=== PATIENT | male | born 1965 | race Caucasian/White ===

== ENCOUNTER 2018-02-08 14:49 | Emergency (ER) | payer OTHER ==
[~2018-02-08] VITALS: Ht 185.4 cm; Wt 112.5 kg
[2018-02-08 15:41] LABS: BASOPHILS % (AUTO) 0 % (0-10); EOSINOPHILS # (AUTO) 0.3 10^3/uL (0.0-0.3); EOSINOPHILS % (AUTO) 2 % (0-10); HEMATOCRIT 47 % (40-54); HEMOGLOBIN 16.1 G/DL (13.3-17.7); LYMPHOCYTES # (AUTO) 2.3 X 10^3 (1.0-4.0); LYMPHOCYTES % (AUTO) 18 % (12-44); MEAN CORPUSCULAR HEMOGLOBIN 31 PG (25-34); MEAN CORPUSCULAR HGB CONC 35 G/DL (32-36); MEAN CORPUSCULAR VOLUME 89 FL (80-99); MEAN PLATELET VOLUME 10.9 FL (7.4-10.4); MONOCYTES % (AUTO) 8 % (0-12); NEUTROPHILS # (AUTO) 8.8 X 10^3 (1.8-7.8); NEUTROPHILS % (AUTO) 71 % (42-75); PLATELET COUNT 251 10^3/uL (130-400); RED BLOOD COUNT 5.25 10^6/uL (4.35-5.85); RED CELL DISTRIBUTION WIDTH 12.8 % (10.0-14.5); WHITE BLOOD COUNT 12.4 10^3/uL (4.3-11.0)
--- NOTE | 2018-02-08 15:46 | ED Chest Pain ---
General Chief Complaint: Back Problems Stated Complaint: RIB PAIN,BACK PAIN, Nursing Triage Note: Patient presents to ED with complaints of upper and middle left sided back pain that began 3 days ago. Patient also complains of left rib pain. Pain increases with palpation, taking a deep breath and movement. Patient has had difficulty walking due to the pain. He descibes the pain as sharp and intermittent. Nursing Sepsis Screen: No Definite Risk Source: patient Exam Limitations: no limitations History of Present Illness Date Seen by Provider: Feb 08, 2018 Time Seen by Provider: 15:11 Initial Comments This 52-year-old gentleman presents to the emergency room with complaints of pain in his left mid and upper back radiating through to the chest. It is particularly painful to cough and take deep breaths. He has had this pain for about a week. He has been to the [facility] clinic twice for this pain. He has been given Toradol and steroid injections without significant relief. He last took ibuprofen early this morning. He denies any significant relief with any medications. He has had some cough and some sweats but no fever. He has history of coronary artery disease as well. He reports a prior IN with unusual atypical presentation. Allergies and Home Medications Allergies Coded Allergies: aspartame (Verified Allergy, Unknown, 02/08/18) Home Medications Cyclobenzaprine HCl 10 Mg Tablet, 10 MG PO TID PRN for SPASMS Prescribed by: TRAE MAJANO on 02/08/181821 Hydrocodone/Acetaminophen 1 Each Tablet, 1 EACH PO Q6H PRN for PAIN-MODERATE TO SEVERE Prescribed by: TRAE MAJANO on 02/08/181821 Prednisone 20 Mg Tab, 20 MG PO UD Take 2 tablets daily for 3 days then one tablet daily for 3 days Prescribed by: TRAE MAJANO on 02/08/181821 Patient Home Medication List Home Medication List Reviewed: Yes Review of Systems Review of Systems Constitutional: no symptoms reported EENTM: No Symptoms Reported Respiratory: See HPI Cardiovascular: See HPI Gastrointestinal: No Symptoms Reported Genitourinary: No Symptoms Reported Musculoskeletal: see HPI Skin: no symptoms reported Psychiatric/Neurological: No Symptoms Reported Endocrine: No Symptoms Reported Hematologic/Lymphatic: No Symptoms Reported Past Eqhpbbd-Ybyagf-Nemmat Hx Past Med/Social Hx: Reviewed and Corrections made Patient Social History Alcohol Use: Rarely Uses Recreational Drug Use: No Smoking Status: Never a Smoker 2nd Hand Smoke Exposure: No Recent Foreign Travel: No Contact w/Someone Who Travel: No Recent Infectious Disease Expo: No Recent Hopitalizations: No Physical Abuse: No Sexual Abuse: No Seasonal Allergies Seasonal Allergies: No Past Medical History Surgeries: Yes (surgical procedure to decrease acid reflux, hiatal hernia) Bowel Surgery, Coronary Stent, Orthopedic Respiratory: No Cardiac: Yes (coronary stents x 3) Coronary Artery Disease, Heart Attack Neurological: Yes TIA Genitourinary: No Gastrointestinal: Yes (colon resection due to diverticulitis) Gastroesophageal Reflux, Diverticulosis, Hiatal Hernia Musculoskeletal: Yes (left shoulder and elbow surgery, bilateral carpal tunnel surgery, right elb) Endocrine: Yes Diabetes, Non-Insulin dep HEENT: No Cancer: No Psychosocial: No Nursing Suicide Risk Score: 0 Integumentary: No Blood Disorders: No Physical Exam Vital Signs Vital Signs - First Documented 02/08/18 02/08/18 14:51 16:54 Temp 98.1 Pulse 96 Resp 18 B/P (MAP) 127/91 (103) Pulse Ox 94 O2 Delivery Room Air Capillary Refill : Less Than 3 Seconds Height, Weight, BMI Height: 6'1.00" Weight: 248lbs. oz. 112.402481wj; BMI Method:Stated General Appearance: WD/WN, Moderate Distress HEENT: PERRL/EOMI, Normal ENT Inspection Neck: Normal Inspection Respiratory: Lungs Clear, Normal Breath Sounds, No Accessory Muscle Use, No Respiratory Distress, Other (mild tenderness to palpation of the anterior and posterior chest wall on the left) Cardiovascular: Regular Rate, Rhythm, No Murmur, Normal Peripheral Pulses Gastrointestinal: Normal Bowel Sounds, Non Tender, Soft Extremity: Normal Inspection, Non Tender, No Calf Tenderness, No Pedal Edema, Other (negative Shira) Neurologic/Psychiatric: Alert, Oriented x3, No Motor/Sensory Deficits, Normal 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, 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 as Tested Skin: Normal Color, Warm/Dry; No Rash Progress/Results/Core Measures Results/Orders Lab Results Laboratory Tests Test 02/08/18 15:31 Range/Units White Blood Count 12.4 H 4.3-11.0 10^3/uL Red Blood Count 5.25 4.35-5.85 10^6/uL Hemoglobin 16.1 13.3-17.7 G/DL Hematocrit 47 40-54 % Mean Corpuscular Volume 89 80-99 FL Mean Corpuscular Hemoglobin 31 25-34 PG Mean Corpuscular Hemoglobin Concent 35 32-36 G/DL Red Cell Distribution Width 12.8 10.0-14.5 % Platelet Count 251 130-400 10^3/uL Mean Platelet Volume 10.9 H 7.4-10.4 FL Neutrophils (%) (Auto) 71 42-75 % Lymphocytes (%) (Auto) 18 12-44 % Monocytes (%) (Auto) 8 0-12 % Eosinophils (%) (Auto) 2 0-10 % Basophils (%) (Auto) 0 0-10 % Neutrophils # (Auto) 8.8 H 1.8-7.8 X 10^3 Lymphocytes # (Auto) 2.3 1.0-4.0 X 10^3 Monocytes # (Auto) 1.0 0.0-1.0 X 10^3 Eosinophils # (Auto) 0.3 0.0-0.3 10^3/uL Basophils # (Auto) 0.0 0.0-0.1 10^3/uL Prothrombin Time 13.5 12.2-14.7 SEC INR Comment 1.0 0.8-1.4 Activated Partial Thromboplast Time 32 24-35 SEC D-Dimer 0.39 0.00-0.49 UG/ML Sodium Level 139 135-145 MMOL/L Potassium Level 4.1 3.6-5.0 MMOL/L Chloride Level 105 98-107 MMOL/L Carbon Dioxide Level 23 21-32 MMOL/L Anion Gap 11 5-14 MMOL/L Blood Urea Nitrogen 19 H 7-18 MG/DL Creatinine 0.94 0.60-1.30 MG/DL Estimat Glomerular Filtration Rate > 60 BUN/Creatinine Ratio 20 Glucose Level 232 H 70-105 MG/DL Calcium Level 9.9 8.5-10.1 MG/DL Corrected Calcium 9.7 8.5-10.1 MG/DL Magnesium Level 2.0 1.8-2.4 MG/DL Total Bilirubin 0.4 0.1-1.0 MG/DL Aspartate Amino Transf (AST/SGOT) 17 5-34 U/L Alanine Aminotransferase (ALT/SGPT) 17 0-55 U/L Alkaline Phosphatase 80 40-136 U/L Myoglobin 42.2 10.0-92.0 NG/ML Troponin I < 0.30 <0.30 NG/ML C-Reactive Protein High Sensitivity 1.57 H 0.00-0.50 MG/DL Total Protein 7.5 6.4-8.2 GM/DL Albumin 4.2 3.2-4.5 GM/DL Lipase 24 8-78 U/L My Orders Orders - TRAE MONREAL MD Cbc With Automated Diff (02/08/18 15:22) Magnesium (02/08/18 15:22) Ekg Tracing (02/08/18 15:22) Cardiac Profile 1 (02/08/18 15:22) Comprehensive Metabolic Panel (02/08/18:) Myoglobin Serum (02/08/18:22) Protime With Inr (02/08/18:) Partial Thromboplastin Time (02/08/18:22) O2 (02/08/18 15:22) Monitor-Rhythm Ecg Trace Only (02/08/18 15:22) Saline Lock/Iv-Start (02/08/18 15:22) Lipase (02/08/18 15:22) Fibrin Degradation Products (02/08/18 15:22) Chest Pa/Lat (2 View) (02/08/18 15:34) Hs C Reactive Protein (02/08/18 15:47) Fentanyl Injection (Sublimaze Injection (02/08/18 16:30) Let Solution (Let Solution) (02/08/18 17:00) Lidocaine 1% Inj 20 Ml (Xylocaine 1% Inj (02/08/18 17:00) Ct Angio Chest W (02/08/18 17:07) Iohexol Injection (Omnipaque 350 Mg/Ml 1 (02/08/18 17:15) Sodium Chloride Flush (Catheter Flush Sy (02/08/18 17:15) Ns (Ivpb) (Sodium Chloride 0.9%) (02/08/18 17:15) Pharmacy Communication (Pharmacy Communi (02/08/18 17:11) Ketorolac Injection (Toradol Injection) (02/08/18 18:15) Hydrocodone/Apap 5/325 Tablet (Lortab 5 (02/08/18 18:15) Orphenadrine Injection (Norflex Injectio (02/08/18 18:30) Medications Given in ED Vital Signs/I&O 02/08/18 02/08/18 02/08/18 14:51 16:54 18:38 Temp 98.1 97.1 Pulse 96 88 78 Resp 18 16 16 B/P (MAP) 127/91 (103) 130/96 (107) 138/96 Pulse Ox 94 95 O2 Delivery Room Air Room Air Blood Pressure Mean: 103 Progress Progress Note : Progress Note Chest pain workup was pursued. EKG, troponin, and chest x-ray revealed no obvious etiology for the pain. Further workup was pursued with CT angiogram of the chest after discussion of risks and benefits with the patient. Because of the unusual nature of the pain radiating from the chest through to the back, there was concern for possible aortic dissection. CT also revealed no obvious etiology for the patient's pain. Patient was treated with fentanyl, Toradol, Norflex, and hydrocodone for his pain. Leukocytosis is likely due to recent steroid use. CRP was not significantly elevated. Initial ECG Impression Date: Feb 08, 2018 Initial ECG Impression Time: 15:53 Initial ECG Rate: 93 Initial ECG Rhythm: Normal Sinus Comment Sinus rhythm with no ST elevation or depression. No abnormal intervals or axis deviation. Diagnostic Imaging Diagonstic Imaging: Xray Plain Films/CT/US/NM/MRI: chest Comments Chest x-ray viewed by me and report reviewed. See report below: NAME: AUGUSTINE MONTERROSO [facility] REC#: [id number] PT STATUS: DEP ER : 1965 PHYSICIAN: TRAE MONREAL MD ADMIT DATE: 02/08/18/ER Signed Date of Exam: 02/08/18 CHEST PA/LAT (2 VIEW) EXAMINATION: PA and Lateral chest at 04:56 p.m. INDICATION: Chest pain. There are no prior studies available for comparison. FINDINGS: The heart size is within normal limits. There are crowded bronchovascular markings in the left infrahilar region; however, there is no evidence for failure or pneumonia and there is no pleural effusion identified. The mediastinum is not widened. The osseous structures are intact. IMPRESSION: There is no evidence for an acute cardiopulmonary abnormality. Dictated by: Dictated on workstation # [id number] Dict: 02/08/18 1645 Trans: 02/08/182030 Interpreted by: GERBER KIRAN MD Electronically signed by: GERBER KIRAN MD 02/08/182030 Diagonstic Imaging: CT Plain Films/CT/US/NM/MRI: chest Comments CT angiogram chest viewed by me and report reviewed. See report below: NAME: AUGUSTINE MONTERROSO [facility] REC#: [id number] PT STATUS: DEP ER : 1965 PHYSICIAN: TRAE MONREAL MD ADMIT DATE: 02/08/18/ER Signed Date of Exam: 02/08/18 CT ANGIO CHEST W PROCEDURE: CT angiography of the chest with contrast. TECHNIQUE: Multiple contiguous axial images were obtained through the chest after uneventful bolus administration of intravenous contrast. Reconstructed CTA MIP acquisitions were also performed. INDICATION: Left chest and back pain. FINDINGS: The aorta appears normal. There are no pulmonary emboli. There is some patchy atelectasis at both lung bases. There are no effusions or pneumothoraces. There is no hilar or mediastinal lymphadenopathy. IMPRESSION: Patchy atelectasis at both lung bases. No acute abnormality is seen in the chest. Dictated by: Dictated on workstation # [id number] Dict: 02/08/18 174 Trans: 02/08/181850 Interpreted by: USHA GARY MD Electronically signed by: USHA GARY MD 02/08/181850 Departure Impression Primary Impression: Atypical chest pain Additional Impression: Upper back pain Disposition: 01 HOME, SELF-CARE Condition: Improved Departure-Patient Inst. Decision time for Depature: 18:15 Referrals: NO,LOCAL PHYSICIAN (PCP/Family) Primary Care Physician Patient Instructions: Upper Back Pain (DC) Add. Discharge Instructions: You may continue taking ibuprofen for primary pain management up to 600 mg every 6 hours as needed. Take hydrocodone as prescribed for pain not controlled by ibuprofen. Follow-up with your primary care provider as soon as possible. You may take cyclobenzaprine as prescribed for muscle spasms. Complete the steroid taper as prescribed. Return to emergency room if symptoms are worsening despite treatment. All discharge instructions reviewed with patient and/or family. Voiced understanding. Scripts Hydrocodone/Acetaminophen (Hydrocodone-Acetamin 5-325 mg) 1 Each Tablet 1 EACH PO Q6H PRN for PAIN-MODERATE TO SEVERE, #10 TAB Prov: TRAE MONREAL MD 02/08/18 Prednisone (Prednisone) 20 Mg Tab 20 MG PO UD, #9 TAB Take 2 tablets daily for 3 days then one tablet daily for 3 days Prov: TRAE MONREAL MD 02/08/18 Cyclobenzaprine HCl (Cyclobenzaprine HCl) 10 Mg Tablet 10 MG PO TID PRN for SPASMS, #10 TAB Prov: TRAE MONREAL MD 02/08/18 TRAE MONREAL MD Feb 08, 2018 15:46
[2018-02-08 15:51] LABS: PROTHROMBIN TIME PATIENT 13.5 SEC (12.2-14.7)
[2018-02-08 15:59] LABS: BUN/CREATININE RATIO 20; CARBON DIOXIDE 23 MMOL/L (21-32); CHLORIDE 105 MMOL/L (98-107); CREATININE SERUM 0.94 MG/DL (0.60-1.30); POTASSIUM 4.1 MMOL/L (3.6-5.0); SODIUM 139 MMOL/L (135-145)
[2018-02-08 16:00] LABS: ALANINE AMINOTRANSFERASE 17 U/L (0-55); ALBUMIN 4.2 GM/DL (3.2-4.5); ALKALINE PHOSPHATASE 80 U/L (40-136); BILIRUBIN,TOTAL 0.4 MG/DL (0.1-1.0); CALCIUM 9.9 MG/DL (8.5-10.1); GFR ESTIMATED > 60; GLUCOSE 232 MG/DL (70-105); LIPASE 24 U/L (8-78); TOTAL PROTEIN 7.5 GM/DL (6.4-8.2)
[2018-02-08 16:05] LABS: MYOGLOBIN SERUM 42.2 NG/ML (10.0-92.0)
[2018-02-08] MEDS: fentaNYL INJECTION 100 MCG/2 ML AMP IVP ONE (16:27)
--- NOTE | 2018-02-08 16:52 | Diagnostic Imaging Report ---
EXAMINATION: PA and Lateral chest at 04:56 p.m. INDICATION: Chest pain. There are no prior studies available for comparison. FINDINGS: The heart size is within normal limits. There are crowded bronchovascular markings in the left infrahilar region; however, there is no evidence for failure or pneumonia and there is no pleural effusion identified. The mediastinum is not widened. The osseous structures are intact. IMPRESSION: There is no evidence for an acute cardiopulmonary abnormality. Dictated by: Dictated on workstation # [id number]
[2018-02-08 16:54] VITALS: BP 130/96
[2018-02-08] MEDS ORDERED: LIDOCAINE 1% INJ 20 ML 20 ML VIAL INJ ONE (17:00)
[2018-02-08] MEDS ORDERED: L.E.T. SYRINGE 5 ML TOP ONE (17:00)
[2018-02-08] MEDS: CATHETER FLUSH 10 ML SYR IV PRN (17:36)
[2018-02-08] MEDS: NS 250 ML (IVPB) BAG IV ONE (17:36)
[2018-02-08] MEDS: IOHEXOL 350 MG/ML 150 ML (OMNIPAQUE 350) VIAL IV ONE (17:36)
--- NOTE | 2018-02-08 17:46 | Diagnostic Imaging Report ---
PROCEDURE: CT angiography of the chest with contrast. TECHNIQUE: Multiple contiguous axial images were obtained through the chest after uneventful bolus administration of intravenous contrast. Reconstructed CTA MIP acquisitions were also performed. INDICATION: Left chest and back pain. FINDINGS: The aorta appears normal. There are no pulmonary emboli. There is some patchy atelectasis at both lung bases. There are no effusions or pneumothoraces. There is no hilar or mediastinal lymphadenopathy. IMPRESSION: Patchy atelectasis at both lung bases. No acute abnormality is seen in the chest. Dictated by: Dictated on workstation # [id number]
--- OUTSIDE RECORDS SUMMARY | 2018-02-08 17:52 | XMS REPORT ---
Author Author Dayne Senior Organization [facility] Address [address] [place], [place] [id number] Care Team Providers Care Bench Lay Out Technician Name Role Phone Dayne Senior PCP Allergies and Adverse Reactions Name Reaction Notes NutraSweet migraines Latex skin irritation Plan of Treatment Not available. Medications Active Name Start Date Estimated Completion Date SIG Comments Plavix 75 mg oral tablet take 1 tablet (75 mg) by oral route once daily aspirin 325 mg oral tablet take 1 tablet (325 mg) by oral route once daily Problem List Not available. Vital Signs Date Time BP-Sys(mm[Hg] BP-Kellen(mm[Hg]) HR(bpm) RR(rpm) Temp WT HT HC BMI BSA BMI Percentile O2 Sat(%) 07/10/2017 8:57:00 AM 140 mmHg 90 mmHg 87 bpm 96.6 F 245 lbs 98 % 05/29/2017 3:34:00 PM 150 mmHg 90 mmHg 85 bpm 97.3 F 246 lbs 73 in 32.46 kg/m2 2.40 m2 98 % Social History Name Description Comments Alcohol Use - Rare Tobacco Never smoker History of Procedures Date Ordered Description Order Status 05/29/2017 12:00 AM NRV CNDJ TEST 9-10 STUDIES Reviewed 05/29/2017 12:00 AM MUSC TEST DONE W/N TEST COMP Reviewed 07/10/2017 12:00 AM NRV CNDJ TEST 9-10 STUDIES Reviewed 07/10/2017 12:00 AM MUSC TEST DONE W/N TEST COMP Reviewed Results Summary Not available. History Of Immunizations Not available. History of Past Illness Name Date of Onset Comments Sciatic nerve lesion, left May 29 2017 3:40PM Sciatic nerve lesion, right May 29 2017 3:40PM Peripheral neuropathy Jul 10 2017 9:00AM Disorder of peripheral nervous system Jul 10 2017 9:00AM Payers Insurance Name Company Name Plan Name Plan Number Policy Number Policy Group Number Start Date [facility] [id number] N/A History of Encounters Visit Date Visit Type Provider 07/10/2017 Procedures Dayne Senior DO 05/29/2017 Procedures Dayne Senior DO
--- OUTSIDE RECORDS SUMMARY | 2018-02-08 17:52 | XMS REPORT | Continuity of Care Document ---
Author Author [facility] Organization [facility] Address [facility] [address] [place] [address] Phone Unavailable Support Name Relationship Address Phone KELIN COSTELLO LEO Caregiver [address] [place] [address] VIKRAM PENDLETON MD Caregiver [address] [place] [address] Unavailable KULDEEP SHAFER MD Caregiver [address] [place] [address] 09[address] Unavailable TRAE BALDERAS MD Caregiver [address] [place] [address] RANJEET MÁRQUEZ Next Of Kin [address] [place], [place] [address] Insurance Providers Guarantor YulisaAugustine W Address [address] [place] [address] Email [email or web address] Policy Number [id number] Subscriber's Name Augustine Márquez Relationship 18 Self / Same As Patient Advance Directives Directive Response Recorded Date/Time Do you have an Advanced Directive? No 02/13/00 4:52am Advance Directives No 09/02/17 3:42pm Living Will No 09/02/17 3:42pm Health Care Proxy No 09/02/17 3:42pm Power of Security Guard Dispatcher for Health Care No 09/02/17 3:42pm Organ, Tissue, or Eye Donor Yes 09/02/17 3:42pm Do you have a signed organ donor card? Yes 08/15/16 10:04am Problems Medical Problem Onset Date Status Acute postoperative pain of left foot Unknown Acute Cervical radiculopathy Unknown Acute Chest pain Unknown Acute Coronary artery disease Unknown Acute Hyperglycemia Unknown Acute Lumbosacral strain Unknown Acute Right lumbar pain Unknown Acute Right shoulder injury Unknown Acute Unspecified abdominal pain Unknown Acute Past Problems Medical Problem Onset Date Status Bronchitis Unknown Acute Medications Current Home Medications Medication Dose Units Route Directions Days Qty Instructions Start Date Aspirin (Aspirin 325 Mg Enteric Coated*) 325 Mg Tablet. 325 Mg ORAL Daily for Heart Health 30 Tablet Clopidogrel Bisulfate (Plavix 75 Mg*) 75 Mg Tablet 75 Mg ORAL Daily 30 Tablet Nitroglycerin (Nitrostat*) 0.4 Mg Tab.subl 0.4 Mg SUBLINGUAL As Needed For Chest Pain Pravastatin Sodium (Pravachol 20 Mg Tab*) 20 Mg Tablet 20 Mg ORAL Daily 30 Tablet 09/03/17 Past Home Medications Medication Directions Ordered Status Acetaminophen/Hydrocodone Bitart ([place] 5-325 Tab*) 1 Tab Tablet, 1 Each Oral Every 4-6 Hrs As Needed Pain 09/08/15 Discontinued Allopurinol (Allopurinol 300 Mg Tab*) 300 Mg Tablet, 300 Mg Oral Daily As Needed as needed for Gout Pain Discontinued Azithromycin (Z-Lev*) 250 Mg Tablet, 250 Mg Oral Daily 03/19/17 Discontinued Benzonatate (Tessalon Perles*) 100 Mg Cap, 100 Mg Oral Three Times Daily As Needed as needed for Cough 03/19/17 Discontinued Chlorzoxazone (Parafon Forte Dsc) 500 Mg Tablet, 500 Mg Oral Three Times A Day as needed for Pain 09/08/15 Discontinued Ciprofloxacin Hcl (Cipro 500 Mg Tab*) 500 Mg Tablet, 500 Mg Oral Twice A Day 10/09/16 Discontinued Clindamycin Hcl (Cleocin Hcl) 300 Mg Capsule, 300 Mg Oral Four Times Daily Discontinued Cyclobenzaprine Hcl (Cyclobenzaprine Hcl*) 10 Mg Tablet, 10 Mg Oral Twice A Day 12/28/16 Discontinued Docusate Sodium (Colace 100 Mg Cap*) 100 Mg Capsule, 100 Mg Oral Daily As Needed Discontinued Fenofibrate , 135 Mg Oral Daily Discontinued Fenofibrate 150 Mg Capsule, 150 Mg Oral Daily Discontinued Ferrous Gluconate (Iron) 256 Mg Tablet, 256 Mg Oral Daily As Needed for Supplement Discontinued Gabapentin (Neurontin 300 Mg Cap*) 300 Mg Capsule, 300 Mg Oral Bedtime Discontinued Lactobacillus Acidophilus (Probiotic) 1 Each Capsule, 1 Each Oral Daily as needed for Colon Health Discontinued Lisinopril (Prinivil 10 Mg Tab*) 10 Mg Tablet, 10 Mg Oral Daily for Hypertension Discontinued Magnesium Oxide (Magnesium*) 400 Mg Capsule, 400 Mg Oral As Needed for Supplement Discontinued Meloxicam (Mobic 7.6 Mg Tab*) 7.5 Mg Tablet, 7.5 Mg Oral Daily 11/27/16 Discontinued Meloxicam (Mobic 7.6 Mg Tab*) 7.5 Mg Tablet, 7.5 Mg Oral Daily 12/28/16 Discontinued Methocarbamol (Robaxin-750*) 750 Mg Tablet, 750 Mg Oral Every 6 Hours as needed for Muscle Spasms 11/27/16 Discontinued Methylprednisolone (Medrol Dose Pack 4 Mg*) 4 Mg Dspk, 4 Mg Oral As Directed 09/08/15 Discontinued Nitroglycerin (Nitrostat*) 0.4 Mg Tab.subl, 0.4 Mg Sublingual Every 5 Minutes X 3 as needed for Chest Pain Discontinued Nitroglycerin (Nitro Patch .2mg/Hr*) 1 Patch Patch, 1 Patch Transdermal Daily Discontinued [place]-3/Dha/Epa/Fish Oil (Fish Oil 1,000 Mg Softgel) 1 Each Capsule, 1 Each Oral Daily for Supplement Discontinued Oxycodone Hcl/Acetaminophen (Percocet 5-325 Mg Tablet) 1 Each Tablet, 5-325 Mg Oral Every 4-6 Hours As Needed Discontinued Oxycodone Hcl/Acetaminophen* (Percocet 5-325 Mg Tablet*) 1 Tab Tablet, 1-2 Ea Oral Every 4-6 Hrs As Needed Pain Discontinued Potassium Chloride (K-Dur 20 Meq*) 20 Meq Tab.prt.sr, 20 Meq Oral Daily As Needed Discontinued Potassium Chloride (Potassium Chloride*) 40 Meq/15 Ml Liquid, 20 Meq Oral As Needed Discontinued Sertraline Hcl (Zoloft 50 Mg Tab*) 50 Mg Tablet, 50 Mg Oral Daily Discontinued Tramadol Hcl (Ultram 50 Mg Tab*) 50 Mg Tablet, 50 Mg Oral As Needed Discontinued Tramadol Hcl (Ultram 50 Mg Tab*) 50 Mg Tablet, 50 Mg Oral Every 4-6 Hours Discontinued Tramadol Hcl 50 Mg Tablet , Discontinued Social History Social History Problem Response Recorded Date/Time Onset Date Status Smoking Status Never smoker 09/02/2017 3:42pm Not Applicable Not Applicable Tobacco Use Denies Use 12/27/2016 10:57pm Not Applicable Not Applicable Smoking Status Start Date Stop Date Never smoker Hospital Discharge Instructions No hospital discharge instruction information available. Plan of Care Discharge Date 09/03/17 12:36pm Disposition 01 HOME, INTERMEDIATE,ASSISTED LIVING Instructions/Education Provided Transient Ischemic Attack (DC) Prescriptions See Medication Section Functional Status Query Response Date Recorded Braydon Coma Scale Total 15 September 02, 2017 7:34pm Patient Behavior Appropriate September 02, 2017 7:34pm Allergies, Adverse Reactions, Alerts Allergen Type Severity Reaction Status Last Updated Aspartame Allergy Severe HEADAHCE NAUSEA Active 11/27/16 Immunizations Query Response on File Recorded Date/Time Hx Diphtheria, Pertussis, Tetanus Vaccination Up To Date 09/02/17 12:24pm Hx Influenza Vaccination No 09/02/17 3:42pm Hx Pneumococcal Vaccination No 09/02/17 3:42pm Hx Tetanus, Diphtheria Vaccination Y - <5 YEARS 09/02/17 12:24pm Vital Signs Acute Vital Signs Vital Response Date/Time Temperature (Fahrenheit) 97.2 degrees F (97.6 - 99.5) 09/03/2017 11:07am Temperature Source Temporal Artery 09/03/2017 11:07am Pulse Rate (adult) 73 bpm (60 - 90) 09/03/2017 11:07am Respiratory Rate 16 bpm (12 - 24) 09/03/2017 11:07am Blood Pressure 121/81 mm Hg 09/03/2017 11:07am O2 Sat by Pulse Oximetry 96 % (90 - 100) 09/03/2017 11:07am Oxygen Delivery Method Room Air 09/02/2017 2:54pm Height 6 ft 1 in 09/02/2017 3:32pm Weight 244.27 lb 09/02/2017 3:32pm Body Mass Index 32.0 kg/m^2 09/02/2017 3:32pm Results Laboratory Results Test Name Result Units Flags Reference Collection Date/Time Result Date/ Time Comments White Blood Count 8.9 K/uL 4.8-10.8 09/02/2017 1:12pm 09/02/2017 1: 38pm Red Blood Count 5.25 M/uL 4.70-6.10 09/02/2017 1:12pm 09/02/2017 1: 38pm Hemoglobin 16.3 gm/dL 14.0-18.0 09/02/2017 1:12pm 09/02/2017 1:38pm Hematocrit 49.9 % 42.0-52.0 09/02/2017 1:12pm 09/02/2017 1:38pm Mean Corpuscular Volume 95.0 fL 80.0-96.1 09/02/2017 1:09/02/2017 1:38pm Mean Corpuscular Hemoglobin 31.0 pg 27.0-31.0 09/02/2017 1:2017 1:38pm Mean Corpuscular Hemoglobin Concent 32.6 g/dL 30.0-37.0 09/02/2017 1: 09/02/2017 1:38pm Red Cell Distribution Width 13.6 % 11.5-14.5 09/02/2017 1:2017 1:38pm Platelet Count 219 K/uL 130-400 09/02/2017 1:09/02/2017 1:38pm Mean Platelet Volume 8.8 fL 7.4-10.4 09/02/2017 1:09/02/2017 1: 38pm Neutrophils (%) (Auto) 56.9 % 42.2-75.2 09/02/2017 1:09/02/2017 1: 38pm Lymphocytes (%) (Auto) 30.8 % 20.5-51.1 09/02/2017 1:09/02/2017 1: 38pm Monocytes (%) (Auto) 5.6 % 0-10 09/02/2017 1:09/02/2017 1:38pm Eosinophils (%) (Auto) 4.7 % H 0-3 09/02/2017 1:09/02/2017 1:38pm Basophils (%) (Auto) 2.0 % H 0.0-1.0 09/02/2017 1:09/02/2017 1: 38pm Neutrophils # (Auto) 5.1 K/uL 2.0-6.9 09/02/2017 1:09/02/2017 1: 38pm Lymphocytes # (Auto) 2.7 K/uL 1.2-3.4 09/02/2017 1:09/02/2017 1: 38pm Monocytes # (Auto) 0.5 K/uL 0.1-0.6 09/02/2017 1:09/02/2017 1: 38pm Eosinophils # (Auto) 0.4 K/uL 0.0-0.7 09/02/2017 1:09/02/2017 1: 38pm Basophils # (Auto) 0.2 K/uL 0.0-0.2 09/02/2017 1:09/02/2017 1: 38pm Prothrombin Time 10.6 SECONDS 9.10-11.20 09/02/2017 1:09/02/2017 1 :58pm Prothromb Time International Ratio 1.03 0.9-1.1 09/02/2017 1: 1:58pm PLEASE NOTE REFERENCE RANGE Random Glucose 134 mg/dL H 70-110 09/02/2017 1:09/02/2017 1:58pm Blood Urea Nitrogen 15 mg/dL 7-18 09/02/2017 1:09/02/2017 1:58pm Creatinine 1.1 mg/dL 0.70-1.30 09/02/2017 1:09/02/2017 1:58pm Glomerular Filtration Rate Calc 70.0 mL/min 09/02/2017 1:2017 1:58pm Sodium Level 142 mEq/L 136-145 09/02/2017 1:09/02/2017 1:58pm Potassium Level 4.1 mEq/L 3.5-5.0 09/02/2017 1:09/02/2017 1:58pm Chloride Level 106 mEq/L 98-107 09/02/2017 1:09/02/2017 1:58pm Carbon Dioxide Level 26.7 mEq/L 21-32 09/02/2017 1:09/02/2017 1: 58pm Calcium Level 8.8 mg/dL 8.8-10.5 09/02/2017 1:09/02/2017 1:58pm Cholesterol Level 190 mg/dL 120-200 09/02/2017 1:09/02/2017 5: 41pm Triglycerides Level 238 mg/dL H 30-200 09/02/2017 1:09/02/2017 5: 41pm HDL Cholesterol 29 mg/dL L 35-60 09/02/2017 1:09/02/2017 5:41pm LDL Cholesterol 113 mg/dL 0-130 09/02/2017 1:09/02/2017 5:41pm Hemoglobin A1c 6.2 % H 4.8-6.0 09/02/2017 5:12pm 09/02/2017 5:41pm Procedures Procedure Status Date Provider(s) Computed tomography of head without contrast Completed 09/02/17 VIKRAM PENDLETON MD Portable x-ray of chest Completed 09/02/17 VIKRAM PENDLETON MD Encounters Encounter Location Arrival/Admit Date Discharge/Depart Date Attending Provider Discharged Inpatient [place] 09/02/17 2:23pm 09/03/17 12:36pm KULDEEP SHAFER MD
--- OUTSIDE RECORDS SUMMARY | 2018-02-08 17:52 | XMS REPORT | Continuity of Care Document ---
Author Author [facility] Organization [facility] Address [facility] [address] [place] [address] Phone Unavailable Support Name Relationship Address Phone PRAVINKELIN PERES LEO Caregiver [address] [place] [address] [phone] VIKRAM CISNEROS MD Caregiver [address] [place] [address] Unavailable YULISA RANJEET Next Of Kin [address] [place] [address] Insurance Providers Guarantor YulisaAnnalisaAugustine W Address [address] [place] [address] Email [email or web address] Payer [facility] Policy Number [id number] Subscriber's Name Augustine Márquez Relationship 18 Self / Same As Patient Advance Directives Directive Response Recorded Date/Time Do you have an Advanced Directive? No 02/13/00 4:52am Advance Directives No 09/29/16 10:16am Living Will No 09/29/16 10:16am Health Care Proxy No 03/19/17 1:41pm Power of Edger Operator for Health Care No 09/29/16 10:16am Organ, Tissue, or Eye Donor Yes 09/29/16 10:16am Do you have a signed organ donor card? Yes 08/15/16 10:04am Chief Complaint and Reason for Visit Chief Complaint CHEST PAIN Reason for Visit Bronchitis Problems Medical Problem Onset Date Status Acute [...] ORAL Daily for Heart Health 30 Tablet Azithromycin (Z-Lev*) 250 Mg Tablet 250 Mg ORAL Daily 6 Tablet Take two tablets by mouth the first day and one tablet each day for the second through fifth day. 03/19/17 Benzonatate (Tessalon Perles*) 100 Mg Cap 100 Mg ORAL Three Times Daily As Needed as needed for Cough 30 Cap as needed for cough. 03/19/17 Clopidogrel Bisulfate (Plavix 75 Mg*) 75 Mg Tablet 75 Mg ORAL Daily 30 Tablet Cyclobenzaprine Hcl (Cyclobenzaprine Hcl*) 10 Mg Tablet 10 Mg ORAL Twice A Day 15 Tablet 12/28/16 Fenofibrate 135 Mg ORAL Daily Lactobacillus Acidophilus (Probiotic) 1 Each Capsule 1 Each ORAL Daily as needed for Colon Health Meloxicam (Mobic 7.6 Mg Tab*) 7.5 Mg Tablet 7.5 Mg ORAL Daily 10 Tablet 11/27/16 Meloxicam (Mobic 7.6 Mg Tab*) 7.5 Mg Tablet 7.5 Mg ORAL Daily 5 Tablet 12/28/16 Methocarbamol (Robaxin-750*) 750 Mg Tablet 750 Mg ORAL Every 6 Hours as needed for Muscle Spasms 20 Tablet 11/27/16 Nitroglycerin (Nitrostat*) 0.4 Mg Tab.subl 0.4 Mg SUBLINGUAL As Needed For Chest Pain Oxycodone Hcl/Acetaminophen* (Percocet 5-325 Mg Tablet*) 1 Tab Tablet 1-2 Ea ORAL Every 4-6 Hrs As Needed Pain 15 Tablet Potassium Chloride (K-Dur 20 Meq*) 20 Meq Tab.prt.sr 20 Meq ORAL Daily As Needed Tramadol Hcl (Ultram 50 Mg Tab*) 50 Mg Tablet 50 Mg ORAL As Needed TOTAL 4TAB DAILY Tramadol Hcl (Ultram 50 Mg Tab*) 50 Mg Tablet 50 Mg ORAL Every 4-6 Hours 20 Tablet 11/27/16 Tramadol Hcl 50 Mg Tablet Past Home Medications Medication Directions Ordered Status Acetaminophen/Hydrocodone Bitart ([place] 5-325 Tab*) 1 Tab Tablet, 1 Each Oral Every 4-6 Hrs As Needed Pain 09/08/15 Discontinued Allopurinol (Allopurinol 300 Mg Tab*) 300 Mg Tablet, 300 Mg Oral Daily As Needed as needed for Gout Pain Discontinued Chlorzoxazone (Parafon Forte Dsc) 500 Mg Tablet, 500 Mg Oral Three Times A Day as needed for Pain 09/08/15 Discontinued Ciprofloxacin Hcl (Cipro 500 Mg Tab*) 500 Mg Tablet, 500 Mg Oral Twice A Day 10/09/16 Discontinued Clindamycin Hcl (Cleocin Hcl) 300 Mg Capsule, 300 Mg Oral Four Times Daily Discontinued Docusate Sodium (Colace 100 Mg Cap*) 100 Mg Capsule, 100 Mg Oral Daily As Needed Discontinued Fenofibrate 150 Mg Capsule, 150 Mg Oral Daily Discontinued Ferrous Gluconate (Iron) 256 Mg Tablet, 256 Mg Oral Daily As Needed for Supplement Discontinued Gabapentin (Neurontin 300 Mg Cap*) 300 Mg Capsule, 300 Mg Oral Bedtime Discontinued Lisinopril (Prinivil 10 Mg Tab*) 10 Mg Tablet, 10 Mg Oral Daily for Hypertension Discontinued Magnesium Oxide (Magnesium*) 400 Mg Capsule, 400 Mg Oral As Needed for Supplement Discontinued Methylprednisolone (Medrol Dose Pack 4 Mg*) 4 Mg Dspk, 4 Mg Oral As Directed 09/08/15 Discontinued Nitroglycerin (Nitrostat*) 0.4 Mg Tab.subl, 0.4 Mg Sublingual Every 5 Minutes X 3 as needed for Chest Pain Discontinued Nitroglycerin (Nitro Patch .2mg/Hr*) 1 Patch Patch, 1 Patch Transdermal Daily Discontinued [place]-3/Dha/Epa/Fish Oil (Fish Oil 1,000 Mg Softgel) 1 Each Capsule, 1 Each Oral Daily for Supplement Discontinued Oxycodone Hcl/Acetaminophen (Percocet 5-325 Mg Tablet) 1 Each Tablet, 5-325 Mg Oral Every 4-6 Hours As Needed Discontinued Potassium Chloride (Potassium Chloride*) 40 Meq/15 Ml Liquid, 20 Meq Oral As Needed Discontinued Sertraline Hcl (Zoloft 50 Mg Tab*) 50 Mg Tablet, 50 Mg Oral Daily Discontinued Social History Social History Problem Response Recorded Date/Time Onset Date Status Smoking Status Never smoker 10/07/2016 11:01am Not Applicable Not Applicable Tobacco Use Denies Use 12/27/2016 10:57pm Not Applicable Not Applicable Smoking Status Start Date Stop Date Never smoker Hospital Discharge Instructions No hospital discharge instruction information available. Plan of Care Discharge Date 03/19/17 4:05pm Disposition 01 HOME, CUSTODIAL,ASSISTED LIVING Condition at Discharge Stable Instructions/Education Provided Acute Bronchitis (ED) Prescriptions See Medication Section Referrals KELIN COSTELLO APRN Address: [address] [place] [address] [id number] Functional Status Query Response Date Recorded Patient Behavior Cooperative Appropriate March 19, 2017 1:39pm Allergies, Adverse Reactions, Alerts Allergen Type Severity Reaction Status Last Updated Aspartame Allergy Severe HEADAHCE NAUSEA Active 11/27/16 Immunizations Query Response on File Recorded Date/Time Hx Diphtheria, Pertussis, Tetanus Vaccination Up To Date 11/27/16 2:52pm Hx Influenza Vaccination No 03/19/17 1:39pm Hx Pneumococcal Vaccination No 03/19/17 1:39pm Hx Tetanus, Diphtheria Vaccination Y - <5 YEARS 05/14/14 8:27am Vital Signs Acute Vital Signs Vital Response Date/Time Temperature (Fahrenheit) 97.6 degrees F (97.6 - 99.5) 03/19/2017 3:37pm Temperature Source Temporal Artery 03/19/2017 3:37pm Pulse Rate (adult) 77 bpm (60 - 90) 03/19/2017 3:37pm Respiratory Rate 16 bpm (12 - 24) 03/19/2017 3:37pm Blood Pressure 123/88 mm Hg 03/19/2017 3:37pm O2 Sat by Pulse Oximetry 94 % (90 - 100) 03/19/2017 3:37pm Oxygen Delivery Method Room Air 03/19/2017 3:37pm Pain Intensity 2 01/13/2017 9:40am Pain Location Body Site Modifier Lower 03/01/2017 1:03pm Height 6 ft 1 in 03/19/2017 1:39pm Weight 235.50 lb 03/19/2017 1:39pm Body Mass Index 31.0 kg/m^2 03/19/2017 1:39pm Results Laboratory Results Test Name Result Units Flags Reference Collection Date/Time Result Date/ Time Comments Prothrombin Time 9.9 SECONDS 9.10-11.20 12/27/2016 11:04pm 12/27/2016 11:41pm Prothromb Time International Ratio 0.99 0.9-1.1 12/27/2016 11:04pm 11:41pm PLEASE NOTE REFERENCE RANGE Total Creatine Kinase 82 U/L 39-308 12/27/2016 11:04pm 12/27/2016 11: 33pm Urine Color YELLOW YELLOW 12/27/2016 11:00pm 12/27/2016 11:21pm Urine Appearance CLEAR CLEAR 12/27/2016 11:00pm 12/27/2016 11:21pm Urine Glucose (UA) NEGATIVE mg/dL NEGATIVE 12/27/2016 11:00pm 2016 11:21pm Urine Bilirubin NEGATIVE NEGATIVE 12/27/2016 11:00pm 12/27/2016 11: 21pm Urine Ketones NEGATIVE mg/dL NEGATIVE 12/27/2016 11:00pm 12/27/2016 11: 21pm Urine Specific [place] 1.020 1.010-1.025 12/27/2016 11:00pm 2016 11:21pm Urine Occult Blood NEGATIVE NEGATIVE 12/27/2016 11:00pm 12/27/2016 11 :21pm Urine pH 6.5 5.0-8.0 12/27/2016 11:00pm 12/27/2016 11:21pm Urine Protein NEGATIVE mg/dL NEGATIVE 12/27/2016 11:00pm 12/27/2016 11: 21pm Urine Urobilinogen 0.2 mg/dL E.U./dL 0.2-1.0 12/27/2016 11:00pm 2016 11:21pm Urine Nitrate NEGATIVE NEGATIVE 12/27/2016 11:00pm 12/27/2016 11: 21pm Urine Leukocyte Esterase NEGATIVE NEGATIVE 12/27/2016 11:00pm 2016 11:21pm Urine RBC NEGATIVE /hpf 0 12/27/2016 11:00pm 12/27/2016 11:28pm Urine WBC NEGATIVE /hpf 0-4 12/27/2016 11:00pm 12/27/2016 11:28pm Urine Squamous Epithelial Cells 0-1 /hpf H 0-1 12/27/2016 11:00pm 2016 11:28pm Urine Bacteria NEGATIVE NEGATIVE 12/27/2016 11:00pm 12/27/2016 11: 28pm White Blood Count 9.5 K/uL 4.8-10.8 03/19/2017 2:17pm 03/19/2017 2: 38pm Red Blood Count 5.43 M/uL 4.70-6.10 03/19/2017 2:17pm 03/19/2017 2: 38pm Hemoglobin 16.9 gm/dL 14.0-18.0 03/19/2017 2:17pm 03/19/2017 2:38pm Hematocrit 50.4 % 42.0-52.0 03/19/2017 2:17pm 03/19/2017 2:38pm Mean Corpuscular Volume 92.7 fL 80.0-96.1 03/19/2017 2:1703/19/2017 2:38pm Mean Corpuscular Hemoglobin 31.1 pg H 27.0-31.0 03/19/2017 2:2016 2:38pm Mean Corpuscular Hemoglobin Concent 33.5 g/dL 30.0-37.0 03/19/2017 2: 03/19/2017 2:38pm Red Cell Distribution Width 13.3 % 11.5-14.5 03/19/2017 2:172016 2:38pm Platelet Count 228 K/uL 130-400 03/19/2017 2:03/19/2017 2:38pm Mean Platelet Volume 9.9 fL 7.4-10.4 03/19/2017 2:1703/19/2017 2: 38pm Neutrophils (%) (Auto) 52.9 % 42.2-75.2 03/19/2017 2:03/19/2017 2: 38pm Lymphocytes (%) (Auto) 36.5 % 20.5-51.1 03/19/2017 2:03/19/2017 2: 38pm Monocytes (%) (Auto) 5.3 % 1.7-9.3 03/19/2017 2:03/19/2017 2:38pm Eosinophils (%) (Auto) 4.5 % H 0-3 03/19/2017 2:03/19/2017 2:38pm Basophils (%) (Auto) 0.8 % 0.0-1.0 03/19/2017 2:03/19/2017 2:38pm Neutrophils # (Auto) 5.1 K/uL 2.0-6.9 03/19/2017 2:03/19/2017 2: 38pm Lymphocytes # (Auto) 3.5 K/uL H 1.2-3.4 03/19/2017 2:03/19/2017 2: 38pm Monocytes # (Auto) 0.5 K/uL 0.1-0.6 03/19/2017 2:03/19/2017 2: 38pm Eosinophils # (Auto) 0.4 K/uL 0.0-0.7 03/19/2017 2:17pm 03/19/2017 2: 38pm Basophils # (Auto) 0.1 K/uL 0.0-0.2 03/19/2017 2:17pm 03/19/2017 2: 38pm Random Glucose 151 mg/dL H 70-110 03/19/2017 2:17pm 03/19/2017 3:06pm Blood Urea Nitrogen 13 mg/dL 7-18 03/19/2017 2:17pm 03/19/2017 3:06pm Creatinine 0.9 mg/dL 0.70-1.30 03/19/2017 2:17pm 03/19/2017 3:06pm Sodium Level 142 mEq/L 136-145 03/19/2017 2:03/19/2017 3:06pm Potassium Level 4.0 mEq/L 3.5-5.0 03/19/2017 2:pm 03/19/2017 3:06pm Chloride Level 107 mEq/L 98-107 03/19/2017 2:03/19/2017 3:06pm Carbon Dioxide Level 24.2 mEq/L 21-32 03/19/2017 2:03/19/2017 3: 06pm Calcium Level 9.3 mg/dL 8.8-10.5 03/19/2017 2:pm 03/19/2017 3:06pm Total Protein 7.1 gm/dL 6.4-8.2 03/19/2017 2:03/19/2017 3:06pm Albumin 3.5 gm/dL 3.4-5.0 03/19/2017 2:03/19/2017 3:06pm Total Bilirubin 0.19 mg/dL 0.00-1.00 03/19/2017 2:03/19/2017 3: 06pm Aspartate Amino Transf (AST/SGOT) 12 U/L L 15-37 03/19/2017 2:03/19 3:06pm Alanine Aminotransferase (ALT/SGPT) 18 U/L 12-78 03/19/2017 2:pm 01/2017 3:06pm Total Alkaline Phosphatase 63 U/L 46-116 03/19/2017 2:pm 03/19/2017 3 :06pm Lipase 168 U/L 65-230 03/19/2017 2:17pm 03/19/2017 3:06pm Troponin I < 0.02 ng/mL 0.0-0.2 03/19/2017 2:17pm 03/19/2017 3:06pm Glomerular Filtration Rate Calc 88.3 mL/min 03/19/2017 2:17pm 2016 3:06pm Procedures Procedure Status Date Provider(s) Computed tomography of abdomen and pelvis with contrast Completed 12/27/16 MOUNIKA HEADLEY DO MRI lumbar spine w/o contrast Completed 03/03/17 KELIN COSTELLO APRN X-ray of chest, PA and lateral views Completed 03/19/17 VIKRAM CISNEROS MD Encounters Encounter Location Arrival/Admit Date Discharge/Depart Date Attending Provider Departed Emergency Room [place] 03/19/17 1:40pm 03/19/17 4:05pm VIKRAM CISNEROS MD Registered Clinic [place] 03/03/17 1:01pm KELIN COSTELLO APRN Discharged [facility] 01/13/17 9:28am 03/01/17 3:18pm KELIN COSTELLO APRN Departed Emergency Room [place] 12/27/16 10:25pm 12/28/16 12:37am MOUNIKA HEADLEY DO Recent Diagnosis
--- OUTSIDE RECORDS SUMMARY | 2018-02-08 17:52 | XMS REPORT | Continuity of Care Document ---
Author Author [facility] Organization [facility] Address [facility] [address] [place] [address] Phone Unavailable Support Name Relationship Address Phone KELIN COSTELLO APRN Caregiver [address] [place] [address] CURT BRICENO Caregiver [id number] [place] [address] RANJEET MÁRQUEZ Next Of Kin [address] [place], [place] [id number] Insurance Providers Guarantor Augustine Márquez Address [address] [place] [address] Email [email or web address] Payer Self Pay Subscriber's Name Augustine Márquez Relationship 18 Self / Same As Patient Advance Directives Directive Response Recorded Date/Time Do you have an Advanced Directive? No 02/13/00 4:52am Advance Directives No 09/02/17 3:42pm Living Will No 09/02/17 3:42pm Health Care Proxy No 10/18/17 12:48pm Power of Display Department Manager for Health Care No 09/02/17 3:42pm Organ, [...] Medications Medication Directions Ordered Status Acetaminophen/Hydrocodone Bitart ([place] 5-325 Tab*) 1 Tab Tablet, 1 Each [...] Patch Patch, 1 Patch Transdermal Daily Discontinued [place]-3/Dha/Epa/Fish Oil (Fish Oil 1,000 Mg Softgel) 1 [...] discharge instruction information available. Plan of Care Prescriptions See Medication Section Functional Status No functional status information available. Allergies, Adverse Reactions, Alerts Allergen Type Severity [...] Signs Acute Vital Signs Vital Response Date/Time Pain Location Body Site Modifier Left Right 10/26/2017 9:40am Results No relevant diagnostic test, laboratory data and/or discharge summary information available. Procedures No procedure information available. Encounters Encounter Location Arrival/Admit Date Discharge/Depart Date Attending Provider Discharged [facility] [place] 10/18/17 7:00am 11/01/17 1:33pm CURT BRICENO
--- OUTSIDE RECORDS SUMMARY | 2018-02-08 17:52 | XMS REPORT ---
Author Author Dayne Senior Organization [facility] Address [address] [facility] [address] [place], [place] [id number] Care Team Providers Care Optical Model Maker And Tester Name Role Phone Dayne Senior PCP Allergies and Adverse Reactions Name Reaction Notes NutraSweet migraines Latex skin irritation Plan of Treatment Planned Activity Comments Planned Date Planned Time Plan/Goal Nerve conduction studies; 9-10 studies 07/10/2017 12:00 AM Needle Electromyography, each extremity, complete 07/10/2017 12:00 AM Medications Active Name Start Date Estimated Completion [...] bpm 97.3 F 246 lbs 73 in 32.4555 kg/m 2.3973 m 98 % Social History Name Description Comments [...] 3:40PM Peripheral neuropathy Jul 10 2017 9:00AM Payers Insurance Name Company Name Plan Name Plan Number Policy Number Policy Group Number Start Date The Sean Román Sean [id number] N/A History of Encounters Visit Date Visit Type Provider 07/10/2017 Procedures Dayne Senior DO 05/29/2017 Procedures Dayne Senior DO
--- OUTSIDE RECORDS SUMMARY | 2018-02-08 17:52 | XMS REPORT ---
Author Author Dayne Senior Organization [facility] Address [address] [place], [place] [address] Care Team Providers Care Nursing Unit Coordinator Name Role Phone Dayne Senior PCP Allergies [...] HC BMI BSA BMI Percentile O2 Sat(%) 05/29/2017 3:34:00 PM 150 mmHg 90 mmHg [...] nerve lesion, right May 29 2017 3:40PM Payers Insurance Name Company Name Plan Name Plan Number Policy Number Policy Group Number Start Date The Dyan [id number] N/A History of Encounters Visit Date Visit Type Provider 05/29/2017 Procedures Dayne Senior DO
--- OUTSIDE RECORDS SUMMARY | 2018-02-08 17:52 | XMS REPORT ---
Author Author Dayne Senior Organization [facility] Address [address] [facility] [address] [place], [place] [id number] Care Team Providers Care Surveillance Monitor Name Role Phone Dayne Senior PCP Allergies and Adverse Reactions Name Reaction Notes NutraSweet migraines Latex skin irritation Plan of Treatment Planned Activity Comments Planned Date Planned Time Plan/Goal Nerve conduction studies; 9-10 studies 05/29/2017 12:00 AM Needle Electromyography, each extremity, complete 05/29/2017 12:00 AM Medications Active Name Start Date [...] Rare Tobacco Never smoker History of Procedures Not available. Results Summary Not available. History Of Immunizations Not available. History of Past Illness Name Date of Onset Comments Sciatic nerve lesion, left May 29 2017 3:40PM Sciatic nerve lesion, right May 29 2017 3:40PM Payers Insurance Name Company Name Plan Name Plan Number Policy Number Policy Group Number Start Date The Dyan [id number] N/A History of Encounters Visit Date Visit Type Provider 05/29/2017 Procedures Dayne Senior DO
--- OUTSIDE RECORDS SUMMARY | 2018-02-08 17:53 | XMS REPORT | Continuity of Care Document ---
Author Author [facility] Organization [facility] Address [facility] [address] [place] [address] Phone Unavailable Support Name Relationship Address Phone KELIN COSTELLO APRN Caregiver [address] [place] [address] VIKRAM CISNEROS MD Caregiver [address] [place] [address] Unavailable JUDY MÁRQUEZ Next Of Kin [address] [place] [address] Insurance Providers Payer Name Policy Number Subscriber Name Relationship [employer] [facility] [id number] Augustine Márquez 18 Self / Same As Patient Advance Directives Directive Response Recorded Date/Time Do you have an Advanced Directive? No 02/13/00 4:52am Advance Directives No 09/29/16 10:16am Living Will No 09/29/16 10:16am Health Care Proxy No 11/27/16 1:42pm Power of Director Of Online Education for Health Care No 09/29/16 10:16am Organ, Tissue, or Eye Donor Yes 09/29/16 10:16am Do you have a signed organ donor card? Yes 08/15/16 10:04am Chief Complaint and Reason for Visit Chief Complaint LOW BACK PAIN/INJURY Reason for Visit Lumbosacral strain Problems Active Problems Medical Problem Onset Date Status Acute postoperative pain of left foot Unknown Acute Cervical radiculopathy Unknown Acute Chest pain Unknown Acute Coronary artery disease Unknown Acute Hyperglycemia Unknown Acute Lumbosacral strain Unknown Acute Right shoulder injury Unknown Acute Medications Current Home Medications Medication Dose Units Route Directions Days/Qty Instructions Start Date Clopidogrel Bisulfate 75 Mg 75 Mg Oral Daily 30 05/14/14 Lactobacillus Acidophilus 1 Each 1 Each Oral Daily as needed for Colon Health 05/14/14 Aspirin 325 Mg 325 Mg Oral Daily for Heart Health 30 05/14/14 Tramadol Hcl 50 Mg 50 Mg Oral As Needed TOTAL 4TAB DAILY 12/03/15 [Fenofibrate] 135 Mg Oral Daily 06/17/16 Potassium Chloride 20 Meq 20 Meq Oral Daily As Needed 06/17/16 Nitroglycerin 0.4 Mg 0.4 Mg Sublingual As Needed For Chest Pain 11/26 Oxycodone Hcl/Acetaminophen* 1 Tab 1-2 Ea Oral Every 4-6 Hrs As Needed Pain 15 10/07/16 [Tramadol Hcl 50 Mg Tablet] 11/27/16 Tramadol Hcl 50 Mg 50 Mg Oral Every 4-6 Hours 20 11/27/16 Methocarbamol 750 Mg 750 Mg Oral Every 6 Hours as needed for Muscle Spasms 20 11/27/16 Meloxicam 7.5 Mg 7.5 Mg Oral Daily 11/27/16 Past Home Medications Medication Directions Ordered Status Potassium Chloride 40 Meq/15 Ml Liquid, 20 Meq Oral As Needed 05/14/14 Discontinued Fenofibrate 150 Mg Capsule, 150 Mg Oral Daily 05/14/14 Discontinued Sertraline Hcl 50 Mg Tablet, 50 Mg Oral Daily 05/14/14 Discontinued [place]-3/Dha/Epa/Fish Oil 1 Each Capsule, 1 Each Oral Daily for Supplement 08/23 Discontinued Gabapentin 300 Mg Capsule, 300 Mg Oral Bedtime 05/14/14 Discontinued Lisinopril (Zestril 10 Mg Tab*) 10 Mg Tablet, 10 Mg Oral Daily for Hypertension 05/14/14 Discontinued Allopurinol 300 Mg Tablet, 300 Mg Oral Daily As Needed as needed for Gout Pain 05/14/14 Discontinued Docusate Sodium 100 Mg Capsule, 100 Mg Oral Daily As Needed 05/14/14 Discontinued Magnesium Oxide 400 Mg Capsule, 400 Mg Oral As Needed for Supplement Discontinued Ferrous Gluconate 256 Mg Tablet, 256 Mg Oral Daily As Needed for Supplement 05/14/14 Discontinued Nitroglycerin 0.4 Mg Tab.subl, 0.4 Mg Sublingual Every 5 Minutes X 3 as needed for Chest Pain 05/15/14 Discontinued Nitroglycerin 1 Patch Patch, 1 Patch Transderm Daily 05/15/14 Discontinued Methylprednisolone 4 Mg Dspk, 4 Mg Oral As Directed 09/08/15 Discontinued Acetaminophen/Hydrocodone Bitart (Lortab 5-325*) 1 Tab Tablet, 1 Each Oral Every 4-6 Hrs As Needed Pain 09/08/15 Discontinued Chlorzoxazone 500 Mg Tablet, 500 Mg Oral Three Times A Day as needed for Pain 09/08/15 Discontinued Oxycodone Hcl/Acetaminophen 1 Each Tablet, 5-325 Mg Oral Every 4-6 Hours As Needed 06/24/16 Discontinued Clindamycin Hcl 300 Mg Capsule, 300 Mg Oral Four Times Daily 10/09/16 Discontinued Ciprofloxacin Hcl 500 Mg Tablet, 500 Mg Oral Twice A Day 10/09/16 Discontinued Social History Social History Problem Response Recorded Date/Time Smoking Status Never smoker 10/07/2016 11:01am Query Response Start Date Stop Date Smoking Status Never smoker Hospital Discharge Instructions No hospital discharge instructions. Plan of Care Discharge Date 11/27/16 4:10pm Disposition 01 HOME, [facility],ASSISTED LIVING Condition at Discharge Stable Instructions/Education Provided Acute Low Back Pain (ED) Prescriptions See Medication Section Referrals KELIN COSTELLO APRN - 1 Week Functional Status Query Response Date Recorded [place] Coma Scale Total 15 November 27, 2016 1:43pm Patient Behavior Cooperative November 27, 2016 2:52pm Allergies, Adverse Reactions, Alerts Allergen Type Severity Reaction Status Last Updated Aspartame Allergy Severe HEADAHCE NAUSEA Active 11/27/16 Immunizations Name Given Type Hx Diphtheria, Pertussis, Tetanus Vaccination Up To Date Historical Hx Influenza Vaccination No Historical Hx Pneumococcal Vaccination No Historical Hx Tetanus, Diphtheria Vaccination Y <5 YEARS Historical Vital Signs Acute Vital Signs Vital Response Date/Time Temperature (Fahrenheit) 97.0 degrees F (97.6 - 99.5) 11/27/2016 1:42pm Temperature Source Temporal Artery 11/27/2016 1:42pm Pulse Rate (adult) 77 bpm (60 - 90) 11/27/2016 4:00pm Respiratory Rate 14 bpm (12 - 24) 11/27/2016 4:00pm Blood Pressure 123/81 mm Hg 11/27/2016 4:00pm O2 Sat by Pulse Oximetry 96 % (90 - 100) 11/27/2016 4:00pm Oxygen Delivery Method 11/27/2016 4:00pm Pain Intensity 4 09/29/2016 10:16am Pain Location Body Site Modifier 11/27/2016 2:20pm Pain Description 10/09/2016 4:28pm Height 6 ft 1 in Weight 237 lb Body Mass Index 31.0 kg/m^2 Results Pending Laboratory Results Test Name Collection Date/Time Procedures Procedure Status Date Provider(s) REVISION OF TOE Completed 10/07/16 JULIO JEFFERSON M.D. Foot Lt.4 Views(3OR More) Active 09/27/16 JULIO JEFFERSON M.D. X-ray of chest, PA and lateral views Active 09/27/16 JULIO JEFFERSON M.D. Flu-W/Wo Pin.(In Surg) Active 10/07/16 JULIO JEFFERSON M.D. X-ray of toe of left foot Active 10/07/16 JULIO JEFFERSON M.D. X-ray of toe of left foot Completed 10/09/16 ALEX PITT MD X-ray of toe of left foot Completed 10/27/16 NIKKI MA APRN Foot Lt.4 Views(3OR More) Completed 11/16/16 NIKKI MA APRN X-ray of cervical spine, two or three views Completed 11/27/16 VIKRAM CISNEROS MD Encounters Encounter Location Arrival/Admit Date Discharge/Depart Date Attending Provider Departed Emergency Room [place] 11/27/16 1:37pm 11/27/16 4:10pm VIKRAM CISNEROS MD Registered Clinic [place] 11/16/16 2:28pm NIKKI MA APRN Registered Clinic [place] 10/27/16 11:08am NIKKI MA APRN Departed Emergency Room [place] 10/09/16 3:53pm 10/09/16 5:12pm ALEX PITT MD [facility]istered [facility] [place] 10/07/16 5:32am JULIO JEFFERSON M.D. Registered Clinic [place] 09/27/16 10:54am JULIO JEFFERSON M.D. Discharged Recurring [place] 08/08/16 5:45am 10/10/16 11:20am JULIO JEFFERSON M.D. Recent Diagnosis
--- OUTSIDE RECORDS SUMMARY | 2018-02-08 17:53 | XMS REPORT | Continuity of Care Document ---
Author Author [facility] Organization [facility] Address [facility] [address] [place] [address] Phone Unavailable Support Name Relationship Address Phone KELIN COSTELLO APRN Caregiver [address] [place] [address] VIKRAM CISNEROS MD Caregiver [address] [place] [address] Unavailable JUDY MÁRQUEZ Next Of Kin [address] [place], [place] [address] Insurance Providers Payer Name Policy Number Subscriber Name Relationship [employer] [facility] [id number] Augustine Márquez 18 Self / Same As Patient Advance Directives Directive Response Recorded Date/Time Do you have an Advanced Directive? No 02/13/00 4:52am Advance Directives No 09/29/16 10:16am Living Will No 09/29/16 10:16am Health Care Proxy No 11/27/16 1:42pm Power of Battery Charger Conveyor Line for Health Care No 09/29/16 10:16am Organ, [...] Tablet, 50 Mg Oral Daily 05/14/14 Discontinued Pierce-3/Dha/Epa/Fish Oil 1 Each Capsule, 1 Each Oral [...] Discharge Date 11/27/16 4:10pm Disposition 01 HOME, [facility],ASSISTED LIVING Condition at Discharge Stable Instructions/Education Provided Acute Low Back Pain (ED) Prescriptions See Medication Section Referrals KELIN COSTELLO APRN - 1 Week Functional Status Query Response Date Recorded [place] Coma Scale Total 15 November 27, 2016 [...] lb Body Mass Index 31.0 kg/m^2 Results Laboratory Results Test Name Result Units Flags Reference Collection Date/Time Result Date/ Time Comments White Blood Count 7.2 K/uL 4.8-10.8 09/27/2016 12:23pm 09/27/2016 12: 32pm Red Blood Count 5.09 M/uL 4.70-6.10 09/27/2016 12:09/27/2016 12: 32pm Hemoglobin 16.7 gm/dL 14.0-18.0 09/27/2016 12:09/27/2016 12:32pm Hematocrit 47.2 % 42.0-52.0 09/27/2016 12:09/27/2016 12:32pm Mean Corpuscular Volume 92.8 fL 80.0-96.1 09/27/2016 12:2016 12:32pm Mean Corpuscular Hemoglobin 32.8 pg H 27.0-31.0 09/27/2016 12:09/27 12:32pm Mean Corpuscular Hemoglobin Concent 35.3 g/dL 30.0-37.0 09/27/2016 12: 09/27/2016 12:32pm Red Cell Distribution Width 13.2 % 11.5-14.5 09/27/2016 12:2016 12:32pm Platelet Count 229 K/uL 130-400 09/27/2016 12:09/27/2016 12:32pm Mean Platelet Volume 9.4 fL 7.4-10.4 09/27/2016 12:09/27/2016 12: 32pm Neutrophils (%) (Auto) 56.9 % 42.2-75.2 09/27/2016 12:09/27/2016 12:32pm Lymphocytes (%) (Auto) 31.2 % 20.5-51.1 09/27/2016 12:09/27/2016 12:32pm Monocytes (%) (Auto) 5.5 % 1.7-9.3 09/27/2016 12:09/27/2016 12: 32pm Eosinophils (%) (Auto) 5.5 % H 0-3 09/27/2016 12:09/27/2016 12: 32pm Basophils (%) (Auto) 0.9 % 0.0-1.0 09/27/2016 12:09/27/2016 12: 32pm Neutrophils # (Auto) 4.1 K/uL 2.0-6.9 09/27/2016 12:09/27/2016 12: 32pm Lymphocytes # (Auto) 2.2 K/uL 1.2-3.4 09/27/2016 12:09/27/2016 12: 32pm Monocytes # (Auto) 0.4 K/uL 0.1-0.6 09/27/2016 12:09/27/2016 12: 32pm Eosinophils # (Auto) 0.4 K/uL 0.0-0.7 09/27/2016 12:09/27/2016 12: 32pm Basophils # (Auto) 0.1 K/uL 0.0-0.2 09/27/2016 12:09/27/2016 12: 32pm Prothrombin Time 11.2 SECONDS 9.10-11.20 09/27/2016 12:09/27/2016 1:20pm Prothromb Time International Ratio 1.12 H 0.9-1.1 09/27/2016 12:09/27/2016 1:20pm PLEASE NOTE REFERENCE RANGE Random Glucose 165 mg/dL H 70-110 09/27/2016 12:09/27/2016 2:10pm Blood Urea Nitrogen 16 mg/dL 12-2709/27/2016 12:09/27/2016 2:10pm Creatinine 1.1 mg/dL 0.70-1.30 09/27/2016 12:09/27/2016 2:10pm Sodium Level 141 mEq/L 136-145 09/27/2016 12:09/27/2016 2:10pm Potassium Level 4.6 mEq/L 3.5-5.0 09/27/2016 12:09/27/2016 2:10pm Chloride Level 107 mEq/L 98-107 09/27/2016 12:09/27/2016 2:10pm Carbon Dioxide Level 30.6 mEq/L 21-32 09/27/2016 12:09/27/2016 2: 10pm Calcium Level 9.0 mg/dL 8.8-10.5 09/27/2016 12:09/27/2016 2:10pm Total Protein 7.6 gm/dL 6.4-8.2 09/27/2016 12:09/27/2016 2:10pm Albumin 3.7 gm/dL 3.4-5.0 09/27/2016 12:23pm 09/27/2016 2:10pm Total Bilirubin 0.30 mg/dL 0.00-1.00 09/27/2016 12:23pm 09/27/2016 2: 10pm Aspartate Amino Transf (AST/SGOT) 20 U/L 15-37 09/27/2016 12:23pm 09/27 2:10pm Alanine Aminotransferase (ALT/SGPT) 23 U/L 12-78 09/27/2016 12:23pm 2:10pm Hemoglobin A1c 6.2 % H 4.8-6.0 09/27/2016 12:23pm 09/29/2016 2:40pm Total Alkaline Phosphatase 71 U/L 46-116 09/27/2016 12:23pm 09/27/2016 2:10pm Glomerular Filtration Rate Calc 74.7 mL/min 09/27/2016 12:23pm 2016 2:10pm Pending Laboratory Results Test Name Collection Date/Time [...] Discharge/Depart Date Attending Provider Departed Emergency Room [place] 11/27/16 1:37pm 11/27/16 4:10pm VIKRAM CISNEROS MD Registered Clinic [place] 11/16/16 2:28pm NIKKI MA APRN Registered Clinic [place] 10/27/16 11:08am NIKKI MA APRN Departed Emergency Room [place] 10/09/16 3:53pm 10/09/16 5:12pm ALEX PITT MD [facility]istered [facility] [place] 10/07/16 5:32am JULIO JEFFERSON M.D. Registered Clinic [place] 09/27/16 10:54am JULIO JEFFERSON M.D. Recent Diagnosis
--- OUTSIDE RECORDS SUMMARY | 2018-02-08 17:53 | XMS REPORT | Continuity of Care Document ---
Author Author [facility] Organization [facility] Address [facility] [address] [place] [address] Phone Unavailable Support Name Relationship Address Phone KELIN COSTELLO APRN Caregiver [address] [place] [address] ALEX PITT MD Caregiver [address] [place] [address] Unavailable JUDY MÁRQUEZ Next Of Kin [address] [place], [place] [address] Insurance Providers Payer Name Policy Number Subscriber Name Relationship [employer] [facility] [id number] Augustine Márquez 18 Self / Same As Patient Advance Directives Directive Response Recorded Date/Time Do you have an Advanced Directive? No 02/13/00 4:52am Advance Directives No 09/29/16 10:16am Living Will No 09/29/16 10:16am Health Care Proxy No 10/09/16 3:55pm Power of Licensed Psychologist Manager for Health Care No 09/29/16 10:16am Organ, Tissue, or Eye Donor Yes 09/29/16 10:16am Do you have a signed organ donor card? Yes 08/15/16 10:04am Chief Complaint and Reason for Visit Chief Complaint FOOT PROBLEM Reason for Visit [id number] possible infection left 4th toe Problems Active Problems Medical Problem Onset Date Status Acute postoperative pain of left foot Unknown Acute Cervical radiculopathy Unknown Acute Chest pain Unknown Acute Coronary artery disease Unknown Acute Hyperglycemia Unknown Acute Right shoulder injury Unknown Acute [...] 4-6 Hrs As Needed Pain 15 10/07/16 Clindamycin Hcl 300 Mg 300 Mg Oral Four Times Daily 10/09/16 Ciprofloxacin Hcl 500 Mg 500 Mg Oral Twice A Day 10/09/16 Past Home Medications Medication Directions Ordered Status Potassium Chloride 40 Meq/15 Ml Liquid, 20 Meq Oral As Needed 05/14/14 Discontinued Fenofibrate 150 Mg Capsule, 150 Mg Oral Daily 05/14/14 Discontinued Sertraline Hcl 50 Mg Tablet, 50 Mg Oral Daily 05/14/14 Discontinued [place]-3/Dha/Epa/Fish Oil 1 Each Capsule, 1 Each Oral [...] Every 4-6 Hours As Needed 06/24/16 Discontinued Social History Social History Problem Response Recorded Date/Time Smoking Status Never smoker 10/07/2016 11:01am Query Response Start Date Stop Date Smoking Status Never smoker Hospital Discharge Instructions No hospital discharge instructions. Plan of Care Discharge Date 10/09/16 5:12pm Disposition 01 HOME, SNF,ASSISTED LIVING Condition at Discharge Stable Instructions/Education Provided Postop pain (ED) Prescriptions See Medication Section Additional Instructions/Education There is a possible infection in that toe. I'm treating you aggressively until Dr. Rodriguez has a chance to see it. Please contact him MAREK for a recheck. Functional Status Query Response Date Recorded [place] Coma Scale Total 15 October 09, 2016 3:55pm Patient Behavior Appropriate October 09, 2016 3:55pm Allergies, Adverse Reactions, Alerts Allergen Type Severity Reaction Status Last Updated Aspartame Allergy Severe HEADAHCE NAUSEA Active 10/09/16 Immunizations Name Given Type Hx Diphtheria, Pertussis, Tetanus Vaccination Up To Date Historical Hx Influenza Vaccination Y 2016 Historical Hx Pneumococcal Vaccination N DOES NOT WANT Historical Hx Tetanus, Diphtheria Vaccination Y <5 YEARS Historical Vital Signs Acute Vital Signs Vital Response Date/Time Temperature (Fahrenheit) 98.9 degrees F (97.6 - 99.5) 10/09/2016 4:57pm Temperature Source Temporal Artery 10/09/2016 4:57pm Pulse Rate (adult) 73 bpm (60 - 90) 10/09/2016 4:57pm Respiratory Rate 20 bpm (12 - 24) 10/09/2016 4:57pm Blood Pressure 147/108 mm Hg 10/09/2016 4:57pm O2 Sat by Pulse Oximetry 98 % (90 - 100) 10/09/2016 4:57pm Oxygen Delivery Method 10/09/2016 4:57pm Pain Intensity 4 09/29/2016 10:16am Pain Location Body Site Modifier 10/09/2016 4:28pm Pain Description 10/09/2016 4:28pm Height 5 ft 10 in Weight 286 lb Body Mass Index 41.0 kg/m^2 Results Pending Laboratory Results Test Name Collection Date/Time Procedures Procedure Status Date Provider(s) Hammer toe repair Completed 10/07/[address] chest w contrast Active 08/15/16 KELIN COSTELLO APRN Foot Lt.4 Views(3OR More) Active 09/27/16 RONNY,KALAPURAKKAL GIGI M.D. X-ray of chest, PA and lateral views Active 09/27/16 JULIO RODRIGUEZ M.D. Flu-W/Wo Pin.(In Surg) Completed 10/07/16 JULIO RODRIGUEZ M.D. X-ray of toe of left foot Completed 10/07/16 JULIO RODRIGUEZ M.D. X-ray of toe of left foot Completed 10/09/16 ALEX PITT MD Encounters Encounter Location Arrival/Admit Date Discharge/Depart Date Attending Provider Departed Emergency Room [place] 10/09/16 3:53pm 10/09/16 5:12pm ALEX PITT MD [facility]istered [facility] [place] 10/07/16 5:32am JULIO RODRIGUEZ M.D. Registered Clinic [place] 09/27/16 10:54am JULIO RODRIGUEZ M.D. Registered [facility] 08/15/16 10:06am KELIN COSTELLO APRN Registered [facility] 08/08/16 5:45am JULIO RODRIGUEZ M.D. Recent Diagnosis
--- OUTSIDE RECORDS SUMMARY | 2018-02-08 17:53 | XMS REPORT | Continuity of Care Document ---
Author Author [facility] Organization [facility] Address [facility] [address] [place] [address] Phone Unavailable Support Name Relationship Address Phone KELIN COSTELLO APRN Caregiver [address] [place] [address] LOCJUDY Next Of Kin [address] [place], [place] [address] Insurance Providers Payer Name Policy Number Subscriber Name Relationship [employer] [facility] [id number] Augustine Márquez 18 Self / Same As Patient Advance Directives Directive Response Recorded Date/Time Do you have an Advanced Directive? No 02/13/00 4:52am Advance Directives No 12/03/15 10:47am Living Will No 12/03/15 10:47am Health Care Proxy No 01/21/16 11:02am Power of Launch Engineer for Health Care No 12/03/15 10:47am Organ, Tissue, or Eye Donor No 12/03/15 10:47am Do you have a signed organ donor card? No 02/13/00 4:52am Problems Active Problems Medical Problem Onset Date Status Cervical radiculopathy Unknown Acute Chest pain Unknown Acute Coronary artery disease Unknown Acute Hyperglycemia Unknown Acute Right shoulder injury Unknown Acute Medications Current Home Medications Medication Dose Units Route Directions Days/Qty Instructions Start Date Potassium Chloride 40 Meq/15 Ml 20 Meq Oral As Needed PRN MUSCLE CRAMPS 05/14/14 Clopidogrel Bisulfate 75 Mg 75 Mg Oral Daily 30 05/14/14 Fenofibrate 150 Mg 150 Mg Oral Daily 05/14/14 [place]-3/Dha/Epa/Fish Oil 1 Each 1 Each Oral Daily for Supplement 08/23 Lactobacillus Acidophilus 1 Each 1 Each Oral Daily as needed for Colon Health 05/14/14 Aspirin 325 Mg 325 Mg Oral Daily for Heart Health 30 05/14/14 Docusate Sodium 100 Mg 100 Mg Oral Daily As Needed 30 05/14/14 Magnesium Oxide 400 Mg 400 Mg Oral As Needed for Supplement 05/14/14 Tramadol Hcl 50 Mg 100 Mg Oral As Needed TOTAL 4TAB DAILY 12/03/15 Past Home Medications Medication Directions Ordered Status Sertraline Hcl 50 Mg Tablet, 50 Mg Oral Daily 05/14/14 Discontinued Gabapentin 300 Mg Capsule, 300 Mg Oral Bedtime 05/14/14 Discontinued Lisinopril (Zestril 10 Mg Tab*) 10 Mg Tablet, 10 Mg Oral Daily for Hypertension 05/14/14 Discontinued Allopurinol 300 Mg Tablet, 300 Mg Oral Daily As Needed as needed for Gout Pain 05/14/14 Discontinued Ferrous Gluconate 256 Mg Tablet, 256 [...] Day as needed for Pain 09/08/15 Discontinued Social History Social History Problem Response Recorded Date/Time Smoking Status Never smoker 12/03/2015 10:47am Query Response Start Date Stop Date Smoking Status Never smoker Hospital Discharge Instructions No hospital discharge instructions. Plan of Care Prescriptions See Medication Section Functional Status No functional status results. Allergies, Adverse Reactions, Alerts Allergen Type Severity Reaction Status Last Updated Aspartame Allergy Severe HEADAHCE NAUSEA Active 05/14/14 Immunizations Name Given Type Hx Diphtheria, Pertussis, Tetanus Vaccination Up To Date Historical Hx Influenza Vaccination N REFUSE TO TAKE Historical Hx Pneumococcal Vaccination Y 10 YRS AGO? Historical Hx Tetanus, Diphtheria Vaccination Y <5 YEARS Historical Vital Signs Acute Vital Signs Vital Response Date/Time Temperature (Fahrenheit) 96.7 degrees F (97.6 - 99.5) 12/07/2015 1:51pm Temperature Source Temporal Artery 12/07/2015 1:51pm Pulse Rate (adult) 82 bpm (60 - 90) 12/07/2015 1:51pm Respiratory Rate 16 bpm (12 - 24) 12/07/2015 1:51pm Blood Pressure 117/68 mm Hg 12/07/2015 1:51pm Blood Pressure 107/68 mm Hg 12/07/2015 1:51pm O2 Sat by Pulse Oximetry 96 % (90 - 100) 12/07/2015 1:51pm Pain Intensity 6 01/21/2016 11:25am Pain Location Body Site Modifier 02/08/2016 11:10am Results No known relevant diagnostic tests, laboratory data and/or discharge summary. Procedures Procedure Status Date Provider(s) DIAGNOSTIC COLONOSCOPY Completed 12/07/15 Abdirashid Hernandez M.D. X-ray of left elbow, three or more views Active 01/19/16 JULIO JEFFERSON M.D. Encounters Encounter Location Arrival/Admit Date Discharge/Depart Date Attending Provider Discharged Recurring [place] 01/21/16 11:04am 02/08/16 2:20pm KELIN COSTELLO APRN Registered Clinic [place] 01/19/16 9:54am JULIO JEFFERSON M.D. Registered [facility] [place] 12/07/15 5:50am Abdirashid Hernandez M.D.
--- OUTSIDE RECORDS SUMMARY | 2018-02-08 17:53 | XMS REPORT | Continuity of Care Document ---
Author Author [facility] Organization [facility] Address [facility] [address] [place] [address] Phone Unavailable Support Name Relationship Address Phone KELIN COSTELLO APRN Caregiver [address] [place] [phone] MOUNIKA HEADLEY DO Caregiver [address] [place] [address] JUDY MÁRQUEZ Next Of Kin [address] [place], [place] [address] Insurance Providers Payer Name Policy Number Subscriber Name Relationship [employer] [facility] [id number] Augustine Márquez 18 Self / Same As Patient Advance Directives Directive Response Recorded Date/Time Do you have an Advanced Directive? No 02/13/00 4:52am Advance Directives No 09/29/16 10:16am Living Will No 09/29/16 10:16am Health Care Proxy No 12/27/16 10:34pm Power of Consumer Science Teacher for Health Care No 09/29/16 10:16am Organ, Tissue, or Eye Donor Yes 09/29/16 10:16am Do you have a signed organ donor card? Yes 08/15/16 10:04am Chief Complaint and Reason for Visit Chief Complaint BACK PAIN OR INJURY Reason for Visit [id number] Problems Active Problems Medical Problem Onset Date Status Acute postoperative pain of left foot Unknown Acute Cervical radiculopathy Unknown Acute Chest pain Unknown Acute Coronary artery disease Unknown Acute Hyperglycemia Unknown Acute Lumbosacral strain Unknown Acute Right lumbar pain Unknown Acute Right shoulder injury Unknown Acute Unspecified abdominal pain Unknown Acute Medications Current Home Medications Medication [...] Meloxicam 7.5 Mg 7.5 Mg Oral Daily 10 11/27/16 Meloxicam 7.5 Mg 7.5 Mg Oral Daily 5 12/28/16 Cyclobenzaprine Hcl (Flexeril*) 10 Mg 10 Mg Oral Twice A Day 15 Past Home Medications Medication Directions Ordered Status Potassium Chloride 40 Meq/15 Ml Liquid, 20 Meq Oral As Needed 05/14/14 Discontinued Fenofibrate 150 Mg Capsule, 150 Mg Oral Daily 05/14/14 Discontinued Sertraline Hcl 50 Mg Tablet, 50 Mg Oral Daily 05/14/14 Discontinued [place]-3/Dha/Epa/Fish Oil 1 Each Capsule, 1 Each Oral [...] Date/Time Smoking Status Never smoker 10/07/2016 11:01am Tobacco Use Denies Use 12/27/2016 10:57pm Alcohol Use rarely 12/27/2016 10:57pm Drug Use none 12/27/2016 10:57pm Query Response Start Date Stop Date Smoking Status Never smoker Hospital Discharge Instructions No hospital discharge instructions. Plan of Care Discharge Date 12/28/16 12:37am Condition at Discharge Improved Instructions/Education Provided Back Pain (ED) Prescriptions See Medication Section Referrals KELIN COSTELLO STRAIGHT CUTTER - 2-3 Days Functional Status Query Response Date Recorded Braydon Coma Scale Total 15 December 27, 2016 10:30pm Patient Behavior Appropriate Dependent December 27, 2016 10:30pm Allergies, Adverse Reactions, Alerts Allergen Type Severity Reaction Status Last Updated Aspartame Allergy Severe HEADAHCE NAUSEA Active 11/27/16 Immunizations Name Given Type Hx Diphtheria, Pertussis, Tetanus Vaccination Up To Date Historical Hx Influenza Vaccination N DOES NOT TAKE Historical Hx Pneumococcal Vaccination No Historical Hx Tetanus, Diphtheria Vaccination Y <5 YEARS Historical Vital Signs Acute Vital Signs Vital Response Date/Time Temperature (Fahrenheit) 97.1 degrees F (97.6 - 99.5) 12/27/2016 10:30pm Temperature Source Temporal Artery 12/27/2016 10:30pm Pulse Rate (adult) 87 bpm (60 - 90) 12/27/2016 10:30pm Respiratory Rate 18 bpm (12 - 24) 12/27/2016 10:30pm Blood Pressure 172/94 mm Hg 12/27/2016 10:30pm O2 Sat by Pulse Oximetry 98 % (90 - 100) 12/27/2016 10:30pm Oxygen Delivery Method 12/27/2016 10:30pm Pain Intensity 4 09/29/2016 10:16am Pain Location Body Site Modifier 12/28/2016 12:30am Pain Description 10/09/2016 4:28pm Height 6 ft 1 in Weight 264 lb Body Mass Index 34.0 kg/m^2 Results Pending Laboratory Results Test Name Collection Date/Time Procedures Procedure Status Date Provider(s) REVISION OF TOE Completed 10/07/16 JULIO JEFFERSON M.D. Flu-W/Wo Pin.(In Surg) Active [...] three views Completed 11/27/16 VIKRAM CISNEROS MD Computed tomography of abdomen and pelvis with contrast Completed 12/27/16 MOUNIKA HEADLEY DO Encounters Encounter Location Arrival/Admit Date Discharge/Depart Date Attending Provider Departed Emergency Room [place] 12/27/16 10:25pm 12/28/16 12:37am MOUNIKA HEADLEY DO Departed Emergency Room [place] 11/27/16 1:37pm 11/27/16 4:10pm VIKRAM CISNEROS MD Registered Clinic [place] 11/16/16 2:28pm NIKKI MA APRN Registered Clinic [place] 10/27/16 11:08am NIKKI MA APRN Departed Emergency Room [place] 10/09/16 3:53pm 10/09/16 5:12pm ALEX PITT MD Registered [facility] [place] 10/07/16 5:32am JULIO JEFFERSON M.D. Discharged Recurring [place] 08/08/16 5:45am 10/10/16 11:20am JULIO JEFFERSON M.D. Recent Diagnosis
--- OUTSIDE RECORDS SUMMARY | 2018-02-08 17:54 | XMS REPORT | Continuity of Care Document ---
Author Author [facility] Organization [facility] Address [facility] [address] [place] [address] Phone Unavailable Support Name Relationship Address Phone KATHARINE HEREDIA DO Caregiver [address] [place] [address] VIKRAM CISNEROS MD Caregiver [address] [address] Unavailable JUDY MÁRQUEZ Next Of Kin [address] [place] [address] Insurance Providers Payer Name Policy Number Subscriber Name Relationship [employer] [facility] [id number] Augutsine Márquez 18 Self / Same As Patient Advance Directives Directive Response Recorded Date/Time Do you have an Advanced Directive? No 02/13/00 4:52am Advance Directives No 05/14/14 12:21pm Living Will No 05/14/14 12:21pm Health Care Proxy No 09/08/15 6:03pm Power of Probate Judge for Health Care No 05/14/14 12:21pm Organ, Tissue, or Eye Donor No 05/14/14 12:21pm Do you have a signed organ donor card? No 02/13/00 4:52am Chief Complaint and Reason for Visit Chief Complaint SHOULDER INJURY Reason for Visit [id number] Cervical radiculopathy Problems Active Problems Medical Problem Onset Date Status Cervical radiculopathy Unknown Acute Chest pain Unknown Acute Coronary artery disease Unknown Acute Hyperglycemia Unknown Acute Right shoulder injury Unknown Acute Medications Current Home Medications Medication Dose Units Route Directions Days/Qty Instructions Start Date Potassium Chloride 40 Meq/15 Ml 20 Meq Oral Daily 05/14/14 Clopidogrel Bisulfate 75 Mg 75 Mg Oral Daily 30 05/14/14 Fenofibrate 150 Mg 150 Mg Oral Daily 05/14/14 [place]-3/Dha/Epa/Fish Oil 1 Each 1 Each Oral Daily for Supplement 08/23 Lactobacillus Acidophilus 1 Each 1 Each Oral Daily as needed for Colon Health 05/14/14 Aspirin 325 Mg 325 Mg Oral Daily for Heart Health 30 05/14/14 Docusate Sodium 100 Mg 100 Mg Oral Daily As Needed 30 05/14/14 Magnesium Oxide 400 Mg 400 Mg Oral Daily for Supplement 05/14/14 Ferrous Gluconate 256 Mg 256 Mg Oral Daily As Needed for Supplement 05/14/14 Methylprednisolone 4 Mg 4 Mg Oral As Directed 21 09/08/15 Acetaminophen/Hydrocodone Bitart (Lortab 5-325*) 1 Tab 1 Each Oral Every 4- 6 Hrs As Needed Pain 15 09/08/15 Chlorzoxazone 500 Mg 500 Mg Oral Three Times A Day as needed for Pain 30 09/08/15 Past Home Medications Medication Directions Ordered Status Sertraline Hcl 50 Mg Tablet, 50 Mg Oral Daily 05/14/14 Discontinued Gabapentin 300 Mg Capsule, 300 Mg Oral Bedtime 05/14/14 Discontinued Lisinopril (Zestril 10 Mg Tab*) 10 Mg Tablet, 10 Mg Oral Daily for Hypertension 05/14/14 Discontinued Allopurinol 300 Mg Tablet, 300 Mg Oral Daily As Needed as needed for Gout Pain 05/14/14 Discontinued Nitroglycerin 0.4 Mg Tab.subl, 0.4 Mg Sublingual Every 5 Minutes X 3 as needed for Chest Pain 05/15/14 Discontinued Nitroglycerin 1 Patch Patch, 1 Patch Transderm Daily 05/15/14 Discontinued Social History Social History Problem Response Recorded Date/Time Smoking Status Never smoker 05/14/2014 12:21pm Query Response Start Date Stop Date Smoking Status Never smoker Hospital Discharge Instructions No hospital discharge instructions. Plan of Care Discharge Date 09/08/15 8:50pm Condition at Discharge Stable Instructions/Education Provided Shoulder Sprain (ED) Cervical Radiculopathy (ED) Prescriptions See Medication Section Referrals Renzo Agustin MD - 1 Week JULIO JEFFERSON M.D. - 1 Week Functional Status Query Response Date Recorded Braydon Coma Scale Total 15 September 08, 2015 6:15pm Patient Behavior Appropriate September 08, 2015 6:15pm Allergies, Adverse Reactions, Alerts Allergen Type Severity Reaction Status Last Updated Aspartame Allergy Severe HEADAHCE NAUSEA Active 05/14/14 Immunizations Name Given Type Hx Diphtheria, Pertussis, Tetanus Vaccination Up To Date Historical Hx Influenza Vaccination No Historical Hx Pneumococcal Vaccination Yes Historical Hx Tetanus, Diphtheria Vaccination Y <5 YEARS Historical Vital Signs Acute Vital Signs Vital Response Date/Time Temperature (Fahrenheit) 98.4 degrees F (97.6 - 99.5) 09/08/2015 8:40pm Temperature Source Temporal Artery 09/08/2015 8:40pm Pulse Rate (adult) 91 bpm (60 - 90) 09/08/2015 8:40pm Respiratory Rate 16 bpm (12 - 24) 09/08/2015 8:40pm Blood Pressure 113/79 mm Hg 09/08/2015 8:40pm O2 Sat by Pulse Oximetry 96 % (90 - 100) 09/08/2015 8:40pm Oxygen Delivery Method 09/08/2015 8:40pm Pain Location Body Site Modifier 09/08/2015 8:48pm Pain Description 09/08/2015 8:48pm Height 6 ft 0 in Weight 240 lb Body Mass Index 32.0 kg/m^2 Results No known relevant diagnostic tests, laboratory data and/or discharge summary. Procedures Procedure Status Date Provider(s) X-ray of cervical spine, four or five views Completed 09/08/15 VIKRAM CISNEROS MD X-ray of right shoulder, two or more views Completed 09/08/15 VIKRAM CISNEROS MD Encounters Encounter Location Arrival/Admit Date Discharge/Depart Date Attending Provider Departed Emergency Room [place] 09/08/15 6:07pm 09/08/15 8:50pm VIKRAM CISNEROS MD Recent Diagnosis
--- OUTSIDE RECORDS SUMMARY | 2018-02-08 17:54 | XMS REPORT | Continuity of Care Document ---
Author Author [facility] Address Unknown Phone Unavailable Allergies Active Description Code Type Severity Reaction Onset Reported/Identified Relationship to Patient Clinical Status Yes ASPARTAME [id number] Drug Allergy N/A N/A Medications Medication Packaging Start Date Stop Date Route Dosage Sig TRAMADOL HCL ORAL 10/13/2015 11/14/2015 ORAL 4040 4 times a day NITROSTAT Sublingual 10/13/2015 09/08/2017 Sublingual 469821 TRAMADOL HCL ORAL 11/04/2015 02/10/2016 ORAL 063572 4 times a day TRAMADOL HCL ORAL 01/11/2016 04/20/2016 ORAL 956085 4 times a day CLOPIDOGREL BISULFATE ORAL 201504/26/2016 ORAL 3030 daily TRAMADOL HCL ORAL 03/21/2016 04/20/2016 ORAL 760988 4 times a day CLOPIDOGREL BISULFATE ORAL 201509/04/2017 ORAL 9090 daily TRAMADOL HCL ORAL 06/02/2016 02/09/2017 ORAL 6060 twice daily LOFIBRA ORAL 06/02/2016 09/08/2017 ORAL 3030 daily KLOR-CON 10 ORAL 06/02/2016 ORAL 3030 daily ASPIRIN ORAL 06/02/2016 ORAL 3030 daily PERCOCET ORAL 10/11/2016 09/08/2017 ORAL 3030 q4-6h TRAMADOL HCL ORAL 01/10/2017 02/09/2017 ORAL 6060 twice daily MELOXICAM ORAL 01/10/2017 ORAL 3030 daily CYCLOBENZAPRINE HCL ORAL 201602/09/2017 ORAL 9090 3 times a day CORTISPORIN OTIC 04/26/2017 05/06/2017 OTIC 1010 4 times a day AUGMENTIN ORAL 04/26/2017 05/03/2017 ORAL 1414 twice daily CLOPIDOGREL BISULFATE ORAL 201709/08/2017 ORAL 9090 daily PRAVASTATIN SODIUM ORAL 09/08/2017 09/12/2017 ORAL 9090 daily NITROSTAT Sublingual 09/08/2017 Sublingual 201778 CLOPIDOGREL BISULFATE ORAL 2017 ORAL 9090 daily ZETIA ORAL 09/12/2017 ORAL 3030 daily METFORMIN HCL ORAL 10/18/2017 ORAL 6060 twice daily Problems There is no data. Procedures There is no data. Results There is no data. Encounters ACCT No. Visit Date/Time Discharge Status Pt. Type Provider Facility Loc./Unit Complaint [id number] 07/10/2017 09:37:21 07/10/2017 23:59:59 CLS Outpatient Dayne Senior [id number] 05/29/2017 16:29:56 05/29/2017 23:59:59 CLS Outpatient Dayne Senior [id number] 06/02/2014 15:02:10 06/02/2014 15:02:11 DIS Outpatient [id number] 03/03/2015 14:03:35 03/03/2015 14:03:35 DIS Outpatient [id number] 10/18/2017 11:47:09 10/18/2017 11:47:09 DIS Outpatient [facility]
--- OUTSIDE RECORDS SUMMARY | 2018-02-08 17:54 | XMS REPORT | Continuity of Care Document ---
Author Author [facility] Organization [facility] Address [facility] [address] [place] [address] Phone Unavailable Support Name Relationship Address Phone PRAVINKELIN PERES LEO Caregiver [address] [place] [phone] VIKRAM CISNEROS MD Caregiver [address] [place] [address] Unavailable YULISA RANJEET Next Of Kin [address] [place] [address] Insurance Providers Guarantor YulisaAnnalisaAugustine W Address [address] [place] [address] Email [email or web address] Payer [facility] Policy Number [id number] Subscriber's Name Augustine Márquez Relationship 18 Self / Same As Patient Advance Directives Directive Response Recorded Date/Time Do you have an Advanced Directive? No 02/13/00 4:52am Advance Directives No 09/29/16 10:16am Living Will No 09/29/16 10:16am Health Care Proxy No 03/19/17 1:41pm Power of Venetian Blind Washer for Health Care No 09/29/16 10:16am Organ, [...] Medications Medication Directions Ordered Status Acetaminophen/Hydrocodone Bitart ([place] 5-325 Tab*) 1 Tab Tablet, 1 Each [...] Patch Patch, 1 Patch Transdermal Daily Discontinued [place]-3/Dha/Epa/Fish Oil (Fish Oil 1,000 Mg Softgel) 1 [...] Plan of Care Discharge Date 03/19/17 4:05pm Condition at Discharge Stable Instructions/Education Provided Acute Bronchitis (ED) Prescriptions See Medication Section Referrals KELIN COSTELLO APRN Address: [address] [address] Functional Status Query Response Date Recorded Patient [...] 12/27/2016 11:00pm 12/27/2016 11: 21pm Urine Specific [place] 1.020 1.010-1.025 12/27/2016 11:00pm 2016 11:21pm Urine [...] Mean Corpuscular Volume 92.7 fL 80.0-96.1 03/19/2017 2:17pm 03/19/2017 2:38pm Mean Corpuscular Hemoglobin 31.1 pg H 27.0-31.0 03/19/2017 2:17pm 2016 2:38pm Mean Corpuscular Hemoglobin Concent 33.5 g/dL 30.0-37.0 03/19/2017 2: 03/19/2017 2:38pm Red Cell Distribution Width 13.3 % 11.5-14.5 03/19/2017 2:172016 2:38pm Platelet Count 228 K/uL 130-400 03/19/2017 2:17pm 03/19/2017 2:38pm Mean Platelet Volume 9.9 fL 7.4-10.4 03/19/2017 2:17pm 03/19/2017 2: 38pm Neutrophils (%) (Auto) 52.9 % [...] Monocytes # (Auto) 0.5 K/uL 0.1-0.6 03/19/2017 2:1703/19/2017 2: 38pm Eosinophils # (Auto) 0.4 K/uL [...] 3:06pm Potassium Level 4.0 mEq/L 3.5-5.0 03/19/2017 2:17pm 03/19/2017 3:06pm Chloride Level 107 mEq/L 98-107 03/19/2017 2:03/19/2017 3:06pm Carbon Dioxide Level 24.2 mEq/L 21-32 03/19/2017 2:17pm 03/19/2017 3: 06pm Calcium Level 9.3 mg/dL 8.8-10.5 03/19/2017 2:17pm 03/19/2017 3:06pm Total Protein 7.1 gm/dL 6.4-8.2 03/19/2017 2:17pm 03/19/2017 3:06pm Albumin 3.5 gm/dL 3.4-5.0 03/19/2017 2:1703/19/2017 3:06pm Total Bilirubin 0.19 mg/dL 0.00-1.00 03/19/2017 2:03/19/2017 3: 06pm Aspartate Amino Transf (AST/SGOT) 12 U/L L 15-37 03/19/2017 2:pm 03/19 3:06pm Alanine Aminotransferase (ALT/SGPT) 18 U/L 12-78 03/19/2017 2:17pm 01/2017 3:06pm Total Alkaline Phosphatase 63 U/L 46-116 03/19/2017 2:17pm 03/19/2017 3 :06pm Lipase 168 U/L 65-230 03/19/2017 2:17pm 03/19/2017 3:06pm Troponin I < 0.02 ng/mL 0.0-0.2 03/19/2017 2:17pm 03/19/2017 3:06pm Glomerular Filtration Rate Calc 88.3 mL/min 03/19/2017 2:17pm 2016 3:06pm Procedures Procedure Status Date Provider(s) Computed tomography of abdomen and pelvis with contrast Completed 12/27/16 MOUNIKA HEDALEY DO MRI lumbar spine w/o contrast Completed 03/03/17 KELIN COSTELLO APRN X-ray of chest, PA and lateral views Completed 03/19/17 VIKRAM CISNEROS MD Encounters Encounter Location Arrival/Admit Date Discharge/Depart Date Attending Provider Departed Emergency Room [place] 03/19/17 1:40pm 03/19/17 4:05pm VIKRAM CISNEROS MD Registered [facility] 03/03/17 1:01pm KELIN COSTELLO APRN Registered [facility] 01/13/17 9:28am KELIN COSTELLO APRN Departed Emergency Room [place] 12/27/16 10:25pm 12/28/16 12:37am MOUNIKA HEADLEY DO Recent Diagnosis
--- OUTSIDE RECORDS SUMMARY | 2018-02-08 17:54 | XMS REPORT | Continuity of Care Document ---
Author Author [facility] Organization [facility] Address [facility] [address] [place] [address] Phone Unavailable Support Name Relationship Address Phone Aurora Ramon M.D. Caregiver [address] [place] [address] VIKRAM PENDLETON MD Caregiver [address] [place] [address] JUDY MÁRQUEZ Next Of Kin [address] [place] [address] Insurance Providers Payer Name Policy Number Subscriber Name Relationship [employer] Other [id number] Merissa Márquez 01 Advance Directives Directive Response Recorded Date/Time Do you have an Advanced Directive? No 02/13/00 4:52am Advance Directives No 05/14/14 12:21pm Living Will No 05/14/14 12:21pm Health Care Proxy No 05/14/14 12:21pm Power of In Store Banker for Health Care No 05/14/14 12:21pm Organ, Tissue, or Eye Donor No 05/14/14 12:21pm Do you have a signed organ donor card? No 02/13/00 4:52am Chief Complaint and Reason for Visit Chief Complaint CHEST PAIN Reason for Visit Coronary artery disease Hyperglycemia Chest pain Problems Medical Problems Problem Onset Date Status Coronary artery disease Unknown Active Hyperglycemia Unknown Active Chest pain Unknown Active Medications Medication Dose Route Sig Days/Qty Instructions Order Date Discontinued Date Status Potassium Chloride 20 Meq PO DAILY 05/14/14 Active Clopidogrel Bisulfate 75 Mg PO DAILY 30 Qty 05/14/14 Active Fenofibrate 150 Mg PO DAILY 05/14/14 Active Sertraline HCl 50 Mg PO DAILY 30 Qty 05/14/14 Active Newcomb-3/Dha/Epa/Fish Oil 1 Each PO DAILY For SUPPLEMENT 05/14/14 Active Lactobacillus Acidophilus 1 Each PO DAILY PRN COLON HEALTH 05/14/14 Active Gabapentin 300 Mg PO BEDTIME 30 Qty 05/14/14 Active Lisinopril (Zestril 10 Mg Tab*) 10 Mg PO DAILY For HYPERTENSION 30 Qty 05/14/14 Active Allopurinol 300 Mg PO DAILY NEEDED PRN GOUT PAIN 15 Qty 05/14/14 Active Aspirin 325 Mg PO DAILY For HEART HEALTH 30 Qty 05/14/14 Active Docusate Sodium 100 Mg PO DAILY NEEDED 30 Qty 05/14/14 Active Magnesium Oxide 400 Mg PO DAILY For SUPPLEMENT 05/14/14 Active Ferrous Gluconate 256 Mg PO DAILY NEEDED For SUPPLEMENT 05/14/14 Active Nitroglycerin 0.4 Mg SL EVERY 5 MINUTES X 3 PRN CHEST PAIN 05/15/14 Active Nitroglycerin [address] on at 8am, take off at 8pm Active Social History Social History Problem Response Recorded Date/Time Smoking Status Never smoker 05/14/2014 12:21pm Query Response Start Date Stop Date Smoking Status Never smoker Hospital Discharge Instructions Discharge Instructions Nursing Instructions Flu Vaccine Received this Visit: No Pneumonia Vaccine Received this Visit: No VTE Education: Educational session w pt [place] Education Materials Provided: Yes Stroke Education Provided: Signs & Symptoms, When to seek ER treatment, Risk Factors Education #1 Topic: Myoview stress test Methods: Discussion Response: Verbalize understanding Recipient: Patient Patient specific education materials provided?: No Patient Request Electronic Discharge Instructions: No Patient Received Electronic Discharge Instructions: No Patient Health Summary printed/downloaded for the patient?: Yes Valuables Returned: Yes Medications Returned: No Comment: no medications brought in Provider Discharge Instruction Make Appointment with:: Dr. Ramon [phone] Follow Up In: 1 Week Other: Call office for appointment next week Make Additional Appt. with:: Dr. Ramya Park [phone] Other: Call office for appointment as soon as possible Other Diet: Low cholesterol 1800 ADA diet. Activity Restrictions: As Tolerated Notify Physician If You Experience Any: Weight Gain More Than 5lb, Shortness of Breath, Chest Pain Additional Instructions: A script has been called in for you of nitro patch and nitro sublingual tablets to [facility]. Central scheduling will be calling you to schedule a stress myoview. Please do not have any caffiene 24 hours prior to the test and nothing to eat or drink after midnight the day of the test. Plan of Care Discharge Date 05/15/14 8:35pm Disposition 01 HOME, LONGTERM,ASSISTED LIVING Instructions/Education Provided Chest Pain (DC) Heart Healthy Diet (DC) Gastroenteritis (DC) Prescriptions See Medications Section Functional Status Query Response Date Recorded Braydon Coma Scale Total 15 May 15, 2014 8:38am Patient Behavior Appropriate May 15, 2014 8:38am Allergies, Adverse Reactions, Alerts Allergen Type Severity Reaction Status Last Updated Aspartame Allergy Severe HEADAHCE NAUSEA Active 05/14/14 Immunizations Name Given Type Hx Influenza Vaccination N REFUSES Historical Hx Pneumococcal Vaccination Yes Historical Hx Tetanus, Diphtheria Vaccination Y <5 YEARS Historical Vital Signs Acute Vital Signs Vital Response Date/Time Temperature (Fahrenheit) 98.9 degrees F (97.6 - 99.5) Temperature Source Temporal Artery Pulse Rate (adult) 62 bpm (60 - 90) Respiratory Rate 24 bpm (12 - 24) Blood Pressure 129/66 mm Hg O2 Sat by Pulse Oximetry 95 % (95 - 100) Oxygen Delivery Method Oxygen Flow Rate 2.0 L/min Pain Intensity 2 Pain Location Body Site Modifier Pain Description Aching Pain Duration 1-3 Hours Height 6 ft 0 in Weight 249 lb Body Mass Index 33.0 kg/m^2 Results Test Source Date Result Interp. Ref. Range Comments Hemoglobin A1c May 14, 2014 8:55am 6.5 % H 4.8-6.0 Specimen Comments: C ENZYMES Q6HRS X 24HRS Alanine Aminotransferase (ALT/SGPT) 2000 5:05am 3 U/L L 30 -65 Albumin 2000 5:05am 3.5 gm/dL N 3.4-5.0 Aspartate Amino Transf (AST/SGOT) 2000 5:05am 30 U/L N 15- 37 Band Neutrophils 2000 5:05am 1.0 % N 0-5 Basophils # (Auto) May 15, 2014 3:30am 0.1 K/uL N 0.0-0.2 Specimen Comments: CBC, CHEM7 IN AM Basophils (%) (Auto) May 15, 2014 3:30am 1.2 % H 0.0-1.0 Specimen Comments: CBC, CHEM7 IN AM Blood Urea Nitrogen May 15, 2014 3:30am 14 mg/dL N 7-18 Specimen Comments: C ENZYMES Q6HRS X 24HRS Calcium Level May 15, 2014 3:30am 8.2 mg/dL L 8.8-10.5 Specimen Comments: C ENZYMES Q6HRS X 24HRS Carbon Dioxide Level May 15, 2014 3:30am 26.8 mEq/L N 21-32 Specimen Comments: C ENZYMES Q6HRS X 24HRS Chloride Level May 15, 2014 3:30am 104 mEq/L N 98-107 Specimen Comments: C ENZYMES Q6HRS X 24HRS Cholesterol Level May 15, 2014 3:30am 194 mg/dL N 120-200 Specimen Comments: C ENZYMES Q6HRS X 24HRS Creatine Kinase MB May 15, 2014 8:24am 0.8 NG/ML N 0-3.6 Specimen Comments: C ENZYMES Q6HRS X 24HRS Creatinine May 15, 2014 3:30am 1.1 mg/dL N 0.8-1.3 Specimen Comments: C ENZYMES Q6HRS X 24HRS Eosinophils # (Auto) May 15, 2014 3:30am 0.3 K/uL N 0.0-0.7 Specimen Comments: CBC, CHEM7 IN AM Eosinophils (%) (Auto) May 15, 2014 3:30am 3.9 % H 0.0-2.0 Specimen Comments: CBC, CHEM7 IN AM Eosinophils (Manual) 2000 5:05am 4.0 % H 0-3 Glomerular Filtration Rate Calc May 15, 2014 3:30am 75.3 mL/min N 60.0-128.0 Specimen Comments: C ENZYMES Q6HRS X 24HRS HDL Cholesterol May 15, 2014 3:30am 23 mg/dL L 35-60 Specimen Comments: C ENZYMES Q6HRS X 24HRS Hematocrit May 15, 2014 3:30am 42.5 % N 42.0-52.0 Specimen Comments: CBC, CHEM7 IN AM Hemoglobin May 15, 2014 3:30am 14.3 gm/dL N 14.0-18.0 Specimen Comments: CBC, CHEM7 IN AM LDL Cholesterol May 15, 2014 3:30am 64 mg/dL N 0-130 Specimen Comments: C ENZYMES Q6HRS X 24HRS Lymphocytes # (Auto) May 15, 2014 3:30am 3.2 K/uL N 1.2-3.4 Specimen Comments: CBC, CHEM7 IN AM Lymphocytes (%) (Auto) May 15, 2014 3:30am 40.4 % N 20.5-51.1 Specimen Comments: CBC, CHEM7 IN AM Lymphocytes (Manual) 2000 5:05am 44.0 % H 25-40 Mean Corpuscular Hemoglobin May 15, 2014 3:30am 31.0 pg N 27.0- 31.0 Specimen Comments: CBC, CHEM7 IN AM Mean Corpuscular Hemoglobin Concent May 15, 2014 3:30am 33.7 g/dL N 30.0-37.0 Specimen Comments: CBC, CHEM7 IN AM Mean Corpuscular Volume May 15, 2014 3:30am 92.5 fL N 80.0-96.1 Specimen Comments: CBC, CHEM7 IN AM Mean Platelet Volume May 15, 2014 3:30am 10.1 fL N 7.4-10.4 Specimen Comments: CBC, CHEM7 IN AM Monocytes # (Auto) May 15, 2014 3:30am 0.5 K/uL N 0.1-0.6 Specimen Comments: CBC, CHEM7 IN AM Monocytes (%) (Auto) May 15, 2014 3:30am 6.9 % N 1.7-9.3 Specimen Comments: CBC, CHEM7 IN AM Monocytes (Manual) 2000 5:05am 5.0 % N 4-10 Myoglobin May 15, 2014 8:24am 63.0 NG/ML N 10.5-92.5 Specimen Comments: C ENZYMES Q6HRS X 24HRS Neutrophils 2000 5:05am 46.0 % L 50-65 Neutrophils # (Auto) May 15, 2014 3:30am 3.8 K/uL N 2.0-6.9 Specimen Comments: CBC, CHEM7 IN AM Neutrophils (%) (Auto) May 15, 2014 3:30am 47.5 % N 42.2-75.2 Specimen Comments: CBC, CHEM7 IN AM Platelet Count May 15, 2014 3:30am 217 K/uL N 130-400 Specimen Comments: CBC, CHEM7 IN AM Platelet Estimate 2000 5:05am Normal - Potassium Level May 15, 2014 3:30am 4.1 mEq/L N 3.5-5.0 Specimen Comments: C ENZYMES Q6HRS X 24HRS Prothromb Time International Ratio 2000 5:05am 1.00 N 1.0- 3.0 Prothrombin Time 2000 5:05am 12.6 SECONDS N 10.5-14.0 Random Glucose May 15, 2014 3:30am 131 mg/dL H 70-110 Specimen Comments: C ENZYMES Q6HRS X 24HRS Red Blood Count May 15, 2014 3:30am 4.60 M/uL L 4.70-6.10 Specimen Comments: CBC, CHEM7 IN AM Red Cell Distribution Width May 15, 2014 3:30am 10.6 % L 11.5-14.5 Specimen Comments: CBC, CHEM7 IN AM Sodium Level May 15, 2014 3:30am 139 mEq/L N 136-145 Specimen Comments: C ENZYMES Q6HRS X 24HRS Total Alkaline Phosphatase 2000 5:05am 104 U/L N 50-136 Total Bilirubin 2000 5:05am 0.24 mg/dL N 0.00-1.00 Total Creatine Kinase May 15, 2014 8:24am 69 U/L N 39-308 Specimen Comments: C ENZYMES Q6HRS X 24HRS Total Protein 2000 5:05am 7.3 gm/dL N 6.4-8.2 Triglycerides Level May 15, 2014 3:30am 533 mg/dL H 30-200 Specimen Comments: C ENZYMES Q6HRS X 24HRS Troponin I May 15, 2014 8:24am 0.0 NG/ML N 0.0-0.2 Specimen Comments: C ENZYMES Q6HRS X 24HRS White Blood Count May 15, 2014 3:30am 7.9 K/uL N 4.8-10.8 Specimen Comments: CBC, CHEM7 IN AM Procedures Procedure Status Date Provider(s) EGD (esophagogastroduodenoscopy) completed 05/15/14 Abdirashid Hernandez M.D. Portable x-ray of chest completed 05/14/14 VIKRAM PENDLETON MD Two dimensional echocardiography with M-mode and color flow imaging completed 05/14/14 Aurora Ramon M.D. Computed tomography of abdomen and pelvis with contrast completed 05/15/14 Aurora Ramon M.D. Encounters Encounter Location Date/Time Discharged Inpatient [facility] 05/14/14 11:10am Recent Diagnosis Coronary artery disease Hyperglycemia Chest pain
[2018-02-08] MEDS: HYDROcodone/APAP 5 MG/325 MG (LORTAB) TAB PO ONE (18:21)
[2018-02-08] MEDS: KETOROLAC 30 MG/ML VIAL IVP ONE (18:22)
[2018-02-08] MEDS ORDERED: CYCL10TA9 PO (18:22)
[2018-02-08] MEDS ORDERED: HYDR-3812 PO (18:22)
[2018-02-08] MEDS ORDERED: PRD20T PO (18:22)
[2018-02-08] MEDS: ORPHENADRINE 60 MG/2 ML (NORFLEX) AMP IV ONE (18:24)
[2018-02-08 18:38] VITALS: BP 138/96
== END 2018-02-08 18:38 | disposition home or self-care (01) ==
LOC: EDUNIT# 14:49 → ER 14:51
DX: M54.6 Pain in thoracic spine (principal); R07.1 Chest pain on breathing; I25.2 Old myocardial infarction; I25.10 Atherosclerotic heart disease of native coronary artery without angina pectoris; K21.9 Gastro-esophageal reflux disease without esophagitis; E11.9 Type 2 diabetes mellitus without complications; Z86.73 Personal history of transient ischemic attack (TIA), and cerebral infarction without residual deficits; Z88.8 Allergy status to other drugs, medicaments and biological substances; Z95.5 Presence of coronary angioplasty implant and graft; Z87.19 Personal history of other diseases of the digestive system
CPT/HCPCS: 36415; 71046; 71275; 80053; 83690; 83735; 83874; 84484; 85025; 85379; 85610; 85730; 86141; 93005; 93041; 96374; 96375

== ENCOUNTER 2018-04-21 15:47 | Emergency (ER) | payer SELFPAY ==
[~2018-04-21] VITALS: Ht 185.4 cm; Wt 108.9 kg
[~2018-04-21 15:47] MED LIST: CYCL10TA9 PO; HYDR-3812 PO; PRD20T PO
--- OUTSIDE RECORDS SUMMARY | 2018-04-21 15:51 | XMS REPORT ---
Author Author JACKSON CAMARA Organization [facility] Address [address] [place] [address] Care Team Providers Care Care Connector Name Role Phone JACKSON CAMARA Unavailable PROBLEMS Unknown Problems ALLERGIES Substance Reaction Event Type Date Status aspertine headache Non Drug Allergy Jan, Active ENCOUNTERS Encounter Location Date Diagnosis [facility] [address] [facility] [id number] [address] Jan, Muscle spasm of back M62.830 and Acute left-sided thoracic back pain M54.6 [facility] [address] [facility] [id number] [address] Jan, Strain of muscle and tendon of back wall of thorax, initial encounter S29.012A and Acute left-sided thoracic back pain M54.6 IMMUNIZATIONS Vaccine Route Administration Date Status DEPO MEDROL 80 MG/ML IM Intramuscular Feb 07, 2018 Administered SOCIAL HISTORY Never Assessed REASON FOR VISIT Establish Care, PT reports he was seen in walk in on 02/02/18 and was given a shot for the inflamation. PT notes the pain subsided some but came back with more pain that moved up into his shoulder/neck. PT does note he is in the process of moving. -Jason REEVES PLAN OF CARE Activity Details Follow Up prn Reason: VITAL SIGNS Height 73 in 2018-02-07 Weight 248.8 lbs 2018-02-07 Temperature 98.3 degrees Fahrenheit 2018-02-07 Heart Rate 79 bpm 2018-02-07 Respiratory Rate 20 2018-02-07 Oximetry 96 % 2018-02-07 BMI 32.82 kg/m2 2018-02-07 Blood pressure systolic 140 mmHg 2018-02-07 Blood pressure diastolic 88 mmHg 2018-02-07 MEDICATIONS Medication Instructions Dosage Frequency Start Date End Date Duration Status Clopidogrel Bisulfate 75 MG Orally Once a day 1 tablet 24h Active Pravastatin Sodium 20 MG Orally Once a day 1 tablet 24h Active Aspirin 325 MG Active Nitroglycerin 0.4 MG Active Baclofen 10 mg Orally Three times a day prn muscle spasm 1 tablet with food or milk Jan, Feb, 07 days Active Metformin HCl 500 MG Orally Once a day 1 tablet with a meal 24h Active Probiotic Active RESULTS No Results PROCEDURES Procedure Date Ordered Result Body Site DEPO MEDROL 80 MG/ML Feb 07, 2018 THER/PROPH/DIAG INJ, SC/IM Feb 07, 2018 INSTRUCTIONS MEDICATIONS ADMINISTERED No Known Medications MEDICAL (GENERAL) HISTORY Type Description Date Medical History CA-2011 Medical History Diverticulitis Medical History History of MRSA Medical History TIA Surgical History colon resection 2011 Surgical History Cardiac stents X 3 2011 Surgical History Left shoulder-separation 1992 Surgical History Left shoulder-rotator cuff 2013 Surgical History Lap Cesia 2013 Surgical History Carpal Tunnel Left 2017 Surgical History Hammer toe surgery 4th toe on left 2017 Surgical History Right Elbow - tennis elbow 1999 Hospitalization History post op
--- OUTSIDE RECORDS SUMMARY | 2018-04-21 15:52 | XMS REPORT ---
Author Author DAVIAN MCDOWELL Organization [facility] Address [address] [place] [address] Phone Unavailable Care Team Providers Care Adobe Flex Developer Name Role Phone DAVIAN MCDOWELL Unavailable Unavailable PROBLEMS Unknown Problems ALLERGIES Substance Reaction Event Type Date Status aspertine headache Non Drug Allergy Jan, Active ENCOUNTERS Encounter Location Date Diagnosis [facility] [address] [facility] [id number], [place] [address] Jan, Muscle spasm of back M62.830 and Acute left-sided thoracic back pain M54.6 [facility] [address] [id number], [place] [address] Jan, Strain of muscle and tendon of back wall of thorax, initial encounter S29.012A and Acute left-sided thoracic back pain M54.6 IMMUNIZATIONS Vaccine Route Administration Date Status TORADOL (IM) 60 MG/2ML (UP TO 15 MG) IM Intramuscular Feb 02, 2018 Administered SOCIAL HISTORY Never Assessed REASON FOR VISIT middle back pain for 2-3 days. has been moving et thinks that is how he hurt it. spouse reports he has a workmans comp case already in the progress for foot injury. tracey, called [facility] to verify medication list et spoke with diamond. PLAN OF CARE Activity Details Follow Up prn Reason: VITAL SIGNS Height 73 in 2018-02-02 Weight 252.6 lbs 2018-02-02 Temperature 98.3 degrees Fahrenheit 2018-02-02 Heart Rate 80 bpm 2018-02-02 Respiratory Rate 20 2018-02-02 BMI 33.32 kg/m2 2018-02-02 Blood pressure systolic 128 mmHg 2018-02-02 Blood pressure diastolic 82 mmHg 2018-02-02 MEDICATIONS Medication Instructions Dosage Frequency Start Date End Date Duration Status Clopidogrel Bisulfate 75 MG Orally Once a day 1 tablet 24h Active Nitroglycerin 0.4 MG Active Metformin HCl 500 MG Orally Once a day 1 tablet with a meal 24h Active Pravastatin Sodium 20 MG Orally Once a day 1 tablet 24h Active RESULTS Name Result Date Reference Range Xray : Spine, Thoracic 2 views (IN HOUSE) 2018-02-02 PROCEDURES Procedure Date Ordered Result Body Site TORADOL (IM) 60 MG/2ML (UP TO 15 MG) Feb 02, 2018 THER/PROPH/DIAG INJ, SC/IM Feb 02, 2018 INSTRUCTIONS MEDICATIONS ADMINISTERED No Known Medications MEDICAL (GENERAL) HISTORY Type Description Date Medical History [place]-2012 Medical History Diverticulitis Medical History History of MRSA Medical History TIA Surgical History colon resection 2011 Surgical History Cardiac stents X 3 2012 Surgical History Left shoulder-separation 1992 Surgical History Left shoulder-rotator cuff 2013 Surgical History Lap Cesia 2014 Surgical History Carpal Tunnel Left 2017 Surgical History Hammer toe surgery 4th toe on left 2017 Surgical History Right Elbow - tennis elbow 1999 Hospitalization History post op
--- OUTSIDE RECORDS SUMMARY | 2018-04-21 15:56 | XMS REPORT | Continuity of Care Document ---
Author Author [facility] Address Unknown Phone Unavailable Allergies Active Description Code Type Severity Reaction Onset Reported/Identified Relationship to Patient Clinical Status Yes ASPARTAME [id number] Drug Allergy N/A N/A Yes aspartame [id number] Drug Allergy Unknown N/A 02/08/2018 Yes No Known Drug Allergies [id number] Drug Allergy Unknown N/A 02/08/2018 Medications Medication Packaging Start Date Stop Date Route Dosage Sig TRAMADOL HCL ORAL 10/13/2015 11/14/2015 ORAL 4040 4 times a day NITROSTAT Sublingual 10/13/2015 09/08/2017 Sublingual 716234 TRAMADOL HCL ORAL 11/04/2015 02/10/2016 ORAL 288139 4 times a day TRAMADOL HCL ORAL 01/11/2016 04/20/2016 ORAL 389627 4 times a day CLOPIDOGREL BISULFATE ORAL 201504/26/2016 ORAL 3030 daily TRAMADOL HCL ORAL 03/21/2016 04/20/2016 ORAL 519042 4 times a day CLOPIDOGREL BISULFATE ORAL [...] ORAL 9090 daily NITROSTAT Sublingual 09/08/2017 Sublingual 693168 CLOPIDOGREL BISULFATE ORAL 2017 ORAL 9090 daily ZETIA ORAL 09/12/2017 ORAL 3030 daily METFORMIN HCL ORAL 10/18/2017 ORAL 6060 twice daily Problems Date Dx Coded Attending Type Code Diagnosis Diagnosed By 02/08/2018 TRAE MONREAL MD, Ot E11.9 TYPE 2 DIABETES MELLITUS WITHOUT COMPLIC 02/08/2018 TRAE MONREAL MD, Ot I25.10 ATHSCL HEART DISEASE OF [place] CORONARY 02/08/2018 TRAE MONREAL MD, Ot I25.2 OLD MYOCARDIAL INFARCTION 02/08/2018 TRAE MONREAL MD, Ot K21.9 GASTRO-ESOPHAGEAL REFLUX DISEASE WITHOUT 02/08/2018 TRAE MONREAL MD, Ot M54.6 PAIN IN THORACIC SPINE 02/08/2018 TRAE MONREAL MD, Ot R07.1 CHEST PAIN ON BREATHING 02/08/2018 TRAE MONREAL MD, Ot Z86.73 PRSNL HX OF TIA (TIA), AND CEREB INFRC W 02/08/2018 TRAE MONREAL MD, Ot Z87.19 PERSONAL HISTORY OF OTHER DISEASES OF TH 02/08/2018 TRAE MONREAL MD, Ot Z88.8 ALLERGY STATUS TO OT DRUG/MEDS/BIOL SUB 02/08/2018 TRAE MONREAL MD, Ot Z95.5 PRESENCE OF CORONARY ANGIOPLASTY IMPLANT 04/18/2018 TRAE MONREAL MD, Ot E11.9 TYPE 2 DIABETES MELLITUS WITHOUT COMPLIC 04/18/2018 TRAE MONREAL MD, Ot I25.10 ATHSCL HEART DISEASE OF [place] CORONARY 04/18/2018 TRAE MONREAL MD, Ot I25.2 OLD MYOCARDIAL INFARCTION 04/18/2018 TRAE MONREAL MD, Ot K21.9 GASTRO-ESOPHAGEAL REFLUX DISEASE WITHOUT 04/18/2018 TRAE MONREAL MD, Ot M54.6 PAIN IN THORACIC SPINE 04/18/2018 TRAE MONREAL MD, Ot R07.1 CHEST PAIN ON BREATHING 04/18/2018 JOCELIN LOZANO, TRAE Mercado Ot Z86.73 PRSNL HX OF TIA (TIA), AND CEREB INFRC W 04/18/2018 TRAE MONREAL MD, Ot Z87.19 PERSONAL HISTORY OF OTHER DISEASES OF TH 04/18/2018 TRAE MONREAL MD, Ot Z88.8 ALLERGY STATUS TO OT DRUG/MEDS/BIOL SUB 04/18/2018 TRAE MONREAL MD, Ot Z95.5 PRESENCE OF CORONARY ANGIOPLASTY IMPLANT Procedures There is no data. Results Test Result Range Complete blood count (CBC) with automated white blood cell (WBC) differential - 02/08/18 15:31 Blood leukocytes automated count (number/volume) 12.4 10*3/uL 4.3-11.0 Blood erythrocytes automated count (number/volume) 5.25 10*6/uL 4.35-5.85 Venous blood hemoglobin measurement (mass/volume) 16.1 g/dL 13.3-17.7 Blood hematocrit (volume fraction) 47 % 40-54 Automated erythrocyte mean corpuscular volume 89 [foz_us] 80-99 Automated erythrocyte mean corpuscular hemoglobin (mass per erythrocyte) 31 pg 25-34 Automated erythrocyte mean corpuscular hemoglobin concentration measurement ( mass/volume) 35 g/dL 32-36 Automated erythrocyte distribution width ratio 12.8 % 10.0-14.5 Automated blood platelet count (count/volume) 251 10*3/uL 130-400 Automated blood platelet mean volume measurement 10.9 [foz_us] 7.4-10.4 Automated blood neutrophils/100 leukocytes 71 % 42-75 Automated blood lymphocytes/100 leukocytes 18 % 12-44 Blood monocytes/100 leukocytes 8 % 0-12 Automated blood eosinophils/100 leukocytes 2 % 0-10 Automated blood basophils/100 leukocytes 0 % 0-10 Blood neutrophils automated count (number/volume) 8.8 10*3 1.8-7.8 Blood lymphocytes automated count (number/volume) 2.3 10*3 1.0-4.0 Blood monocytes automated count (number/volume) 1.0 10*3 0.0-1.0 Automated eosinophil count 0.3 10*3/uL 0.0-0.3 Automated blood basophil count (count/volume) 0.0 10*3/uL 0.0-0.1 PT panel in platelet poor plasma by coagulation assay - 02/08/18 15:31 Prothrombin time (PT) in platelet poor plasma by coagulation assay 13.5 s 12.2-14.7 INR in platelet poor plasma or blood by coagulation assay 1.0 0.8-1.4 Activated partial thromboplastin time (aPTT) in platelet poor plasma bycoagulation assay - 02/08/18 15:31 Activated partial thromboplastin time (aPTT) in platelet poor plasma bycoagulation assay 32 s 24-35 Fibrin D-dimer FEU measurement in platelet poor plasma (mass/volume) - 15:31 Fibrin D-dimer FEU measurement in platelet poor plasma (mass/volume) 0.39 ug/mL 0.00-0.49 Comprehensive metabolic panel - 02/08/18 15:31 Serum or plasma sodium measurement (moles/volume) 139 mmol/L 135-145 Serum or plasma potassium measurement (moles/volume) 4.1 mmol/L 3.6-5.0 Serum or plasma chloride measurement (moles/volume) 105 mmol/L 98-107 Carbon dioxide 23 mmol/L 21-32 Serum or plasma anion gap determination (moles/volume) 11 mmol/L 5-14 Serum or plasma urea nitrogen measurement (mass/volume) 19 mg/dL 7-18 Serum or plasma creatinine measurement (mass/volume) 0.94 mg/dL 0.60-1.30 Serum or plasma urea nitrogen/creatinine mass ratio 20 NRG Serum or plasma creatinine measurement with calculation of estimated glomerular filtration rate > NRG Serum or plasma glucose measurement (mass/volume) 232 mg/dL 70-105 Serum or plasma calcium measurement (mass/volume) 9.9 mg/dL 8.5-10.1 Serum or plasma total bilirubin measurement (mass/volume) 0.4 mg/dL 0.1-1.0 Serum or plasma alkaline phosphatase measurement (enzymatic activity/volume) 80 U/L 40-136 Serum or plasma aspartate aminotransferase measurement (enzymatic activity/ volume) 17 U/L 5-34 Serum or plasma alanine aminotransferase measurement (enzymatic activity/volume ) 17 U/L 0-55 Serum or plasma protein measurement (mass/volume) 7.5 g/dL 6.4-8.2 Serum or plasma albumin measurement (mass/volume) 4.2 g/dL 3.2-4.5 CALCIUM CORRECTED 9.7 mg/dL 8.5-10.1 Magnesium - 02/08/18 15:31 Magnesium 2.0 mg/dL 1.8-2.4 Myoglobin, serum - 02/08/18 15:31 Myoglobin, serum 42.2 ng/mL 10.0-92.0 Serum or plasma troponin i.cardiac measurement (mass/volume) - 02/08/18 15:31 Serum or plasma troponin i.cardiac measurement (mass/volume) < ng/ mL <0.30 Serum or plasma C reactive protein measurement (mass/volume) - 02/08/18 15:31 Serum or plasma C reactive protein measurement (mass/volume) 1.57 mg /dL 0.00-0.50 Lipase - 02/08/18 15:31 Lipase 24 U/L 8-78 Myoglobin, serum - 02/08/18 15:31 Myoglobin, serum 42.2 ng/mL 10.0-92.0 Lipase - 02/08/18 15:31 Lipase 24 U/L 8-78 Encounters ACCT No. Visit Date/Time Discharge Status Pt. Type Provider Facility Loc./Unit Complaint [id number] 07/10/2017 09:37:21 07/10/2017 23:59:59 CLS Outpatient Dayne Senior [id number] 05/29/2017 16:29:56 05/29/2017 23:59:59 CLS Outpatient Dayne Senior [id number] 06/02/2014 15:02:10 06/02/2014 15:02:11 DIS Outpatient [id number] 03/03/2015 14:03:35 03/03/2015 14:03:35 DIS Outpatient [id number] 10/18/2017 11:47:09 10/18/2017 11:47:09 DIS Outpatient [facility] [id number] 02/08/2018 14:51:00 02/08/2018 18:38:00 DIS Outpatient JOCELIN LOZANO, TRAE Mercedes [facility] ER RIB PAIN,BACK PAIN,
[2018-04-21] MEDS ORDERED: ASPIRIN 81 MG CHEW (CHILDREN'S ASA) PO ONE (16:00)
--- NOTE | 2018-04-21 16:04 | ED Chest Pain ---
General Stated Complaint: CP Source: patient Exam Limitations: no limitations History of Present Illness Date Seen by Provider: Apr 21, 2018 Time Seen by Provider: 16:01 Initial Comments To ER with left sternal border sharp chest pain worse with movement and palpation constant for the past 2-4 days. He did have some associated shortness of breath with exertion earlier today while hanging a TV. He states that he became diaphoretic and didn't feel as though he was exerting enough effort to be sweating is much as he was. He does have a history of prior myocardial infarction and 3 stents. He follows with scooping machine tender Dr. Caldwell at [facility] in [place]. He was seen at [facility] today and referred to the emergency room for further evaluation. He is a nonsmoker. Timing/Duration: 3-4 days Severity/Quality: sharp Location: central Radiation: no radiation Activities at Onset: activity Prior CP/Workup: cardiac cath, heart attack ASA po HIDE TANNER: No NTG SL HIDE TANNER: No Associated Symptoms: shortness of breath Allergies and Home Medications Allergies Coded Allergies: aspartame (Verified Allergy, Unknown, 02/08/18) Home Medications Cyclobenzaprine HCl 10 Mg Tablet, 10 MG PO TID PRN for SPASMS Prescribed by: TRAE MAJANO on 02/08/181821 Hydrocodone/Acetaminophen 1 Each Tablet, 1 EACH PO Q6H PRN for PAIN-MODERATE TO SEVERE Prescribed by: TRAE MAJANO on 02/08/181821 Prednisone 20 Mg Tab, 20 MG PO UD Take 2 tablets daily for 3 days then one tablet daily for 3 days Prescribed by: TRAE MAJANO on 02/08/181821 Patient Home Medication List Home Medication List Reviewed: Yes Review of Systems Review of Systems Constitutional: see HPI, diaphoresis EENTM: No Symptoms Reported Respiratory: No Symptoms Reported, See HPI Cardiovascular: See HPI, Chest Pain Gastrointestinal: See HPI Genitourinary: No Symptoms Reported Musculoskeletal: no symptoms reported Skin: no symptoms reported Psychiatric/Neurological: No Symptoms Reported Endocrine: No Symptoms Reported Hematologic/Lymphatic: No Symptoms Reported Past Kyqjqoe-Nlhlyj-Sjnqmo Hx Patient Social History 2nd Hand Smoke Exposure: No Recent Foreign Travel: No Contact w/Someone Who Travel: No Recent Hopitalizations: No Seasonal Allergies Seasonal Allergies: No Past Medical History Surgeries: Yes (surgical procedure to decrease acid reflux, hiatal hernia) Bowel Surgery, Coronary Stent, Orthopedic Respiratory: No Cardiac: Yes (coronary stents x 3) Coronary Artery Disease, Heart Attack Neurological: Yes TIA Genitourinary: No Gastrointestinal: Yes (colon resection due to diverticulitis) Gastroesophageal Reflux, Diverticulosis, Hiatal Hernia Musculoskeletal: Yes (left shoulder and elbow surgery, bilateral carpal tunnel surgery, right elb) Endocrine: Yes Diabetes, Non-Insulin dep HEENT: No Cancer: No Psychosocial: No Integumentary: No Blood Disorders: No Physical Exam Vital Signs Vital Signs - First Documented 04/21/18 15:50 Temp 98.0 Pulse 74 Resp 18 B/P (MAP) 147/104 (118) Pulse Ox 97 O2 Delivery Room Air Capillary Refill : Height, Weight, BMI Height: 6'1.00" Weight: 248lbs. oz. 112.842706us; BMI Method:Stated General Appearance: No Apparent Distress, WD/WN HEENT: PERRL/EOMI, TMs Normal Respiratory: No Accessory Muscle Use, No Respiratory Distress Cardiovascular: Regular Rate, Rhythm, Normal Peripheral Pulses, Other (EKG shows sinus rhythm at a rate of 78 without ectopy and no ST segment changes. He is very tender to palpation at the left sternal border fourth fifth and sixth costochondral junctions) Gastrointestinal: Normal Bowel Sounds, Non Tender, Soft Extremity: Normal Capillary Refill, Normal Inspection Neurologic/Psychiatric: Alert, Oriented x3 Skin: Normal Color, Warm/Dry Progress/Results/Core Measures Results/Orders Lab Results Laboratory Tests Test 04/21/18 16:00 Range/Units Prothrombin Time 12.9 12.2-14.7 SEC INR Comment 1.0 0.8-1.4 Activated Partial Thromboplast Time 31 24-35 SEC D-Dimer 0.50 H 0.00-0.49 UG/ML Sodium Level 140 135-145 MMOL/L Potassium Level 4.1 3.6-5.0 MMOL/L Chloride Level 108 H 98-107 MMOL/L Carbon Dioxide Level 21 21-32 MMOL/L Anion Gap 11 5-14 MMOL/L Blood Urea Nitrogen 13 7-18 MG/DL Creatinine 0.86 0.60-1.30 MG/DL Estimat Glomerular Filtration Rate > 60 BUN/Creatinine Ratio 15 Glucose Level 101 70-105 MG/DL Calcium Level 9.5 8.5-10.1 MG/DL Corrected Calcium 9.3 8.5-10.1 MG/DL Magnesium Level 1.7 L 1.8-2.4 MG/DL Total Bilirubin 0.3 0.1-1.0 MG/DL Aspartate Amino Transf (AST/SGOT) 14 5-34 U/L Alanine Aminotransferase (ALT/SGPT) 18 0-55 U/L Alkaline Phosphatase 71 40-136 U/L Myoglobin 29.5 10.0-92.0 NG/ML Troponin I < 0.30 <0.30 NG/ML Total Protein 7.2 6.4-8.2 GM/DL Albumin 4.2 3.2-4.5 GM/DL My Orders Orders - EDOUARD PEREZ APRN Cbc With Automated Diff (04/21/18 15:51) Magnesium (04/21/18 15:51) Chest 1 View, Ap/Pa Only (04/21/18 15:51) Ekg Tracing (04/21/18 15:51) Cardiac Profile 1 (04/21/18 15:51) Comprehensive Metabolic Panel (04/21/18 15:51) Myoglobin Serum (04/21/18 15:51) Protime With Inr (04/21/18 15:51) Partial Thromboplastin Time (04/21/18 15:51) O2 (04/21/18 15:51) Monitor-Rhythm Ecg Trace Only (04/21/18 15:51) Lipid Panel (04/22/18 06:00) Aspirin Chewable Tablet (Baby Aspirin Ch (04/21/18 16:00) Saline Lock/Iv-Start (04/21/18 15:51) Fibrin Degradation Products (04/21/18 16:00) Medications Given in ED Current Medications Medications Dose Ordered Sig/Lyndsay Route Start Time Stop Time Status Last Admin Dose Admin Aspirin 324 mg ONCE ONCE PO 04/21/18 16:00 04/21/18 16:01 DC 04/21/18 16:10 324 MG Vital Signs/I&O 04/21/18 15:50 Temp 98.0 Pulse 74 Resp 18 B/P (MAP) 147/104 (118) Pulse Ox 97 O2 Delivery Room Air Departure Communication (Admissions) His age adjusted d-dimer is negative Impression Primary Impression: Costochondritis Disposition: 01 HOME, SELF-CARE Condition: Stable Departure-Patient Inst. Decision time for Depature: 17:00 Referrals: KELIN COSTELLO APRN (PCP/Family) Primary Care Physician Patient Instructions: Costochondritis (DC) Add. Discharge Instructions: 1. Return to ER for any concerns 2. Call Dr. Caldwell tomorrow to make an appointment to be seen for follow-up. Return to ER for any worsening. EDOUARD PEREZ APRN Apr 21, 2018 16:04
[2018-04-21 16:13] LABS: BASOPHILS # (AUTO) 0.1 10^3/uL (0.0-0.1); BASOPHILS % (AUTO) 1 % (0-10); EOSINOPHILS # (AUTO) 0.3 10^3/uL (0.0-0.3); EOSINOPHILS % (AUTO) 3 % (0-10); HEMATOCRIT 47 % (40-54); HEMOGLOBIN 16.3 G/DL (13.3-17.7); LYMPHOCYTES # (AUTO) 3.1 X 10^3 (1.0-4.0); LYMPHOCYTES % (AUTO) 31 % (12-44); MEAN CORPUSCULAR HEMOGLOBIN 31 PG (25-34); MEAN CORPUSCULAR HGB CONC 35 G/DL (32-36); MEAN CORPUSCULAR VOLUME 89 FL (80-99); MEAN PLATELET VOLUME 11.4 FL (7.4-10.4); MONOCYTES # (AUTO) 1.1 X 10^3 (0.0-1.0); MONOCYTES % (AUTO) 11 % (0-12); NEUTROPHILS # (AUTO) 5.5 X 10^3 (1.8-7.8); NEUTROPHILS % (AUTO) 54 % (42-75); PLATELET COUNT 226 10^3/uL (130-400); RED BLOOD COUNT 5.25 10^6/uL (4.35-5.85); RED CELL DISTRIBUTION WIDTH 13.1 % (10.0-14.5); WHITE BLOOD COUNT 10.1 10^3/uL (4.3-11.0)
[2018-04-21 16:21] LABS: PROTHROMBIN TIME PATIENT 12.9 SEC (12.2-14.7)
[2018-04-21 16:30] LABS: ALANINE AMINOTRANSFERASE 18 U/L (0-55); ALBUMIN 4.2 GM/DL (3.2-4.5); ALKALINE PHOSPHATASE 71 U/L (40-136); BILIRUBIN,TOTAL 0.3 MG/DL (0.1-1.0); BUN/CREATININE RATIO 15; CALCIUM 9.5 MG/DL (8.5-10.1); CARBON DIOXIDE 21 MMOL/L (21-32); CHLORIDE 108 MMOL/L (98-107); CREATININE SERUM 0.86 MG/DL (0.60-1.30); GFR ESTIMATED > 60; GLUCOSE 101 MG/DL (70-105); MAGNESIUM 1.7 MG/DL (1.8-2.4); POTASSIUM 4.1 MMOL/L (3.6-5.0); SODIUM 140 MMOL/L (135-145); TOTAL PROTEIN 7.2 GM/DL (6.4-8.2)
--- NOTE | 2018-04-21 16:32 | Diagnostic Imaging Report ---
INDICATION: Chest pain. EXAMINATION: Portable erect AP chest at 4:05 p.m. FINDINGS: The heart size is within normal limits and stable when compared to 02/08/2018. The lungs are clear. There is no evidence for failure, pneumonia or for a pleural effusion. The mediastinum is not widened. The osseous structures are intact. IMPRESSION: There is no evidence for active disease. When compared to the prior study, there has been no adverse change. Dictated by: Dictated on workstation # [id number]
[2018-04-21 16:36] LABS: MYOGLOBIN SERUM 29.5 NG/ML (10.0-92.0)
[2018-04-21 17:52] VITALS: BP 146/100
== END 2018-04-21 17:52 | disposition home or self-care (01) ==
LOC: EDUNIT# 15:47 → ER 15:48
DX: M94.0 Chondrocostal junction syndrome [Tietze] (principal); I25.2 Old myocardial infarction; I25.10 Atherosclerotic heart disease of native coronary artery without angina pectoris; E11.9 Type 2 diabetes mellitus without complications; Z87.19 Personal history of other diseases of the digestive system; Z86.73 Personal history of transient ischemic attack (TIA), and cerebral infarction without residual deficits; Z88.8 Allergy status to other drugs, medicaments and biological substances; Z95.5 Presence of coronary angioplasty implant and graft; Z79.52 Long term (current) use of systemic steroids; Z98.890 Other specified postprocedural states
CPT/HCPCS: 36415; 71045; 80053; 83735; 83874; 84484; 85025; 85379; 85610; 85730; 93005; 93041

== ENCOUNTER → 2019-02-04 | Outpatient (CLI) | payer OTHER ==
[~2019-02-04] VITALS: Ht 188 cm; Wt 108.9 kg
[~2019-02-04] MED LIST changes: +CATHETER FLUSH 10 ML SYR IV PRN; +REGADENOSON 0.4 MG/5 ML SYR (LEXISCAN) IV ONE
[2019-02-04 09:17] VITALS: BP 100/57
[2019-02-04 09:36] VITALS: BP 124/96
--- NOTE | 2019-02-04 13:42 | STRESS TEST ---
DATE OF SERVICE: 02/04/2019 LEXISCAN MYOVIEW STRESS TEST REPORT REFERRING PHYSICIAN: DELTA Ochoa. Baseline heart rate is 80, baseline blood pressure 100/57. Baseline EKG is sinus rhythm with no ischemic changes. In summary, the patient was injected with 10.24 mCi of technetium-99 Myoview and the resting images were obtained. Then, the patient received 0.4 mg of Lexiscan followed by 31.6 mCi of technetium-99 Myoview. Throughout the test, there were no EKG changes. The patient tolerated the test with, the resting and stress images were reviewed and compared in the short axis, horizontal long axis, and vertical long axis views. Review of the images showed mild decreased uptake at the mid to apical anterior wall and anterolateral wall with mild reversibility. SSS is 4, SDS is 4, TID value 1.04. On the gated images, the left ventricle appeared to be in normal size with normal contractility. Calculated ejection fraction is 55%. CONCLUSION: 1. The patient tolerated Lexiscan well. 2. Mild decreased, mild reversible ischemia involving the mid to apical anterior wall and anterolateral wall. 3. Normal left ventricular size with normal contractility. Calculated ejection fraction is 55%. Job ID: [id number] DocumentID: [id number] Dictated Date: 02/04/2019 11:24:17 Freelance Graphic Designer Date: 02/04/2019 13:42:07 Dictated By: ONELIA VEGA MD
== END ==
LOC: CARD 08:03
PROVIDERS: ATTEND Internal Medicine Cardiovascular Disease
DX: I25.118 Atherosclerotic heart disease of native coronary artery with other forms of angina pectoris (principal); E78.5 Hyperlipidemia, unspecified; R00.2 Palpitations
CPT/HCPCS: 78452; 93017

== ENCOUNTER 2019-02-13 07:05 | Day surgery (SDC) | payer OTHER ==
[2019-02-13] VITALS (17 sets, daily range): BP systolic 101–141; BP diastolic 70–108
[~2019-02-13] VITALS: Ht 188 cm; Wt 108.9 kg
[~2019-02-13 07:05] MED LIST changes: -CATHETER FLUSH 10 ML SYR IV PRN; +HEParin (CATH LAB) 2,000 ML IV ONE; +LIDOCAINE 1% INJ 20 ML 20 ML VIAL ONE; +NS IV 1000 ML 1,000 ML ONE; -REGADENOSON 0.4 MG/5 ML SYR (LEXISCAN) IV ONE
[2019-02-13] MEDS ORDERED: NS IV 1000 ML 1,000 ML IV SCH (07:15)
[2019-02-13 07:48] LABS: HEMOGLOBIN 16.3 G/DL (13.3-17.7); MEAN PLATELET VOLUME 11.3 FL (7.4-10.4); RED CELL DISTRIBUTION WIDTH 12.4 % (10.0-14.5); WHITE BLOOD COUNT 10.1 10^3/uL (4.3-11.0)
[2019-02-13] MEDS ORDERED: NITR0.4T39 SL (07:49)
[2019-02-13] MEDS ORDERED: CLOP75TA69 PO (07:49)
[2019-02-13] MEDS ORDERED: ASPI-983 PO (07:49)
[2019-02-13] MEDS ORDERED: METO50TA15 PO (07:49)
[2019-02-13] MEDS ORDERED: ROSU5TAB PO (07:49)
[2019-02-13] MEDS ORDERED: ASPI325T32 PO (07:51)
[2019-02-13] MEDS ORDERED: IBUP-2055 PO (07:51)
[2019-02-13] MEDS ORDERED: fentaNYL INJECTION 100 MCG/2 ML AMP ONE (07:53)
[2019-02-13] MEDS ORDERED: MIDAZOLAM 5 MG/5 ML (VERSED) VIAL ONE (07:53)
[2019-02-13 07:54] LABS: BILIRUBIN,URINE NEGATIVE (NEGATIVE); CLARITY,URINE CLEAR; COLOR,URINE YELLOW; GLUCOSE, URINE (UA) NEGATIVE (NEGATIVE); KETONES,URINE NEGATIVE (NEGATIVE); LEUKOCYTE ESTERASE ,URINE 2+ (NEGATIVE); NITRITE,URINE NEGATIVE (NEGATIVE); PH,URINE 5 (5-9); PROTEIN,URINE NEGATIVE (NEGATIVE); UROBILINOGEN,URINE NORMAL (NORMAL)
[2019-02-13 07:54] LABS: PROTHROMBIN TIME PATIENT 13.4 SEC (12.2-14.7)
[2019-02-13 08:02] LABS: ALANINE AMINOTRANSFERASE 22 U/L (0-55); ALBUMIN 4.1 GM/DL (3.2-4.5); ALKALINE PHOSPHATASE 71 U/L (40-136); BILIRUBIN,TOTAL 0.5 MG/DL (0.1-1.0); BUN/CREATININE RATIO 18; CARBON DIOXIDE 24 MMOL/L (21-32); CHLORIDE 108 MMOL/L (98-107); CHOLESTEROL 165 MG/DL (< 200); CREATININE SERUM 0.91 MG/DL (0.60-1.30); GFR ESTIMATED > 60; GLUCOSE 153 MG/DL (70-105); HDL CHOLESTEROL 28 MG/DL (40-60); POTASSIUM 4.1 MMOL/L (3.6-5.0); SODIUM 140 MMOL/L (135-145); TOTAL PROTEIN 7.3 GM/DL (6.4-8.2); TRIGLYCERIDES 280 MG/DL (<150); VLDL CHOLESTEROL 56 MG/DL (5-40)
--- NOTE | 2019-02-13 08:06 | Diagnostic Imaging Report ---
INDICATION: Coronary artery disease and peripheral vascular disease Frontal chest obtained at 737 hours am and compared to 04/21/18. Heart and mediastinal silhouette are normal in appearance. The lungs are clear. There is no pneumothorax or pleural fluid. IMPRESSION: No acute process in the chest. Dictated by: Dictated on workstation # [id number]
--- NOTE | 2019-02-13 08:08 | Cardiac Procedure Note-CS/ASA ---
Pre-Procedure Note Pre-Op Procedure Note H&P Reviewed The H&P was reviewed, patient examined and no changes noted. Date H&P Reviewed: Feb 13, 2019 Time H&P Reviewed: 08:08 Conscious Sedation Pre-Proced Time 08:08 ASA Score 3 For ASA 3 and 4: Consider anesthesia and medical clearance. Also, for patients with a history of failed moderate sedation consider anesthesia. Airway Lungs Heart ASA score ASA 1: a normal healthy patient ASA 2: a patient with a mild systemic disease (mid diabetes, controlled hypertension, obesity x ASA 3: a patient with a severe systemic disease that limits activity (angina, COPD, prior Myocardial infarction) ASA 4: a patient with an incapacitating disease that is a constant threat to life (CHF, renal failure) ASA 5: a moribund patient not expected to survive 24 hrs. (ruptured aneurysm) ASA 6: a declared brain- patient whose organs are being harvested. For emergent operations, add the letter E after the classification Mallampati Classification Grade 3 Sedation Plan Analgesia, Amnesia, Plan communicated to team members, Discussed options with patient/fam, Discussed risks with patient/fam The patient is an appropriate candidate to undergo the planned procedure, sedation, and anesthesia. The patient immediately re-assessed prior to indication. ONELIA VEGA MD Feb 13, 2019 08:08
[2019-02-13 08:14] LABS: BACTERIA,URINE TRACE /HPF; SQUAMOUS EPITHELIAL CELL,UR RARE /HPF
--- NOTE | 2019-02-13 08:18 | NUR ---
SPOKE WITH PT (HE HAD HIS BOTTLES WITH HIM) TO COMPLETE THE MED REC. PT WAS ABLE TO VERIFY ALL HIS MEDICATIONS AND TO TELL HE HOW HE TAKES THEM. METOPROLOL TART 50MG: THE BOTTLE READS "TAKE 1 TAB BID", WHEN I VERIFIED THIS WITH THE PT HE SAID HE ONLY TAKES IT ONCE DAILY AND HE DIDNT REALIZE THE DIRECTIONS WERE BID DOSING. GABAPENTIN AND LYRICA WERE LISTED ON THE MED LIST IN THE PT'S FILE- HOWEVER HE SAYS HE DOES NOT TAKES THOSE ANYMORE DUE TO THE FATIGUE HE FELT. OTC MEDS: ASPIRIN 81M DAILY ASPIRIN 325M -2 TABS Q 6 H PRN IBUPROFEN 200M TABS Q 8 H PRN
[2019-02-13] MEDS ORDERED: HEParin 1000 UNIT/ML (10ML VIAL) FOR BOLUS ONE (08:23)
[2019-02-13] MEDS ORDERED: NITRO DRIP 25000 MCG/D5W 250 ML IV ONE (08:24)
[2019-02-13] MEDS ORDERED: EPTIFIBATIDE BOLUS 20 ML IV ONE (08:26)
[2019-02-13] MEDS ORDERED: ASPIRIN 325 MG (5 GR) TABLET ONE (08:45)
[2019-02-13] MEDS ORDERED: CLOPIDOGREL 300 MG (PLAVIX) TABLET PO ONE (08:45)
--- NOTE | 2019-02-13 08:57 | Cardiac Cath Report ---
Cardiac Cath Report Physician (s)/Mold Release Worker (s) Physician ONELIA VEGA MD Pre-Procedure Diagnosis Pre-Procedure Diagnosis: coronary artery disease Post-Procedure Note Procedure Start Date: Feb 13, 2019 Name of Procedure: Left heart catheterization stent to the LAD Bilateral lower extremity runoff First order Findings/Procedure Note PROCEDURE NOTE: 54 years old gentleman with history of coronary artery disease, multiple stents of the right coronary artery, has been having lower extremities pain, had an abnormal stress test with anterior wall ischemia, scheduled for cardiac catheterization and bilateral angiogram to the lower extremities. After explaining the procedure to the patient, all pros and cons were explained, all questions were answered. The patient signed the consent and then he was placed on the cardiac catheterization laboratory. Groin was prepped SL fashion local anesthesia was used. Sheath placed in the right femoral artery. Mar ri ght and left catheter were used to access the coronary system. Mar right catheter was advanced to the left ventricular cavity, pressure was measured, no left ventriculogram was done, pullback LV to aorta was then. Patient was noted to have severe mid LAD stenosis, given 6000 units of heparin, single bolus of Integrilin, FL guide was advanced to the left coronary system, BMW wire was advanced through the LAD then primary stenting using Dori 2.512 mm stent deployed under 14 redd to the mid LAD with excellent results and no residual stenosis. I used a rim catheter to cross over to the left placed at the origin of the left iliac artery and runoff to the left leg was done with 8 mL of contrast then pulled the catheter out and didn't runoff to the right leg through the sheath. At the end of the procedure the sheath was removed. Closure device was used FINDINGS: Hemodynamics LV 124/17, end-diastolic pressure of 17 Aorta 126/77 mean of 67 ANATOMY: Left Main is free of obstructive disease Left Anterior Descending is moderate in size with severe mid LAD stenosis successful primary stenting using Dori 2.512 mm expanded to 2.7 mm with excellent results with no residual stenosis Left Circumflex is moderate in size with no obstructive disease Right Coronory Artery has multiple stented the proximal and midportion, there is a stepdown beyond stent with no significant obstructive disease mild to moderate disease at most LV Gram was not done, pressure was measured Left lower extremity runoff done with Rim catheter, there is mild disease down to the trifurcation below the trifurcation there was slow flow but no significant obstructive disease was visualized. Did not advance due to the fact that it is probably small vessel disease Right lower extremity runoff done through that sheath showing mild disease down to the trifurcation, slow flow below the trifurcation CONCLUSION: 1. Severe mid LAD stenosis successful primary stenting using Dori 2.5 x 12 mm drug-eluting stent expanded to 2.7 mm with excellent results 2. Patent stent in the proximal and midright coronary artery with a step down beyond the stent, mild to moderate disease nonobstructive disease 3. Normal left ventricular end-diastolic pressure 4. Normal bilateral lower extremities runoff down to the trifurcation, the vessels below the trifurcation were not well visualized, overall no obvious obstructive disease DISCUSSION AND RECOMMENDATION: I will continue maximizing medical therapy, continue on Crestor, educated on compliance with medication and diet and smoking cessation Anesthesia Type: Conscious Sedation Estimated blood loss (mL): 25 ml Contrast Amount: 90 ml Total Radiation Dose: 992 mGy Post-Procedure Diagnosis Post-operative diagnosis: Coronary artery disease Claudication Peripheral arterial disease Hypertension Hyperlipidemia ONELIA VEGA MD Feb 13, 2019 08:57
[2019-02-13] MEDS ORDERED: IBUPROFEN TABLET 200 MG TAB PO PRN (09:00)
[2019-02-13] MEDS ORDERED: NITROGLYCERIN 0.4 MG SL TABS BTL 25'S SL PRN (09:00)
[2019-02-13] MEDS ORDERED: CLOPIDOGREL 75 MG (PLAVIX) TABLET PO SCH (09:00)
[2019-02-13] MEDS ORDERED: PATIENT MAY USE OWN MEDS, ALL PO SCH (09:00)
[2019-02-13] MEDS ORDERED: PANTOPRAZOLE 40 MG (PROTONIX) VIAL ONE (09:27)
[2019-02-13] MEDS ORDERED: ANTACID SUSP 30 ML UDC (MYLANTA) ONE (09:31)
[2019-02-13] MEDS ORDERED: PANTOPRAZOLE 40 MG (PROTONIX) VIAL IV ONE (09:45)
[2019-02-13] MEDS: NS IV 1000 ML 1,000 ML IV SCH ×2 (09:52→15:18)
[2019-02-13] MEDS ORDERED: ANTACID SUSP 30 ML UDC (MYLANTA) PO ONE (10:00)
[2019-02-13] MEDS: meTOprolol TARTRATE 50 MG (LOPRESSOR) TAB PO SCH (12:16)
[2019-02-13] MEDS: ASPIRIN E.C. 81 MG (ECOTRIN) TAB PO SCH (12:17)
--- NOTE | 2019-02-13 13:52 | NUR ---
Pt bedrest completed. Pt assisted to side of bed without difficulties. Pt ambulated to toilet and voided. Pt then ambulated to chair to sit up. Pt tolerated well. Right groin site benign without complications. Pt educated to call if pain, bleeding, or concern at groin site. Voiced understanding. Many family members at bedside.
--- NOTE | 2019-02-13 18:34 | NUR ---
Pt c/o sharp chest pain 5/10. Middle of chest with no radiation. States it started after he ate. EKG performed and Nitro give with resolution of chest pain. Vitals stable. Rt groin site benign. Will monitor closely.
--- NOTE | 2019-02-13 18:35 | NUR ---
Dr. Huddleston notified of chest pain and EKG sent. No new orders at this time.
[2019-02-13] MEDS ORDERED: ROSUVASTATIN 5 MG (CRESTOR) TABLET PO SCH (21:00)
[2019-02-14] VITALS: BP 131/82
[2019-02-14 01:00] VITALS: BP 93/64
[2019-02-14 02:00] VITALS: BP 122/87
[2019-02-14 03:00] VITALS: BP 97/79
[2019-02-14 03:37] LABS: HEMOGLOBIN 14.6 G/DL (13.3-17.7); MEAN PLATELET VOLUME 11.4 FL (7.4-10.4); RED CELL DISTRIBUTION WIDTH 12.3 % (10.0-14.5); WHITE BLOOD COUNT 8.9 10^3/uL (4.3-11.0)
[2019-02-14 04:03] LABS: BUN/CREATININE RATIO 16; CALCIUM 8.6 MG/DL (8.5-10.1); CARBON DIOXIDE 22 MMOL/L (21-32); CHLORIDE 109 MMOL/L (98-107); CREATININE SERUM 0.85 MG/DL (0.60-1.30); GFR ESTIMATED > 60; GLUCOSE 168 MG/DL (70-105); POTASSIUM 4.1 MMOL/L (3.6-5.0); SODIUM 141 MMOL/L (135-145)
[2019-02-14] MEDS: NS IV 1000 ML 1,000 ML IV SCH (05:09)
[2019-02-14] MEDS: meTOprolol TARTRATE 50 MG (LOPRESSOR) TAB PO SCH (07:39)
[2019-02-14] MEDS: ASPIRIN E.C. 81 MG (ECOTRIN) TAB PO SCH (07:40)
[2019-02-14] MEDS ORDERED: PANT40TA3 PO (07:53)
--- NOTE | 2019-02-14 07:54 | Discharge Inst-Post CATH ---
Discharge Inst-CATH/EP Problems Reviewed?: Yes Post Cardiac Cath/EP D/C Inst Follow Up/Plan Appointment with Dr. VEGA's office in 2-4 weeks <b>CARDIAC CATH/EP PROCEDURE DISCHARGE INSTRUCTIONS</b> ACTIVITY * Go Home directly and rest. * Limit activity of the leg (or wrist if it was used) for 7 days including aerobics, swimming, jogging, bicycling, etc. * Restrict stair-climbing for 7 days if possible, if not, climb up with your non-cath leg, then bring together on the same step. * Avoid lifting, pushing, pulling or excessive movement of the affected extremity for 7 days. * Customary sexual activity may be resumed after 2 days-use caution not to use a position that strains or causes pain to the affected extremity. * No driving for 24 hours. * NO SMOKING. * Avoid straining for bowel movements for 7 days. * Gentle walking on level ground is allowed. * Returning to work will depend on the type of procedure and the results. Your doctor will discuss this with you. CALL YOUR DOCTOR FOR ANY OF THE FOLLOWING: *If bleeding from the puncture site occurs- Apply gentle pressure to site with clean cloth and call your doctor or EMS. * If a knot or lump forms under the skin, increases in size, or causes pain. * If bruising appears to be worsening or moving further down your leg instead of disappearing. * Temperature above 101 F. CARE OF YOUR GROIN INCISION; * Bruising or purple discoloration of the skin near the puncture site is common. * You may shower only, no bathtub bathing for 5 days. Be careful to avoid slipping as your leg may feel stiff. * If a closure device was used on your femoral artery, please see the attached guide regarding care of the device and your leg. * Leave dressing on FOR 24 hours. CARE OF YOUR WRIST INCISION; * Bruising or purple discoloration of the skin near the puncture site is common. * You may shower. * DO NOT submerge wrist. * Leave dressing on FOR 24 hours. ONELIA VEGA MD Feb 14, 2019 07:54
--- NOTE | 2019-02-14 07:56 | Cardiology Progress Note ---
Subjective Date Seen by Provider: Feb 14, 2019 Time Seen by Provider: 07:54 Subjective/Events-last exam Patient is laying down in bed, feeling well. Groin is healing well. No chest pain Review of Systems General: No Chills, No Night Sweats, No Fatigue, No Malaise, No Appetite, No Other HEENT: No Head Aches, No Visual Changes, No Eye Pain, No Ear Pain, No Dysphasia, No Sinus Congestion, No Post Nasal Drip, No Sore Throat, No Other Pulmonary: No Dyspnea, No Cough, No Pleuritic Chest Pain, No Other Cardiovascular: No: Chest Pain, Palpitations, Orthopnea, Paroxysmal Noc. Dyspnea, Edema, Lt Headedness, Other Objective-Cardiology Exam Last Set of Vital Signs Vital Signs 02/14/19 02/14/19 02/14/19 02/14/19 00:00 03:00 07:42 07:52 Temp 97.6 Pulse 55 Resp 10 B/P (MAP) 97/79 (85) Pulse Ox 98 O2 Delivery Room Air Capillary Refill : Less Than 3 Seconds I&O Intake and Output 02/14/19 00:00 Intake Total 1000 ml Balance 1000 ml Intake IV Total 1000 ml General: Alert, Oriented X3, Cooperative HEENT: Atraumatic, PERRLA Neck: Supple, No JVD, No Thyromegaly Lungs: Clear to Auscultation, Normal Air Movement Heart: Regular Rate, Normal S1, Normal S2, No Murmurs Abdomen: Normal Bowel Sounds, Soft, No Tenderness, No Hepatosplenomegaly, No Masses Extremities: No Clubbing, No Cyanosis, No Edema, Normal Pulses, No Tenderness/Swelling Skin: No Rashes, No Breakdown, No Significant Lesion Neuro: Normal Gait, Normal Speech, Strength at 5/5 X4 Ext, Normal Tone, Sensation Intact Psych/Mental Status: Mental Status NL, Mood NL Results Lab Laboratory Tests 02/14/19 03:01 A/P-Cardiology Admission Diagnosis Coronary artery disease Chest pain Hypertension Hyperlipidemia Assessment/Plan Coronary artery disease status post stenting to the LAD as described below 1. Severe mid LAD stenosis successful primary stenting using Dori 2.5 x 12 mm drug-eluting stent expanded to 2.7 mm with excellent results 2. Patent stent in the proximal and midright coronary artery with a step down beyond the stent, mild to moderate disease nonobstructive disease 3. Normal left ventricular end-diastolic pressure 4. Normal bilateral lower extremities runoff down to the trifurcation, the vessels below the trifurcation were not well visualized, overall no obvious obstructive disease Chest pain, reporting improvement no further episodes were reported Hypertension, continue current medication monitor Hyperlipidemia, continue current medication monitor ONELIA VEGA MD Feb 14, 2019 07:56
[2019-02-14] MEDS ORDERED: CLOPIDOGREL 75 MG (PLAVIX) TABLET PO SCH (09:00)
[2019-02-14] MEDS ORDERED: PANTOPRAZOLE 40 MG (PROTONIX) TAB PO SCH (09:00)
== END 2019-02-14 09:06 | disposition home or self-care (01) ==
LOC: CATH 07:05 → ICU 09:12 → CATH 02-14 09:06
PROVIDERS: ATTEND Internal Medicine Cardiovascular Disease
DX: I25.10 Atherosclerotic heart disease of native coronary artery without angina pectoris (principal); I73.9 Peripheral vascular disease, unspecified; I10 Essential (primary) hypertension; K21.9 Gastro-esophageal reflux disease without esophagitis; R94.39 Abnormal result of other cardiovascular function study; E78.2 Mixed hyperlipidemia; Z88.8 Allergy status to other drugs, medicaments and biological substances; Z79.82 Long term (current) use of aspirin; Z79.890 Hormone replacement therapy; Z79.899 Other long term (current) drug therapy; Z86.73 Personal history of transient ischemic attack (TIA), and cerebral infarction without residual deficits; Z83.3 Family history of diabetes mellitus; Z82.49 Family history of ischemic heart disease and other diseases of the circulatory system; Z82.3 Family history of stroke; Z80.9 Family history of malignant neoplasm, unspecified; Z87.19 Personal history of other diseases of the digestive system
CPT/HCPCS: 36415; 71045; 75716; 80048; 80053; 80061; 81000; 85027; 85347; 85610; 85730; 87081; 93005; 93458

== ENCOUNTER 2019-05-03 15:29 | Outpatient (RCR) | payer OTHER ==
[~2019-05-03 15:29] MED LIST changes: +ASPI-983 PO; +ASPI325T32 PO; +CLOP75TA69 PO; -HEParin (CATH LAB) 2,000 ML IV ONE; +IBUP-2055 PO; -LIDOCAINE 1% INJ 20 ML 20 ML VIAL ONE; +METO50TA15 PO; +NITR0.4T39 SL; -NS IV 1000 ML 1,000 ML ONE; +PANT40TA3 PO; +ROSU5TAB PO
== END 2019-05-10 | disposition home or self-care (01) ==
LOC: CR3 15:29
PROVIDERS: ATTEND Internal Medicine Cardiovascular Disease
DX: Z29.8 Encounter for other specified prophylactic measures (principal)

== ENCOUNTER 2019-06-07 17:53 | Outpatient (RCR) | payer OTHER | END 2019-06-12 | disposition home or self-care (01) | LOC: CR3 17:53 | PROVIDERS: ATTEND Internal Medicine Cardiovascular Disease | DX: Z29.8 Encounter for other specified prophylactic measures (principal) ==

== ENCOUNTER 2019-06-14 16:18 | Outpatient (RCR) | payer OTHER | END 2019-06-17 08:00 | disposition home or self-care (01) | LOC: CR 16:18 | PROVIDERS: ATTEND Internal Medicine Cardiovascular Disease | DX: Z48.812 Encounter for surgical aftercare following surgery on the circulatory system (principal); Z95.5 Presence of coronary angioplasty implant and graft | CPT/HCPCS: 93798 ==

== ENCOUNTER 2019-07-10 15:50 | Outpatient (RCR) | payer OTHER ==
[~2019-07-10 15:50] MED LIST changes: -IBUP-2055 PO; +IBUP-2473 PO
== END 2019-07-14 | disposition home or self-care (01) ==
LOC: CR3 15:50
PROVIDERS: ATTEND Internal Medicine Cardiovascular Disease
DX: Z29.8 Encounter for other specified prophylactic measures (principal)

== ENCOUNTER 2019-07-19 17:14 | Outpatient (RCR) | payer OTHER ==
[~2019-07-19 17:14] MED LIST changes: +ACHD5005 PO; -HYDR-3812 PO
== END 2019-09-12 | disposition home or self-care (01) ==
LOC: CARD 17:14
PROVIDERS: ATTEND Internal Medicine Cardiovascular Disease
DX: I25.10 Atherosclerotic heart disease of native coronary artery without angina pectoris (principal); E78.2 Mixed hyperlipidemia; I10 Essential (primary) hypertension; E66.9 Obesity, unspecified
CPT/HCPCS: 93270

== ENCOUNTER 2019-08-02 17:58 | Outpatient (RCR) | payer OTHER | END 2019-08-18 | disposition home or self-care (01) | LOC: CR3 17:58 | PROVIDERS: ATTEND Internal Medicine Cardiovascular Disease | DX: Z29.8 Encounter for other specified prophylactic measures (principal) ==

== ENCOUNTER 2020-01-02 18:57 | Observation (INO) | payer SELFPAY ==
[~2020-01-02] VITALS: Ht 188 cm; Wt 113.8 kg
--- NOTE | 2020-01-02 19:10 | NUR ---
C/O MID CHEST PAIN RADIATING TO BACK X30MIN AFTER DOING YARD WORK. REPORTS 2 81MG ASA TODAY. DENIES KNOWN EXPOSURE TO COVID.
[2020-01-02] MEDS ORDERED: ASPIRIN 81 MG CHEW (CHILDREN'S ASA) ONE (19:20)
[2020-01-02] MEDS ORDERED: NITROGLYCERIN 0.4 MG SL TABS BTL 25'S SL ONE (19:20)
[2020-01-02] MEDS: NITROGLYCERIN 0.4 MG SL TABS BTL 25'S SL PRN ×3 (19:30→19:45)
[2020-01-02] MEDS ORDERED: ASPIRIN 81 MG CHEW (CHILDREN'S ASA) PO ONE (19:30)
[2020-01-02 19:31] LABS: BASOPHILS # (AUTO) 0.1 10^3/uL (0.0-0.1); BASOPHILS % (AUTO) 1 % (0-10); EOSINOPHILS # (AUTO) 0.4 10^3/uL (0.0-0.3); EOSINOPHILS % (AUTO) 4 % (0-10); HEMATOCRIT 46 % (40-54); HEMOGLOBIN 16.4 G/DL (13.3-17.7); LYMPHOCYTES # (AUTO) 4.6 X 10^3 (1.0-4.0); LYMPHOCYTES % (AUTO) 44 % (12-44); MEAN CORPUSCULAR HEMOGLOBIN 32 PG (25-34); MEAN CORPUSCULAR HGB CONC 36 G/DL (32-36); MEAN CORPUSCULAR VOLUME 91 FL (80-99); MEAN PLATELET VOLUME 11.7 FL (7.4-10.4); MONOCYTES # (AUTO) 0.8 X 10^3 (0.0-1.0); MONOCYTES % (AUTO) 8 % (0-12); NEUTROPHILS # (AUTO) 4.6 X 10^3 (1.8-7.8); NEUTROPHILS % (AUTO) 44 % (42-75); PLATELET COUNT 179 10^3/uL (130-400); RED CELL DISTRIBUTION WIDTH 12.4 % (10.0-14.5); WHITE BLOOD COUNT 10.4 10^3/uL (4.3-11.0)
[2020-01-02 19:43] LABS: ALBUMIN 3.9 GM/DL (3.2-4.5)
[2020-01-02] MEDS ORDERED: ISOS10TA8 PO (19:43)
[2020-01-02 19:44] LABS: CHLORIDE 103 MMOL/L (98-107); POTASSIUM 4.3 MMOL/L (3.6-5.0); SODIUM 135 MMOL/L (135-145)
[2020-01-02 19:45] LABS: CALCIUM 9.3 MG/DL (8.5-10.1); INR 0.9 (0.8-1.4); PROTHROMBIN TIME PATIENT 12.9 SEC (12.2-14.7)
[2020-01-02] MEDS ORDERED: ANTACID SUSP 30 ML UDC (MYLANTA) PO ONE (19:45)
[2020-01-02] MEDS ORDERED: LIDOCAINE 2% VISCOUS 15 ML UDC PO ONE (19:45)
[2020-01-02 19:46] LABS: TOTAL PROTEIN 7.5 GM/DL (6.4-8.2)
[2020-01-02 19:47] LABS: CARBON DIOXIDE 21 MMOL/L (21-32)
[2020-01-02 19:48] LABS: BILIRUBIN,TOTAL 0.2 MG/DL (0.1-1.0)
[2020-01-02 19:49] LABS: ALKALINE PHOSPHATASE 71 U/L (40-136)
[2020-01-02] MEDS ORDERED: morphine INJ 10 MG/ML 1ML (SYR OR VIAL) IVP STA (19:49)
[2020-01-02] MEDS ORDERED: morphine INJ 10 MG/ML 1ML (SYR OR VIAL) ONE (19:49)
--- NOTE | 2020-01-02 19:49 | ED Chest Pain ---
General Chief Complaint: Chest Pain Stated Complaint: CHEST PAIN Nursing Triage Note: C/O SUBSTERNAL CHEST PAIN RADIATING TO BACK X30 MIN AFTER WORKING IN YARD. Nursing Sepsis Screen: No Definite Risk Source: patient Exam Limitations: no limitations History of Present Illness Date Seen by Provider: Jan 02, 2020 Time Seen by Provider: 19:15 Initial Comments This 54-year-old gentleman presents to the emergency room with central stabbing chest pain that started about one hour prior to arrival. She did not take any nitroglycerin at home because he is out of the nitroglycerin. He does have a history of coronary artery disease and was last stented in February. He repor ts a total of 4 stents. Pain is reminiscent of prior angina or [place]. He has some slight shortness of breath that started concurrently with the chest pain. He otherwise denies any associated symptoms such as cough, fever, vomiting, dizziness, etc. He has history of hiatal hernia with surgical therapy. He reports no longer taking Protonix. Patient reports he was tossing small limbs on a brush pile when he became unusually sweaty. Diaphoresis was followed by the chest pain. Amos Mart at [facility] is his primary care provider. Patient reports he was recently taken off of Plavix by Dr. Huddleston and is on aspirin alone. He denies any cough, shortness of breath prior to the pain, exposures to ill persons or persons with COVID, or recent travel. Allergies and Home Medications Allergies Coded Allergies: aspartame (Verified Allergy, Unknown, 02/08/18) Home Medications Aspirin 81 Mg Tablet.dr, 81 MG PO DAILY, (Reported) Ibuprofen 200 Mg Tablet, 400 MG PO Q8H PRN for PAIN-MILD, (Reported) Metoprolol Tartrate 50 Mg Tablet, 50 MG PO DAILY, (Reported) Nitroglycerin 0.4 Mg Tab.subl, 0.4 MG SL UD PRN for CHEST PAIN, (Reported) Patient Home Medication List Home Medication List Reviewed: Yes Review of Systems Review of Systems Constitutional: no symptoms reported EENTM: No Symptoms Reported Respiratory: See HPI Cardiovascular: See HPI Gastrointestinal: No Symptoms Reported Genitourinary: No Symptoms Reported Musculoskeletal: no symptoms reported Skin: no symptoms reported Psychiatric/Neurological: No Symptoms Reported Endocrine: No Symptoms Reported Hematologic/Lymphatic: No Symptoms Reported Past Rvlwwkp-Hbtxtl-Qmyrpe Hx Past Med/Social Hx: Reviewed Nursing Past Med/Soc Hx Patient Social History Alcohol Use: Rarely Uses Number of Drinks Today: AA Alcohol Beverage of Choice: Beer Recreational Drug Use: No Smoking Status: Never a Smoker 2nd Hand Smoke Exposure: No Recent Foreign Travel: No Contact w/Someone Who Travel: No Recent Infectious Disease Expo: No Recent Hopitalizations: No Physical Abuse: No Sexual Abuse: No Mistreated: No Fear: No Immunizations Up To Date Tetanus Booster (TDap): Unknown PED Vaccines UTD: Yes Date of Pneumonia Vaccine: Feb 20, 2008 Seasonal Allergies Seasonal Allergies: No Past Medical History Surgeries: Yes (surgical procedure to decrease acid reflux, hiatal hernia, CARDIAC STENTS) Coronary Stent, Orthopedic Respiratory: Yes Sleep Apnea Currently Using CPAP: Yes Cardiac: Yes (coronary stents x 4) Coronary Artery Disease, Heart Attack, High Cholesterol Neurological: Yes TIA Genitourinary: No Gastrointestinal: Yes (colon resection due to diverticulitis) Gastroesophageal Reflux, Diverticulosis, Hiatal Hernia Musculoskeletal: Yes (left shoulder and elbow surgery, bilateral carpal tunnel surgery, right elb) Endocrine: Yes Diabetes, Non-Insulin dep HEENT: No Cancer: No Psychosocial: No Integumentary: No Blood Disorders: No Physical Exam Vital Signs Vital Signs - First Documented Capillary Refill : Less Than 3 Seconds Height, Weight, BMI Height: 6'2.00" Weight: 240lbs. 0.0oz. [id number]; 31.00 BMI Method:Stated General Appearance: WD/WN, Moderate Distress HEENT: PERRL/EOMI, Normal ENT Inspection Neck: Normal Inspection; No JVD Respiratory: Chest Non Tender, Lungs Clear, Normal Breath Sounds, No Accessory Muscle Use, No Respiratory Distress Cardiovascular: Regular Rate, Rhythm, No Edema, No Murmur, Normal Peripheral P ulses Gastrointestinal: Normal Bowel Sounds, Non Tender, Soft; No Distended Extremity: Normal Inspection, Non Tender, No Calf Tenderness, No Pedal Edema Neurologic/Psychiatric: Alert, Oriented x3, No Motor/Sensory Deficits, Normal Mood/Affect, dispensing optician II-XII Norm as Tested Skin: Normal Color, Warm/Dry Progress/Results/Core Measures Results/Orders Lab Results Laboratory Tests Test 01/02/20 19:20 01/02/20 21:22 Range/Units White Blood Count 10.4 4.3-11.0 10^3/uL Red Blood Count 5.08 4.35-5.85 10^6/uL Hemoglobin 16.4 13.3-17.7 G/DL Hematocrit 46 40-54 % Mean Corpuscular Volume 91 80-99 FL Mean Corpuscular Hemoglobin 32 25-34 PG Mean Corpuscular Hemoglobin Concent 36 32-36 G/DL Red Cell Distribution Width 12.4 10.0-14.5 % Platelet Count 179 130-400 10^3/uL Mean Platelet Volume 11.7 H 7.4-10.4 FL Neutrophils (%) (Auto) 44 42-75 % Lymphocytes (%) (Auto) 44 12-44 % Monocytes (%) (Auto) 8 0-12 % Eosinophils (%) (Auto) 4 0-10 % Basophils (%) (Auto) 1 0-10 % Neutrophils # (Auto) 4.6 1.8-7.8 X 10^3 Lymphocytes # (Auto) 4.6 H 1.0-4.0 X 10^3 Monocytes # (Auto) 0.8 0.0-1.0 X 10^3 Eosinophils # (Auto) 0.4 H 0.0-0.3 10^3/uL Basophils # (Auto) 0.1 0.0-0.1 10^3/uL Prothrombin Time 12.9 12.2-14.7 SEC INR Comment 0.9 0.8-1.4 Activated Partial Thromboplast Time 29 24-35 SEC D-Dimer 0.52 H 0.00-0.49 UG/ML Sodium Level 135 135-145 MMOL/L Potassium Level 4.3 3.6-5.0 MMOL/L Chloride Level 103 98-107 MMOL/L Carbon Dioxide Level 21 21-32 MMOL/L Anion Gap 11 5-14 MMOL/L Blood Urea Nitrogen 16 7-18 MG/DL Creatinine 1.22 0.60-1.30 MG/DL Estimat Glomerular Filtration Rate > 60 BUN/Creatinine Ratio 13 Glucose Level 424 *H 70-105 MG/DL Calcium Level 9.3 8.5-10.1 MG/DL Corrected Calcium 9.4 8.5-10.1 MG/DL Magnesium Level 2.0 1.6-2.4 MG/DL Total Bilirubin 0.2 0.1-1.0 MG/DL Aspartate Amino Transf (AST/SGOT) 35 H 5-34 U/L Alanine Aminotransferase (ALT/SGPT) 56 H 0-55 U/L Alkaline Phosphatase 71 40-136 U/L Myoglobin 40.1 10.0-92.0 NG/ML Troponin I < 0.028 <0.028 NG/ML Total Protein 7.5 6.4-8.2 GM/DL Albumin 3.9 3.2-4.5 GM/DL Glucometer 370 H 70-110 MG/DL My Orders Orders - TRAE MONREAL MD Cbc With Automated Diff (01/02/20:) Magnesium (01/02/20:) Chest 1 View, Ap/Pa Only (01/02/20:) Ekg Tracing (01/02/20:) Comprehensive Metabolic Panel (01/02/20) Myoglobin Serum (01/02/20:) Protime With Inr (01/02/20:) Partial Thromboplastin Time (01/02/20:) O2 (01/02/20:) Monitor-Rhythm Ecg Trace Only (01/02/20:) Lipid Panel (01/03/20 06:00) Ed Iv/Invasive Line Start (01/02/20:) Troponin I (01/02/20:23) Nitroglycerin 0.4 Mg Btl 25's (Nitrostat (01/02/20 19:30) Aspirin Chewable Tablet (Baby Aspirin Ch (01/02/20 19:30) Nitroglycerin 0.4 Mg Btl 25's (Nitrostat (01/02/20 19:20) Aspirin Chewable Tablet (Baby Aspirin Ch (01/02/20 19:20) Lidocaine 2% Viscous 15 Ml (Xylocaine Vi (01/02/20 19:45) Antacid Suspension (Mylanta Suspension (01/02/20 19:45) Morphine Injection (Morphine Injection (01/02/20 19:49) Morphine Injection (Morphine Injection (01/02/20 19:49) Fibrin Degradation Products (01/02/20 19:53) Ns Iv 1000 Ml (Sodium Chloride 0.9%) (01/02/20 19:54) Ct Angio Chest W (01/02/20 20:38) Accucheck Stat ONCE (01/02/20 20:38) Ekg Tracing (01/02/20 20:38) Iohexol Injection (Omnipaque 350 Mg/Ml 1 (01/02/20 21:00) Received Contrast (Hold Metformin- Contr (01/02/20 21:00) Ns (Ivpb) (Sodium Chloride 0.9% Ivpb Bag (01/02/20 21:00) Enoxaparin Injection (Lovenox Injection) (01/02/20 21:45) Clopidogrel Tablet (Plavix Tablet) (01/02/20 21:45) Metoprolol Succinate (Xl) Tab (Toprol Xl (01/02/20 21:45) Medications Given in ED Current Medications Medications Dose Ordered Sig/Lyndsay Route Start Time Stop Time Status Last Admin Dose Admin Al Hydrox/Mg Hydrox/Simethicone 30 ml ONCE ONCE PO 01/02/20 19:45 01/02/20 19:46 DC 01/02/20 19:44 30 ML Aspirin 81 mg STK-MED ONCE .ROUTE 01/02/20 19:20 01/02/20 19:23 DC 01/02/20 19:24 162 MG Iohexol 84 ml ONCE ONCE IV 01/02/20 21:00 01/02/20 21:29 DC 01/02/20 21:09 84 ML Lidocaine HCl 15 ml ONCE ONCE PO 01/02/20 19:45 01/02/20 19:46 DC 01/02/20 19:44 15 ML Nitroglycerin 0.4 mg STK-MED ONCE SL 01/02/20 19:20 01/02/20 19:23 DC 01/02/20 19:25 0.4 MG Nitroglycerin 0.4 mg UD PRN SL 01/02/20 19:30 01/02/20 19:35 0.4 MG Sodium Chloride 100 ml ONCE ONCE IV 01/02/20 21:00 01/02/20 21:29 DC 01/02/20 21:10 100 ML Vital Signs/I&O 01/02/20 01/02/20 19:10 19:10 Temp 36.1 Pulse 77 Resp 16 B/P (MAP) 153/104 (120) Pulse Ox 98 O2 Delivery Room Air Room Air Blood Pressure Mean: 120 Progress Progress Note : Time: 21:58 Progress Note Patient had taken 162 mg of aspirin at home. He was given an additional 162 mg as well as 3 doses of nitroglycerin. Pain did not improve. GI cocktail was also administered and did not improve his pain. Morphine 4 mg IV was then administered. Pain improved significantly. Initial cardiopulmonary workup was negative except for slightly elevated d-dimer. CT angiogram was obtained and showed no acute pathology. Pain did when told to a minimum and he was feeling much better. Case was discussed with Dr. Sanchez multiple times. He recommended giving Plavix 300 mg, Lovenox therapeutic dose, and Toprol-XL 50 mg. Repeat troponin will be obtained 6 hours after the initial. A repeat EKG performed in the ER was unremarkable. EKGs were reviewed with Dr. Sanders. Patient had notable hyperglycemia which she believes is from drinking a Gatorade when he was sweating profusely. This is trending down nicely after 1 L of IV fluids. Sliding scale insulin has been ordered for the floor. He is being admitted to the cardiac step down unit. Initial ECG Impression Date: Jan 02, 2020 Initial ECG Impression Time: 19:15 Initial ECG Rate: 81 Initial ECG Rhythm: Normal Sinus Initial ECG Intervals: Normal Comment Sinus rhythm with no STEMI. There is minimal ST elevation in lead III that is nondiagnostic. No abnormal intervals or axis deviation. EKG : EKG Time: 21:26 Rate: 67 Rhythm: Normal Sinus Intervals: Normal ECG Impression: Normal Comment Normal sinus rhythm with no ST elevation or depression. No abnormal intervals or axis deviation. Diagnostic Imaging Diagonstic Imaging: Xray Plain Films/CT/US/NM/MRI: chest Comments Chest x-ray viewed by me and report reviewed. See report below: NAME: AUGUSTINE MONTERROSO [facility] REC#: [id number] PT STATUS: REG ER : 1965 PHYSICIAN: TRAE MONREAL MD ADMIT DATE: 01/02/20/ER Signed Date of Exam:01/02/20 CHEST 1 VIEW, AP/PA ONLY EXAM: Portable erect AP chest at 7:57 PM INDICATION: Chest pain FINDINGS: There is shallow inspiration when compared to the prior exam of 02/13/2019. Allowing for this technical factor, the heart size is stable and within normal limits. The lungs are generally clear. There is no sign of failure, pneumonia or of pleural effusion. The mediastinum is not widened. The osseous structures are intact. IMPRESSION: Allowing for the shallow degree of inspiration, there has been no significant change since the prior exam. There is no acute abnormality noted. Dictated by: Dictated on workstation # [id number] Dict: 01/02/202003 Trans: 01/02/202045 [facility] [id number] Interpreted by: GERBER KIRAN MD Electronically signed by: GERBER KIRAN MD 01/02/202045 Departure Communication (Admissions) Time/Spoke to Admitting Phy: 21:55 Dr. Beebe Time/Spoke to Consulting Phy: 21:05 Dr. Sanchez Impression Primary Impression: Chest pain Qualified Codes: R07.9 - Chest pain, unspecified Additional Impressions: Hyperglycemia CAD (coronary artery disease) Qualified Codes: I25.10 - Atherosclerotic heart disease of [place] coronary artery without angina pectoris Disposition: ADMITTED INPATIENT Condition: Improved Admissions Decision to Admit Reason: Admit from ER (General) Decision to Admit/Date: Jan 02, 2020 Time/Decision to Admit Time: 19:30 Departure-Patient Inst. Referrals: [facility] (PCP) Primary Care Physician KIKE MART (Family) Primary Care Physician TRAE MONREAL MD Jan 02, 2020 19:49
[2020-01-02 19:50] LABS: CREATININE SERUM 1.22 MG/DL (0.60-1.30); GFR ESTIMATED > 60
[2020-01-02 19:51] LABS: BUN/CREATININE RATIO 13; GLUCOSE 424 MG/DL (70-105)
[2020-01-02 19:53] LABS: ALANINE AMINOTRANSFERASE 56 U/L (0-55)
[2020-01-02] MEDS ORDERED: NS IV 1000 ML 1,000 ML IV SCH (19:54)
--- NOTE | 2020-01-02 20:19 | Diagnostic Imaging Report ---
EXAM: Portable erect AP chest at 7:57 PM INDICATION: Chest pain FINDINGS: There is shallow inspiration when compared to the prior exam of 02/13/2019. Allowing for this technical factor, the heart size is stable and within normal limits. The lungs are generally clear. There is no sign of failure, pneumonia or of pleural effusion. The mediastinum is not widened. The osseous structures are intact. IMPRESSION: Allowing for the shallow degree of inspiration, there has been no significant change since the prior exam. There is no acute abnormality noted. Dictated by: Dictated on workstation # [id number]
--- OUTSIDE RECORDS SUMMARY | 2020-01-02 20:37 | XMS REPORT | Continuity of Care Document ---
Author Organization Unknown Address Unknown Phone Unavailable Allergies Active Description Code Type Severity Reaction Onset Reported/Identified Relationship to Patient Clinical Status Yes ASPARTAME [id number] Drug Allerg y N/A N/A Yes aspartame [id number] Drug Allergy Unknown N/A 02/08/2018 Yes No Known Drug Allergies [id number] Drug Allergy Unknown N/A 02/08/2018 Medications Medication Packaging Start Date St op Date Route Dosage Sig TRAMADOL HCL ORAL 10/13/2015 11/14/2015 ORAL 4040 4 times a day NITROSTAT Sublingual 10/13/2015 09/08/2017 Sublingual 199599 TRAMADOL HCL ORAL 11/04/2015 02/10/2016 ORAL 903458 4 times a day TRAMADOL HCL ORAL 01/11/2016 04/20/2016 ORAL 002801 4 times a day CLOPIDOGREL BISULFATE ORAL 01/20/2016 04/26/2016 ORAL 3030 daily TRAMADOL HCL ORAL 03/21/2016 04/20/2016 ORAL 690657 4 times a day CLOPIDOGREL BISULFATE ORAL 04/26/2016 09/04/2017 ORAL 9090 daily TRAMADOL HCL ORAL 06/02/2016 02/09/2017 ORAL 6060 twice daily LOFIBRA ORAL 06/02/20 16 09/08/2017 ORAL 3030 daily KLOR-CON 10 ORAL 05/13 ORAL 3030 daily ASPIRIN ORAL 06/02/20 16 ORAL 3030 daily PERCOCET ORAL 017 09/08/2017 ORAL 3030 q4-6h TRAMADOL HCL ORAL 01/10/2017 02/09/2017 ORAL 6060 twice daily MELOXICAM ORAL 2016 ORAL 3030 daily CYCLOBENZAPRINE HCL ORAL 01/10/2017 02/09/2017 ORAL 9090 3 times a day CORTISPORIN OTIC 04/1205/06/2017 OTIC 1010 4 times a day AUGMENTIN ORAL 201605/03/2017 ORAL 1414 twice d aily CLOPIDOGREL BISULFATE ORAL 09/04/2017 09/08/2017 ORAL 9090 daily PRAVASTATIN SODIUM ORAL 09/08/2017 09/12/2017 ORAL 9090 daily NITROSTAT Sublingual 09/08/2017 Sublingual 618653 CLOPIDOGREL BISULFATE ORAL 09/08/2017 ORAL 9090 ankur y ZETIA ORAL 09/12/2017 ORAL 3030 daily METFORMIN HCL ORAL 10/18/2017 ORAL 6060 twic e daily Problems Date Dx Coded Attending Type Code Diagnosis Diagnosed By 02/08/2018 TRAE MONREAL MD Ot E11.9 TYPE 2 DIABETES MELLITUS WITHOUT COMPLIC 02/08/2018 TRAE MONREAL MD, Ot I25.10 ATHSCL HEART DISEASE OF [place] CORONARY 02/08/2018 TRAE MONREAL MD, Ot I25.2 [...] TO OT DRUG/MEDS/BIOL SUB 02/08/2018 TRAE MONREAL MD Ot Z95.5 PRESENCE OF CORONARY ANGIOPLASTY IMPLANT 04/18/2018 TRAE MONREAL MD, Ot E11.9 TYPE 2 DIABETES MELLITUS WITHOUT COMPLIC 04/18/2018 TRAE MONREAL MD, Ot I25.10 ATHSCL HEART DISEASE OF [place] CORONARY 04/18/2018 TRAE MONREAL MD, Ot I25.2 OLD MYOCARDIAL INFARCTION 04/18/2018 TRAE MONREAL MD, Ot K21.9 GASTRO-ESOPHAGEAL REFLUX DISEASE WITHOUT 04/18/2018 TRAE MONREAL MD Ot M54.6 PAIN IN THORACIC SPINE 04/18/2018 TRAE MONREAL MD, Ot R07.1 CHEST PAIN ON BREATHING 04/18/2018 JOCELIN LOZANO, TRAE Mercado Ot Z86.73 PRSNL HX OF TIA (TIA), AND CEREB INFRC W 04/18/2018 TRAE MONREAL MD Ot Z87.19 PERSONAL HISTORY OF OTHER DISEASES OF TH 04/18/2018 TRAE MONREAL MD Ot Z88.8 ALLERGY STATUS TO OTH DRUG/MEDS/BIOL SUB 04/18/2018 TRAE MONREAL MD Ot Z95.5 PRESENCE OF CORONARY ANGIOPLASTY IMPLANT 04/21/2018 EDOUARD PEREZ APRN Ot E11 .9 TYPE 2 DIABETES MELLITUS WITHOUT COMPLIC 04/21/2018 EDOUARD PEREZ APRN Ot I25.10 ATHSCL HEART DISEASE OF [place] CORONARY 04/21/2018 EDOUARD PEREZ APRN Ot I25 .2 OLD MYOCARDIAL INFARCTION 04/21/2018 EDOUARD PEREZ APRN Ot M94 .0 CHONDROCOSTAL JUNCTION SYNDROME [TIETZE] 04/21/2018 EDOUARD PEREZ APRN Ot R07.81 PLEURODYNIA 04/21/2018 EDOUARD PEREZ APRN Ot Z79.52 PROJECT BUILDER (CURRENT) USE OF SYSTEMIC STER 04/21/2018 EDOUARD PEREZ APRN Ot Z86.73 PRSNL HX OF TIA (TIA), AND CEREB INFRC W 04/21/2018 EDOUARD PEREZ APRN Ot Z87.19 PERSONAL HISTORY OF OTHER DISEASES OF TH 04/21/2018 EDOUARD PEREZ APRN Ot Z88 .8 ALLERGY STATUS TO OTH DRUG/MEDS/BIOL SUB 04/21/2018 EDOUARD PEREZ APRN Ot Z95 .5 PRESENCE OF CORONARY ANGIOPLASTY IMPLANT 04/21/2018 EDOUARD PEREZ APRN Ot Z98.890 OTHER SPECIFIED POSTPROCEDURAL STATES 04/23/2018 EDOUARD PEREZ APRN Ot E11 .9 TYPE 2 DIABETES MELLITUS WITHOUT COMPLIC 04/23/2018 DEOUARD PEREZ APRN Ot I25.10 ATHSCL HEART DISEASE OF [place] CORONARY 04/23/2018 EDOUARD PEREZ APRN Ot I25 .2 OLD MYOCARDIAL INFARCTION 04/23/2018 EDOUARD PEREZ APRN Ot M94 .0 CHONDROCOSTAL JUNCTION SYNDROME [TIETZE] 04/23/2018 EDOUARD PEREZ APRN Ot R07.81 PLEURODYNIA 04/23/2018 EDOUARD PEREZ APRN Ot Z79.52 INTERMEDIATE (CURRENT) USE OF SYSTEMIC STER 04/23/2018 EDOUARD PEREZ APRN Ot Z86.73 PRSNL HX OF TIA (TIA), AND CEREB INFRC W 04/23/2018 EDOUARD PEREZ APRN Ot Z87.19 PERSONAL HISTORY OF OTHER DISEASES OF TH 04/23/2018 EDOUARD PEREZ APRN Ot Z88 .8 ALLERGY STATUS TO [facility] DRUG/MEDS/BIOL SUB 04/23/2018 EDOUARD PEREZ APRN Ot Z95 .5 PRESENCE OF CORONARY ANGIOPLASTY IMPLANT 04/23/2018 EDOUARD PEREZ APRN Ot Z98.890 OTHER SPECIFIED POSTPROCEDURAL STATES 02/07/2019 ONELIA VEGA MD, Ot E78. 5 HYPERLIPIDEMIA, UNSPECIFIED 02/07/2019 ONELIA VEGA MD Ot I25.118 ATHSCL HEART DISEASE OF [place] COR ART W 02/07/2019 ONELIA VEGA MD Ot R00. 2 PALPITATIONS 02/07/2019 ONELIA VEGA MD, Ot E78. 5 HYPERLIPIDEMIA, UNSPECIFIED 02/07/2019 ONELIA VEGA MD Ot I25.118 ATHSCL HEART DISEASE OF [place] COR ART W 02/07/2019 ONELIA VEGA MD Ot R00. 2 PALPITATIONS 02/14/2019 ONELIA VEGA MD Ot E78. 2 MIXED HYPERLIPIDEMIA 02/14/2019 ONELIA VEGA MD Ot I10 ESSENTIAL (PRIMARY) HYPERTENSION 02/14/2019 ONELIA VEGA MD Ot I25. 10 ATHSCL HEART DISEASE OF [place] CORONARY 02/14/2019 ONELIA VEGA MD Ot I73. 9 PERIPHERAL VASCULAR DISEASE, UNSPECIFIED 02/14/2019 ONELIA VEGA MD Ot K21. 9 GASTRO-ESOPHAGEAL REFLUX DISEASE WITHOUT 02/14/2019 ONELIA VEGA MD Ot R94. 39 ABNORMAL RESULT OF OTHER CARDIOVASCULAR 02/14/2019 ONELIA VEGA MD Ot Z79. 82 PROJECT BUILDER (CURRENT) USE OF ASPIRIN 02/14/2019 ONELIA VEGA MD Ot Z79.890 HORMONE REPLACEMENT THERAPY 02/14/2019 ONELIA VEGA MD, Ot Z79.899 OTHER INTERMEDIATE (CURRENT) DRUG THERAPY 02/14/2019 ONELIA VEGA MD, Ot Z80. 9 FAMILY HISTORY OF MALIGNANT NEOPLASM, UN 02/14/2019 ONELIA VEGA MD, Ot Z82. 3 FAMILY HISTORY OF STROKE 02/14/2019 ONELIA VEGA MD, Ot Z82. 49 FAMILY HX OF ISCHEM HEART DIS AND OTH DI 02/14/2019 ONELIA VEGA MD, Ot Z83. 3 FAMILY HISTORY OF DIABETES MELLITUS 02/14/2019 ONELIA VEGA MD Ot Z86. 73 PRSNL HX OF TIA (TIA), AND CEREB INFRC W 02/14/2019 ONELIA VEGA MD, Ot Z87. 19 PERSONAL HISTORY OF OTHER DISEASES OF TH 02/14/2019 ONELIA VEGA MD, Ot Z88. 8 ALLERGY STATUS TO [facility] DRUG/MEDS/BIOL SUB 02/15/2019 ONELIA VEGA MD Ot E78. 5 HYPERLIPIDEMIA, UNSPECIFIED 02/15/2019 ONELIA VEGA MD Ot I25.118 ATHSCL HEART DISEASE OF [place] COR ART W 02/15/2019 ONELIA VEGA MD Ot R00. 2 PALPITATIONS 02/15/2019 ONELIA VEGA MD Ot E78. 5 HYPERLIPIDEMIA, UNSPECIFIED 02/15/2019 ONELIA VEGA MD Ot I25.118 ATHSCL HEART DISEASE OF [place] COR ART W 02/15/2019 ONELIA VEGA MD Ot R00. 2 PALPITATIONS 02/18/2019 ONELIA VEGA MD Ot E78. 2 MIXED HYPERLIPIDEMIA 02/18/2019 ONELIA VEGA MD Ot I10 ESSENTIAL (PRIMARY) HYPERTENSION 02/18/2019 ONELIA VEGA MD Ot I25. 10 ATHSCL HEART DISEASE OF [place] CORONARY 02/18/2019 ONELIA VEGA MD Ot I73. 9 PERIPHERAL VASCULAR DISEASE, UNSPECIFIED 02/18/2019 ONELIA VEGA MD Ot K21. 9 GASTRO-ESOPHAGEAL REFLUX DISEASE WITHOUT 02/18/2019 ONELIA VEGA MD Ot R94. 39 ABNORMAL RESULT OF OTHER CARDIOVASCULAR 02/18/2019 ONELIA VEGA MD Ot Z79. 82 PROJECT BUILDER (CURRENT) USE OF ASPIRIN 02/18/2019 ONELIA VEGA MD, Ot Z79.890 HORMONE REPLACEMENT THERAPY 02/18/2019 ONELIA VEGA MD, Ot Z79.899 OTHER INTERMEDIATE (CURRENT) DRUG THERAPY 02/18/2019 ONELIA VEGA MD, Ot Z80. 9 FAMILY HISTORY OF MALIGNANT NEOPLASM, UN 02/18/2019 ONELIA VEGA MD Ot Z82. 3 FAMILY HISTORY OF STROKE 02/18/2019 ONELIA VEGA MD Ot Z82. 49 FAMILY HX OF ISCHEM HEART DIS AND OTH DI 02/18/2019 ONELIA VEGA MD, Ot Z83. 3 FAMILY HISTORY OF DIABETES MELLITUS 02/18/2019 ONELIA VEGA MD, Ot Z86. 73 PRSNL HX OF TIA (TIA), AND CEREB INFRC W 02/18/2019 ONELIA VEGA MD, Ot Z87. 19 PERSONAL HISTORY OF OTHER DISEASES OF TH 02/18/2019 ONELIA VEGA MD, Ot Z88. 8 ALLERGY STATUS TO [facility] DRUG/MEDS/BIOL SUB 02/18/2019 ONELIA VEGA MD Ot E78. 2 MIXED HYPERLIPIDEMIA 02/18/2019 ONELIA VEGA MD Ot I10 ESSENTIAL (PRIMARY) HYPERTENSION 02/18/2019 ONELIA VEGA MD, Ot I25. 10 ATHSCL HEART DISEASE OF [place] CORONARY 02/18/2019 ONELIA VEGA MD Ot I73. 9 PERIPHERAL VASCULAR DISEASE, UNSPECIFIED 02/18/2019 ONELIA VEGA MD, Ot K21. 9 GASTRO-ESOPHAGEAL REFLUX DISEASE WITHOUT 02/18/2019 ONELIA VEGA MD Ot R94. 39 ABNORMAL RESULT OF OTHER CARDIOVASCULAR 02/18/2019 ONELIA VEGA MD Ot Z79. 82 INTERMEDIATE (CURRENT) USE OF ASPIRIN 02/18/2019 ONELIA VEGA MD, Ot Z79.890 HORMONE REPLACEMENT THERAPY 02/18/2019 ONELIA VEGA MD, Ot Z79.899 OTHER PROJECT BUILDER (CURRENT) DRUG THERAPY 02/18/2019 ONELIA VEGA MD, Ot Z80. 9 FAMILY HISTORY OF MALIGNANT NEOPLASM, UN 02/18/2019 ONELIA VEGA MD, Ot Z82. 3 FAMILY HISTORY OF STROKE 02/18/2019 ONELIA VEGA MD, Ot Z82. 49 FAMILY HX OF ISCHEM HEART DIS AND OTH DI 02/18/2019 GARY MD, BASHAR J Ot Z83. 3 FAMILY HISTORY OF DIABETES MELLITUS 02/18/2019 ONELIA VEGA MD Ot Z86. 73 PRSNL HX OF TIA (TIA), AND CEREB INFRC W 02/18/2019 ONELIA VEGA MD Ot Z87. 19 PERSONAL HISTORY OF OTHER DISEASES OF TH 02/18/2019 ONELIA VEGA MD Ot Z88. 8 ALLERGY STATUS TO OTH DRUG/MEDS/BIOL SUB 02/21/2019 ONELIA VEGA MD Ot E78. 5 HYPERLIPIDEMIA, UNSPECIFIED 02/21/2019 ONELIA VEGA MD Ot I25.118 ATHSCL HEART DISEASE OF [place] COR ART W 02/21/2019 ONELIA VEGA MD Ot R00. 2 PALPITATIONS 03/27/2019 ONELIA VEGA MD Ot E78. 5 HYPERLIPIDEMIA, UNSPECIFIED 03/27/2019 ONELIA VEGA MD Ot I25.118 ATHSCL HEART DISEASE OF [place] COR ART W 03/27/2019 ONELIA VEGA MD Ot R00. 2 PALPITATIONS 05/10/2019 ONELIA VEGA MD Ot Z29. 8 ENCOUNTER FOR OTHER SPECIFIED PROPHYLACT 05/13/2019 ONELIA VEGA MD Ot Z29. 8 ENCOUNTER FOR OTHER SPECIFIED PROPHYLACT 06/12/2019 ONELIA VEGA MD Ot Z29. 8 ENCOUNTER FOR OTHER SPECIFIED PROPHYLACT 06/13/2019 ONELIA VEGA MD Ot Z29. 8 ENCOUNTER FOR OTHER SPECIFIED PROPHYLACT 06/17/2019 ONELIA VEGA MD Ot Z48.812 ENCNTR FOR SURGICAL AFTCR FOLLOWING SURG 06/17/2019 ONELIA VEGA MD Ot Z95. 5 PRESENCE OF CORONARY ANGIOPLASTY IMPLANT 07/12/2019 ONELIA VEGA MD Ot E66. 9 OBESITY, UNSPECIFIED 07/12/2019 ONELIA VEGA MD Ot E78. 2 MIXED HYPERLIPIDEMIA 07/12/2019 ONELIA VEGA MD Ot I10 ESSENTIAL (PRIMARY) HYPERTENSION 07/12/2019 ONELIA VEGA MD Ot I25. 10 ATHSCL HEART DISEASE OF [place] CORONARY 07/14/2019 ONELIA VEGA MD Ot Z29. 8 ENCOUNTER FOR OTHER SPECIFIED PROPHYLACT 07/15/2019 ONELIA VEGA MD Ot Z29. 8 ENCOUNTER FOR OTHER SPECIFIED PROPHYLACT 07/19/2019 ONELIA VEGA MD Ot E78. 5 HYPERLIPIDEMIA, UNSPECIFIED 07/19/2019 ONELIA VEGA MD Ot I25.118 ATHSCL HEART DISEASE OF [place] COR ART W 07/19/2019 ONELIA VEGA MD Ot R00. 2 PALPITATIONS 07/19/2019 ONELIA VEGA MD Ot E66. 9 OBESITY, UNSPECIFIED 07/19/2019 ONELIA VEGA MD Ot E78. 2 MIXED HYPERLIPIDEMIA 07/19/2019 ONELIA VEGA MD Ot I10 ESSENTIAL (PRIMARY) HYPERTENSION 07/19/2019 ONELIA VEGA MD Ot I25. 10 ATHSCL HEART DISEASE OF [place] CORONARY 07/19/2019 ONELIA VEGA MD Ot Z29. 8 ENCOUNTER FOR OTHER SPECIFIED PROPHYLACT 07/25/2019 ONELIA VEGA MD Ot E66. 9 OBESITY, UNSPECIFIED 07/25/2019 ONELIA VEGA MD Ot E78. 2 MIXED HYPERLIPIDEMIA 07/25/2019 ONELIA VEGA MD Ot I10 ESSENTIAL (PRIMARY) HYPERTENSION 07/25/2019 ONELIA VEGA MD Ot I25. 10 ATHSCL HEART DISEASE OF [place] CORONARY 08/16/2019 ONELIA VEGA MD Ot Z29. 8 ENCOUNTER FOR OTHER SPECIFIED PROPHYLACT 08/18/2019 ONELIA VEGA MD Ot Z29. 8 ENCOUNTER FOR OTHER SPECIFIED PROPHYLACT 09/12/2019 ONELIA VEGA MD Ot E66. 9 OBESITY, UNSPECIFIED 09/12/2019 ONELIA VEGA MD Ot E78. 2 MIXED HYPERLIPIDEMIA 09/12/2019 ONELIA VEGA MD Ot I10 ESSENTIAL (PRIMARY) HYPERTENSION 09/12/2019 ONELIA VEGA MD Ot I25. 10 ATHSCL HEART DISEASE OF [place] CORONARY 09/14/2019 ONELIA VEGA MD Ot E66. 9 OBESITY, UNSPECIFIED 09/14/2019 ONELIA VEGA MD Ot E78. 2 MIXED HYPERLIPIDEMIA 09/14/2019 ONELIA VEGA MD Ot I10 ESSENTIAL (PRIMARY) HYPERTENSION 09/14/2019 ONELIA VEGA MD Ot I25. 10 ATHSCL HEART DISEASE OF [place] CORONARY 09/14/2019 ONELIA VEGA MD Ot E66. 9 OBESITY, UNSPECIFIED 09/14/2019 ONELIA VEGA MD, Ot E78. 2 MIXED HYPERLIPIDEMIA 09/14/2019 ONELIA VEGA MD, Ot I10 ESSENTIAL (PRIMARY) HYPERTENSION 09/14/2019 ONELIA VEGA MD, Ot I25. 10 ATHSCL HEART DISEASE OF [place] CORONARY Procedures There is no data. Results Test Result Range Complete blood count (CBC) with automate d white blood cell (WBC) differential - 02/08/18 15:31 Blood leukocytes automated count (number/volume) 12.4 10*3/uL 4.3-11.0 Blood erythrocytes automated count (number/volume) 5.25 10*6/uL 4.35-5.85 Venous blood hemoglobin measurement (mass/volume) 16.1 g/dL 13.3-17.7 Blood hematocrit (volume fraction) 47 % 40-54 Automated erythrocyte mean corpuscular volume 89 [ foz_us] 80-99 Automated erythrocyte mean corpuscular h emoglobin (mass per erythrocyte) 31 pg 25-34 Automated erythrocyte mean corpuscular h emoglobin concentration measurement (mass/volume) 35 g/dL 32-36 Automated erythrocyte distribution width ratio 12. 8 % 10.0- 14.5 Automated blood platelet count (count/volume) 251 10*3/uL [...] 10*3 1.0-4.0 Blood monocytes automated count (number/volume) 1. 0 10*3 0.0-1.0 Automated eosinophil count 0.3 10*3/uL 0 .0-0.3 Automated blood basophil count (count/volume) 0.0 10*3/uL 0.0-0.1 PT panel in platelet poor plasma by coag ulation assay - 02/08/18 15:31 Prothrombin time (PT) in platelet poor plasma by coagu lation assay 13.5 s 12.2-14.7 INR in platelet poor plasma or blood by coagulation as say 1.0 0.8-1.4 Activated partial thromboplastin time (a PTT) in platelet poor plasma bycoagulation assay - 02/08/18 15:31 Activated partial thromboplastin time (a PTT) in platelet poor plasma bycoagulation assay 32 s 24-35 Fibrin D-dimer FEU measurement in platel et poor plasma (mass/volume) - 02/08/18 15:31 Fibrin D-dimer FEU measurement in platelet [...] 5-14 Serum or plasma urea nitrogen measurement (mass/volume ) 19 mg/dL 7-18 Serum or plasma creatinine measurement (mass/volume) 0.94 mg/dL 0.60-1.30 Serum or plasma urea nitrogen/creatinine mass ratio 20 NRG Serum or plasma creatinine measurement w ith calculation of estimated glomerular filtration rate > NRG Serum or plasma glucose measurement (mass/volume) 232 mg/dL 70-105 Serum or plasma calcium measurement (mass/volume) 9.9 mg/dL 8.5-10.1 Serum or plasma total bilirubin measurement (mass/volu me) 0.4 mg/dL 0.1-1.0 Serum or plasma alkaline phosphatase cassandra surement (enzymatic activity/volume) 80 U/L 40-136 Serum or plasma aspartate aminotransfera se measurement (enzymatic activity/volume) 17 U/L 5-34 Serum or plasma alanine aminotransferase measurement (enzymatic activity/volume) 17 U/L 0-55 Serum or plasma protein measurement (mass/volume) 7.5 g/dL 6.4-8.2 Serum or plasma albumin measurement (mass/volume) 4.2 g/dL 3.2-4.5 CALCIUM CORRECTED 9.7 mg/dL 8.5-10.1 Magnesium - 02/08/18 15:31 Magnesium 2.0 mg/dL 1.8-2.4 Myoglobin, serum - 02/08/18 15:31 Myoglobin, serum 42.2 ng/mL 10.0-92.0 Serum or plasma troponin i.cardiac measu rement (mass/volume) - 02/08/18 15:31 Serum or plasma troponin i.cardiac measurement (mass/v olume) < ng/mL <0.30 Serum or plasma C reactive protein measu rement (mass/volume) - 02/08/18 15:31 Serum or plasma C reactive protein measurement (mass/v olume) 1.57 mg/dL 0.00-0.50 Lipase - 02/08/18 15:31 Lipase 24 U/L 8-78 Myoglobin, serum - 02/08/18 15:31 Myoglobin, serum 42.2 ng/mL 10.0-92.0 Lipase - 02/08/18 15:31 Lipase 24 U/L 8-78 PT panel in platelet poor plasma by coag ulation assay - 04/21/18 16:00 Prothrombin time (PT) in platelet poor plasma by coagu lation assay 12.9 s 12.2-14.7 INR in platelet poor plasma or blood by coagulation as say 1.0 0.8-1.4 Activated partial thromboplastin time (a PTT) in platelet poor plasma bycoagulation assay - 04/21/18 16:00 Activated partial thromboplastin time (a PTT) in platelet poor plasma bycoagulation assay 31 s 24-35 Fibrin D-dimer FEU measurement in platel et poor plasma (mass/volume) - 04/21/18 16:00 Fibrin D-dimer FEU measurement in platelet poor plasma (mass/volume) 0.50 ug/mL 0.00-0.49 Comprehensive metabolic panel - 04/21/18 16:00 Serum or plasma sodium measurement (moles/volume) 140 mmol/L 135-145 Serum or plasma potassium measurement (moles/volume) 4.1 mmol/L 3.6-5.0 Serum or plasma chloride measurement (moles/volume) 108 mmol/L 98-107 Carbon dioxide 21 mmol/L 21-32 Serum or plasma anion gap determination (moles/volume) 11 mmol/L 5-14 Serum or plasma urea nitrogen measurement (mass/volume ) 13 mg/dL 7-18 Serum or plasma creatinine measurement (mass/volume) 0.86 mg/dL 0.60-1.30 Serum or plasma urea nitrogen/creatinine mass ratio 15 NRG Serum or plasma creatinine measurement w ith calculation of estimated glomerular filtration rate > NRG Serum or plasma glucose measurement (mass/volume) 101 mg/dL 70-105 Serum or plasma calcium measurement (mass/volume) 9.5 mg/dL 8.5-10.1 Serum or plasma total bilirubin measurement (mass/volu me) 0.3 mg/dL 0.1-1.0 Serum or plasma alkaline phosphatase cassandra surement (enzymatic activity/volume) 71 U/L 40-136 Serum or plasma aspartate aminotransfera se measurement (enzymatic activity/volume) 14 U/L 5-34 Serum or plasma alanine aminotransferase measurement (enzymatic activity/volume) 18 U/L 0-55 Serum or plasma protein measurement (mass/volume) 7.2 g/dL 6.4-8.2 Serum or plasma albumin measurement (mass/volume) 4.2 g/dL 3.2-4.5 CALCIUM CORRECTED 9.3 mg/dL 8.5-10.1 Magnesium - 04/21/18 16:00 Magnesium 1.7 mg/dL 1.8-2.4 Serum or plasma troponin i.cardiac measu rement (mass/volume) - 04/21/18 16:00 Serum or plasma troponin i.cardiac measurement (mass/v olume) < ng/mL <0.30 Myoglobin, serum - 04/21/18 16:00 Myoglobin, serum 29.5 ng/mL 10.0-92.0 Complete blood count (CBC) with automate d white blood cell (WBC) differential - 04/21/18 16:00 Blood leukocytes automated count (number/volume) 10.1 10*3/uL 4.3-11.0 Blood erythrocytes automated count (number/volume) 5.25 10*6/uL 4.35-5.85 Venous blood hemoglobin measurement (mass/volume) 16.3 g/dL 13.3-17.7 Blood hematocrit (volume fraction) 47 % 40-54 Automated erythrocyte mean corpuscular volume 89 [ foz_us] 80-99 Automated erythrocyte mean corpuscular h emoglobin (mass per erythrocyte) 31 pg 25-34 Automated erythrocyte mean corpuscular h emoglobin concentration measurement (mass/volume) 35 g/dL 32-36 Automated erythrocyte distribution width ratio 13. 1 % 10.0- 14.5 Automated blood platelet count (count/volume) 226 10*3/uL 130-400 Automated blood platelet mean volume measurement 11.4 [foz_us] 7.4-10.4 Automated blood neutrophils/100 leukocytes 54 % 42-75 Automated blood lymphocytes/100 leukocytes 31 % 12-44 Blood monocytes/100 leukocytes 11 % 0-12 Automated blood eosinophils/100 leukocytes 3 % 0-10 Automated blood basophils/100 leukocytes 1 % 0-10 Blood neutrophils automated count (number/volume) 5.5 10*3 1.8-7.8 Blood lymphocytes automated count (number/volume) 3.1 10*3 1.0-4.0 Blood monocytes automated count (number/volume) 1. 1 10*3 0.0-1.0 Automated eosinophil count 0.3 10*3/uL 0 .0-0.3 Automated blood basophil count (count/volume) 0.1 10*3/uL 0.0-0.1 A1C - 10/26/18 10:14 HEMOGLOBIN A1c 6.4 % of total Hgb <5.7 Complete urinalysis with reflex to cultu re - 02/13/19 07:20 Urine color determination YELLOW NRG Urine clarity determination CLEAR NR G Urine pH measurement by test strip 5 5-9 Specific gravity of urine by test strip 1.020 1.016-1.022 Urine protein assay by test strip, semi-quantitative NEGATIVE NEGATIVE Urine glucose detection by automated test strip NE GATIVE NEGATIVE Erythrocytes detection in urine sediment by light micr oscopy NEGATIVE NEGATIVE Urine ketones detection by automated test strip NE GATIVE NEGATIVE Urine nitrite detection by test strip NEGATIVE NEGATIVE Urine total bilirubin detection by test strip NEGA TIVE NEGATIVE Urine urobilinogen measurement by automated test strip (mass/volume) NORMAL NORMAL Urine leukocyte esterase detection by dipstick 2+ NEGATIVE Automated urine sediment erythrocyte cou nt by microscopy (number/high power field) NONE NRG Automated urine sediment leukocyte count by microscopy (number/high power field) [HPF] NRG Bacteria detection in urine sediment by light microsco py TRACE NRG Squamous epithelial cells detection in u rine sediment by light microscopy RARE NRG Crystals detection in urine sediment by light microsco py NONE NRG Casts detection in urine sediment by light microscopy NONE NRG Mucus detection in urine sediment by light microscopy SMALL NRG Complete urinalysis with reflex to culture NO NRG Automated blood complete blood count (he mogram) panel - 02/13/19 07:32 Blood leukocytes automated count (number/volume) 10.1 10*3/uL 4.3-11.0 Blood erythrocytes automated count (number/volume) 5.27 10*6/uL 4.35-5.85 Venous blood hemoglobin measurement (mass/volume) 16.3 g/dL 13.3-17.7 Blood hematocrit (volume fraction) 48 % 40-54 Automated erythrocyte mean corpuscular volume 91 [ foz_us] 80-99 Automated erythrocyte mean corpuscular h emoglobin (mass per erythrocyte) 31 pg 25-34 Automated erythrocyte mean corpuscular h emoglobin concentration measurement (mass/volume) 34 g/dL 32-36 Automated erythrocyte distribution width ratio 12. 4 % 10.0- 14.5 Automated blood platelet count (count/volume) 215 10*3/uL 130-400 Automated blood platelet mean volume measurement 11.3 [foz_us] 7.4-10.4 PT panel in platelet poor plasma by coag ulation assay - 02/13/19 07:32 Prothrombin time (PT) in platelet poor plasma by coagu lation assay 13.4 s 12.2-14.7 INR in platelet poor plasma or blood by coagulation as say 1.0 0.8-1.4 Activated partial thromboplastin time (a PTT) in platelet poor plasma bycoagulation assay - 02/13/19 07:32 Activated partial thromboplastin time (a PTT) in platelet poor plasma bycoagulation assay 33 s 24-35 Comprehensive metabolic panel - 02/13/19 07:32 Serum or plasma sodium measurement (moles/volume) 140 mmol/L 135-145 Serum or plasma potassium measurement (moles/volume) 4.1 mmol/L 3.6-5.0 Serum or plasma chloride measurement (moles/volume) 108 mmol/L 98-107 Carbon dioxide 24 mmol/L 21-32 Serum or plasma anion gap determination (moles/volume) 8 mmol/L 5-14 Serum or plasma urea nitrogen measurement (mass/volume ) 16 mg/dL 7-18 Serum or plasma creatinine measurement (mass/volume) 0.91 mg/dL 0.60-1.30 Serum or plasma urea nitrogen/creatinine mass ratio 18 NRG Serum or plasma creatinine measurement w ith calculation of estimated glomerular filtration rate > NRG Serum or plasma glucose measurement (mass/volume) 153 mg/dL 70-105 Serum or plasma calcium measurement (mass/volume) 9.0 mg/dL 8.5-10.1 Serum or plasma total bilirubin measurement (mass/volu me) 0.5 mg/dL 0.1-1.0 Serum or plasma alkaline phosphatase cassandra surement (enzymatic activity/volume) 71 U/L 40-136 Serum or plasma aspartate aminotransfera se measurement (enzymatic activity/volume) 16 U/L 5-34 Serum or plasma alanine aminotransferase measurement (enzymatic activity/volume) 22 U/L 0-55 Serum or plasma protein measurement (mass/volume) 7.3 g/dL 6.4-8.2 Serum or plasma albumin measurement (mass/volume) 4.1 g/dL 3.2-4.5 CALCIUM CORRECTED 8.9 mg/dL 8.5-10.1 Lipid 1996 panel - 02/13/19 07:32 Serum or plasma triglyceride measurement (mass/volume) 280 mg/dL <150 Serum or plasma cholesterol measurement (mass/volume) 165 mg/dL < 200 Serum or plasma cholesterol in HDL measurement (mass/v olume) 28 mg/dL 40-60 Cholesterol in LDL [mass/volume] in serum or plasma by direct assay 91 mg/dL 1-129 Serum or plasma cholesterol in VLDL measurement (mass/ volume) 56 mg/dL 5-40 Methicillin resistant Staphylococcus aur eus (MRSA) screening culture - 02/13/19 07:32 Methicillin resistant Staphylococcus aureus (MRSA) scr eening culture NEG NRG Automated blood complete blood count (he mogram) panel - 02/14/19 03:01 Blood leukocytes automated count (number/volume) 8.9 10*3/uL 4.3-11.0 Blood erythrocytes automated count (number/volume) 4.57 10*6/uL 4.35-5.85 Venous blood hemoglobin measurement (mass/volume) 14.6 g/dL 13.3-17.7 Blood hematocrit (volume fraction) 42 % 40-54 Automated erythrocyte mean corpuscular volume 92 [ foz_us] 80-99 Automated erythrocyte mean corpuscular h emoglobin (mass per erythrocyte) 32 pg 25-34 Automated erythrocyte mean corpuscular h emoglobin concentration measurement (mass/volume) 35 g/dL 32-36 Automated erythrocyte distribution width ratio 12. 3 % 10.0- 14.5 Automated blood platelet count (count/volume) 178 10*3/uL 130-400 Automated blood platelet mean volume measurement 11.4 [foz_us] 7.4-10.4 Whole blood basic metabolic panel - 10/28 03:01 Serum or plasma sodium measurement (moles/volume) 141 mmol/L 135-145 Serum or plasma potassium measurement (moles/volume) 4.1 mmol/L 3.6-5.0 Serum or plasma chloride measurement (moles/volume) 109 mmol/L 98-107 Carbon dioxide 22 mmol/L 21-32 Serum or plasma anion gap determination (moles/volume) 10 mmol/L 5-14 Serum or plasma urea nitrogen measurement (mass/volume ) 14 mg/dL 7-18 Serum or plasma creatinine measurement (mass/volume) 0.85 mg/dL 0.60-1.30 Serum or plasma urea nitrogen/creatinine mass ratio 16 NRG Serum or plasma creatinine measurement w ith calculation of estimated glomerular filtration rate > NRG Serum or plasma glucose measurement (mass/volume) 168 mg/dL 70-105 Serum or plasma calcium measurement (mass/volume) 8.6 mg/dL 8.5-10.1 LIVER PANEL (LFT) - 06/03/19 12:33 PROTEIN, TOTAL 6.8 g/dL 6.1-8.1 ALBUMIN 4.2 g/dL 3.6-5.1 GLOBULIN 2.6 g/dL (calc) 1.9-3.7 ALBUMIN/GLOBULIN RATIO 1.6 (calc) 1.0-2. 5 BILIRUBIN, TOTAL 0.3 mg/dL 0.2-1.2 ALKALINE PHOSPHATASE 50 U/L 40-115 AST 16 U/L 10-35 ALT 20 U/L 9-46 BILIRUBIN, DIRECT 0.1 mg/dL < OR = 0.2 BILIRUBIN, INDIRECT 0.2 mg/dL (calc) 0.2 -1.2 Encounters ACCT No. Visit Date/Time Discharge Status Pt. Type Provider Facility Loc./Unit Complaint [id number] 09/30/2019 08:00:00 09/30/2019 23:59: 59 CLS Outpatient KIKE VILLAVICENCIO APRN [facility] [id number] 06/03/2019 12:40:00 Document Registration [id number] 10/26/2018 10:00:00 Document Registration [id number] 03/03/2015 14:03:35 03/03/2015 14:0 3:35 DIS Outpatient [id number] 06/02/2014 15:02:10 06/02/2014 15:0 2:11 DIS Outpatient [id number] 10/18/2017 11:47:09 10/18/2017 11:4 7:09 DIS Out[facility] [id number] 07/19/2019 17:14:00 00:01:00 DIS Outpatient ONELIA VEGA MD Via [facility] CARD HTN,CAD,OBESITY,MIXED HYPERLIPIDEMIA [id number] 08/02/2019 17:58:00 00:01:00 DIS Outpatient ONELIA VEGA MD Via [facility] WELLNESS [id number] 07/10/2019 15:50:00 020 00:01:00 DIS Outpatient ONELIA VEGA MD Via [facility] CR3 WELLNESS [id number] 06/14/2019 16:18:00 020 08:00:00 DIS Outpatient ONELIA VEGA MD Via [facility] CR STENT 02/13/19 [id number] 06/07/2019 17:53:00 020 00:01:00 DIS Outpatient ONELIA VEGA MD Via [facility] CR3 WELLNESS [id number] 05/03/2019 15:29:00 00:01:00 DIS Outpatient ONELIA VEGA MD Via [facility] CR3 WELLNESS [id number] 2019 07:05:00 09:06:00 DIS Outpatient ONELIA VEGA MD Via [facility] CATH ABN STRESS TEST [id number] 02/04/2019 08:03:00 23:59:59 CLS Outpatient ONELIA VEGA MD Via [facility] CARD HEART PALPITATIONS,CHES T PAIN [id number] 01/21/2019 13:13:00 019 23:59:59 CLS Preadmit ONELIA VEGA MD Via [facility] CARD CHEST PAIN,HEART PALPIT ATIONS [id number] 04/21/2018 15:48:00 018 17:52:00 DIS Emergency EDOUARD PEREZ APRN Via [facility] ER CP [id number] 02/08/2018 14:51:00 18:38:00 DIS Emergency JOCELIN LOZANO, TRAE Mercado Via [facility] ER RIB PAIN,BACK P AIN, [id number] 07/10/2017 09:37:21 07/10/2017 23:59: 59 CLS Outpatient Dayne Senior [id number] 05/29/2017 16:29:56 05/29/2017 23:59: 59 CLS Outpatient Dayne Senior
[2020-01-02] MEDS ORDERED: IOHEXOL 350 MG/ML 100 ML (OMNIPAQUE 350) VIAL IV ONE (21:00)
[2020-01-02] MEDS ORDERED: HOLD METFORMIN - RECEIVED CONTRAST 20 ML VIAL IV SCH (21:00)
[2020-01-02] MEDS ORDERED: NS 100 ML (IVPB) BAG IV ONE (21:00)
--- NOTE | 2020-01-02 21:41 | Diagnostic Imaging Report ---
PROCEDURE: CT angiography of the chest with contrast. TECHNIQUE: Multiple contiguous axial images were obtained through the chest after uneventful bolus administration of intravenous contrast. 3D reconstructed CTA MIP acquisitions were also performed. Auto Exposure Controls were utilized during the CT exam to meet ALARA standards for radiation dose reduction. INDICATION: Chest pain The previous CTA chest exam of 02/08/2018 noted patchy atelectasis in both lung bases but failed to show any sign of a pulmonary embolus or of a dissection. The plain film examination of the chest performed prior to this study was unremarkable for an acute abnormality. On this exam, there is no defect within the pulmonary arteries to indicate a pulmonary embolus. The aorta is not well opacified and consequently difficult to evaluate. The aorta is not aneurysmally dilated and there is no obvious dissection evident. The heart is mildly enlarged and there are coronary artery calcifications evident. The lungs are generally clear and well aerated. There is no sign of failure, pneumonia or of pleural effusion. There is no mediastinal or hilar adenopathy. The thyroid gland was partially obscured by streak artifact.. The images through the upper abdomen again show that the liver is of lower density than usually seen. This does suggest fatty metamorphosis. There is no acute abnormality of the upper abdomen. The bone windows show no evidence for a fracture or for a destructive lesion. IMPRESSION: 1. There is no evidence for an acute cardiopulmonary abnormality. In particular, there is no sign of a pulmonary embolus. 2. The aorta was not well opacified and difficult to assess. There is no evidence for an aneurysm or obvious dissection. 3. The heart is mildly enlarged and there are coronary calcifications evident. 4. The appearance of the liver does suggest fatty metamorphosis. Dictated by: Dictated on workstation # [id number]
[2020-01-02] MEDS ORDERED: ENOXAPARIN 100 MG/1 ML (LOVENOX) SYR SC ONE (21:45)
[2020-01-02] MEDS ORDERED: CLOPIDOGREL 300 MG (PLAVIX) TABLET PO ONE (21:45)
[2020-01-02] MEDS ORDERED: meTOproloL SUCCINATE 50 MG (TOPROL XL) TAB PO SCH (21:45)
--- OUTSIDE RECORDS SUMMARY | 2020-01-02 22:08 | XMS REPORT | Continuity of Care Document ---
Author Organization Unknown Address Unknown Phone Unavailable Allergies Active Description Code Type Severity Reaction Onset Reported/Identified Relationship to Patient Clinical Status Yes ASPARTAME [id number] Drug Allerg y N/A N/A Yes aspartame [id number] Drug Allergy Unknown N/A 02/08/2018 Yes No Known Drug Allergies [id number] Drug Allergy Unknown N/A 02/08/2018 Medications Medication Packaging Start Date St op Date Route Dosage Sig TRAMADOL HCL ORAL 10/13/2015 11/14/2015 ORAL 4040 4 times a day NITROSTAT Sublingual 10/13/2015 09/08/2017 Sublingual [id number] TRAMADOL HCL ORAL 11/04/2015 02/10/2016 ORAL 916877 4 times a day TRAMADOL HCL ORAL 01/11/2016 04/20/2016 ORAL 463156 4 times a day CLOPIDOGREL BISULFATE ORAL 01/20/2016 04/26/2016 ORAL 3030 daily TRAMADOL HCL ORAL 03/21/2016 04/20/2016 ORAL 009685 4 times a day CLOPIDOGREL BISULFATE ORAL [...] ORAL 9090 daily NITROSTAT Sublingual 09/08/2017 Sublingual [id number] CLOPIDOGREL BISULFATE ORAL 09/08/2017 ORAL 9090 ankur y ZETIA ORAL 09/12/2017 ORAL 3030 daily METFORMIN HCL ORAL 10/18/2017 ORAL 6060 twic e daily Problems Date Dx Coded Attending Type Code Diagnosis Diagnosed By 02/08/2018 TRAE MONREAL MD Ot E11.9 TYPE 2 DIABETES MELLITUS WITHOUT COMPLIC 02/08/2018 TRAE MONREAL MD, Ot I25.10 ATHSCL HEART DISEASE OF [place] CORONARY 02/08/2018 TRAE MONREAL MD, Ot I25.2 [...] MD, Ot I25.10 ATHSCL HEART DISEASE OF [place] CORONARY 04/18/2018 TRAE MONREAL MD, Ot I25.2 [...] APRN Ot I25.10 ATHSCL HEART DISEASE OF [place] CORONARY 04/21/2018 EDOUARD PEREZ APRN Ot I25 .2 OLD MYOCARDIAL INFARCTION 04/21/2018 EDOUARD PEREZ APRN Ot M94 .0 CHONDROCOSTAL JUNCTION SYNDROME [TIETZE] 04/21/2018 EDOUARD PEREZ APRN Ot R07.81 PLEURODYNIA 04/21/2018 EDOUARD PEREZ APRN Ot Z79.52 GRAIN MIXER (CURRENT) USE OF SYSTEMIC STER 04/21/2018 EDOUARD [...] TYPE 2 DIABETES MELLITUS WITHOUT COMPLIC 04/23/2018 EDOUARD PEREZ APRN Ot I25.10 ATHSCL HEART DISEASE OF [place] CORONARY 04/23/2018 EDOUARD PEREZ APRN Ot I25 .2 OLD MYOCARDIAL INFARCTION 04/23/2018 EDOUARD PEREZ APRN Ot M94 .0 CHONDROCOSTAL JUNCTION SYNDROME [TIETZE] 04/23/2018 EDOUARD PEREZ APRN Ot R07.81 PLEURODYNIA 04/23/2018 EDOUARD PEREZ APRN Ot Z79.52 LONGTERM (CURRENT) USE OF SYSTEMIC STER 04/23/2018 EDOUARD PEREZ APRN Ot Z86.73 PRSNL HX OF TIA (TIA), AND CEREB INFRC W 04/23/2018 EDOUARD PEREZ APRN Ot Z87.19 PERSONAL HISTORY OF OTHER DISEASES OF TH 04/23/2018 EDOUARD PEREZ APRN Ot Z88 .8 ALLERGY STATUS TO [facility] DRUG/MEDS/BIOL SUB 04/23/2018 EDOUARD PEREZ APRN Ot Z95 .5 PRESENCE OF CORONARY ANGIOPLASTY IMPLANT 04/23/2018 EDOUARD PEREZ APRN Ot Z98.890 OTHER SPECIFIED POSTPROCEDURAL STATES 02/07/2019 ONELIA VEGA MD, Ot E78. 5 HYPERLIPIDEMIA, UNSPECIFIED 02/07/2019 ONELIA VEGA MD Ot I25.118 ATHSCL HEART DISEASE OF [place] COR ART W 02/07/2019 ONELIA VEGA MD Ot R00. 2 PALPITATIONS 02/07/2019 ONELIA VEGA MD, Ot E78. 5 HYPERLIPIDEMIA, UNSPECIFIED 02/07/2019 ONELIA VEGA MD Ot I25.118 ATHSCL HEART DISEASE OF [place] COR ART W 02/07/2019 ONELIA VEGA MD Ot R00. 2 PALPITATIONS 02/14/2019 ONELIA VEGA MD Ot E78. 2 MIXED HYPERLIPIDEMIA 02/14/2019 ONELIA VEGA MD Ot I10 ESSENTIAL (PRIMARY) HYPERTENSION 02/14/2019 ONELIA VEGA MD Ot I25. 10 ATHSCL HEART DISEASE OF [place] CORONARY 02/14/2019 ONELIA VEGA MD Ot I73. 9 PERIPHERAL VASCULAR DISEASE, UNSPECIFIED 02/14/2019 ONELIA VEGA MD Ot K21. 9 GASTRO-ESOPHAGEAL REFLUX DISEASE WITHOUT 02/14/2019 ONELIA VEGA MD Ot R94. 39 ABNORMAL RESULT OF OTHER CARDIOVASCULAR 02/14/2019 ONELIA VEGA MD Ot Z79. 82 GRAIN MIXER (CURRENT) USE OF ASPIRIN 02/14/2019 ONELIA VEGA MD Ot Z79.890 HORMONE REPLACEMENT THERAPY 02/14/2019 ONELIA VEGA MD, Ot Z79.899 OTHER LONGTERM (CURRENT) DRUG THERAPY 02/14/2019 ONELIA VEGA MD, [...] MD, Ot Z88. 8 ALLERGY STATUS TO [facility] DRUG/MEDS/BIOL SUB 02/15/2019 ONELIA VEGA MD Ot E78. 5 HYPERLIPIDEMIA, UNSPECIFIED 02/15/2019 ONELIA VEGA MD Ot I25.118 ATHSCL HEART DISEASE OF [place] COR ART W 02/15/2019 ONELIA VEGA MD Ot R00. 2 PALPITATIONS 02/15/2019 ONELIA VEGA MD Ot E78. 5 HYPERLIPIDEMIA, UNSPECIFIED 02/15/2019 ONELIA VEGA MD Ot I25.118 ATHSCL HEART DISEASE OF [place] COR ART W 02/15/2019 ONELIA VEGA MD Ot R00. 2 PALPITATIONS 02/18/2019 ONELIA VEGA MD Ot E78. 2 MIXED HYPERLIPIDEMIA 02/18/2019 ONELIA VEGA MD Ot I10 ESSENTIAL (PRIMARY) HYPERTENSION 02/18/2019 ONELIA VEGA MD Ot I25. 10 ATHSCL HEART DISEASE OF [place] CORONARY 02/18/2019 ONELIA VEGA MD Ot I73. 9 PERIPHERAL VASCULAR DISEASE, UNSPECIFIED 02/18/2019 ONELIA VEGA MD Ot K21. 9 GASTRO-ESOPHAGEAL REFLUX DISEASE WITHOUT 02/18/2019 ONELIA VEGA MD Ot R94. 39 ABNORMAL RESULT OF OTHER CARDIOVASCULAR 02/18/2019 ONELIA VEGA MD Ot Z79. 82 GRAIN MIXER (CURRENT) USE OF ASPIRIN 02/18/2019 ONELIA VEGA MD, Ot Z79.890 HORMONE REPLACEMENT THERAPY 02/18/2019 ONELIA VEGA MD, Ot Z79.899 OTHER LONGTERM (CURRENT) DRUG THERAPY 02/18/2019 ONELIA VEGA MD, [...] MD, Ot Z88. 8 ALLERGY STATUS TO [facility] DRUG/MEDS/BIOL SUB 02/18/2019 ONELIA VEGA MD Ot E78. 2 MIXED HYPERLIPIDEMIA 02/18/2019 ONELIA VEGA MD Ot I10 ESSENTIAL (PRIMARY) HYPERTENSION 02/18/2019 ONELIA VEGA MD, Ot I25. 10 ATHSCL HEART DISEASE OF [place] CORONARY 02/18/2019 ONELIA VEGA MD Ot I73. 9 PERIPHERAL VASCULAR DISEASE, UNSPECIFIED 02/18/2019 ONELIA VEGA MD, Ot K21. 9 GASTRO-ESOPHAGEAL REFLUX DISEASE WITHOUT 02/18/2019 ONELIA VEGA MD Ot R94. 39 ABNORMAL RESULT OF OTHER CARDIOVASCULAR 02/18/2019 ONELIA VEGA MD Ot Z79. 82 LONGTERM (CURRENT) USE OF ASPIRIN 02/18/2019 ONELIA VEGA MD, Ot Z79.890 HORMONE REPLACEMENT THERAPY 02/18/2019 ONELIA VEGA MD, Ot Z79.899 OTHER GRAIN MIXER (CURRENT) DRUG THERAPY 02/18/2019 ONELIA VEGA MD, [...] MD Ot I25.118 ATHSCL HEART DISEASE OF [place] COR ART W 02/21/2019 ONELIA VEGA MD Ot R00. 2 PALPITATIONS 03/27/2019 ONELIA VEGA MD Ot E78. 5 HYPERLIPIDEMIA, UNSPECIFIED 03/27/2019 ONELIA VEGA MD Ot I25.118 ATHSCL HEART DISEASE OF [place] COR ART W 03/27/2019 ONELIA VEGA MD [...] Ot I25. 10 ATHSCL HEART DISEASE OF [place] CORONARY 07/14/2019 ONELIA VEGA MD Ot Z29. 8 ENCOUNTER FOR OTHER SPECIFIED PROPHYLACT 07/15/2019 ONELIA VEGA MD Ot Z29. 8 ENCOUNTER FOR OTHER SPECIFIED PROPHYLACT 07/19/2019 ONELIA VEGA MD Ot E78. 5 HYPERLIPIDEMIA, UNSPECIFIED 07/19/2019 ONELIA VEGA MD Ot I25.118 ATHSCL HEART DISEASE OF [place] COR ART W 07/19/2019 ONELIA VEGA MD Ot R00. 2 PALPITATIONS 07/19/2019 ONELIA VEGA MD Ot E66. 9 OBESITY, UNSPECIFIED 07/19/2019 ONELIA VEGA MD Ot E78. 2 MIXED HYPERLIPIDEMIA 07/19/2019 ONELIA VEGA MD Ot I10 ESSENTIAL (PRIMARY) HYPERTENSION 07/19/2019 ONELIA VEGA MD Ot I25. 10 ATHSCL HEART DISEASE OF [place] CORONARY 07/19/2019 ONELIA VEGA MD Ot Z29. 8 ENCOUNTER FOR OTHER SPECIFIED PROPHYLACT 07/25/2019 ONELIA VEGA MD Ot E66. 9 OBESITY, UNSPECIFIED 07/25/2019 ONELIA VEGA MD Ot E78. 2 MIXED HYPERLIPIDEMIA 07/25/2019 ONELIA VEGA MD Ot I10 ESSENTIAL (PRIMARY) HYPERTENSION 07/25/2019 ONELIA VEGA MD Ot I25. 10 ATHSCL HEART DISEASE OF [place] CORONARY 08/16/2019 ONELIA VEGA MD Ot Z29. 8 ENCOUNTER FOR OTHER SPECIFIED PROPHYLACT 08/18/2019 ONELIA VEGA MD Ot Z29. 8 ENCOUNTER FOR OTHER SPECIFIED PROPHYLACT 09/12/2019 ONELIA VEGA MD Ot E66. 9 OBESITY, UNSPECIFIED 09/12/2019 ONELIA VEGA MD Ot E78. 2 MIXED HYPERLIPIDEMIA 09/12/2019 ONELIA VEGA MD Ot I10 ESSENTIAL (PRIMARY) HYPERTENSION 09/12/2019 ONELIA VEGA MD Ot I25. 10 ATHSCL HEART DISEASE OF [place] CORONARY 09/14/2019 ONELIA VEGA MD Ot E66. 9 OBESITY, UNSPECIFIED 09/14/2019 ONELIA VEGA MD Ot E78. 2 MIXED HYPERLIPIDEMIA 09/14/2019 ONELIA VEGA MD Ot I10 ESSENTIAL (PRIMARY) HYPERTENSION 09/14/2019 ONELIA VEGA MD Ot I25. 10 ATHSCL HEART DISEASE OF [place] CORONARY 09/14/2019 ONELIA VEGA MD Ot E66. 9 OBESITY, UNSPECIFIED 09/14/2019 ONELIA VEGA MD, Ot E78. 2 MIXED HYPERLIPIDEMIA 09/14/2019 ONELIA VEGA MD, Ot I10 ESSENTIAL (PRIMARY) HYPERTENSION 09/14/2019 ONELIA VEGA MD, Ot I25. 10 ATHSCL HEART DISEASE OF [place] CORONARY Procedures There is no data. Results [...] Status Pt. Type Provider Facility Loc./Unit Complaint [id number] 09/30/2019 08:00:00 09/30/2019 23:59: 59 CLS Outpatient KIKE VILLAVICENCIO APRN [facility] [id number] 06/03/2019 12:40:00 Document Registration [id number] 10/26/2018 10:00:00 Document Registration [id number] 03/03/2015 14:03:35 03/03/2015 14:0 3:35 DIS Outpatient [id number] 06/02/2014 15:02:10 06/02/2014 15:0 2:11 DIS Outpatient [id number] 10/18/2017 11:47:09 10/18/2017 11:4 7:09 DIS Outpatient [facility] [id number] 07/19/2019 17:14:00 00:01:00 DIS Outpatient ONEILA VEGA MD Via [facility] CARD HTN,CAD,OBESITY,MIXED HYPERLIPIDEMIA [id number] 08/02/2019 17:58:00 00:01:00 DIS Outpatient ONELIA VEGA MD Via [facility] WELLNESS [id number] 07/10/2019 15:50:00 020 00:01:00 DIS Outpatient ONELIA VEGA MD Via [facility] CR3 WELLNESS [id number] 06/14/2019 16:18:00 020 08:00:00 DIS Outpatient ONELIA VEGA MD Via [facility] CR STENT 02/13/19 [id number] 06/07/2019 17:53:00 020 00:01:00 DIS Outpatient ONELIA VEGA MD [facility] CR3 WELLNESS [id number] 05/03/2019 15:29:00 00:01:00 DIS Outpatient ONELIA VEGA MD Via [facility] CR3 WELLNESS [id number] 2019 07:05:00 09:06:00 DIS Outpatient ONELIA VEGA MD Via [facility] CATH ABN STRESS TEST [id number] 02/04/2019 08:03:00 23:59:59 CLS Outpatient ONELIA VEGA MD Via [facility] CARD HEART PALPITATIONS,CHES T PAIN [id number] 01/21/2019 13:13:00 019 23:59:59 CLS Preadmit ONELIA VEGA MD Via [facility] CARD CHEST PAIN,HEART PALPIT ATIONS [id number] 04/21/2018 15:48:00 018 17:52:00 DIS Emergency EDOUARD PEREZ APRN [facility] ER CP [id number] 02/08/2018 14:51:00 18:38:00 DIS Emergency JOCELIN LOZANO, TRAE Mercado Via [facility] ER RIB PAIN,BACK P AIN, [id number] 07/10/2017 09:37:21 07/10/2017 23:59: 59 CLS Outpatient Dayne Senior [id number] 05/29/2017 16:29:56 05/29/2017 23:59: 59 CLS Outpatient Dayne Senior
[2020-01-02 22:30] VITALS: BP 130/88
[2020-01-02] MEDS: morphine INJ 4 MG/ML 1 ML (VIAL/SYRINGE) IV PRN (22:38)
[2020-01-02 22:45] VITALS: BP 115/86
[2020-01-02] MEDS ORDERED: ONDANSETRON 4 MG/2 ML (SDV) Z0FRAN IV PRN (22:45)
[2020-01-02] MEDS ORDERED: NITROGLYCERIN 0.4 MG SL TABS BTL 25'S SL PRN (22:45)
[2020-01-02 22:53] VITALS: BP 134/89
[2020-01-02 23:00] VITALS: BP 116/95
[2020-01-02 23:15] VITALS: BP 102/72
[2020-01-02 23:45] VITALS: BP 89/58
[2020-01-03] VITALS (21 sets, daily range): BP systolic 105–148; BP diastolic 65–102
[2020-01-03 01:39] LABS: BASOPHILS # (AUTO) 0.1 10^3/uL (0.0-0.1); BASOPHILS % (AUTO) 1 % (0-10); EOSINOPHILS # (AUTO) 0.3 10^3/uL (0.0-0.3); EOSINOPHILS % (AUTO) 3 % (0-10); HEMATOCRIT 42 % (40-54); LYMPHOCYTES # (AUTO) 3.4 X 10^3 (1.0-4.0); LYMPHOCYTES % (AUTO) 38 % (12-44); MEAN CORPUSCULAR HEMOGLOBIN 32 PG (25-34); MEAN CORPUSCULAR HGB CONC 35 G/DL (32-36); MEAN CORPUSCULAR VOLUME 91 FL (80-99); MEAN PLATELET VOLUME 11.8 FL (7.4-10.4); MONOCYTES # (AUTO) 0.8 X 10^3 (0.0-1.0); MONOCYTES % (AUTO) 8 % (0-12); NEUTROPHILS # (AUTO) 4.6 X 10^3 (1.8-7.8); NEUTROPHILS % (AUTO) 51 % (42-75); PLATELET COUNT 154 10^3/uL (130-400); RED CELL DISTRIBUTION WIDTH 12.3 % (10.0-14.5)
[2020-01-03 01:46] LABS: CHLORIDE 104 MMOL/L (98-107); POTASSIUM 4.5 MMOL/L (3.6-5.0); SODIUM 136 MMOL/L (135-145)
[2020-01-03 01:47] LABS: CALCIUM 8.6 MG/DL (8.5-10.1)
[2020-01-03 01:48] LABS: GLUCOSE 346 MG/DL (70-105)
[2020-01-03 01:49] LABS: CARBON DIOXIDE 24 MMOL/L (21-32)
[2020-01-03 01:51] LABS: CREATININE SERUM 1.08 MG/DL (0.60-1.30); GFR ESTIMATED > 60
[2020-01-03 01:52] LABS: BUN/CREATININE RATIO 13
[2020-01-03 01:54] LABS: HDL CHOLESTEROL 27 MG/DL (40-60)
[2020-01-03 02:09] LABS: TRIGLYCERIDES 697 MG/DL (<150)
[2020-01-03] MEDS: morphine INJ 4 MG/ML 1 ML (VIAL/SYRINGE) IV PRN ×2 (03:35→07:32)
[2020-01-03] MEDS: inSUlin ASPART (NovoLOG) 1 UNIT/0.01 ML (CHARGE PER UNIT) SC SCH ×4 (07:25→20:22)
[2020-01-03] MEDS ORDERED: NS IV 1000 ML 1,000 ML ONE (07:39)
[2020-01-03] MEDS ORDERED: HEParin (CATH LAB) 2,000 ML IV ONE (07:39)
[2020-01-03] MEDS ORDERED: LIDOCAINE 1% INJ 20 ML 20 ML VIAL ONE (07:39)
[2020-01-03] MEDS ORDERED: MIDAZOLAM 5 MG/5 ML (VERSED) VIAL ONE (07:41)
[2020-01-03] MEDS ORDERED: fentaNYL INJECTION 100 MCG/2 ML AMP ONE ×2 (07:42→13:10)
[2020-01-03] MEDS ORDERED: HEParin 1000 UNIT/ML (10ML VIAL) FOR BOLUS ONE (07:42)
--- NOTE | 2020-01-03 07:56 | Consultation-Cardiology ---
HPI-Cardiology Cardiology Consultation: Date of Consultation 01/03/20 Date of Admission 01-02-2020 Attending Physician Sherly Beebe MD Admitting Physician [facility] Consulting Physician Luigi Sanchez MD [id number] Hx Patient Social History Alcohol Use: Rarely Uses Recreational Drug Use: No Smoking Status: Never a Smoker 2nd Hand Smoke Exposure: No Recent Foreign Travel: No Recent Infectious Disease Expo: No Hospitalization with Isolation: Denies Immunizations Up To Date Tetanus Booster (TDap): Unknown Date of Pneumonia Vaccine: Feb 20, 2008 Past Medical History PMH As described under Assessment. Allergies and Home Medications Allergies Coded Allergies: aspartame (Verified Allergy, Unknown, 02/08/18) Stttnmp-Mct-Vju Reductase Inhibitor (Verified Adverse Reaction, Unknown, 01/02/20) Unspecified adverse reaction Home Medications Aspirin 81 Mg Tablet.dr, 81 MG PO DAILY, (Reported) Ibuprofen 200 Mg Tablet, 400 MG PO Q8H PRN for PAIN-MILD, (Reported) Metoprolol Tartrate 50 Mg Tablet, 50 MG PO DAILY, (Reported) Nitroglycerin 0.4 Mg Tab.subl, 0.4 MG SL UD PRN for CHEST PAIN, (Reported) Physical Exam-Cardiology Physical Exam Vital Signs/I&O 01/02/20 01/02/20 01/02/20 01/02/20 22:14 22:25 22:30 22:45 Temp 36.4 36.3 Pulse 70 71 75 72 Resp 16 22 9 B/P (MAP) 112/73 130/88 (102) 115/86 (96) Pulse Ox 95 96 96 O2 Delivery Room Air Nasal Cannula Nasal Cannula O2 Flow Rate 2.00 2.00 01/02/20 01/02/20 01/02/20 01/02/20 22:48 22:53 23:00 23:15 Temp 36.3 Pulse 69 84 81 Resp 13 23 B/P (MAP) 134/89 116/95 (102) 102/72 (82) Pulse Ox 98 97 96 96 O2 Delivery Nasal Cannula Nasal Cannula Nasal Cannula Nasal Cannula O2 Flow Rate 2.00 2.00 2.00 2.00 01/02/20 01/02/20 01/03/20 01/03/20 23:27 23:45 00:00 00:15 Pulse 77 76 Resp 19 13 B/P (MAP) 89/58 (68) 111/83 (92) Pulse Ox 95 96 98 94 O2 Delivery Nasal Cannula Nasal Cannula Nasal Cannula Nasal Cannula O2 Flow Rate 2.00 2.00 2.00 2.00 01/03/20 01/03/20 01/03/20 01/03/20 01:00 04:00 04:00 07:37 Temp 36.3 Pulse 70 68 Resp 13 B/P (MAP) 106/67 (80) Pulse Ox 98 97 O2 Delivery Nasal Cannula Nasal Cannula O2 Flow Rate 2.00 2.00 01/03/20 00:00 Intake Total 1000 ml Balance 1000 ml Capillary Refill : Less Than 3 Seconds Data Review Labs Laboratory Tests 01/02/20 19:20: White Blood Count 10.4, Red Blood Count 5.08, Hemoglobin 16.4, Hematocrit 46, Mean Corpuscular Volume 91, Mean Corpuscular Hemoglobin 32, Mean Corpuscular Hemoglobin Concent 36, Red Cell Distribution Width 12.4, Platelet Count 179, Mean Platelet Volume 11.7H, Neutrophils (%) (Auto) 44, Lymphocytes (%) (Auto) 44, Monocytes (%) (Auto) 8, Eosinophils (%) (Auto) 4, Basophils (%) (Auto) 1, Neutrophils # (Auto) 4.6, Lymphocytes # (Auto) 4.6H, Monocytes # (Auto) 0.8, Eosinophils # (Auto) 0.4H, Basophils # (Auto) 0.1, Prothrombin Time 12.9, INR Comment 0.9, Activated Partial Thromboplast Time 29, D-Dimer 0.52H, Sodium Level 135, Potassium Level 4.3, Chloride Level 103, Carbon Dioxide Level 21, Anion Gap 11, Blood Urea Nitrogen 16, Creatinine 1.22, Estimat Glomerular Filtration Rate > 60, BUN/Creatinine Ratio 13, Glucose Level 424*H, Calcium Level 9.3, Corrected Calcium 9.4, Magnesium Level 2.0, Total Bilirubin 0.2, Aspartate Amino Transf (AST/SGOT) 35H, Alanine Aminotransferase (ALT/SGPT) 56H, Alkaline Phosphatase 71, Myoglobin 40.1, Troponin I < 0.028, Total Protein 7.5, Albumin 3.9 01/02/20 21:22: Glucometer 370H 01/03/20 01:29: White Blood Count 9.0, Red Blood Count 4.65, Hemoglobin 15.0, Hematocrit 42, Mean Corpuscular Volume 91, Mean Corpuscular Hemoglobin 32, Mean Corpuscular Hemoglobin Concent 35, Red Cell Distribution Width 12.3, Platelet Count 154, Mean Platelet Volume 11.8H, Neutrophils (%) (Auto) 51, Lymphocytes (%) (Auto) 38, Monocytes (%) (Auto) 8, Eosinophils (%) (Auto) 3, Basophils (%) (Auto) 1, Neutrophils # (Auto) 4.6, Lymphocytes # (Auto) 3.4, Monocytes # (Auto) 0.8, Eosinophils # (Auto) 0.3, Basophils # (Auto) 0.1, Sodium Level 136, Potassium Level 4.5, Chloride Level 104, Carbon Dioxide Level 24, Anion Gap 8, Blood Urea Nitrogen 14, Creatinine 1.08, Estimat Glomerular Filtration Rate > 60, BUN/Creatinine Ratio 13, Glucose Level 346H, Calcium Level 8.6, Troponin I 1.288*H, Triglycerides Level 697H, Cholesterol Level , LDL Cholesterol Direct , VLDL Cholesterol , HDL Cholesterol 27L Laboratory Tests 01/02/20 19:20 01/03/20 01:29 Radiology NAME: AUGUSTINE MONTERROSO [facility] REC#: [id number] PT STATUS: ADM N[place] : 1965 PHYSICIAN: TRAE MONREAL MD ADMIT DATE: 01/02/20/ICU Signed Date of Exam:01/02/20 CT ANGIO CHEST W PROCEDURE: CT angiography of the chest with contrast. TECHNIQUE: Multiple contiguous axial images were obtained through the chest after uneventful bolus administration of intravenous contrast. 3D reconstructed CTA MIP acquisitions were also performed. Auto Exposure Controls were utilized during the CT exam to meet ALARA standards for radiation dose reduction. INDICATION: Chest pain The previous CTA chest exam of 02/08/2018 noted patchy atelectasis in both lung bases but failed to show any sign of a pulmonary embolus or of a dissection. The plain film examination of the chest performed prior to this study was unremarkable for an acute abnormality. On this exam, there is no defect within the pulmonary arteries to indicate a pulmonary embolus. The aorta is not well opacified and consequently difficult to evaluate. The aorta is not aneurysmally dilated and there is no obvious dissection evident. The heart is mildly enlarged and there are coronary artery calcifications evident. The lungs are generally clear and well aerated. There is no sign of failure, pneumonia or of pleural effusion. There is no mediastinal or hilar adenopathy. The thyroid gland was partially obscured by streak artifact.. The images through the upper abdomen again show that the liver is of lower density than usually seen. This does suggest fatty metamorphosis. There is no acute abnormality of the upper abdomen. The bone windows show no evidence for a fracture or for a destructive lesion. IMPRESSION: 1. There is no evidence for an acute cardiopulmonary abnormality. In particular, there is no sign of a pulmonary embolus. 2. The aorta was not well opacified and difficult to assess. There is no evidence for an aneurysm or obvious dissection. 3. The heart is mildly enlarged and there are coronary calcifications evident. 4. The appearance of the liver does suggest fatty metamorphosis. Dictated by: Dictated on workstation # [id number] Dict: 01/02/202121 Trans: 01/02/202251 [facility] [id number] Interpreted by: GERBER KIRAN MD Electronically signed by: GERBER KIRAN MD 01/02/202 A/P-Cardiology Assessment/Admission Diagnosis NSTEMI Coronary artery disease history of myocardial infarction in 2010, had 3 stents placed in the right coronary artery using Promus element 3.512 mm followed by 3.028 followed by 2.512 mm in the right coronary artery, had another 2 cardiac catheterization reported that the stent was open. Last cardiac catheterization was done on February 13, [address] Huddleston: showing severe mid LAD stenosis with successful primary stenting using Dori 2.512 mm expanded to 2.7 mm with excellent results, patent stent in the proximal and mid-right coronary artery with a step down beyond the stent, mild to moderate disease nonobstructive disease, normal left ventricular size and function. Mild peripheral arterial disease, angiogram done in February 2019 showing normal bilateral lower extremity runoff down to the trifurcation, the vessels below the trifurcation were not well visualized Abnormal arterial duplex October 2018 revealing normal right leg arterial Doppler. Left leg segment of occlusion proximally of the anterior tibial artery with minimal retrograde flow in the dorsalis pedis and anterior tibial artery from collateral flow. Normal left posterior tibial artery. Antegrade peroneal artery flow. Angiogram done on February 13, 2019 showing good flow down to the trifurcation, the vessels below the trifurcation were not well visualized Hypertension Hyperlipidemia - Repatha Holter monitor done in June 2019 showing sinus rhythm, transient second- degree AV block, Mobitz 1, multiple short runs of paroxysmal atrial tachycardia and occasional atrial premature contractions Recurrent TIA, multiple TIA, full recovery Mild bilateral carotid stenosis, last ultrasound was done in January 2019 Family history of atherosclerosis History of diverticulitis with colon resection History of gastroesophageal reflux disease, had Cesia fundoplication in the past Clinical Quality Measures AMI/AHF: ASA po Prior to arrival: Yes (162) DVT/VTE Risk/Contraindication: Risk Factor Score Per Nursin RFS Level Per Nursing on Admit: 1=Low/No VTE PPX CHENG THORNE Jan 03, 2020 07:56
--- NOTE | 2020-01-03 08:19 | Consultation-Cardiology ---
HPI-Cardiology Cardiology Consultation: Date of Consultation 01/03/20 Time Seen by a Provider: 07:15 Date of Admission Attending Physician Sherly Beebe MD Admitting Physician [place] Consulting Physician SRINIVAS CREWS MD, MA, FACP, FACC, FSCAI, CCDS HPI: Chief Complaint: CC: Chest pain HPI 54 yo man admitted on the night of 01/02/20 with mid and lower sternal chest pain of relatively sudden onset, mod to severe, gradually subsiding in ER but still with mild pressure, with some radiation to shoulders, w/o aggravating or relieving factors, not associated with other symptoms, feeling of pressure. Denies shortness of breath or palp or syncope or leg swelling or fever or chills or cough. Review of Systems-Cardiology Review of Systems Constitutional: No malaise, No weight loss, No weight gain Eyes: No vision change Ears/Nose/Throat: No recent hearing loss, No ulcerations Respiratory: As described under HPI Cardiovascular: As described under HPI Gastrointestinal: No constipation, No diarrhea, No nausea, No vomiting Genitourinary: No dysuria, No hematuria, No urine frequency changes Musculoskeletal: No back pain, No joint pain Skin: No rash, No ulcerations Psychiatric/Neurological: No seizure, No focal weakness, No syncope CFA-Qukpmw-[place] Hx Patient Social History Alcohol Use: Rarely Uses Recreational Drug Use: No Smoking Status: Never a Smoker 2nd Hand Smoke Exposure: No Recent Foreign Travel: No Recent Infectious Disease Expo: No Hospitalization with Isolation: Denies Immunizations Up To Date Tetanus Booster (TDap): Unknown Date of Pneumonia Vaccine: Feb 20, 2008 Past Medical History PMH As described under Assessment. Family Medical History Family Medical History: Does not report fam h/o early CAD Allergies and Home Medications Allergies Coded Allergies: aspartame (Verified Allergy, Unknown, 02/08/18) Utrcpyf-Kwq-Byt Reductase Inhibitor (Verified Adverse Reaction, Unknown, 01/02/20) Unspecified adverse reaction Home Medications Aspirin 81 Mg Tablet.dr, 81 MG PO DAILY, (Reported) Ibuprofen 200 Mg Tablet, 400 MG PO Q8H PRN for PAIN-MILD, (Reported) Metoprolol Tartrate 50 Mg Tablet, 50 MG PO DAILY, (Reported) Nitroglycerin 0.4 Mg Tab.subl, 0.4 MG SL UD PRN for CHEST PAIN, (Reported) Patient Home Medication List Home Medication List Reviewed: Yes Physical Exam-Cardiology Physical Exam Vital Signs/I&O 01/02/20 01/02/20 01/02/20 01/02/20 22:14 22:25 22:30 22:45 Temp 36.4 36.3 Pulse 70 71 75 72 Resp 16 22 9 B/P (MAP) 112/73 130/88 (102) 115/86 (96) Pulse Ox 95 96 96 O2 Delivery Room Air Nasal Cannula Nasal Cannula O2 Flow Rate 2.00 2.00 01/02/20 01/02/20 01/02/20 01/02/20 22:48 22:53 23:00 23:15 Temp 36.3 Pulse 69 84 81 Resp 13 23 B/P (MAP) 134/89 116/95 (102) 102/72 (82) Pulse Ox 98 97 96 96 O2 Delivery Nasal Cannula Nasal Cannula Nasal Cannula Nasal Cannula O2 Flow Rate 2.00 2.00 2.00 2.00 01/02/20 01/02/20 01/03/20 01/03/20 23:27 23:45 00:00 00:15 Pulse 77 76 Resp 19 13 B/P (MAP) 89/58 (68) 111/83 (92) Pulse Ox 95 96 98 94 O2 Delivery Nasal Cannula Nasal Cannula Nasal Cannula Nasal Cannula O2 Flow Rate 2.00 2.00 2.00 2.00 01/03/20 01/03/20 01/03/20 01/03/20 01:00 04:00 04:00 07:37 Temp 36.3 Pulse 70 68 Resp 13 B/P (MAP) 106/67 (80) Pulse Ox 98 97 O2 Delivery Nasal Cannula Nasal Cannula O2 Flow Rate 2.00 2.00 01/03/20 00:00 Intake Total 1000 ml Balance 1000 ml Capillary Refill : Less Than 3 Seconds Constitutional: AAO x 3, well-developed, well-nourished HEENT: EOMI, hearing is well preserved; No xanthelasmas are seen Neck: carotid pulses are 2 + bilaterally, with good upstrokes Respiratory: No accessory muscle use; other (good bilat air entry) Cardiovascular: regular rate-rhythm, S1 and S2, systolic murmur (soft CE at card base) Gastrointestinal: No tender; soft; No guarding, No rebound; audible bowel sounds Extremities: No clubbing, No cyanosis, No significant edema Neurologic/Psychiatric: alert, normal mood/affect, oriented x 3, other (moves all limbs equally) Skin: No rash on exposed areas, No ulcerations on exposed areas Data Review Labs Laboratory Tests 01/02/20 19:20: White Blood Count 10.4, Red Blood Count 5.08, Hemoglobin 16.4, Hematocrit 46, Mean Corpuscular Volume 91, Mean Corpuscular Hemoglobin 32, Mean Corpuscular Hemoglobin Concent 36, Red Cell Distribution Width 12.4, Platelet Count 179, Mean Platelet Volume 11.7H, Neutrophils (%) (Auto) 44, Lymphocytes (%) (Auto) 44, Monocytes (%) (Auto) 8, Eosinophils (%) (Auto) 4, Basophils (%) (Auto) 1, Neutrophils # (Auto) 4.6, Lymphocytes # (Auto) 4.6H, Monocytes # (Auto) 0.8, Eosinophils # (Auto) 0.4H, Basophils # (Auto) 0.1, Prothrombin Time 12.9, INR Comment 0.9, Activated Partial Thromboplast Time 29, D-Dimer 0.52H, Sodium Level 135, Potassium Level 4.3, Chloride Level 103, Carbon Dioxide Level 21, Anion Gap 11, Blood Urea Nitrogen 16, Creatinine 1.22, Estimat Glomerular Filtration Rate > 60, BUN/Creatinine Ratio 13, Glucose Level 424*H, Calcium Level 9.3, Corrected Calcium 9.4, Magnesium Level 2.0, Total Bilirubin 0.2, Aspartate Amino Transf (AST/SGOT) 35H, Alanine Aminotransferase (ALT/SGPT) 56H, Alkaline Phosphatase 71, Myoglobin 40.1, Troponin I < 0.028, Total Protein 7.5, Albumin 3.9 01/02/20 21:22: Glucometer 370H 01/03/20 01:29: White Blood Count 9.0, Red Blood Count 4.65, Hemoglobin 15.0, Hematocrit 42, Mean Corpuscular Volume 91, Mean Corpuscular Hemoglobin 32, Mean Corpuscular Hemoglobin Concent 35, Red Cell Distribution Width 12.3, Platelet Count 154, Mean Platelet Volume 11.8H, Neutrophils (%) (Auto) 51, Lymphocytes (%) (Auto) 38, Monocytes (%) (Auto) 8, Eosinophils (%) (Auto) 3, Basophils (%) (Auto) 1, Neutrophils # (Auto) 4.6, Lymphocytes # (Auto) 3.4, Monocytes # (Auto) 0.8, Eosinophils # (Auto) 0.3, Basophils # (Auto) 0.1, Sodium Level 136, Potassium Level 4.5, Chloride Level 104, Carbon Dioxide Level 24, Anion Gap 8, Blood Urea Nitrogen 14, Creatinine 1.08, Estimat Glomerular Filtration Rate > 60, BUN/Creatinine Ratio 13, Glucose Level 346H, Calcium Level 8.6, Troponin I 1.288*H, Triglycerides Level 697H, Cholesterol Level , LDL Cholesterol Direct , VLDL Cholesterol , HDL Cholesterol 27L Laboratory Tests 01/02/20 19:20 01/03/20 01:29 A/P-Cardiology Assessment/Admission Diagnosis Ac NSTEMI CAD. H/o IN in 2010 that led to cath and 3 RCA stents in [place] (Promus element 3.512 mm followed by 3.028 followed by 2.512 mm). Last cath on February 13, [address] Huddleston: showing severe mid LAD stenosis with successful primary stenting using Dori 2.512 mm expanded to 2.7 mm, RCA stents were patent PAD. Abnormal arterial duplex October 2018 revealing normal right leg arterial Doppler. Left leg segment of occlusion proximally of the anterior tibial artery with minimal retrograde flow in the dorsalis pedis and anterior tibial artery from collateral flow. Normal left posterior tibial artery. Antegrade peroneal artery flow. Angiogram done on February 13, 2019 showing good flow down to the trifurcation, the vessels below the trifurcation were not well visualized Hypertension Hyperlipidemia - treated with Repatha Holter monitor done in June 2019 showing sinus rhythm, transient second- degree AV block, Mobitz 1, multiple short runs of paroxysmal atrial tachycardia and occasional atrial premature contractions H/o multiple TIA, full recovery Mild bilateral carotid stenosis, last ultrasound was done in January 2019 Family history of atherosclerosis History of diverticulitis with colon resection History of gastroesophageal reflux disease, had Cesia fundoplication in the past Discussion and Recomendations * I had a detailed discussion with him. Cath recommended. Rationale, procedure, risks, benefits, potential complications and alternatives reviewed. Questions answered. He provides consent. Will proceed * Has been on treatment with DAPT, enoxaparin, and BB since admission. Continue * Further recs based on card cath Clinical Quality Measures AMI/AHF: ASA po Prior to arrival: Yes (162) DVT/VTE Risk/Contraindication: Risk Factor Score Per Nursin RFS Level Per Nursing on Admit: 1=Low/No VTE PPX SRINIVAS CREWS MD FACP FAC CCDS Jan 03, 2020 08:19
--- NOTE | 2020-01-03 08:21 | Cardiac Procedure Note-CS/ASA ---
Pre-Procedure Note Pre-Op Procedure Note H&P Reviewed The H&P was reviewed, patient examined and no changes noted. Date H&P Reviewed: Jan 03, 2020 Time H&P Reviewed: 07:20 Conscious Sedation Pre-Proced Time 07:20 ASA Score 3 For ASA 3 and 4: Consider anesthesia and medical clearance. Also, for patients with a history of failed moderate sedation consider anesthesia. Airway Lungs Heart ASA score ASA 1: a normal healthy patient ASA 2: a patient with a mild systemic disease (mid diabetes, controlled hypertension, obesity ASA 3: a patient with a severe systemic disease that limits activity (angina, COPD, prior Myocardial infarction) ASA 4: a patient with an incapacitating disease that is a constant threat to life (CHF, renal failure) ASA 5: a moribund patient not expected to survive 24 hrs. (ruptured aneurysm) ASA 6: a declared brain- patient whose organs are being harvested. For emergent operations, add the letter E after the classification Mallampati Classification Grade 2 Sedation Plan Analgesia, Amnesia, Plan communicated to team members, Discussed options with patient/fam, Discussed risks with patient/fam The patient is an appropriate candidate to undergo the planned procedure, sedation, and anesthesia. The patient immediately re-assessed prior to indication. SRINIVAS CREWS MD FACP FAC CCDS Jan 03, 2020 08:21
[2020-01-03] MEDS ORDERED: NITRO DRIP 25000 MCG/D5W 0 ML IV ONE (08:31)
[2020-01-03] MEDS ORDERED: EPTIFIBATIDE BOLUS 20 ML IV ONE (08:32)
--- NOTE | 2020-01-03 08:46 | NUR ---
0745 PT TO HEART CATH VIA BED ACCOMPANIED BY HEART CENTER STAFF.
[2020-01-03] MEDS ORDERED: ASPIRIN 81 MG CHEW (CHILDREN'S ASA) ONE (08:50)
[2020-01-03] MEDS ORDERED: CLOPIDOGREL 300 MG (PLAVIX) TABLET PO ONE (08:50)
[2020-01-03] MEDS ORDERED: ASPIRIN E.C. 81 MG (ECOTRIN) TAB PO SCH (09:00)
[2020-01-03] MEDS ORDERED: ENOXAPARIN 100 MG/1 ML (LOVENOX) SYR SC SCH (09:00)
[2020-01-03] MEDS ORDERED: CLOPIDOGREL 75 MG (PLAVIX) TABLET PO SCH (09:00)
[2020-01-03] MEDS ORDERED: PATIENT MAY USE OWN MEDS, ALL PO SCH (09:15)
--- NOTE | 2020-01-03 09:35 | CARDIAC CATHETERIZATION ---
DATE OF SERVICE: 01/03/2020 CARDIAC CATHETERIZATION AND CORONARY INTERVENTION REPORT The patient is a 54-year-old man with a history of coronary artery disease, who presents with non-ST elevation myocardial infarction. Cardiac catheterization was carried out after having obtained an informed consent for cardiac catheterization and possible ad hoc coronary intervention. DESCRIPTION OF PROCEDURE: He was brought to the cardiac catheterization laboratory. Right groin was prepared and draped in the usual sterile fashion. Lidocaine 1% was used for local anesthesia. Modified Seldinger technique used to advance a 5-Emirati sheath in the right femoral artery, 5-Emirati JL4.5 catheter was used for left coronary angiography, 5-Emirati JR4 catheter was used for left coronary angiography, 5-Emirati pigtail catheter was used for left heart catheterization and left ventricular angiography. Subsequently, percutaneous intervention was carried out in the right coronary artery that is described below. PERCUTANEOUS INTERVENTION TO THE RIGHT CORONARY ARTERY: The right coronary artery was exhibiting 80% to 90% stenosis within the proximal portion of the stented segment of the proximal and mid right coronary. The stents are stated to be Promus element 3.5 x 12 followed by 3.0 x 28 followed by 2.5 x 12 that were placed in 2010 in [place], [place]. We used a 6-Emirati JR4 guide catheter to engage the right coronary artery and advanced a BMW wire across the lesion and carried out balloon angioplasty first with Emerge 3.0 x 20 mm balloon and then with NC Quantum 3.5 x 15 mm balloon. This reduced the stenosis from 80% to 90% to no significant residual. Flow throughout the vessel was normal. He tolerated the procedure well. He received 6000 units of intravenous heparin and double bolus Integrilin during the procedure. Angioplasty equipment was removed. The sheath was sutured in place and the patient was transferred to the floor for manual sheath removal. HEMODYNAMICS: Left ventricular end-diastolic pressure following coronary angiography was 18 mmHg. There was no significant pressure gradient on pullback across the aortic valve. Ascending aortic pressure was 113/80 with a mean of 86 mmHg. CORONARY ANGIOGRAPHY: Mild coronary calcification is present. Left main coronary artery does not exhibit any significant disease. Left anterior descending artery is patent stent in its mid portion that is known to be Dori 2.5 x 12 mm that was placed in 02/[address] Huddleston. The stent is patent. The rest of the left coronary system has diffuse mild to moderate disease including stenosis up to approximately 50% at several spots. The right coronary artery is dominant. It has a stent in its proximal and mid portions and the stents are stated to be Promus element 3.5 x 12 followed by 3.0 x 28 followed by 2.5 x 12. The proximal portion of the standard segment was exhibiting 80% stenosis to which successful balloon angioplasty was carried out, which reduced the stenosis to no significant residual. LEFT VENTRICULAR ANGIOGRAPHY: Left ventricular angiography was carried out in the right anterior oblique projection. There is a small localized area of akinesis of the diaphragmatic wall of the left ventricle. The rest of the hernández move normally and the ejection fraction is estimated to be 55%. CONCLUSIONS: 1. Coronary artery disease, diffuse mild to moderate and with 80% focal stenosis within the stented segment of the right coronary artery to which successful balloon angioplasty was carried out with NC Quantum 3.5 x 15 mm balloon that reduced the stenosis to no significant residual. 2. Well preserved global left ventricular systolic function with a localized segment of the diaphragmatic akinesis and with an ejection fraction approximately 55%. 3. Left ventricular end-diastolic pressure is 18 mmHg. DISCUSSION AND RECOMMENDATIONS: Dual antiplatelet therapy is being continued. Beta kostas therapy is being continued. He is on a Repatha for hyperlipidemia, because he is not able to tolerate statins. There is a significant hypertriglyceridemia at this presentation. We will initiate therapy with fenofibrate, if tolerated. Risk factor modification has been discussed. He remains hospitalized at this time. Job ID: [id number] DocumentID: [id number] Dictated Date: 01/03/2020 09:17:20 Web Content Editor Date: 01/03/2020 09:35:05 Dictated By: SRINIVAS CREWS MD, MA, FACP, FACC,
[2020-01-03] MEDS: NS IV 1000 ML 1,000 ML IV SCH ×2 (09:40→12:31)
[2020-01-03] MEDS: FAMOTIDINE 20 MG (PEPCID) TABLET PO SCH ×2 (09:56→20:22)
[2020-01-03] MEDS: meTOproloL SUCCINATE 50 MG (TOPROL XL) TAB PO SCH (09:57)
[2020-01-03] MEDS ORDERED: ATROPINE INJECTION 1 MG/10 ML SYR (ABBOTT) ONE (13:11)
--- NOTE | 2020-01-03 13:47 | History & Physical ---
HPI History of Present Illness: 54 yo male with history of CAD and stenting, came to ER due to excruciating chest pain. States he has had pain on and off since his initial stenting years ago, but it was very bad yesterday around 5 pm. He has had fatigue the last month or so and falling asleep too easily, but wakes up a lot at night. He does have CPAP for apnea, and uses it some, but not all the time. He denies shortness of breath or cough. He does admit nasal congestion this morning. Source: patient Date seen by provider: Jan 03, 2020 Time Seen by Provider: 10:05 Attending Physician Rebel Hall MD [facility] [place] Consult Date of Admission Jan 02, 2020 at 21:55 Home Medications Home Medications Reviewed patient Home Medication Reconciliation performed by pharmacy medication reconciliations data communications technician and/or nursing. Patients Allergies have been reviewed. Allergies Coded Allergies: aspartame (Verified Allergy, Unknown, 02/08/18) Mxuirjn-Qov-Ahj Reductase Inhibitor (Verified Adverse Reaction, Unknown, 01/02/20) Unspecified adverse reaction RXM-Gwxwbm-Npmuuk Hx Patient Social History Alcohol Use: Rarely Uses Recreational Drug Use: No Smoking Status: Never a Smoker 2nd Hand Smoke Exposure: No Recent Foreign Travel: No Contact w/other who traveled: No Recent Hopitalizations: No Recent Infectious Disease Expo: No Immunizations Up To Date Tetanus Booster (TDap): Unknown Date of Pneumonia Vaccine: Feb 20, 2008 Past Medical History PMHx CAD HTN SurgHx: Cardiac stenting Colon resection for diverticulitis Review of Systems ([facility]) Constitutional: No fever, No weight gain, No weight loss EENTM: nose congestion, other (dry throat last week or so) Respiratory: No cough, No short of breath Cardiovascular: see HPI Gastrointestinal: No abdominal pain, No constipation, No diarrhea, No nausea, No vomiting Genitourinary: No dysuria Skin: No rash Reviewed Test Results Reviewed Test Results Lab Laboratory Tests Test 01/02/20 19:20 01/02/20 21:22 01/03/20 01:29 01/03/20 10:43 Range/Units White Blood Count 10.4 9.0 4.3-11.0 10^3/uL Red Blood Count 5.08 4.65 4.35-5.85 10^6/uL Hemoglobin 16.4 15.0 13.3-17.7 G/DL Hematocrit 46 42 40-54 % Mean Corpuscular Volume 91 91 80-99 FL Mean Corpuscular Hemoglobin 32 32 25-34 PG Mean Corpuscular Hemoglobin Concent 36 35 32-36 G/DL Red Cell Distribution Width 12.4 12.3 10.0-14.5 % Platelet Count 179 154 130-400 10^3/uL Mean Platelet Volume 11.7 H 11.8 H 7.4-10.4 FL Neutrophils (%) (Auto) 44 51 42-75 % Lymphocytes (%) (Auto) 44 38 12-44 % Monocytes (%) (Auto) 8 8 0-12 % Eosinophils (%) (Auto) 4 3 0-10 % Basophils (%) (Auto) 1 1 0-10 % Neutrophils # (Auto) 4.6 4.6 1.8-7.8 X 10^3 Lymphocytes # (Auto) 4.6 H 3.4 1.0-4.0 X 10^3 Monocytes # (Auto) 0.8 0.8 0.0-1.0 X 10^3 Eosinophils # (Auto) 0.4 H 0.3 0.0-0.3 10^3/uL Basophils # (Auto) 0.1 0.1 0.0-0.1 10^3/uL Prothrombin Time 12.9 12.2-14.7 SEC INR Comment 0.9 0.8-1.4 Activated Partial Thromboplast Time 29 37 H 24-35 SEC D-Dimer 0.52 H 0.00-0.49 UG/ML Sodium Level 135 136 135-145 MMOL/L Potassium Level 4.3 4.5 3.6-5.0 MMOL/L Chloride Level 103 104 98-107 MMOL/L Carbon Dioxide Level 21 24 21-32 MMOL/L Anion Gap 11 8 5-14 MMOL/L Blood Urea Nitrogen 16 14 7-18 MG/DL Creatinine 1.22 1.08 0.60-1.30 MG/DL Estimat Glomerular Filtration Rate > 60 > 60 BUN/Creatinine Ratio 13 13 Glucose Level 424 *H 346 H 70-105 MG/DL Calcium Level 9.3 8.6 8.5-10.1 MG/DL Corrected Calcium 9.4 8.5-10.1 MG/DL Magnesium Level 2.0 1.6-2.4 MG/DL Total Bilirubin 0.2 0.1-1.0 MG/DL Aspartate Amino Transf (AST/SGOT) 35 H 5-34 U/L Alanine Aminotransferase (ALT/SGPT) 56 H 0-55 U/L Alkaline Phosphatase 71 40-136 U/L Myoglobin 40.1 10.0-92.0 NG/ML Troponin I < 0.028 1.288 *H <0.028 NG/ML Total Protein 7.5 6.4-8.2 GM/DL Albumin 3.9 3.2-4.5 GM/DL Glucometer 370 H 216 H 70-110 MG/DL Triglycerides Level 697 H <150 MG/DL Cholesterol Level < 200 MG/DL LDL Cholesterol Direct 1-129 MG/DL VLDL Cholesterol 5-40 MG/DL HDL Cholesterol 27 L 40-60 MG/DL Test 01/03/20 11:00 Range/Units Activated Partial Thromboplast Time 63 H 24-35 SEC Radiology NAME: AUGUSTINE MONTERROSO [facility] REC#: [id number] PT STATUS: ADM Neno : 1965 PHYSICIAN: TRAE MONREAL MD ADMIT DATE: 01/02/20/ICU Signed Date of Exam:01/02/20 CT ANGIO CHEST W PROCEDURE: CT angiography of the chest with contrast. TECHNIQUE: Multiple contiguous axial images were obtained through the chest after uneventful bolus administration of intravenous contrast. 3D reconstructed CTA MIP acquisitions were also performed. Auto Exposure Controls were utilized during the CT exam to meet ALARA standards for radiation dose reduction. INDICATION: Chest pain The previous CTA chest exam of 02/08/2018 noted patchy atelectasis in both lung bases but failed to show any sign of a pulmonary embolus or of a dissection. The plain film examination of the chest performed prior to this study was unremarkable for an acute abnormality. On this exam, there is no defect within the pulmonary arteries to indicate a pulmonary embolus. The aorta is not well opacified and consequently difficult to evaluate. The aorta is not aneurysmally dilated and there is no obvious dissection evident. The heart is mildly enlarged and there are coronary artery calcifications evident. The lungs are generally clear and well aerated. There is no sign of failure, pneumonia or of pleural effusion. There is no mediastinal or hilar adenopathy. The thyroid gland was partially obscured by streak artifact.. The images through the upper abdomen again show that the liver is of lower density than usually seen. This does suggest fatty metamorphosis. There is no acute abnormality of the upper abdomen. The bone windows show no evidence for a fracture or for a destructive lesion. IMPRESSION: 1. There is no evidence for an acute cardiopulmonary abnormality. In particular, there is no sign of a pulmonary embolus. 2. The aorta was not well opacified and difficult to assess. There is no evidence for an aneurysm or obvious dissection. 3. The heart is mildly enlarged and there are coronary calcifications evident. 4. The appearance of the liver does suggest fatty metamorphosis. Dictated by: Dictated on workstation # [id number] Dict: 01/02/202121 Trans: 01/02/202251 [facility] [id number] Interpreted by: GERBER KIRAN MD Electronically signed by: GERBER KIRAN MD 01/02/202251 Physical Exam-([facility]) Physical Exam Vital Signs VS - Last 72 Hours, by Label 01/02/20 01/02/20 01/02/20 01/02/20 19:10 19:10 22:14 22:25 Temp 36.1 36.4 Pulse 77 70 71 Resp 16 16 B/P (MAP) 153/104 (120) 112/73 Pulse Ox 98 95 O2 Delivery Room Air Room Air Room Air 01/02/20 01/02/20 01/02/20 01/02/20 22:30 22:45 22:48 22:53 Temp 36.3 36.3 Pulse 75 72 69 Resp 22 9 B/P (MAP) 130/88 (102) 115/86 (96) 134/89 Pulse Ox 96 96 98 97 O2 Delivery Nasal Cannula Nasal Cannula Nasal Cannula Nasal Cannula O2 Flow Rate 2.00 2.00 2.00 2.00 01/02/20 01/02/20 01/02/20 01/02/20 23:00 23:15 23:27 23:45 Pulse 84 81 77 Resp 13 23 19 B/P (MAP) 116/95 (102) 102/72 (82) 89/58 (68) Pulse Ox 96 96 95 96 O2 Delivery Nasal Cannula Nasal Cannula Nasal Cannula Nasal Cannula O2 Flow Rate 2.00 2.00 2.00 2.00 01/03/20 01/03/20 01/03/20 01/03/20 00:00 00:15 01:00 04:00 Pulse 76 70 Resp 13 B/P (MAP) 111/83 (92) Pulse Ox 98 94 98 O2 Delivery Nasal Cannula Nasal Cannula Nasal Cannula O2 Flow Rate 2.00 2.00 2.00 01/03/20 01/03/20 01/03/20 01/03/20 04:00 06:45 07:30 07:35 Pulse 68 61 Resp 13 B/P (MAP) 106/67 (80) Pulse Ox 97 98 98 O2 Delivery Nasal Cannula Nasal Cannula Nasal Cannula O2 Flow Rate 2.00 2.00 2.00 01/03/20 01/03/20 01/03/20 01/03/20 07:37 09:30 09:30 09:45 Temp 36.3 Pulse 66 63 Resp 12 12 B/P (MAP) 105/65 (78) 118/84 (95) Pulse Ox 97 97 O2 Delivery Room Air Room Air Room Air 01/03/20 01/03/20 01/03/20 01/03/20 10:00 10:06 11:00 12:00 Pulse 60 65 59 Resp 12 10 9 B/P (MAP) 116/85 (95) 122/92 (102) 113/79 (90) Pulse Ox 95 98 97 O2 Delivery Room Air Nasal Cannula Nasal Cannula Nasal Cannula O2 Flow Rate 1.00 1.00 1.00 01/03/20 01/03/20 01/03/20 01/03/20 12:00 12:47 13:00 13:24 Pulse 62 66 Resp 10 B/P (MAP) 113/75 (88) Pulse Ox 98 97 98 O2 Delivery Nasal Cannula Nasal Cannula Nasal Cannula O2 Flow Rate 2.00 1.00 1.00 Capillary Refill : Less Than 3 Seconds General Appearance: WD/WN, no apparent distress, other (lying flat post cath) Respiratory: lungs clear, normal breath sounds Cardiovascular: regular rate, rhythm, no edema, no murmur Gastrointestinal: normal bowel sounds, non tender, soft Extremities: no pedal edema Neurologic/Psychiatric: alert, normal mood/affect Skin: normal color, warm/dry Assessment/Plan Assessment/Plan Admission Status: Observation (1) CAD (coronary artery disease) Status: Acute Assessment & Plan: Cath done this am already per Dr. Lagunas, stents occluded and ballooned, appreciate Cardiology recommendations. Qualifiers: Qualified Codes: I25.10 - Atherosclerotic heart disease of [place] coronary artery without angina pectoris (2) Hyperglycemia Status: Acute Assessment & Plan: No know history of DMII, check A1c. (3) Chest pain Status: Acute Assessment & Plan: See CAD dx. No PE on CTA. Qualifiers: Qualified Codes: R07.9 - Chest pain, unspecified (4) DVT prophylaxis Status: Acute Assessment & Plan: SCDs Clinical Quality Measures AMI/AHF: ASA po Prior to arrival: Yes (162) DVT/VTE Risk/Contraindication: Risk Factor Score Per Nursin RFS Level Per Nursing on Admit: 1=Low/No VTE PPX REBEL HALL MD Jan 03, 2020 13:47
--- NOTE | 2020-01-03 18:07 | NUR ---
1530 DUE TO CHANGES IN STAFFING CARE OF PT BACK TO THIS RN, REPORT GIVEN EARLIER IN DAY TO Yadira OCASIO RN.
[2020-01-03] MEDS ORDERED: FENOFIBRATE 134 MG (LOFIBRA) CAPSULE PO SCH (21:00)
[2020-01-04 03:10] VITALS: BP 119/84
[2020-01-04 03:30] LABS: HEMOGLOBIN 15.3 G/DL (13.3-17.7); MEAN PLATELET VOLUME 11.5 FL (7.4-10.4); RED CELL DISTRIBUTION WIDTH 12.6 % (10.0-14.5); WHITE BLOOD COUNT 7.1 10^3/uL (4.3-11.0)
[2020-01-04 03:51] LABS: CHLORIDE 106 MMOL/L (98-107); POTASSIUM 4.3 MMOL/L (3.6-5.0); SODIUM 137 MMOL/L (135-145)
[2020-01-04 03:53] LABS: CALCIUM 8.1 MG/DL (8.5-10.1); GLUCOSE 192 MG/DL (70-105)
[2020-01-04 03:54] LABS: CARBON DIOXIDE 22 MMOL/L (21-32)
[2020-01-04 03:57] LABS: CREATININE SERUM 0.91 MG/DL (0.60-1.30); GFR ESTIMATED > 60
[2020-01-04 03:58] LABS: BUN/CREATININE RATIO 14
[2020-01-04] MEDS: inSUlin ASPART (NovoLOG) 1 UNIT/0.01 ML (CHARGE PER UNIT) SC SCH (07:18)
[2020-01-04 08:31] VITALS: BP 120/82
[2020-01-04] MEDS: meTOproloL SUCCINATE 50 MG (TOPROL XL) TAB PO SCH (08:33)
[2020-01-04] MEDS: FAMOTIDINE 20 MG (PEPCID) TABLET PO SCH (08:33)
[2020-01-04] MEDS ORDERED: ASPIRIN 81 MG CHEW (CHILDREN'S ASA) PO SCH (09:00)
[2020-01-04] MEDS ORDERED: CLOPIDOGREL 75 MG (PLAVIX) TABLET PO SCH (09:00)
--- NOTE | 2020-01-04 09:45 | Progress Note - Hospitalist ---
Subjective HPI/CC On Admission Date Seen by Provider: Jan 04, 2020 Time Seen by Provider: 08:45 Subjective/Events-last exam Patient feels much better than he did when he came in. Is anxious to go home today. His hemoglobin A1c is 9.8. He has not been treated for diabetes in the past. Objective Exam Vital Signs Vital Signs Date Time Temp Pulse Resp B/P (MAP) Pulse Ox O2 Delivery O2 Flow Rate FiO2 01/04/20 08:41 95 Room Air 01/04/20 08:31 63 18 120/82 (95) 01/04/20 08:00 36.0 01/03/20 19:00 1.00 Capillary Refill : Less Than 3 Seconds General Appearance: No Apparent Distress, WD/WN HEENT: Normal ENT Inspection Neck: Full Range of Motion, Normal Inspection, Non Tender, Supple Respiratory: Lungs Clear, Normal Breath Sounds, No Accessory Muscle Use, No Respiratory Distress Cardiovascular: Regular Rate, Rhythm, No Edema, No Gallop, No JVD, Other (Decreased peripheral pulses) Gastrointestinal: Normal Bowel Sounds, Non Tender, Soft Back: Normal Inspection Extremity: No Pedal Edema Results/Procedures Lab Laboratory Tests 01/04/20 03:05 Patient resulted labs reviewed. Assessment/Plan Assessment and Plan Assess & Plan/Chief Complaint Non-ST segment elevation SD status post successful balloon of stents New diagnosis of diabetes we'll begin nurse education and if discharged discharge with glucometer test strips and starting metformin later in the week because of contrast Coronary artery disease Hypertriglyceridemia- Peripheral vascular disease Clinical Quality Measures AMI/AHF: ASA po Prior to arrival: Yes (162) DVT/VTE Risk/Contraindication: Risk Factor Score Per Nursin RFS Level Per Nursing on Admit: 1=Low/No VTE PPX MAEVE HYLTON MD Jan 04, 2020 09:45
[2020-01-04] MEDS ORDERED: CLOP75TA28 PO (10:00)
[2020-01-04] MEDS ORDERED: FENO134C PO (10:00)
[2020-01-04] MEDS ORDERED: METF-397 PO (10:00)
[2020-01-04 12:00] VITALS: BP 130/93
--- NOTE | 2020-01-04 12:51 | Progress Note - Cardiology ---
Cardiology SOAP Progress Note Subjective: No cp or palp or syncope or shortness of breath No focal weakness No n/v/d No groin or leg discomfort Feels well and wishes to go home Objective: I&O/Vital Signs 01/04/20 01/04/20 01/04/20 01/04/20 01:00 03:10 03:10 07:00 Temp 36.4 Pulse 62 66 69 Resp 15 B/P (MAP) 119/84 (96) Pulse Ox 97 97 O2 Delivery Room Air Room Air 01/04/20 01/04/20 01/04/20 01/04/20 08:00 08:00 08:31 08:41 Temp 36.0 Pulse 63 Resp 18 B/P (MAP) 120/82 (95) Pulse Ox 98 93 95 O2 Delivery Room Air Room Air Room Air 01/04/20 01/04/20 12:00 12:00 Temp 36.8 Pulse 71 Resp 17 B/P (MAP) 130/93 (105) 130/93 (105) O2 Delivery Room Air 01/04/20 00:00 Intake Total 2750 ml Output Total 1850 ml Balance 900 ml Weight (Pounds): 240 Weight (Ounces): 0.0 Weight (Calculated Kilograms): [id number] Condition: DP/PT pulses palpable Bruising: mild bruising Constitutional: AAO x 3, well-developed, well-nourished Respiratory: No accessory muscle use; other (good bilat air entry) Cardiovascular: regular rate-rhythm, S1 and S2, systolic murmur (soft CE at card base) Gastrointestional: No tender; soft; No guarding, No rebound; audible bowel sounds Extremities: No clubbing, No cyanosis, No significant edema Neurologic/Psychiatric: alert, normal mood/affect, oriented x 3, other (moves all limbs equally) Skin: No rash on exposed areas, No ulcerations on exposed areas Results/Procedures: Labs Laboratory Tests 01/03/20 15:43: Glucometer 204H 01/03/20 20:13: Glucometer 275H 01/04/20 03:05: White Blood Count 7.1, Red Blood Count 4.78, Hemoglobin 15.3, Hematocrit 44, Mean Corpuscular Volume 93, Mean Corpuscular Hemoglobin 32, Mean Corpuscular Hemoglobin Concent 35, Red Cell Distribution Width 12.6, Platelet Count 151, Mean Platelet Volume 11.5H, Sodium Level 137, Potassium Level 4.3, Chloride Level 106, Carbon Dioxide Level 22, Anion Gap 9, Blood Urea Nitrogen 13, Creatinine 0.91, Estimat Glomerular Filtration Rate > 60, BUN/Creatinine Ratio 14, Glucose Level 192H, Calcium Level 8.1L 01/04/20 09:57: Glucometer 243H Laboratory Tests 01/02/20 19:20 01/03/20 01:29 01/04/20 03:05 A/P: Assessment: Ac NSTEMI. Card cath on 01/03/20: Coronary artery disease, diffuse mild to moderate except 80% focal stenosis within the stented segment of the right coronary artery to which successful balloon angioplasty was carried out with NC Quantum 3.5 x 15 mm balloon that reduced the stenosis to no significant residual. Well preserved global left ventricular systolic function with a localized segment of the diaphragmatic akinesis and with an ejection fraction approximately 55%. Left ventricular end-diastolic pressure is 18 mmHg. Previous cardiac history. H/o SD in 2010 that led to cath and 3 RCA stents in [place], [place] (Promus element 3.512 mm followed by 3.028 followed by 2.512 mm). Cath on February 13, [address] Huddleston: mid LAD stenosis treated with Dori 2.512 mm expanded to 2.7 mm. PAD. Abnormal arterial duplex October 2018 revealing normal right leg arterial Doppler. Left leg segment of occlusion proximally of the anterior tibial artery with minimal retrograde flow in the dorsalis pedis and anterior tibial artery from collateral flow. Normal left posterior tibial artery. Antegrade peroneal artery flow. Angiogram done on February 13, 2019 showing good flow down to the trifurcation, the vessels below the trifurcation were not well visualized Hypertension Hyperlipidemia - treated with Repatha and fenofibrate and managed by Dr Huddleston Holter monitor done in June 2019 showing sinus rhythm, transient second- degree AV block, Mobitz 1, multiple short runs of paroxysmal atrial tachycardia and occasional atrial premature contractions H/o multiple TIA, full recovery Mild bilateral carotid stenosis, last ultrasound was done in January 2019 Family history of atherosclerosis History of diverticulitis with colon resection History of gastroesophageal reflux disease, had Cesia fundoplication in the past Plan: * I had a detailed discussion with him regarding the findings of card cath and the interventions undertaken * Risk factor mod discussed * Outpt f/u advised with Dr Huddleston * Plavix added to regimen * Questions answered Clinical Quality Measures AMI/AHF: ASA po Prior to arrival: Yes (162) SRINIVAS CREWS MD FACP FACC CCDS Jan 04, 2020 12:51
--- NOTE | 2020-01-04 13:02 | NUR ---
THIS RN CALLED SCRIPT IN FOR METOPROLOL TARTRATE 50MG PO BID TO PT PREFERRED PHARMACY.
== END 2020-01-04 13:00 | disposition home or self-care (01) ==
LOC: EDUNIT# 18:57 → ER 18:58 → ICU 21:55
PROVIDERS: ADMIT Family Medicine; ATTEND Family Medicine
DX: I21.4 Non-ST elevation (NSTEMI) myocardial infarction (principal); I25.10 Atherosclerotic heart disease of native coronary artery without angina pectoris; E78.1 Pure hyperglyceridemia; E11.51 Type 2 diabetes mellitus with diabetic peripheral angiopathy without gangrene; I73.9 Peripheral vascular disease, unspecified; I10 Essential (primary) hypertension; E78.5 Hyperlipidemia, unspecified; I65.23 Occlusion and stenosis of bilateral carotid arteries; G47.30 Sleep apnea, unspecified; E78.00 Pure hypercholesterolemia, unspecified; K21.9 Gastro-esophageal reflux disease without esophagitis; Z87.19 Personal history of other diseases of the digestive system; Z86.73 Personal history of transient ischemic attack (TIA), and cerebral infarction without residual deficits; Z79.899 Other long term (current) drug therapy; Z95.5 Presence of coronary angioplasty implant and graft; Z79.82 Long term (current) use of aspirin; Z88.8 Allergy status to other drugs, medicaments and biological substances
CPT/HCPCS: 71045; 71275; 80048 ×2; 80053; 80061; 82962 ×3; 83036; 83735; 83874; 84443; 84484 ×2; 85025 ×2; 85027; 85379; 85610; 85730 ×2; 92920; 93005; 93041; 93458; 99284; C1725 ×2; C1769; C1887; C1894 ×2; 36415; 96361; 96372; 96374

== ENCOUNTER → 2020-10-27 | Outpatient (CLI) | payer MEDICARE ==
[~2020-10-27] VITALS: Ht 188 cm; Wt 117.7 kg
[~2020-10-27] MED LIST changes: +ASPI-1238 PO; -ASPI-983 PO; +CLOP75TA28 PO; +FENO134C PO; +FISH1CAP15 PO; +ISOS10TA8 PO; +KRIL500C PO; +METF-397 PO; -PANT40TA3 PO; +PANT40TA52 PO
== END | disposition home or self-care (01) ==
LOC: PREOP 05:42
PROVIDERS: ATTEND Surgery
DX: Z01.818 Encounter for other preprocedural examination (principal)

== ENCOUNTER 2020-11-03 11:40 | Day surgery (SDC) | payer MEDICARE, OTHER ==
[~2020-11-03] VITALS: Ht 188 cm; Wt 117.7 kg
[2020-11-03] MEDS ORDERED: LACTATED RINGERS 1,000 ML IV ONE (11:42)
[2020-11-03] MEDS ORDERED: LACTATED RINGERS 1,000 ML IV STA (11:46)
[2020-11-03 12:13] VITALS: BP 141/96
[2020-11-03] MEDS ORDERED: PROPOFOL INJECTION 50 ML IV ONE (12:38)
[2020-11-03] MEDS ORDERED: MIDAZOLAM 2 MG/2 ML (VERSED) VIAL ONE (12:38)
[2020-11-03 12:40] VITALS: BP 109/54
--- NOTE | 2020-11-03 13:08 | Progress Note-Pre Operative ---
Pre-Operative Progress Note H&P Reviewed The H&P was reviewed, patient examined and no changes noted. Date Seen by Provider: November 03, 2020 Time Seen by Provider: 13:08 Date H&P Reviewed: November 03, 2020 Time H&P Reviewed: 13:08 Pre-Operative Diagnosis: history of polyps ROSANNE KUO DO November 03, 2020 13:08
[2020-11-03 13:31] VITALS: BP 133/87
[2020-11-03 13:35] VITALS: BP 124/79
[2020-11-03 13:50] VITALS: BP 124/79
--- NOTE | 2020-11-03 14:01 | Anesthesia-General Post-Op ---
MAC Patient Condition Mental Status/LOC: Same as Preop Cardiovascular: Satisfactory Nausea/Vomiting: Absent Respiratory: Satisfactory Pain: Controlled Complications: Absent Post Op Complications Complications None Follow Up Care/Instructions Patient Instructions None needed. Anesthesiology Discharge Order Discharge Order Patient is doing well, no complaints, stable vital signs, no apparent adverse anesthesia problems. No complications reported per nursing. BRYAN GARCIA CRNA November 03, 2020 14:01
--- NOTE | 2020-11-03 14:01 | Discharge Inst-Simple/Standard ---
Discharge Inst-Standard Patient Instructions/Follow Up Plan of Care/Instructions/FU: 2 weeks Navjot Activity as Tolerated: Yes Discharge Diet: Regular Diet (high fiber) ROSANNE KUO DO November 03, 2020 14:01
--- NOTE | 2020-11-03 14:05 | Progress Note-Post Operative ---
Post-Operative Progess Note Surgeon (s)/Physician Assistant Psychiatry (s) Surgeon ROSANNE KUO DO Physician Assistant Psychiatry: na Pre-Operative Diagnosis history of polyps Post-Operative Diagnosis colon polyp, anal fissure with fistula Procedure & Operative Findings Date of Procedure 11/03/20 Procedure Performed/Findings colonoscopy c hot bx polypectomy Anesthesia Type per pbx inspector Estimated Blood Loss Estimated blood loss (mL): none Specimens/Packing Specimens Removed descending colon polyp ROSANNE KUO DO November 03, 2020 14:05
[2020-11-03 14:20] VITALS: BP 132/77
--- NOTE | 2020-11-03 14:59 | OPERATIVE REPORT ---
DATE OF SERVICE: 11/03/2020 PREOPERATIVE DIAGNOSIS: History of polyps. POSTOPERATIVE DIAGNOSES: Colon polyp, descending colon anal fissure with fistula. PROCEDURES PERFORMED: Colonoscopy with hot biopsy polypectomy. SURGEON: Rosanne Morfin DO. ANESTHESIA: Per CAFETERIA OR LUNCHROOM CHECKER. ESTIMATED BLOOD LOSS: None. COMPLICATIONS: None. INDICATIONS FOR PROCEDURE: The patient is a 55-year-old male with history of polyps. He understands risks and benefits and wishes to proceed. Consent was signed in the chart. DESCRIPTION OF PROCEDURE: The patient was taken to the endoscopy suite and placed in a left lateral recumbent position. Timeout was performed. Digital rectal exam was performed noting a posterior anal fissure, which appears to have a posterior fistula from the fissure. No palpable polyps, masses or ulcerations. Scope was inserted in the rectum, advanced all the way to cecum with minimal difficulty. Prep was adequate. Scope was then slowly retracted back. There were no polyps, masses or ulcerations within the cecum, ascending or transverse colon. In the descending colon, a small polyp was present, which hot biopsy polypectomy was performed. Scope was then continuously retracted back noting very minimal diverticulosis. Once in the rectum, scope was retroflexed noting no other pathology. Scope was returned to its normal position, slowly withdrawn until completely removed. The patient tolerated the procedure well without any complications and taken to the recovery room in stable condition. RECOMMENDATIONS: The patient will follow up in the office in 2 weeks to discuss pathology results. We will also discuss possible exam under anesthesia with fistulectomy and seton placement. The patient will need a repeat colonoscopy in five years. Any issues before that be seen at that time. Job ID: [id number] DocumentID: [id number] Dictated Date: 11/03/2020 14:07:55 Java Lead Developer Date: 11/03/2020 14:58:36 Dictated By: ROSANNE MORFIN DO [facility]
== END 2020-11-03 14:25 | disposition home or self-care (01) ==
LOC: ENDO 11:40
PROVIDERS: ATTEND Surgery
DX: Z12.11 Encounter for screening for malignant neoplasm of colon (principal); K63.5 Polyp of colon; K60.2 Anal fissure, unspecified; K60.3 Anal fistula; I25.10 Atherosclerotic heart disease of native coronary artery without angina pectoris; G47.33 Obstructive sleep apnea (adult) (pediatric); G45.9 Transient cerebral ischemic attack, unspecified; E11.9 Type 2 diabetes mellitus without complications; K21.9 Gastro-esophageal reflux disease without esophagitis; E66.9 Obesity, unspecified; Z68.33 Body mass index [BMI] 33.0-33.9, adult; Z79.82 Long term (current) use of aspirin; Z79.899 Other long term (current) drug therapy; Z79.84 Long term (current) use of oral hypoglycemic drugs; Z95.5 Presence of coronary angioplasty implant and graft; Z91.02 Food additives allergy status; Z79.02 Long term (current) use of antithrombotics/antiplatelets
CPT/HCPCS: 82947; 88305

== ENCOUNTER 2020-12-03 05:39 | Outpatient (CLI) | payer MEDICARE, OTHER ==
[~2020-12-03] VITALS: Ht 188 cm; Wt 119.3 kg
[2020-12-07] MEDS ORDERED: EVOL140P3 SQ (13:06)
[2020-12-10] MEDS ORDERED: ACHD5005 PO (10:48)
[2020-12-10] MEDS ORDERED: DOCU-143 PO (10:48)
== END 2020-12-07 13:11 | disposition home or self-care (01) ==
LOC: PREOP 05:39
PROVIDERS: ATTEND Surgery
DX: Z01.818 Encounter for other preprocedural examination (principal)

== ENCOUNTER 2020-12-10 08:22 | Day surgery (SDC) | payer MEDICARE, OTHER ==
[~2020-12-10] VITALS: Ht 188 cm; Wt 119.3 kg
[2020-12-10] VITALS (10 sets, daily range): BP systolic 111–130; BP diastolic 68–85
[~2020-12-10 08:22] MED LIST changes: +EVOL140P3 SQ
[2020-12-10] MEDS ORDERED: LIDOCAINE/EPI 1%-1:100,000 (XYLOCAINE) 20ML ONE (08:33)
[2020-12-10] MEDS ORDERED: LACTATED RINGERS 1,000 ML IV PRN (09:00)
[2020-12-10] MEDS ORDERED: ceFAZolin 2 GM IV Premixed 50 ML IV ONE (09:00)
--- NOTE | 2020-12-10 09:25 | Progress Note-Pre Operative ---
Pre-Operative Progress Note H&P Reviewed The H&P was reviewed, patient examined and no changes noted. Date Seen by Provider: Dec 10, 2020 Time Seen by Provider: 09:23 Date H&P Reviewed: Dec 10, 2020 Time H&P Reviewed: 09:23 Pre-Operative Diagnosis: anal fistula ROSANNE KUO DO Dec 10, 2020 09:25
[2020-12-10] MEDS ORDERED: fentaNYL INJ 100 MCG/2 ML AMP ONE (09:41)
[2020-12-10] MEDS ORDERED: MIDAZOLAM 2 MG/2 ML (VERSED) VIAL ONE (09:41)
[2020-12-10] MEDS ORDERED: proPOfol 200 MG/20 ML (DIPRIVAN) VIAL IV ONE (09:41)
[2020-12-10] MEDS ORDERED: ONDANSETRON 4 MG/2 ML (SDV) Z0FRAN ONE (09:41)
[2020-12-10] MEDS ORDERED: LIDOCAINE PF 2% 5 ML (XYLOCAINE) VIAL ONE (09:43)
[2020-12-10] MEDS ORDERED: SEVOFLURANE (ULTANE) 15 ML INHAL SOLN ONE (10:45)
[2020-12-10] MEDS ORDERED: KETOROLAC 30 MG/ML VIAL ONE (10:46)
--- NOTE | 2020-12-10 10:47 | Progress Note-Post Operative ---
Post-Operative Progess Note Surgeon (s)/Internal Revenue Service Agent (s) Surgeon ROSANNE KUO DO Internal Revenue Service Agent: na Pre-Operative Diagnosis anal fistula Post-Operative Diagnosis superficial posterior anal fistula, internal hemorrhoids Procedure & Operative Findings Date of Procedure 12/10/20 Procedure Performed/Findings exam under anesthesia, fistulectomy c marsupialization Anesthesia Type general Estimated Blood Loss Estimated blood loss (mL): minimal Specimens/Packing Specimens Removed na ROSANNE KUO DO Dec 10, 2020 10:47
[2020-12-10] MEDS ORDERED: ACHD5005 PO (10:48)
[2020-12-10] MEDS ORDERED: DOCU-143 PO (10:48)
--- NOTE | 2020-12-10 10:53 | Discharge Inst-Simple/Standard ---
Discharge Inst-Standard Discharge Medications New, Converted or Re-Newed RX: Transmitted to Pharmacy Patient Instructions/Follow Up Plan of Care/Instructions/FU: 2 weeks Navjot Sitz bath bid and after bowel movements. Activity as Tolerated: Yes Discharge Diet: Regular Diet Other Inst to Patient Follow up Appt: Make appointment for 2 week. Instructions: No lifting greater than 10 pounds. No strenuous activity. May shower in 24 hours, no tub bath or soaking. Use incentive spirometer at home as directed. No Smoking Skin/Wound Care: You have a packing it will come out with next bowel movement, if not out in 24 hours, remove it. Sitz bath twice a day and after bowel movements. Symptoms to Report: Appetite Changes, Extremity Discoloration, Numbness/Tingling, Swelling Increased, Bleeding Excessive, Eyesight Changes, Pain Increased, Urine Color Change, Constipation(Persistent), Fever over 101 degree F, Pain/Pressure in chest, Urinating Difficulty, Cough Up/Vomit Blood, Heart Beat Irreg/Pounding, Pain/Pressure in jaw, Vaginal Bleeding Increase, Cramps in feet or legs, Lightheadedness, Pain/Pressure in shoulder, Diarrhea(Persistent), Memory Changes Suddenly, Questions/Concerns, Weight gain consecutive days, Dizziness/Fainting, Nausea/Vomiting, Shortness of Breath, Weight gain over 2 pounds If questions or concerns contact your physician Or seek help at emergency department. ROSANNE KUO DO Dec 10, 2020 10:53
--- NOTE | 2020-12-10 10:59 | Anesthesia-General Post-Op ---
General Patient Condition Mental Status/LOC: Same as Preop Cardiovascular: Satisfactory Nausea/Vomiting: Absent Respiratory: Satisfactory Pain: Controlled Complications: Absent Post Op Complications Complications None Follow Up Care/Instructions Patient Instructions None needed. Anesthesia/Patient Condition Patient Condition Patient is doing well, no complaints, stable vital signs, no apparent adverse anesthesia problems. No complications reported per nursing. D/C home per [facility] Criteria: Yes STEPHANIE GAN CRNA Dec 10, 2020 10:59
[2020-12-10] MEDS ORDERED: HYDROmorphone 2 MG/ML VIAL (DILAUDID) IV ONE (11:00)
[2020-12-10] MEDS ORDERED: ONDANSETRON 4 MG/2 ML (SDV) Z0FRAN IVP PRN (11:00)
[2020-12-10] MEDS ORDERED: HYDROcodone/APAP 5 MG/325 MG (LORTAB) TAB PO ONE (12:00)
[2020-12-10] MEDS ORDERED: diphenhydrAMINE 25 MG TAB (BENADRYL) PO ONE (12:15)
[2020-12-10] MEDS ORDERED: diphenhydrAMINE 25 MG TAB (BENADRYL) PO NR (12:15)
--- NOTE | 2020-12-10 17:14 | OPERATIVE REPORT ---
DATE OF SERVICE: 12/10/2020 PREOPERATIVE DIAGNOSIS: Fistula post-anal fistula. POSTOPERATIVE DIAGNOSES: Anal fissure, internal hemorrhoids. PROCEDURE: Exam under anesthesia and fistulectomy with marsupialization. SURGEON: Rosanne Morfin DO ANESTHESIA: General. ESTIMATED BLOOD LOSS: Minimal. COMPLICATIONS: None. INDICATIONS: The patient is a 55-year-old male with likely fistula. He understands risks and benefits of procedure and wished to proceed with procedure. Consent was signed in the chart. DESCRIPTION OF PROCEDURE: The patient was taken to the operating suite, was placed in lithotomy position, prepped and draped in sterile fashion. Timeout was performed. Digital rectal exam was performed noting internal hemorrhoids, posteriorly likely old fissure present. Using the Angiocath needle, peroxide was used to inject through some small pinhole openings in the rectum. A small open tract was apparent. Using the fistula probe, this tract was probed, which was superficial and distal to the internal sphincter. Cautery was used to open the fistula tract. No other tracts were opened at this time. Using 3-0 Vicryl, the fistula tract was marsupialized. No other pathology was noted. Anal plug was then inserted and the area was washed and dried and sterile bandage was applied. The patient tolerated procedure well without any complications, taken to recovery room in stable condition. Job ID: [id number] DocumentID: [id number] Dictated Date: 12/10/2020 13:05:44 Supervisor Backfilling Date: 12/10/2020 17:13:44 Dictated By: ROSANNE MORFIN DO
== END 2020-12-10 13:05 | disposition home or self-care (01) ==
LOC: SDC 08:22
PROVIDERS: ATTEND Surgery
DX: K60.5 Anorectal fistula (principal); K60.2 Anal fissure, unspecified; K63.5 Polyp of colon; K64.8 Other hemorrhoids; I10 Essential (primary) hypertension; K21.9 Gastro-esophageal reflux disease without esophagitis; E11.9 Type 2 diabetes mellitus without complications; Z79.82 Long term (current) use of aspirin; Z79.899 Other long term (current) drug therapy; Z79.02 Long term (current) use of antithrombotics/antiplatelets; Z86.73 Personal history of transient ischemic attack (TIA), and cerebral infarction without residual deficits
CPT/HCPCS: 87081; 94664

== ENCOUNTER 2020-12-31 22:48 | Emergency (ER) | payer MEDICARE, OTHER ==
[~2020-12-31] VITALS: Ht 188 cm; Wt 103.0 kg
[~2020-12-31 22:48] MED LIST changes: +DOCU-143 PO
[2021-01-01 01:40] LABS: BASOPHILS # (AUTO) 0.1 10^3/uL (0.0-0.1); BASOPHILS % (AUTO) 1 % (0-10); EOSINOPHILS # (AUTO) 0.4 10^3/uL (0.0-0.3); EOSINOPHILS % (AUTO) 4 % (0-10); HEMATOCRIT 48 % (40-54); HEMOGLOBIN 16.5 g/dL (13.3-17.7); LYMPHOCYTES # (AUTO) 3.4 10^3/uL (1.0-4.0); LYMPHOCYTES % (AUTO) 35 % (12-44); MEAN CORPUSCULAR HEMOGLOBIN 32 pg (25-34); MEAN CORPUSCULAR HGB CONC 34 g/dL (32-36); MEAN CORPUSCULAR VOLUME 92 fL (80-99); MEAN PLATELET VOLUME 11.4 fL (9.0-12.2); MONOCYTES # (AUTO) 0.8 10^3/uL (0.0-1.0); MONOCYTES % (AUTO) 9 % (0-12); NEUTROPHILS % (AUTO) 52 % (42-75); PLATELET COUNT 196 10^3/uL (130-400); WHITE BLOOD COUNT 9.7 10^3/uL (4.3-11.0)
[2021-01-01 01:46] LABS: POTASSIUM 3.8 MMOL/L (3.6-5.0)
[2021-01-01 01:47] LABS: CALCIUM 9.4 MG/DL (8.5-10.1)
[2021-01-01 01:51] LABS: CREATININE SERUM 0.95 MG/DL (0.60-1.30)
[2021-01-01] MEDS ORDERED: CEPH500T PO (02:23)
--- NOTE | 2021-01-01 02:23 | ED Integumentary General ---
General Chief Complaint: Skin/Wound Problems Stated Complaint: L LEG INFECTION Nursing Triage Note: pt arrival to ER with Vicente almeida reddened with what appears to look like 3-4 bug bites. Pt states that he was seen last monday at [facility] and started on doxycycline with minimal improvement. Pt states that he has told his he was going to be admitted. Pain at a 6/10. Source: patient Exam Limitations: no limitations History of Present Illness Date Seen by Provider: Jan 01, 2021 Time Seen by Provider: 00:55 Initial Comments Patient presents to the ER with complaints of swelling and erythema with associated pain of the left lower leg. He had scrapes on his leg from doing yard work and they appear to be getting infected. He presented to the clinic about a week ago and was prescribed doxycycline. He reports the area on the almeida has improved slightly but now he has swelling, erythema, and pain around the ankle. He is afebrile. Allergies and Home Medications Allergies Coded Allergies: aspartame (Verified Allergy, Unknown, 12/10/20) pioglitazone (Verified Allergy, Unknown, 12/10/20) Lenrbxo-Xou-Iaz Reductase Inhibitor (Verified Adverse Reaction, Unknown, 12/10/20) Unspecified adverse reaction Home Medications Aspirin 81 Mg Tablet.dr, 81 MG PO DAILY, (Reported) Cephalexin 500 Mg Tablet, 500 MG PO QID Prescribed by: TRAE MAJANO on 01/01/21 0223 Clopidogrel Bisulfate 75 Mg Tablet, 75 MG PO DAILY Prescribed by: MAEVE HYLTON on 01/04/20 1000 Docusate Sodium 100 Mg Capsule, 100 MG PO BID Prescribed by: ROSANNE KUO on 12/10/20 1048 Evolocumab 140 Mg/1 Ml Pen.injctr, 140 MG SQ DAILY, (Reported) Fenofibrate,Micronized 134 Mg Capsule, 134 MG PO HS Prescribed by: MAEVE HYLTON on 01/04/20 1000 Fish Oil/Dha/Epa 1 Each Capsule, 1 EACH PO BID, (Reported) Hydrocodone/Acetaminophen 1 Each Tablet, 1 EACH PO Q4H PRN for PAIN-MODERATE (5- 7) Prescribed by: ROSANNE KUO on 12/10/20 1049 Krill Oil 500 Mg Capsule, 500 MG PO DAILY, (Reported) Metoprolol Tartrate 50 Mg Tablet, 50 MG PO DAILY, (Reported) Nitroglycerin 0.4 Mg Tab.subl, 0.4 MG SL UD PRN for CHEST PAIN, (Reported) Patient Home Medication List Home Medication List Reviewed: Yes Review of Systems Review of Systems Constitutional: no symptoms reported EENTM: no symptoms reported Respiratory: no symptoms reported Cardiovascular: no symptoms reported Gastrointestinal: no symptoms reported Genitourinary: no symptoms reported Musculoskeletal: no symptoms reported Skin: see HPI Psychiatric/Neurological: No Symptoms Reported Endocrine: No Symptoms Reported Past Rtidpgh-Aayzgz-Yhnvop Hx Patient Social History Tobacco Use?: No Use of E-Cig and/or Vaping dev: No Substance use?: No Alcohol Use?: No Pt feels they are or have been: No Immunizations Up To Date Tetanus Booster (TDap): Unknown PED Vaccines UTD: Yes Influenza Vaccine Up-to-Date: No; Not Current Second COVID19 Vaccination Norman: 08/26/20 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: [employer] Seasonal Allergies Seasonal Allergies: No Past Medical History Surgeries: Yes (surgical procedure to decrease acid reflux, hiatal hernia, CARDIAC STENTS, ) Coronary Stent, Orthopedic Respiratory: Yes Sleep Apnea Currently Using CPAP: No Currently Using BIPAP: No Cardiac: Yes (coronary stents x 4, TACHYCARIDA) Coronary Artery Disease, Heart Attack, High Cholesterol, Hypertension Neurological: Yes TIA Genitourinary: No Gastrointestinal: Yes (colon resection due to diverticulitis) Gastroesophageal Reflux, Diverticulosis, Hiatal Hernia Musculoskeletal: Yes (left shoulder and elbow surgery, bilateral carpal tunnel surgery, right elb) Arthritis Endocrine: Yes Diabetes, Non-Insulin dep HEENT: No Cancer: No Psychosocial: No Integumentary: No Blood Disorders: No Physical Exam Vital Signs Vital Signs - First Documented 12/31/20 23:20 Temp 35.6 Pulse 89 Resp 20 B/P (MAP) 140/95 (110) Pulse Ox 96 O2 Delivery Room Air Capillary Refill : Less Than 3 Seconds General Appearance: WD/WN, no apparent distress HEENT: normal ENT inspection Cardiovascular: regular rate, rhythm, no edema, no murmur Respiratory: lungs clear, normal breath sounds, no respiratory distress Extremities: other (See below) Neurologic/Psychiatric: groundsman II-XII nml as tested, no motor/sensory deficits, alert, normal mood/affect, oriented x 3 Skin: other (Well-healed abrasions and scrapes on the left anterior lower leg with minor surrounding erythema. The medial ankle has more puffy edema with minor erythema and tenderness. Pedal pulse and capillary refill is intact. No tenderness in the body of the calf muscles.) Progress/Results/Core Measures Results/Orders Lab Results Laboratory Tests Test 01/01/21 01:27 Range/Units White Blood Count 9.7 4.3-11.0 10^3/uL Red Blood Count 5.24 4.30-5.52 10^6/uL Hemoglobin 16.5 13.3-17.7 g/dL Hematocrit 48 40-54 % Mean Corpuscular Volume 92 80-99 fL Mean Corpuscular Hemoglobin 32 25-34 pg Mean Corpuscular Hemoglobin Concent 34 32-36 g/dL Red Cell Distribution Width 12.5 10.0-14.5 % Platelet Count 196 130-400 10^3/uL Mean Platelet Volume 11.4 9.0-12.2 fL Immature Granulocyte % (Auto) 0 % Neutrophils (%) (Auto) 52 42-75 % Lymphocytes (%) (Auto) 35 12-44 % Monocytes (%) (Auto) 9 0-12 % Eosinophils (%) (Auto) 4 0-10 % Basophils (%) (Auto) 1 0-10 % Neutrophils # (Auto) 5.0 1.8-7.8 10^3/uL Lymphocytes # (Auto) 3.4 1.0-4.0 10^3/uL Monocytes # (Auto) 0.8 0.0-1.0 10^3/uL Eosinophils # (Auto) 0.4 H 0.0-0.3 10^3/uL Basophils # (Auto) 0.1 0.0-0.1 10^3/uL Immature Granulocyte # (Auto) 0.0 0.0-0.1 10^3/uL D-Dimer 0.34 0.00-0.49 UG/ML Sodium Level 143 135-145 MMOL/L Potassium Level 3.8 3.6-5.0 MMOL/L Chloride Level 111 H 98-107 MMOL/L Carbon Dioxide Level 20 L 21-32 MMOL/L Anion Gap 12 5-14 MMOL/L Blood Urea Nitrogen 15 7-18 MG/DL Creatinine 0.95 0.60-1.30 MG/DL Estimat Glomerular Filtration Rate 82 BUN/Creatinine Ratio 16 Glucose Level 135 H 70-105 MG/DL Calcium Level 9.4 8.5-10.1 MG/DL C-Reactive Protein High Sensitivity 1.23 H 0.00-0.50 MG/DL My Orders Orders - TRAE MONREAL MD Basic Metabolic Panel (01/01/21 01:02) Cbc With Automated Diff (01/01/21 01:02) Hs C Reactive Protein (01/01/21 01:02) Fibrin Degradation Products (01/01/21 01:02) Ed Iv/Invasive Line Start (01/01/21 01:02) Ceftriaxone (Rocephin) (01/01/21 02:30) Medications Given in ED Current Medications Medications Dose Ordered Sig/Lyndsay Route Start Time Stop Time Status Last Admin Dose Admin Ceftriaxone Sodium 1000 mg/ Sterile Water 10 ml @ 200 mls/hr ONCE ONCE IV 01/01/21 02:30 01/01/21 02:33 DC 01/01/21 02:23 200 MLS/HR Vital Signs/I&O 12/31/20 01/01/21 23:20 02:27 Temp 35.6 Pulse 89 77 Resp 20 20 B/P (MAP) 140/95 (110) 125/85 Pulse Ox 96 95 O2 Delivery Room Air Room Air Blood Pressure Mean: 110 Progress Progress Note : Progress Note Labs and vital signs suggested neither cellulitis nor DVT. However, patient is insistent that he feels the symptoms are getting worse despite use the doxycycline. For this reason Rocephin was ordered and Keflex was added to his outpatient therapy. Departure Impression Primary Impression: Cellulitis of left leg Additional Impression: Lower leg edema Disposition: HOME, SELF-CARE Condition: Stable Departure-Patient Inst. Referrals: [facility] (PCP) Primary Care Physician KIKE VILLAVICENCIO (Family) Primary Care Physician Patient Instructions: Cellulitis (Skin Infection), Adult (DC) Add. Discharge Instructions: Complete doxycycline as prescribed. Add Keflex and complete the entire course as prescribed as well. Elevate your foot above the level of your heart as much as possible to help reduce swelling. Take Tylenol (acetaminophen) for pain. Avoid prolonged periods of time standing or with your feet hanging below your body. Call with questions or concerns. Return to the ER if you have worsening symptoms. All discharge instructions reviewed with patient and/or family. Voiced understanding. Scripts Cephalexin (Cephalexin) 500 Mg Tablet 500 MG PO QID, #28 TAB Prov: TRAE MONREAL MD 01/01/21 Copy Copies To 1: MARSHALL LÓPEZ JOSHUA T MD Jan 01, 2021 02:23
[2021-01-01 02:27] VITALS: BP 125/85
[2021-01-01] MEDS ORDERED: cefTRIAXone 1,000 MG in WATER (STERILE) FOR INJECTION 10 ML IV ONE (02:30)
== END 2021-01-01 02:27 | disposition home or self-care (01) ==
LOC: EDUNIT# 22:48 → ER 22:49
DX: L03.116 Cellulitis of left lower limb (principal); R60.0 Localized edema; I10 Essential (primary) hypertension; I25.2 Old myocardial infarction; E78.00 Pure hypercholesterolemia, unspecified; E11.9 Type 2 diabetes mellitus without complications; Z86.73 Personal history of transient ischemic attack (TIA), and cerebral infarction without residual deficits; Z79.899 Other long term (current) drug therapy; Z79.82 Long term (current) use of aspirin
CPT/HCPCS: 36415; 80048; 85025; 85379; 86141

== ENCOUNTER 2021-07-27 13:37 | Emergency (ER) | payer MEDICARE, OTHER ==
[~2021-07-27] VITALS: Ht 187 cm; Wt 108.0 kg
[~2021-07-27 13:37] MED LIST changes: +CEPH500T PO; +CYCL10TA25 PO; -CYCL10TA9 PO
--- NOTE | 2021-07-27 14:07 | ED Lower Extremity ---
General Chief Complaint: Lower Extremity Stated Complaint: S/P R LEG SX-SWELLING,TURNING RED Nursing Triage Note: PT PRESENTS TO ED VIA POV FROM HOME WITH COMPLAINTS OF R ANKLE SX 4 1/2 WEEKS AGO, NOTICED SWELLING/REDNESS AND CALF PAIN APROX 2 DAYS AGO. Source: patient Exam Limitations: no limitations (VICTORIA MARIEE) History of Present Illness Date Seen by Provider: Jul 27, 2021 Time Seen by Provider: 14:04 Initial Comments Patient is a 56-year-old male who presents ED with right leg pain with swelling redness and bruising. Patient had surgery performed [address] Bui for bone graft due to a previous fracture and ankle pain. Patient reports intermittent swelling, bruising or redness. That appears to be proved on arrival. Patient does wear a boot. Denies of any fever, chills, nausea, vomiting, diarrhea. Currently on Plavix secondary to previous heart attack. Reports some mild numbness and tingling. No purulent drainage from the surgical scar. (VICTORIA MARIEE) Allergies and Home Medications Allergies Coded Allergies: aspartame (Verified Allergy, Unknown, 12/10/20) pioglitazone (Verified Allergy, Unknown, 12/10/20) Ufgnxvh-Lxs-Ese Reductase Inhibitor (Verified Adverse Reaction, Unknown, 12/10/20) Unspecified adverse reaction Patient Home Medication List Home Medication List Reviewed: Yes (VICTORIA MARIEE) Aspirin (Aspirin EC) 81 Mg Tablet.dr, 81 MG PO DAILY, (Reported) Entered as Reported by: GIANNA HINDS on 02/13/19 0749 Cephalexin (Cephalexin) 500 Mg Tablet, 500 MG PO QID Prescribed by: TRAE MAJANO on 01/01/21 0223 Clopidogrel Bisulfate (Clopidogrel) 75 Mg Tablet, 75 MG PO DAILY Prescribed by: MAEVE HYLTON on 01/04/20 1000 Docusate Sodium (Colace) 100 Mg Capsule, 100 MG PO BID Prescribed by: ROSANNE KUO on 12/10/20 1048 Evolocumab (Repatha Sureclick) 140 Mg/1 Ml Pen.injctr, 140 MG SQ DAILY, (Reported) Entered as Reported by: GHAZALA BONILLA on 12/07/20 1306 Fenofibrate,Micronized (Fenofibrate) 134 Mg Capsule, 134 MG PO HS Prescribed by: MAEVE HYLTON on 01/04/20 1000 Fish Oil/Dha/Epa (Fish Oil 1,200 mg Fish Oil) 1 Each Capsule, 1 EACH PO BID, (Reported) Entered as Reported by: YONNY CHARLES on 10/27/20 1055 Hydrocodone/Acetaminophen (Hydrocodone-Acetamin 5-325 mg) 1 Each Tablet, 1 EACH PO Q4H PRN for PAIN-MODERATE (5-7) Prescribed by: ROSANNE KUO on 12/10/20 1049 Krill Oil (Krill Oil) 500 Mg Capsule, 500 MG PO DAILY, (Reported) Entered as Reported by: YONNY CHARLES on 10/27/20 1055 Metoprolol Tartrate (Metoprolol Tartrate) 50 Mg Tablet, 50 MG PO DAILY, (Reported) Entered as Reported by: GIANNA HINDS on 02/13/19 0749 Nitroglycerin (Nitroglycerin) 0.4 Mg Tab.subl, 0.4 MG SL UD PRN for CHEST PAIN, (Reported) Entered as Reported by: GIANNA HINDS on 02/13/19 0749 Tramadol HCl (Tramadol HCl) 50 Mg Tablet, 50 MG PO Q4H PRN for PAIN-MILD (1-4) Prescribed by: FABIÁN WILLIAMSON on 07/27/21 1510 Review of Systems Constitutional: No chills, No diaphoresis, No fever, No malaise, No weakness EENTM: No mouth pain, No mouth swelling, No throat pain Respiratory: No cough, No dyspnea on exertion Cardiovascular: No chest pain Gastrointestinal: No abdominal pain, No diarrhea, No nausea, No vomiting Genitourinary: No decreased output, No discharge Musculoskeletal: muscle pain, muscle stiffness Skin: No change in color, No change in hair/nails (VICTORIA MARIEE) All Other Systems Reviewed Negative Unless Noted: Yes (VICTORIA MARIEE) Past Vwlthvx-Kyiqdd-Azubni Hx Patient Social History Tobacco Use?: No Substance use?: No Alcohol Use?: No Pt feels they are or have been: No (VICTORIA MARIEE) Immunizations Up To Date Tetanus Booster (TDap): Unknown PED Vaccines UTD: Yes First/Initial COVID19 Vaccinat: 08/26/20 Second COVID19 Vaccination Norman: 08/26/20 Third COVID19 Vaccination Date: 08/26/20 COVID19 Vaccine Case Supervisor: NOEMY (VICTORIA MARIEE) Seasonal Allergies Seasonal Allergies: No (VICTORIA MARIEE) Past Medical History Surgeries: Yes (surgical procedure to decrease acid reflux, hiatal hernia, CARDIAC STENTS, ) Coronary Stent, Orthopedic Respiratory: Yes Sleep Apnea Currently Using CPAP: No Currently Using BIPAP: No Cardiac: Yes (coronary stents x 4, TACHYCARIDA) Coronary Artery Disease, Heart Attack, High Cholesterol, Hypertension Neurological: Yes TIA Genitourinary: No Gastrointestinal: Yes (colon resection due to diverticulitis) Gastroesophageal Reflux, Diverticulosis, Hiatal Hernia Musculoskeletal: Yes (left shoulder and elbow surgery, bilateral carpal tunnel surgery, right elb) Arthritis Endocrine: Yes Diabetes, Non-Insulin dep HEENT: No Cancer: No Psychosocial: No Integumentary: No Blood Disorders: No (VICTORIA MARIEE) Physical Exam Vital Signs Vital Signs - First Documented 07/27/21 13:57 Temp 35.8 Pulse 80 Resp 18 B/P (MAP) 132/94 (107) Pulse Ox 94 (TRAE MONREAL MD) Vital Signs Capillary Refill : Less Than 3 Seconds (VICTORIA MARIEE) Height, Weight, BMI Height: 6'2.00" Weight: 240lbs. 0.0oz. [id number]; 30.00 BMI Method:Stated General Appearance: WD/WN, no apparent distress HEENT: PERRL/EOMI, normal ENT inspection, TMs normal, pharynx normal Neck: non-tender, full range of motion, supple, normal inspection Cardiovascular: regular rate, rhythm, no edema, no gallop, no JVD Respiratory: chest non-tender, lungs clear Gastrointestinal: normal bowel sounds, non tender, soft, no organomegaly Back: normal inspection, no CVA tenderness, no vertebral tenderness Ankles: right ankle normal range of motion, right ankle no evidence of injury, right ankle bone tenderness Feet: right foot non-tender, right foot normal inspection 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 Healing surgical scar to right ankle) (VICTORIA MARIEE) Progress/Results/Core Measures Results/Orders Lab Results Laboratory Tests Test 07/27/21 14:15 Range/Units White Blood Count 10.5 4.3-11.0 10^3/uL Red Blood Count 5.30 4.30-5.52 10^6/uL Hemoglobin 16.7 13.3-17.7 g/dL Hematocrit 49 40-54 % Mean Corpuscular Volume 93 80-99 fL Mean Corpuscular Hemoglobin 32 25-34 pg Mean Corpuscular Hemoglobin Concent 34 32-36 g/dL Red Cell Distribution Width 12.0 10.0-14.5 % Platelet Count 220 130-400 10^3/uL Mean Platelet Volume 11.3 9.0-12.2 fL Immature Granulocyte % (Auto) 0 % Neutrophils (%) (Auto) 45 42-75 % Lymphocytes (%) (Auto) 40 12-44 % Monocytes (%) (Auto) 9 0-12 % Eosinophils (%) (Auto) 4 0-10 % Basophils (%) (Auto) 1 0-10 % Neutrophils # (Auto) 4.7 1.8-7.8 10^3/uL Lymphocytes # (Auto) 4.2 H 1.0-4.0 10^3/uL Monocytes # (Auto) 1.0 0.0-1.0 10^3/uL Eosinophils # (Auto) 0.4 H 0.0-0.3 10^3/uL Basophils # (Auto) 0.1 0.0-0.1 10^3/uL Immature Granulocyte # (Auto) 0.0 0.0-0.1 10^3/uL Erythrocyte Sedimentation Rate 6 0-30 MM/HR Prothrombin Time 13.4 12.2-14.7 SEC INR Comment 1.0 0.8-1.4 Activated Partial Thromboplast Time 31 24-35 SEC Sodium Level 139 135-145 MMOL/L Potassium Level 4.2 3.6-5.0 MMOL/L Chloride Level 106 98-107 MMOL/L Carbon Dioxide Level 22 21-32 MMOL/L Anion Gap 11 5-14 MMOL/L Blood Urea Nitrogen 19 H 7-18 MG/DL Creatinine 1.09 0.60-1.30 MG/DL Estimat Glomerular Filtration Rate 79 BUN/Creatinine Ratio 17 Glucose Level 129 H 70-105 MG/DL Calcium Level 9.5 8.5-10.1 MG/DL Corrected Calcium 9.4 8.5-10.1 MG/DL Total Bilirubin 0.4 0.1-1.0 MG/DL Aspartate Amino Transf (AST/SGOT) 18 5-34 U/L Alanine Aminotransferase (ALT/SGPT) 19 0-55 U/L Alkaline Phosphatase 49 40-136 U/L C-Reactive Protein High Sensitivity 1.05 H 0.00-0.50 MG/DL Total Protein 7.2 6.4-8.2 GM/DL Albumin 4.1 3.2-4.5 GM/DL (TRAE MONREAL MD) Vital Signs/I&O 07/27/21 07/27/21 13:57 15:14 Temp 35.8 Pulse 80 85 Resp 18 20 B/P (MAP) 132/94 (107) 132/94 Pulse Ox 94 98 (TRAE MONREAL MD) Blood Pressure Mean: 107 Departure Communication (Admissions) Patient presents to the ED with right leg swelling. Surgery 4 weeks ago. No significant redness, swelling noted. Appears to have dependent swelling when he stands for long period of time with skin color changes. He reports increased walking and longer drive over the past 2 days. No specific trauma. Afebrile. Normal white blood count, inflammatory markers such as ESR. CRP slightly elevated. X-ray negative for acute fracture. Ultrasound was negative for DVT. Currently on Plavix. Refilled patient's pain medication for a few days. Follow-up with Dr. Pepper Gillis. Recommend elevation. Ice. Return precautions were discussed. (VICTORIA MARIEE) Impression Primary Impression: Leg swelling Disposition: 01 HOME, SELF-CARE Condition: Stable Departure-Patient Inst. Decision time for Depature: 15:07 (VICTORIA MARIEE) Referrals: [facility] (PCP/Family) Primary Care Physician Patient Instructions: Swelling Scripts Tramadol HCl (Tramadol HCl) 50 Mg Tablet 50 MG PO Q4H PRN for PAIN-MILD (1-4), #14 TAB Prov: VICTORIA MARIEE 07/27/21 ATTENDING PHYSICIAN NOTE: I was physically present as attending physician in the emergency department during the care of this patient, but I was not directly involved in the decision making or delivery of care for this patient. (TRAE MONREAL MD) VICTORIA MARIEE Jul 27, 2021 14:07 TRAE MONREAL MD Jul 29, 2021 02:58
[2021-07-27 14:25] LABS: BASOPHILS # (AUTO) 0.1 10^3/uL (0.0-0.1); BASOPHILS % (AUTO) 1 % (0-10); EOSINOPHILS # (AUTO) 0.4 10^3/uL (0.0-0.3); EOSINOPHILS % (AUTO) 4 % (0-10); HEMATOCRIT 49 % (40-54); HEMOGLOBIN 16.7 g/dL (13.3-17.7); LYMPHOCYTES # (AUTO) 4.2 10^3/uL (1.0-4.0); LYMPHOCYTES % (AUTO) 40 % (12-44); MEAN CORPUSCULAR HEMOGLOBIN 32 pg (25-34); MEAN CORPUSCULAR HGB CONC 34 g/dL (32-36); MEAN CORPUSCULAR VOLUME 93 fL (80-99); MEAN PLATELET VOLUME 11.3 fL (9.0-12.2); MONOCYTES % (AUTO) 9 % (0-12); NEUTROPHILS # (AUTO) 4.7 10^3/uL (1.8-7.8); NEUTROPHILS % (AUTO) 45 % (42-75); PLATELET COUNT 220 10^3/uL (130-400); WHITE BLOOD COUNT 10.5 10^3/uL (4.3-11.0)
--- NOTE | 2021-07-27 14:25 | Diagnostic Imaging Report ---
HISTORY: Right ankle pain. TECHNIQUE: Three views of the right ankle. COMPARISON: None. FINDINGS: No acute fracture or dislocation is seen in the right ankle. Alignment appears normal. There are mild degenerative changes in the tibiotalar joint. There is a small plantar calcaneal enthesophyte. There is a small joint effusion. There is mild soft tissue swelling about the right ankle. IMPRESSION: 1. Mild degenerative change in the right ankle with no acute osseous abnormality seen. 2. Mild soft tissue swelling about the right ankle. Dictated by: Dictated on workstation # [id number]
[2021-07-27 14:35] LABS: ALBUMIN 4.1 GM/DL (3.2-4.5); POTASSIUM 4.2 MMOL/L (3.6-5.0)
[2021-07-27 14:36] LABS: CALCIUM 9.5 MG/DL (8.5-10.1)
[2021-07-27 14:37] LABS: TOTAL PROTEIN 7.2 GM/DL (6.4-8.2)
[2021-07-27 14:39] LABS: BILIRUBIN,TOTAL 0.4 MG/DL (0.1-1.0)
[2021-07-27 14:41] LABS: CREATININE SERUM 1.09 MG/DL (0.60-1.30)
[2021-07-27 14:46] LABS: PROTHROMBIN TIME PATIENT 13.4 SEC (12.2-14.7)
--- NOTE | 2021-07-27 14:58 | Diagnostic Imaging Report ---
PROCEDURE: US right lower extremity venous. TECHNIQUE: Multiple real-time grayscale images were obtained over the right lower extremity in various projections. Additional spectral analysis and color Doppler duplex images were also obtained. INDICATION: Leg pain There are no prior exams available for comparison. EXAMINATION: The deep venous system of the right lower extremity was visualized from the distal common femoral vein to the popliteal vein. FINDINGS: There was good flow and compressibility at all levels and no evidence for a deep venous thrombosis. IMPRESSION: Negative right lower extremity for deep venous thrombosis. Dictated by: Dictated on workstation # [id number]
[2021-07-27 15:08] LABS: ERYTHROCYTE SEDIMENTATION RATE 6 MM/HR (0-30)
[2021-07-27] MEDS ORDERED: TRM50T PO (15:09)
[2021-07-27 15:14] VITALS: BP 132/94
== END 2021-07-27 15:14 | disposition home or self-care (01) ==
LOC: EDUNIT# 13:37 → ER 13:40
DX: M79.89 Other specified soft tissue disorders (principal); R79.82 Elevated C-reactive protein (CRP); I10 Essential (primary) hypertension; E11.9 Type 2 diabetes mellitus without complications; E78.00 Pure hypercholesterolemia, unspecified; I25.2 Old myocardial infarction; I25.10 Atherosclerotic heart disease of native coronary artery without angina pectoris; Z95.5 Presence of coronary angioplasty implant and graft; Z79.82 Long term (current) use of aspirin; Z87.81 Personal history of (healed) traumatic fracture; Z79.899 Other long term (current) drug therapy
CPT/HCPCS: 36415; 73610; 80053; 85025; 85610; 85652; 85730; 86141

== ENCOUNTER → 2021-08-04 | Outpatient (CLI) | payer MEDICARE, OTHER ==
[~2021-08-04] MED LIST changes: +CATHETER FLUSH 10 ML SYR IV PRN; +REGADENOSON 0.4 MG/5 ML SYR (LEXISCAN) IV ONE; +TRM50T PO
[2021-08-04 13:20] VITALS: BP 120/85
--- NOTE | 2021-08-04 14:38 | Cardiology Stress Test Report ---
Stress Test Report Date of Procedure/Referring: Date of Procedure: Aug 04, 2021 PCP Onelia Huddleston MD Admitting Physician [facility] Indications: HTN Baseline Heart Rate: 80 Baseline Blood Pressure: Blood Pressure Systolic: 120 Blood Pressure Diastolic: 85 Baseline Vitals Vital Signs Date Time Temp Pulse Resp B/P (MAP) Pulse Ox O2 Delivery O2 Flow Rate FiO2 08/04/21 13:20 80 120/85 (97) Baseline EKG: Baseline EKG: NSR Summary After explaining the procedure to the patient, he signed a consent and then brought to the stress nuclear laboratory. Patient received 0.4 mg Lexiscan for stress test, ECG, heart rate and blood pressure were monitored continuously. Resting and stress dose of radio tracer were injected, imaging was acquired and reviewed in short axis, horizontal long axis and vertical long axis views. TID: 1.09 SSS: 0 SDS: 0 EF: 59 1. Patient tolerated Lexiscan well 2. No significant ischemia or infarction on SPECT images 3. Normal left ventricular size, EF 59% ONELIA HUDDLESTON MD Aug 04, 2021 14:38
== END ==
LOC: CARD 10:51
PROVIDERS: ATTEND Internal Medicine Cardiovascular Disease
DX: I10 Essential (primary) hypertension (principal); I25.10 Atherosclerotic heart disease of native coronary artery without angina pectoris
CPT/HCPCS: 78452; 93017; 93306; A9502

== ENCOUNTER 2021-11-22 17:49 | Observation (INO) | payer MEDICARE, OTHER ==
[~2021-11-22] VITALS: Ht 188 cm; Wt 110.3 kg
[~2021-11-22 17:49] MED LIST changes: -CATHETER FLUSH 10 ML SYR IV PRN; -FENO134C PO; +FENO134C21 PO; -REGADENOSON 0.4 MG/5 ML SYR (LEXISCAN) IV ONE
[2021-11-22] MEDS ORDERED: NITROGLYCERIN 2% OINT 1 GM UNIT DOSE PACKET TOP STA (18:08)
[2021-11-22] MEDS ORDERED: LIDOCAINE 2% VISCOUS 15 ML UDC PO ONE (18:15)
[2021-11-22] MEDS ORDERED: CLOPIDOGREL 75 MG (PLAVIX) TABLET PO ONE (18:15)
[2021-11-22] MEDS ORDERED: ASPIRIN 81 MG CHEW (CHILDREN'S ASA) PO ONE (18:15)
[2021-11-22] MEDS ORDERED: ANTACID SUSP 30 ML UDC (MYLANTA) PO ONE (18:15)
--- NOTE | 2021-11-22 18:15 | ED Cardiac General ---
History of Present Illness General Chief Complaint: Chest Pain Stated Complaint: CP Source: patient Exam Limitations: no limitations History of Present Illness Date Seen by Provider: Nov 22, 2021 Time Seen by Provider: 18:00 Initial Comments 56yoM with PMH of CAD s/p stenting, HTN, HLD, DM coming in due to moderate, intermittent chest pain that is throbbing and in the center of his chest. Has been going on for the past 2 weeks but constant for roughly 11 hours today since he woke up this morning. Noticed it getting worse after letting the dogs out this morning and then he had to rest. Had some nausea but no vomiting. Denies any prior history of DVT/PE, no recent surgeries, no recent travel, no leg s welling/pain, no hemoptysis, no cough, fever, vomiting, diarrhea, abd pain, weakness, numbness, headache, or any other concerns. Has not taken his meds for 2 days trying to see if the pain got better. Allergies and Home Medications Allergies Coded Allergies: aspartame (Verified Allergy, Unknown, 12/10/20) pioglitazone (Verified Allergy, Unknown, 12/10/20) Fkaxvnz-MHG-IaW Reductase Inhibitor (Verified Adverse Reaction, Unknown, 12/10/20) Unspecified adverse reaction Patient Home Medication List Home Medication List Reviewed: Yes Aspirin (Aspirin EC) 81 Mg Tablet.dr, 81 MG PO DAILY, (Reported) Entered as Reported by: GIANNA HINDS on 02/13/19 0749 Cephalexin (Cephalexin) 500 Mg Tablet, 500 MG PO QID Prescribed by: TRAE MAJANO on 01/01/21 0223 Clopidogrel Bisulfate (Clopidogrel) 75 Mg Tablet, 75 MG PO DAILY Prescribed by: MAEVE HYLTON on 01/04/20 1000 Docusate Sodium (Colace) 100 Mg Capsule, 100 MG PO BID Prescribed by: ROSANNE KUO on 12/10/20 1048 Evolocumab (Repatha Sureclick) 140 Mg/1 Ml Pen.injctr, 140 MG SQ DAILY, (Reported) Entered as Reported by: GHAZALA BONILLA on 12/07/20 1306 Fenofibrate,Micronized (Fenofibrate) 134 Mg Capsule, 134 MG PO HS Prescribed by: MAEVE HYLTON on 01/04/20 1000 Fish Oil/Dha/Epa (Fish Oil 1,200 mg Fish Oil) 1 Each Capsule, 1 EACH PO BID, (Reported) Entered as Reported by: YONNY CHARLES on 10/27/20 1055 Hydrocodone/Acetaminophen (Hydrocodone-Acetamin 5-325 mg) 1 Each Tablet, 1 EACH PO Q4H PRN for PAIN-MODERATE (5-7) Prescribed by: ROSANNE KUO on 12/10/20 1049 Krill Oil (Krill Oil) 500 Mg Capsule, 500 MG PO DAILY, (Reported) Entered as Reported by: YONNY CHARLES on 10/27/20 1055 Metoprolol Tartrate (Metoprolol Tartrate) 50 Mg Tablet, 50 MG PO DAILY, (Reported) Entered as Reported by: GIANNA HINDS on 02/13/19 0749 Nitroglycerin (Nitroglycerin) 0.4 Mg Tab.subl, 0.4 MG SL UD PRN for CHEST PAIN, (Reported) Entered as Reported by: GIANNA HINDS on 02/13/19 0749 Tramadol HCl (Tramadol HCl) 50 Mg Tablet, 50 MG PO Q4H PRN for PAIN-MILD (1-4) Prescribed by: FABIÁN WILLIAMSON on 07/27/21 1510 Review of Systems Review of Systems Constitutional: No fever EENTM: No Blurred Vision Respiratory: Denies Cough Cardiovascular: Chest Pain Gastrointestinal: Denies Abdominal Pain Genitourinary: Denies Burning Musculoskeletal: no symptoms reported Skin: no symptoms reported Psychiatric/Neurological: No Symptoms Reported Endocrine: No Symptoms Reported Hematologic/Lymphatic: No Symptoms Reported All Other Systems Reviewed Negative Unless Noted: Yes Past Fyfgkpf-Slfcgh-Txrxiv Hx Patient Social History Tobacco Use?: No Substance use?: No Alcohol Use?: Yes Alcohol Frequency: Once in a while Immunizations Up To Date Tetanus Booster (TDap): Unknown PED Vaccines UTD: Yes First/Initial COVID19 Vaccinat: 08/26/20 Second COVID19 Vaccination Norman: 08/26/20 Third COVID19 Vaccination Date: 08/26/20 Seasonal Allergies Seasonal Allergies: No Past Medical History Surgeries: Yes (surgical procedure to decrease acid reflux, hiatal hernia, CARDIAC STENTS, ) Coronary Stent, Orthopedic Respiratory: Yes Sleep Apnea Currently Using CPAP: No Currently Using BIPAP: No Cardiac: Yes (coronary stents x 4, TACHYCARIDA) Coronary Artery Disease, Heart Attack, High Cholesterol, Hypertension Neurological: Yes TIA Genitourinary: No Gastrointestinal: Yes (colon resection due to diverticulitis) Gastroesophageal Reflux, Diverticulosis, Hiatal Hernia Musculoskeletal: Yes (left shoulder and elbow surgery, bilateral carpal tunnel surgery, right elb) Arthritis Endocrine: Yes Diabetes, Non-Insulin dep HEENT: No Cancer: No Psychosocial: No Integumentary: No Blood Disorders: No Physical Exam Vital Signs Vital Signs - First Documented 11/22/21 17:55 Temp 36.7 Pulse 80 Resp 14 B/P (MAP) 142/91 (108) Pulse Ox 97 O2 Delivery Room Air Capillary Refill : Height, Weight, BMI Height: 6'2.00" Weight: 240lbs. 0.0oz. 108.248832cb; 30.00 BMI Method:Stated General Appearance: No Apparent Distress, WD/WN HEENT: PERRL/EOMI, Normal ENT Inspection, Pharynx Normal Neck: Full Range of Motion, Normal Inspection, Non Tender, Supple Respiratory: Chest Non Tender, Lungs Clear, Normal Breath Sounds, No Accessory Muscle Use, No Respiratory Distress Cardiovascular: Regular Rate, Rhythm, No Edema, Normal Peripheral Pulses Gastrointestinal: Normal Bowel Sounds, Non Tender, Soft; No Distended, No Guarding Extremity: Normal Capillary Refill, Normal Inspection, Normal Range of Motion, Non Tender, No Calf Tenderness, No Pedal Edema Neurologic/Psychiatric: Alert, No Motor/Sensory Deficits, Normal Mood/Affect Skin: Normal Color, Warm/Dry Lymphatic: No Adenopathy Progress/Results/Core Measures Results/Orders Lab Results Laboratory Tests Test 11/22/21 18:10 Range/Units White Blood Count 9.4 4.3-11.0 10^3/uL Red Blood Count 5.15 4.30-5.52 10^6/uL Hemoglobin 16.3 13.3-17.7 g/dL Hematocrit 47 40-54 % Mean Corpuscular Volume 91 80-99 fL Mean Corpuscular Hemoglobin 32 25-34 pg Mean Corpuscular Hemoglobin Concent 35 32-36 g/dL Red Cell Distribution Width 12.3 10.0-14.5 % Platelet Count 194 130-400 10^3/uL Mean Platelet Volume 11.4 9.0-12.2 fL Immature Granulocyte % (Auto) 0 % Neutrophils (%) (Auto) 48 42-75 % Lymphocytes (%) (Auto) 40 12-44 % Monocytes (%) (Auto) 7 0-12 % Eosinophils (%) (Auto) 4 0-10 % Basophils (%) (Auto) 1 0-10 % Neutrophils # (Auto) 4.5 1.8-7.8 10^3/uL Lymphocytes # (Auto) 3.8 1.0-4.0 10^3/uL Monocytes # (Auto) 0.7 0.0-1.0 10^3/uL Eosinophils # (Auto) 0.4 H 0.0-0.3 10^3/uL Basophils # (Auto) 0.1 0.0-0.1 10^3/uL Immature Granulocyte # (Auto) 0.0 0.0-0.1 10^3/uL Prothrombin Time 12.8 12.2-14.7 SEC INR Comment 0.9 0.8-1.4 Activated Partial Thromboplast Time 30 24-35 SEC Sodium Level 137 135-145 MMOL/L Potassium Level 3.8 3.6-5.0 MMOL/L Chloride Level 105 98-107 MMOL/L Carbon Dioxide Level 20 L 21-32 MMOL/L Anion Gap 12 5-14 MMOL/L Blood Urea Nitrogen 14 7-18 MG/DL Creatinine 1.15 0.60-1.30 MG/DL Estimat Glomerular Filtration Rate 74 BUN/Creatinine Ratio 12 Glucose Level 291 H 70-105 MG/DL Calcium Level 9.3 8.5-10.1 MG/DL Corrected Calcium 9.5 8.5-10.1 MG/DL Magnesium Level 1.6 1.6-2.4 MG/DL Total Bilirubin 0.2 0.1-1.0 MG/DL Aspartate Amino Transf (AST/SGOT) 18 5-34 U/L Alanine Aminotransferase (ALT/SGPT) 20 0-55 U/L Alkaline Phosphatase 57 40-136 U/L Troponin I < 0.028 <0.028 NG/ML B-Type Natriuretic Peptide 28.6 <100.0 PG/ML Total Protein 7.0 6.4-8.2 GM/DL Albumin 3.8 3.2-4.5 GM/DL Lipase 67 8-78 U/L My Orders Orders - VICTORIA HARDEN MD Cbc With Automated Diff (11/22/21 18:08) Magnesium (11/22/21 18:08) Chest 1 View, Ap/Pa Only (11/22/21 18:08) Ekg Tracing (11/22/21 18:08) Comprehensive Metabolic Panel (11/22/21 18:08) Protime With Inr (11/22/21 18:08) Partial Thromboplastin Time (11/22/21 18:08) O2 (11/22/21 18:08) Ed Iv/Invasive Line Start (11/22/21 18:08) Lipase (11/22/21 18:08) Bnp Isela (11/22/21 18:08) Troponin I Isela (11/22/21 18:08) Nitroglycerin Ointment (Nitrobid Ointme (11/22/21 18:08) Aspirin Chewable Tablet (Baby Aspirin Ch (11/22/21 18:15) Clopidogrel Tablet (Plavix Tablet) (11/22/21 18:15) Lidocaine 2% Viscous 15 Ml (Xylocaine Vi (11/22/21 18:15) Antacid Suspension (Mylanta Suspension (11/22/21 18:15) Enoxaparin Injection (Lovenox Injection) (11/22/21 19:30) Metoprolol Succinate (Xl) Tab (Toprol Xl (11/22/21 19:20) Medications Given in ED Current Medications Medications Dose Ordered Sig/Lyndsay Route Start Time Stop Time Status Last Admin Dose Admin Al Hydrox/Mg Hydrox/Simethicone 30 ml ONCE ONCE PO 11/22/21 18:15 11/22/21 18:16 DC 11/22/21 18:18 30 ML Aspirin 324 mg ONCE ONCE PO 11/22/21 18:15 11/22/21 18:16 DC 11/22/21 18:17 324 MG Clopidogrel Bisulfate 75 mg ONCE ONCE PO 11/22/21 18:15 11/22/21 18:16 DC 11/22/21 18:18 75 MG Lidocaine HCl 15 ml ONCE ONCE PO 11/22/21 18:15 11/22/21 18:16 DC 11/22/21 18:18 15 ML Vital Signs/I&O 11/22/21 17:55 Temp 36.7 Pulse 80 Resp 14 B/P (MAP) 142/91 (108) Pulse Ox 97 O2 Delivery Room Air Progress Progress Note : Progress Note 56-year-old male with above history coming in due to chest pain. ABCs were intact and vitals were stable on presentation. Immediately given aspirin and Plavix on arrival. Chest x-ray clear, EKG without acute ischemic changes, an IV was placed and basic labs including cardiac biomarkers obtained. Initial troponin is negative. Chest pain has persisted, although is more mild now. Called and discussed the case with Dr. Sanchez, the software engineer kernel on-call, and he would like the patient to go to the intensive care unit, n.p.o. after midnight for cardiac catheterization in the morning. Given Lovenox 1 ashlie per kilogram, metoprolol XL 50 mg, and he would like morphine as needed for pain. I then contacted Dr. Ascencio who admit the patient for further evaluation and management. Initial ECG Impression Date: Nov 22, 2021 Initial ECG Impression Time: 18:04 Initial ECG Rate: 79 Initial ECG Rhythm: Normal Sinus Comment Narrow QRS, normal axis, no significant ST or T wave changes Diagnostic Imaging Diagonstic Imaging: Xray (chest) Comments [facility]. [place], [place] NAME: AUGUSTINE MONTERROSO [facility] REC#: [id number] PT STATUS: REG ER : 1965 PHYSICIAN: VICTORIA HARDEN MD ADMIT DATE: 11/22/21/ER Draft Date of Exam:11/22/21 CHEST 1 VIEW, AP/PA ONLY EXAM: CHEST 1 VIEW, AP/PA ONLY INDICATION: Chest pain. COMPARISON: 01/02/2020. FINDINGS: Normal heart size and central pulmonary vascularity. No focal pulmonary opacity. No pleural effusion or pneumothorax. No acute osseous findings. No significant change. IMPRESSION: Negative chest. Dictated on workstation # [id number] Dict: 11/22/21 184 Trans: 11/22/21 184 [facility] [id number] Interpreted by: CHARLOTTE MAYO MD Electronically signed by: Departure Impression Primary Impression: Unstable angina Disposition: ADMITTED INPATIENT Condition: Stable Admissions Decision to Admit/Date: Nov 22, 2021 Time/Decision to Admit Time: 18:18 Departure-Patient Inst. Referrals: [facility] [place] (PCP/Family) Primary Care Physician VICTORIA HARDEN MD Nov 22, 2021 18:15
[2021-11-22 18:37] LABS: BASOPHILS # (AUTO) 0.1 10^3/uL (0.0-0.1); BASOPHILS % (AUTO) 1 % (0-10); EOSINOPHILS # (AUTO) 0.4 10^3/uL (0.0-0.3); EOSINOPHILS % (AUTO) 4 % (0-10); HEMATOCRIT 47 % (40-54); HEMOGLOBIN 16.3 g/dL (13.3-17.7); LYMPHOCYTES # (AUTO) 3.8 10^3/uL (1.0-4.0); LYMPHOCYTES % (AUTO) 40 % (12-44); MEAN CORPUSCULAR HEMOGLOBIN 32 pg (25-34); MEAN CORPUSCULAR HGB CONC 35 g/dL (32-36); MEAN CORPUSCULAR VOLUME 91 fL (80-99); MEAN PLATELET VOLUME 11.4 fL (9.0-12.2); MONOCYTES # (AUTO) 0.7 10^3/uL (0.0-1.0); MONOCYTES % (AUTO) 7 % (0-12); NEUTROPHILS # (AUTO) 4.5 10^3/uL (1.8-7.8); NEUTROPHILS % (AUTO) 48 % (42-75); PLATELET COUNT 194 10^3/uL (130-400); WHITE BLOOD COUNT 9.4 10^3/uL (4.3-11.0)
--- NOTE | 2021-11-22 18:45 | Diagnostic Imaging Report ---
EXAM: CHEST 1 VIEW, AP/PA ONLY INDICATION: Chest pain. COMPARISON: 01/02/2020. FINDINGS: Normal heart size and central pulmonary vascularity. No focal pulmonary opacity. No pleural effusion or pneumothorax. No acute osseous findings. No significant change. IMPRESSION: Negative chest. Dictated by: Dictated on workstation # [id number]
[2021-11-22 18:54] LABS: ALBUMIN 3.8 GM/DL (3.2-4.5); POTASSIUM 3.8 MMOL/L (3.6-5.0)
[2021-11-22 18:55] LABS: INR 0.9 (0.8-1.4); PROTHROMBIN TIME PATIENT 12.8 SEC (12.2-14.7)
[2021-11-22 18:56] LABS: CALCIUM 9.3 MG/DL (8.5-10.1)
[2021-11-22 18:59] LABS: BILIRUBIN,TOTAL 0.2 MG/DL (0.1-1.0)
[2021-11-22 19:00] LABS: CREATININE SERUM 1.15 MG/DL (0.60-1.30)
[2021-11-22 19:04] LABS: MAGNESIUM 1.6 MG/DL (1.6-2.4)
[2021-11-22] MEDS ORDERED: meTOproloL SUCCINATE 50 MG (TOPROL XL) TAB PO STA (19:20)
[2021-11-22] MEDS ORDERED: ENOXAPARIN 100 MG/1 ML (LOVENOX) SYR SC ONE (19:30)
[2021-11-22 21:00] VITALS: BP 108/72
[2021-11-22] MEDS ORDERED: MILK OF MAGNESIA 400 MG/5 ML 30 ML UDC PO PRN (21:15)
[2021-11-22] MEDS ORDERED: diphenhydrAMINE 25 MG TAB (BENADRYL) PO PRN (21:15)
[2021-11-22] MEDS ORDERED: ACETAMINOPHEN 325 MG TABLET PO PRN (21:15)
[2021-11-22] MEDS ORDERED: CALCIUM CARBONATE 500 MG (TUMS) TAB.CHEW PO PRN (21:15)
[2021-11-22] MEDS ORDERED: ONDANSETRON 4 MG/2 ML (SDV) Z0FRAN IV PRN (21:15)
[2021-11-22] MEDS ORDERED: PATIENT MAY USE OWN MEDS, ALL PO SCH ×2 (21:15)
[2021-11-22] MEDS ORDERED: polyethylene glycoL POWDER 17 GM (MIRALAX) PACK PO PRN (21:15)
[2021-11-22] MEDS ORDERED: BISACODYL 10 MG SUPP (DULCOLAX) PR PRN (21:15)
[2021-11-22] MEDS ORDERED: ANTACID SUSP 30 ML UDC (MYLANTA) PO PRN (21:15)
[2021-11-22] MEDS ORDERED: morphine INJ 4 MG/ML 1 ML (VIAL/SYRINGE) IV PRN (21:15)
[2021-11-22] MEDS ORDERED: ONDANSETRON 4 MG (ZOFRAN) ORAL DISSOLVE TAB PO PRN (21:15)
[2021-11-22] MEDS ORDERED: diphenhydrAMINE 50 MG/ML INJ (BENADRYL) IVP PRN (21:15)
[2021-11-22] MEDS ORDERED: LACTULOSE SYRUP 10GM/15ML (ENULOSE) 30ML UDC PO PRN (21:15)
[2021-11-22] MEDS ORDERED: NITROGLYCERIN 0.4 MG SL TABS BTL 25'S SL PRN (21:15)
[2021-11-22] MEDS ORDERED: MELATONIN 3 MG TABLET PO PRN (21:15)
--- NOTE | 2021-11-22 21:18 | Tele-ICU Progress Note ---
Subjective Date Seen by a Provider: Nov 22, 2021 Time Seen by a Provider: 20:30 Subjective/Events-last exam This virtual visit was conducted using real time audio/video. Thank you for asking us to see this patient for chest pain/unstable angina. Recent events: cp x 2 wks. PMH: CAD/4 stents, htn, HL, DM, JOSE JUAN, GERD, TIA SH: smoking history: never FH: Non-contributory ROS: las in HPI. PE: Resting comfortably. VSS. O2 sat 97% on RA. HEENT: No obvious masses, adenopathy or JVD. Chest: clear to auscultation. CV: RRR S1 S2 No murmur or added sounds. Abd: Non-tender. Bowel sounds Y. : Unremarkable. [place] N. COMMUNICATIONS ATTENDANT/psychiatric: Grossly intact. No obvious focal findings. Extremities: No edema. Capillary refill < 3 seconds. Skin: unremarkable. Results: Elevated BG 291. CXR: Shrestha clear. Available chart/ vitals / labs / images reviewed. Video assessment done using teleICU camera, rest of exam as per RN. A/P: Critical Care: critically ill patient with unstable angina. Cont. NTG, ASA, Plavix. mwtop., Viktor. Probable CCL in AM. Discussed with RN Eleanor. Asked RN to reach out to eICU if any questions or concerns later. Time spent with patient/coordination of care with other health professionals (mins):30 Sepsis Event Evaluation Height, Weight, BMI Height: 6'2.00" Weight: 240lbs. 0.0oz. 108.564485ch; 30.00 BMI Method:Stated Exam Exam Patient acknowledged, consented, and participated in this virtual visit which wa s conducted using real time audio/video Vital Signs Date Time Temp Pulse Resp B/P (MAP) Pulse Ox O2 Delivery O2 Flow Rate FiO2 11/22/21 17:55 36.7 80 14 142/91 (108) 97 Room Air Height & Weight Height: 6'2.00" Weight: 240lbs. 0.0oz. 108.801562hx; 30.00 BMI Method:Stated General Appearance: No Apparent Distress, WD/WN HEENT: PERRL/EOMI, Normal ENT Inspection, Pharynx Normal Neck: Full Range of Motion, Normal Inspection, Non Tender, Supple Respiratory: Chest Non Tender, Lungs Clear, Normal Breath Sounds, No Accessory Muscle Use, No Respiratory Distress Cardiovascular: Regular Rate, Rhythm, No Edema, Normal Peripheral Pulses Capillary Refill: Less Than 3 Seconds Extremity: Normal Capillary Refill, Normal Inspection, Normal Range of Motion, Non Tender, No Calf Tenderness, No Pedal Edema Neurologic/Psychiatric: Alert, No Motor/Sensory Deficits, Normal Mood/Affect Skin: Normal Color, Warm/Dry Lymphatic: No Adenopathy Results Lab Laboratory Tests 11/22/21 18:10 Assessment/Plan Assessment/Plan See free text. Critical Care: Critically Ill Patient SYDNEE CAVANAUGH MD Nov 22, 2021 21:18
[2021-11-22] MEDS ORDERED: ENOXAPARIN 100 MG/1 ML (LOVENOX) SYR SC SCH (23:30)
[2021-11-23] MEDS ORDERED: ALPRAZolam 0.5 MG (XANAX) TAB PO PRN
[2021-11-23 05:08] LABS: BASOPHILS # (AUTO) 0.1 10^3/uL (0.0-0.1); BASOPHILS % (AUTO) 1 % (0-10); EOSINOPHILS # (AUTO) 0.4 10^3/uL (0.0-0.3); EOSINOPHILS % (AUTO) 5 % (0-10); HEMATOCRIT 47 % (40-54); HEMOGLOBIN 15.8 g/dL (13.3-17.7); LYMPHOCYTES % (AUTO) 49 % (12-44); MEAN CORPUSCULAR HEMOGLOBIN 31 pg (25-34); MEAN CORPUSCULAR HGB CONC 34 g/dL (32-36); MEAN CORPUSCULAR VOLUME 93 fL (80-99); MEAN PLATELET VOLUME 11.2 fL (9.0-12.2); MONOCYTES # (AUTO) 0.7 10^3/uL (0.0-1.0); MONOCYTES % (AUTO) 8 % (0-12); NEUTROPHILS % (AUTO) 37 % (42-75); PLATELET COUNT 175 10^3/uL (130-400); WHITE BLOOD COUNT 8.2 10^3/uL (4.3-11.0)
[2021-11-23 05:26] LABS: CHLORIDE 106 MMOL/L (98-107); POTASSIUM 4.2 MMOL/L (3.6-5.0); SODIUM 137 MMOL/L (135-145)
[2021-11-23 05:27] LABS: ALBUMIN 3.7 GM/DL (3.2-4.5)
[2021-11-23 05:29] LABS: GLUCOSE 163 MG/DL (70-105); TOTAL PROTEIN 6.5 GM/DL (6.4-8.2); TRIGLYCERIDES 646 MG/DL (<150)
[2021-11-23 05:30] LABS: CARBON DIOXIDE 22 MMOL/L (21-32)
[2021-11-23 05:31] LABS: BILIRUBIN,TOTAL 0.3 MG/DL (0.1-1.0)
[2021-11-23 05:33] LABS: ALKALINE PHOSPHATASE 47 U/L (40-136); CREATININE SERUM 1.03 MG/DL (0.60-1.30); GFR ESTIMATED 85
[2021-11-23 05:34] LABS: BUN/CREATININE RATIO 13; CHOLESTEROL 203 MG/DL (< 200)
[2021-11-23 05:35] LABS: HDL CHOLESTEROL 31 MG/DL (40-60)
[2021-11-23 05:36] LABS: ALANINE AMINOTRANSFERASE 18 U/L (0-55)
--- NOTE | 2021-11-23 06:59 | History & Physical-Hospitalist ---
History of Present Illness HPI/Chief Complaint CC: Chest pain HPI: This is a 56 yr old WM. He has a history of 4 stents. He presented with chest pain. He will have a cardiac cath today due to unstable angina. He was maintained on Aspirin, Metoprolol, Lovenox, and Statin. Source: patient Exam Limitations: no limitations Date Seen 11/23/21 Time Seen by a Provider: 09:30 Attending Physician [place] PCP Admitting Physician: Marivel Ascencio DO Attending Physician: Marivel Ascencio DO Referring Physician Date of Admission Nov 22, 2021 at 19:28 Home Medications & Allergies Home Medications Reviewed patient Home Medication Reconciliation performed by pharmacy medication reconciliations hydro technician and/or nursing. Patients Allergies have been reviewed. Allergies Allergies Coded Allergies aspartame (Verified Allergy, Unknown, 12/10/20) pioglitazone (Verified Allergy, Unknown, 12/10/20) Gbikoif-ZLT-CmQ Reductase Inhibitor (Verified Adverse Reaction, Unknown, 12/10/20) Unspecified adverse reaction Past Nnqcczl-Pzhigj-Hwapfl Hx Patient Social History Marrital Status: single Employed/Student: unemployed Tobacco Use?: No Smoking Status: Former Smoker Use of E-Cig and/or Vaping dev: No Substance use?: No Alcohol Use?: Yes Alcohol type: Beer Alcohol Frequency: Once in a while Pt feels they are or have been: No Immunizations Up To Date Date of Influenza Vaccine: Mar 12, 2008 First/Initial COVID19 Vaccinat: AUGUST 2020 Second COVID19 Vaccination Norman: SEPTEMBER 2020 Tetanus Booster (TDap): Unknown PED Vaccines UTD: Yes Date of Pneumonia Vaccine: Feb 20, 2008 Seasonal Allergies Seasonal Allergies: No Current Status Advance Directives: No Communicates: Verbally Primary Language: Samoan Preferred Spoken Language: Samoan Is interpretation needed?: No Sensory deficits: Vision impairment Implanted or Applied Medical D: Stents, Other Past Medical History Surgeries: Coronary Stent, Orthopedic Sleep Apnea Currently Using CPAP: No Currently Using BIPAP: No Coronary Artery Disease, Heart Attack, High Cholesterol, Hypertension TIA Gastroesophageal Reflux, Diverticulosis, Hiatal Hernia Arthritis Diabetes, Non-Insulin dep Blood Disorders: No PMHx CAD HTN SurgHx: Cardiac stenting Colon resection for diverticulitis Review of Systems Constitutional: see HPI EENTM: no symptoms reported Respiratory: no symptoms reported Cardiovascular: chest pain Gastrointestinal: no symptoms reported Genitourinary: no symptoms reported Musculoskeletal: no symptoms reported Skin: no symptoms reported Psychiatric/Neurological: No Symptoms Reported All Other Systems Reviewed Negative Unless Noted: Yes Physical Exam Physical Exam Vital Signs Vital Signs - First Documented 11/22/21 17:55 Temp 36.7 Pulse 80 Resp 14 B/P (MAP) 142/91 (108) Pulse Ox 97 O2 Delivery Room Air Capillary Refill : Less Than 3 Seconds Height, Weight, BMI Height: 6'2.00" Weight: 240lbs. 0.0oz. 108.497638ai; 29.02 BMI Method:Stated General Appearance: No Apparent Distress, Chronically ill Eyes: Right Eye Normal Inspection, Right Eye PERRL HEENT: PERRL/EOMI, Normal ENT Inspection, Pharynx Normal, Moist Mucous Membranes Neck: Full Range of Motion, Normal Inspection, Non Tender Respiratory: Chest Non Tender, Lungs Clear, Normal Breath Sounds, No Accessory Muscle Use, No Respiratory Distress Cardiovascular: Regular Rate, Rhythm, No Edema, No Gallop, No JVD, No Murmur, Normal Peripheral Pulses Gastrointestinal: Normal Bowel Sounds, No Organomegaly, No Pulsatile Mass, Non Tender, Soft Back: Normal Inspection, No CVA Tenderness, No Vertebral Tenderness Extremity: Normal Capillary Refill, Normal Inspection, Normal Range of Motion, Non Tender, No Calf Tenderness, No Pedal Edema Neurologic/Psychiatric: Alert, Oriented x3, No Motor/Sensory Deficits, Normal Mood/Affect Skin: Normal Color, Warm/Dry Lymphatic: No Adenopathy Results Results/Procedures Labs Laboratory Tests 11/22/21 18:10 11/23/21 04:56 Patient resulted labs reviewed. Assessment/Plan Admission Diagnosis Assessment: Chest pain Unstable angina CAD HTN HLP JOSE JUAN Plan: Monitor BP Statin Lovenox Cath today Admission Status: Inpatient Order (span 2 midnights) Reason for Inpatient Admission: unstable angina Diagnosis/Problems Diagnosis/Problems (1) Unstable angina Status: Acute Clinical Quality Measures AMI/AHF: ASA po Prior to arrival: MARIVEL Young DO Nov 23, 2021 06:59
--- NOTE | 2021-11-23 08:00 | Consultation-Cardiology ---
HPI-Cardiology Cardiology Consultation: Date of Consultation 11/23/21 Time Seen by a Provider: 08:20 Date of Admission Attending Physician [facility] Admitting Physician Admitting Physician: Marivel Ascencio DO Attending Physician: Marivel Ascencio DO Consulting Physician Luigi Sanchez MD Primary Vapor Coater: Dr. Huddleston HPI: Chief Complaint: Angina Mr. Márquez is a 56 yr old male admitted to ICU 10 from the ED with c/o CP. He reports he started having chest pain, mid-sternal pressure with occ radiation into the left shoulder, brought on with exertion and resolved with rest. He reports the pain has been occurring daily and progressed to every day over the last 2 days with assoc GI upset. He reports over the last 2 days even minimal exertion has caused him to have chest pain. The episodes last for up to 5 tigist yan or less. He reports assoc SOB, nausea and diaphoresis. He denies any syncope or near syncope. No c/o palpitations. He reports he stopped taking all his medication approx 2 days ago to see if his symptoms resolved. He is currently pain free. He is reporting the symptoms he is experiencing are similar to when he had his previous heart attack. Review of Systems-Cardiology Review of Systems Constitutional: No chills, No fever; lightheadedness Eyes: No vision change Ears/Nose/Throat: No epistaxis, No recent hearing loss Respiratory: As described under HPI Cardiovascular: As described under HPI Gastrointestinal: As described under HPI Genitourinary: No dysuria, No hematuria Skin: No rash on exposed areas, No ulcerations on exposed areas Psychiatric/Neurological: anxiety; No depression, No seizure, No focal weakness, No syncope Hematologic: No bleeding abnormalities All Other Systems Reviewed Negative Unless Noted: Yes ZEH-Daycce-Yiomle Hx Patient Social History 2nd Hand Smoke Exposure: Yes Have you traveled recently?: No Alcohol Use?: Yes Pt feels they are or have been: No Immunizations Up To Date Tetanus Booster (TDap): Unknown Date of Pneumonia Vaccine: Feb 20, 2008 Date of Influenza Vaccine: Mar 12, 2008 Past Medical History PMH As described under Assessment. Family Medical History Family Medical History: Does not report fam h/o early CAD Allergies and Home Medications Allergies Coded Allergies: aspartame (Verified Allergy, Unknown, 12/10/20) pioglitazone (Verified Allergy, Unknown, 12/10/20) [id number]-[id number] Reductase Inhibitor (Verified Adverse Reaction, Unknown, 12/10/20) Unspecified adverse reaction Patient Home Medication List Aspirin (Aspirin EC) 81 Mg Tablet.dr, 81 MG PO DAILY, (Reported) Entered as Reported by: GIANNA HINDS on 02/13/19 0749 Last Action: Reviewed Canagliflozin (Invokana) 100 Mg Tablet, 100 MG PO DAILY, (Reported) Entered as Reported by: GIANNA HINDS on 11/23/211131 Last Action: Reviewed Clopidogrel Bisulfate (Clopidogrel) 75 Mg Tablet, 75 MG PO DAILY, (Reported) Entered as Reported by: GIANNA HINDS on 11/23/211131 Last Action: Reviewed Cyanocobalamin (Vitamin B-12) (Vitamin B-12) 250 Mcg Tablet, 250 MCG PO DAILY, (Reported) Entered as Reported by: GIANNA HINDS on 11/23/211131 Last Action: Reviewed Ezetimibe (Ezetimibe) 10 Mg Tablet, 10 MG PO HS, (Reported) Entered as Reported by: GIANNA HINDS on 11/23/211131 Last Action: Reviewed Liraglutide (Victoza 3-Lev) 0.6 Mg/0.1 Ml (18 Mg/3 Ml) Pen.injctr, 0.6 MG SQ HS, (Reported) Entered as Reported by: GIANNA HINDS on 11/23/211131 Last Action: Reviewed Niacin (Inositol Niacinate) (Niacin Flush Free 500 mg Cap) 400 Mg Niacin (500 Mg) Capsule, 400 MG PO 1200, (Reported) Entered as Reported by: GIANNA HINDS on 11/23/211131 Last Action: Reviewed Thiamine HCl (Vitamin B-1) 50 Mg Tablet, 50 MG PO DAILY, (Reported) Entered as Reported by: GIANNA HINDS on 11/23/211131 Last Action: Reviewed Discontinued Medications Cephalexin (Cephalexin) 500 Mg Tablet, 500 MG PO QID Discontinued Reason: No Longer Taking Prescribed by: TRAE MAJANO on 01/01/21 0223 Last Action: Discontinued Clopidogrel Bisulfate (Clopidogrel) 75 Mg Tablet, 75 MG PO DAILY Discontinued Reason: No Longer Taking Prescribed by: MAEVE HYLTON on 01/04/20 1000 Last Action: Discontinued Docusate Sodium (Colace) 100 Mg Capsule, 100 MG PO BID Discontinued Reason: No Longer Taking Prescribed by: ROSANNE KUO on 12/10/20 1048 Last Action: Discontinued Evolocumab (Repatha Sureclick) 140 Mg/1 Ml Pen.injctr, 140 MG SQ DAILY, (Reported) Discontinued Reason: No Longer Taking Entered as Reported by: GHAZALA BONILLA on 12/07/20 1306 Last Action: Discontinued Fenofibrate,Micronized (Fenofibrate) 134 Mg Capsule, 134 MG PO HS Discontinued Reason: No Longer Taking Prescribed by: MAEVE HYLTON on 01/04/20 1000 Last Action: Discontinued Fish Oil/Dha/Epa (Fish Oil 1,200 mg Fish Oil) 1 Each Capsule, 1 EACH PO BID, (Reported) Discontinued Reason: No Longer Taking Entered as Reported by: YONNY CHARLES on 10/27/20 1055 Last Action: Discontinued Hydrocodone/Acetaminophen (Hydrocodone-Acetamin 5-325 mg) 1 Each Tablet, 1 EACH PO Q4H PRN for PAIN-MODERATE (5-7) Discontinued Reason: No Longer Taking Prescribed by: ROSANNE KUO on 12/10/20 1049 Last Action: Discontinued Krill Oil (Krill Oil) 500 Mg Capsule, 500 MG PO DAILY, (Reported) Discontinued Reason: No Longer Taking Entered as Reported by: YONNY CHARLES on 10/27/20 1055 Last Action: Discontinued Metoprolol Tartrate (Metoprolol Tartrate) 50 Mg Tablet, 50 MG PO DAILY, (Reported) Discontinued Reason: No Longer Taking Entered as Reported by: GIANNA HINDS on 02/13/19748 Last Action: Discontinued Nitroglycerin (Nitroglycerin) 0.4 Mg Tab.subl, 0.4 MG SL UD PRN for CHEST PAIN, (Reported) Discontinued Reason: No Longer Taking Entered as Reported by: GIANNA HINDS on 02/13/19748 Last Action: Discontinued Tramadol HCl (Tramadol HCl) 50 Mg Tablet, 50 MG PO Q4H PRN for PAIN-MILD (1-4) Discontinued Reason: No Longer Taking Prescribed by: FABIÁN WILLIAMSON on 07/27/21 1510 Last Action: Discontinued Physical Exam-Cardiology Physical Exam Vital Signs/I&O 11/23/21 11/23/21 11/23/2122 05:00 06:00 06:29 07:00 Pulse 61 61 59 66 Resp 12 14 9 B/P (MAP) 121/81 133/91 113/85 Pulse Ox 95 95 95 O2 Delivery Room Air Room Air Room Air 11/23/21 11/23/21 11/23/21 11/23/21 08:00 08:00 08:33 09:00 Temp 36.2 Pulse 62 61 Resp 12 14 B/P (MAP) 125/84 130/108 Pulse Ox 94 97 94 O2 Delivery Room Air Room Air Room Air 11/23/21 11/23/21 11/23/21 11/23/21 10:00 11:00 12:00 12:00 Temp 36.5 Pulse 58 57 58 Resp 14 9 8 B/P (MAP) 118/76 127/93 100/71 Pulse Ox 94 91 94 O2 Delivery Room Air Room Air Room Air 11/23/21 11/23/21 11/23/21 11/23/21 12:16 12:28 13:00 14:00 Pulse 61 54 60 Resp 11 10 B/P (MAP) 97/63 113/75 Pulse Ox 97 93 95 O2 Delivery Room Air Room Air Room Air 11/23/21 15:31 Pulse Ox 97 O2 Delivery Room Air 11/23/21 00:00 Intake Total 0 ml Output Total 0 ml Balance 0 ml Capillary Refill : Less Than 3 Seconds Constitutional: AAO x 3, well-developed, well-nourished HEENT: PERRL, hearing is well preserved, oral hygience is good Neck: No carotid bruit; carotid pulses are 2 + bilaterally Respiratory: No accessory muscle use, No respiratory distress; chest expansion is symmetric, chest is bilaterally symmetric, lungs clear to auscultation Cardiovascular: regular rate-rhythm; No JVD; S1 and S2 Gastrointestinal: No tender; soft, round, audible bowel sounds Extremities: no lower extremity edema bilateral Neurologic/Psychiatric: grossly intact (moves all extremities) Skin: No rash on exposed areas, No ulcerations on exposed areas Data Review Labs Laboratory Tests 11/22/21 18:10: White Blood Count 9.4, Red Blood Count 5.15, Hemoglobin 16.3, Hematocrit 47, Mean Corpuscular Volume 91, Mean Corpuscular Hemoglobin 32, Mean Corpuscular Hemoglobin Concent 35, Red Cell Distribution Width 12.3, Platelet Count 194, Mean Platelet Volume 11.4, Immature Granulocyte % (Auto) 0, Neutrophils (%) (Auto) 48, Lymphocytes (%) (Auto) 40, Monocytes (%) (Auto) 7, Eosinophils (%) (Auto) 4, Basophils (%) (Auto) 1, Neutrophils # (Auto) 4.5, Lymphocytes # (Auto) 3.8, Monocytes # (Auto) 0.7, Eosinophils # (Auto) 0.4H, Basophils # (Auto) 0.1, Immature Granulocyte # (Auto) 0.0, Prothrombin Time 12.8, INR Comment 0.9, Activated Partial Thromboplast Time 30, Sodium Level 137, Potassium Level 3.8, Chloride Level 105, Carbon Dioxide Level 20L, Anion Gap 12, Blood Urea Nitrogen 14, Creatinine 1.15, Estimat Glomerular Filtration Rate 74, BUN/Creatinine Ratio 12, Glucose Level 291H, Calcium Level 9.3, Corrected Calcium 9.5, Magnesium Level 1.6, Total Bilirubin 0.2, Aspartate Amino Transf (AST/SGOT) 18, Alanine Aminotransferase (ALT/SGPT) 20, Alkaline Phosphatase 57, Troponin I < 0.028, B- Type Natriuretic Peptide 28.6, Total Protein 7.0, Albumin 3.8, Lipase 67 11/22/21 22:54: Troponin I < 0.028 11/23/21 04:56: White Blood Count 8.2, Red Blood Count 5.07, Hemoglobin 15.8, Hematocrit 47, Mean Corpuscular Volume 93, Mean Corpuscular Hemoglobin 31, Mean Corpuscular Hemoglobin Concent 34, Red Cell Distribution Width 12.5, Platelet Count 175, Mean Platelet Volume 11.2, Immature Granulocyte % (Auto) 0, Neutrophils (%) (Auto) 37L, Lymphocytes (%) (Auto) 49H, Monocytes (%) (Auto) 8, Eosinophils (%) (Auto) 5, Basophils (%) (Auto) 1, Neutrophils # (Auto) 3.0, Lymphocytes # (Auto) 4.0, Monocytes # (Auto) 0.7, Eosinophils # (Auto) 0.4H, Basophils # (Auto) 0.1, Immature Granulocyte # (Auto) 0.0, Sodium Level 137, Potassium Level 4.2, Chloride Level 106, Carbon Dioxide Level 22, Anion Gap 9, Blood Urea Nitrogen 13, Creatinine 1.03, Estimat Glomerular Filtration Rate 85, BUN/Creatinine Ratio 13, Glucose Level 163H, Calcium Level 9.0, Corrected Calcium 9.2, Magnesium Level 1.8, Total Bilirubin 0.3, Aspartate Amino Transf (AST/SGOT) 16, Alanine Aminotransferase (ALT/SGPT) 18, Alkaline Phosphatase 47, Troponin I < 0.028, Total Protein 6.5, Albumin 3.7, Triglycerides Level 646H, Cholesterol Level 203H , LDL Cholesterol Direct 101, VLDL Cholesterol , HDL Cholesterol 31L Radiology NAME: AUGUSTINE MÁRQUEZ [facility] REC#: [id number] PT STATUS: REG ER : 1965 PHYSICIAN: VICTORIA HARDEN MD ADMIT DATE: 11/22/21/ER Signed Date of Exam:11/22/21 CHEST 1 VIEW, AP/PA ONLY EXAM: CHEST 1 VIEW, AP/PA ONLY INDICATION: Chest pain. COMPARISON: 01/02/2020. FINDINGS: Normal heart size and central pulmonary vascularity. No focal pulmonary opacity. No pleural effusion or pneumothorax. No acute osseous findings. No significant change. IMPRESSION: Negative chest. Dictated by: Dictated on workstation # [id number] Dict: 11/[id number]/[id number] Trans: 11/22/211935 [facility] [id number] Interpreted by: CHARLOTTE MAYO MD Electronically signed by: CHARLOTTE MAYO MD 11/22/211935 ECG Impression ECG Initial ECG Rhythm: Normal Sinus A/P-Cardiology Assessment/Admission Diagnosis Chest pain - symptoms suggestive of angina Coronary artery disease - History of myocardial infarction in 2010, had 3 stents placed in the right coronary artery using Promus element 3.512 mm followed by 3.028 followed by 2.512 mm in the right coronary artery - Had another 2 cardiac catheterization reported that the stent was open. - Cardiac catheterization was done on February 13, [address] Huddleston showing severe mid LAD stenosis with successful primary stenting using Dori 2.512 mm expanded to 2.7 mm with excellent results, patent stent in the proximal and midright coronary artery with a step down beyond the stent, mild to moderate disease nonobstructive disease, normal left ventricular size and function. - Last Cardiac catheterization done December [address] Huddleston with balloon marko oplasty to the RCA. - Lexiscan stress test was done on August 04, [address] Huddleston showing no ischemia no infarction, stress score 0, EF 59% - Echo done August 04, [address] Huddleston showing normal LV size, EF 50 to 55%, grade 1 diastolic dysfunction, PA pressure 30 to 35 mmHg. Mild peripheral arterial disease - angiogram done in February 2019 showing normal bilateral lower extremity runoff down to the trifurcation, the vessels below the trifurcation were not well visualized Hypertension Hyperlipidemia - unable to tolerate statins secondary to myalgias, was unable to afford Rapatha . Maintained on Zetia Holter monitor done in June 2019 showing sinus rhythm, transient second- degree AV block, Mobitz 1, multiple short runs of paroxysmal atrial tachycardia and occasional atrial premature contractions History of multiple TIA - ASA and Plavix Mild bilateral carotid stenosis - last ultrasound was done in May 2021 History of diverticulitis with colon resection History of gastroesophageal reflux disease - had Cesia fundoplication in the past Discussion and Recomendations Chest pain which by description is suggestive of angina. Based on his symptoms, h/o, risk factors we advise cardiac cath. We have discussed the procedure, risks, benefits and potential complications of cardiac cath with poss ad hoc coronary intervention to which he provides informed consent. Continue current medication regimen including ASA, Plavix and Lovenox Continue BB Monitor lab Further recs will be based on his hospital course We would like to thank medical services for this consult Clinical Quality Measures AMI/AHF: ASA po Prior to arrival: CHENG Valdez Nov 23, 2021 08:00
[2021-11-23] MEDS: meTOproloL SUCCINATE 50 MG (TOPROL XL) TAB PO SCH (08:50)
[2021-11-23] MEDS: ASPIRIN E.C. 81 MG (ECOTRIN) TAB PO SCH (08:50)
[2021-11-23] MEDS: DOCUSATE SODIUM 100 MG (COLACE) CAP PO SCH ×2 (09:00→20:25)
[2021-11-23] MEDS ORDERED: ENOXAPARIN 100 MG/1 ML (LOVENOX) SYR SC SCH (09:00)
[2021-11-23] MEDS: SENNOSIDES 8.6 MG (SENOKOT) TAB PO SCH ×2 (09:01→20:25)
[2021-11-23] MEDS ORDERED: LIDOCAINE 1% INJ 20 ML VIAL ONE (09:33)
[2021-11-23] MEDS ORDERED: HEParin (CATH LAB) 2,000 ML IV ONE (09:33)
[2021-11-23] MEDS: NS IV 1000 ML 1,000 ML IV SCH ×2 (11:25→20:08)
[2021-11-23] MEDS ORDERED: CANA100T PO (11:32)
[2021-11-23] MEDS ORDERED: NIAC1CAP12 PO (11:32)
[2021-11-23] MEDS ORDERED: CYAN250T3 PO (11:32)
[2021-11-23] MEDS ORDERED: EZET10TA49 PO (11:32)
[2021-11-23] MEDS ORDERED: CLOP75TA28 PO (11:32)
[2021-11-23] MEDS ORDERED: LIRA0.6P3 SQ (11:32)
[2021-11-23] MEDS ORDERED: THIA50TA10 PO (11:32)
[2021-11-23] MEDS ORDERED: fentaNYL INJ 100 MCG/2 ML AMP ONE (15:18)
[2021-11-23] MEDS ORDERED: MIDAZOLAM 5 MG/5 ML (VERSED) VIAL ONE (15:19)
[2021-11-23] MEDS ORDERED: ONDANSETRON 4 MG/2 ML (SDV) Z0FRAN ONE (15:31)
[2021-11-23] MEDS ORDERED: diphenhydrAMINE 50 MG/ML INJ (BENADRYL) ONE (15:36)
--- NOTE | 2021-11-23 15:36 | Consultation-Cardiology ---
HPI-Cardiology Cardiology Consultation: Date of Consultation 11/23/21 Time Seen by a Provider: 15:00 Date of Admission Attending Physician [facility] Admitting Physician Admitting Physician: Marivel Ascencio DO Attending Physician: Marivel Ascencio DO Consulting Physician SRINIVAS CREWS MD, MA, FACP, FACC, [facility] [place], CCDS Physician requesting consult: Dr Ascencio Primary hand router operator: Dr Huddleston HPI: Chief Complaint: Angina Mr. Márquez is a 56 yr old male admitted to ICU 10 from the ED with c/o CP. He reports he started having chest pain, mid-sternal pressure with occ radiation into the left shoulder, brought on with exertion and resolved with rest. He reports the pain has been occurring daily and progressed to every day over the last 2 days with assoc GI upset. He reports over the last 2 days even minimal exertion has caused him to have chest pain. The episodes last for up to 5 minutes or less. He reports assoc SOB, nausea and diaphoresis. He denies any syncope or near syncope. No c/o palpitations. He reports he stopped taking all his medication approx 2 days ago to see if his symptoms resolved. He is currently pain free. He is reporting the symptoms he is experiencing are similar to when he had his previous heart attack. Review of Systems-Cardiology Review of Systems Constitutional: No chills, No fever; lightheadedness Eyes: No vision change Ears/Nose/Throat: No epistaxis, No recent hearing loss Respiratory: As described under HPI Cardiovascular: As described under HPI Gastrointestinal: As described under HPI Genitourinary: No dysuria, No hematuria Skin: No rash on exposed areas, No ulcerations on exposed areas Psychiatric/Neurological: anxiety; No depression, No seizure, No focal weakness, No syncope Hematologic: No bleeding abnormalities All Other Systems Reviewed Negative Unless Noted: Yes JNE-Pxnzeo-Tutmfi Hx Patient Social History 2nd Hand Smoke Exposure: Yes Have you traveled recently?: No Alcohol Use?: Yes Pt feels they are or have been: No Immunizations Up To Date Tetanus Booster (TDap): Unknown Date of Pneumonia Vaccine: Feb 20, 2008 Date of Influenza Vaccine: Mar 12, 2008 Past Medical History PMH As described under Assessment. Family Medical History Family Medical History: Does not report fam h/o early CAD Allergies and Home Medications Allergies Coded Allergies: aspartame (Verified Allergy, Unknown, 12/10/20) pioglitazone (Verified Allergy, Unknown, 12/10/20) Qujxsor-BAT-XxR Reductase Inhibitor (Verified Adverse Reaction, Unknown, 12/10/20) Unspecified adverse reaction Patient Home Medication List Home Medication List Reviewed: Yes Aspirin (Aspirin EC) 81 Mg Tablet.dr, 81 MG PO DAILY, (Reported) Entered as Reported by: GIANNA HINDS on 02/13/19 0749 Last Action: Reviewed Canagliflozin (Invokana) 100 Mg Tablet, 100 MG PO DAILY, (Reported) Entered as Reported by: GIANNA HINDS on 11/23/211131 Last Action: Reviewed Clopidogrel Bisulfate (Clopidogrel) 75 Mg Tablet, 75 MG PO DAILY, (Reported) Entered as Reported by: GIANNA HINDS on 11/23/211131 Last Action: Reviewed Cyanocobalamin (Vitamin B-12) (Vitamin B-12) 250 Mcg Tablet, 250 MCG PO DAILY, (Reported) Entered as Reported by: GIANNA HINDS on 11/23/211131 Last Action: Reviewed Ezetimibe (Ezetimibe) 10 Mg Tablet, 10 MG PO HS, (Reported) Entered as Reported by: GIANNA HINDS on 11/23/211131 Last Action: Reviewed Liraglutide (Victoza 3-Lev) 0.6 Mg/0.1 Ml (18 Mg/3 Ml) Pen.injctr, 0.6 MG SQ HS, (Reported) Entered as Reported by: GIANNA HINDS on 11/23/211131 Last Action: Reviewed Niacin (Inositol Niacinate) (Niacin Flush Free 500 mg Cap) 400 Mg Niacin (500 Mg) Capsule, 400 MG PO 1200, (Reported) Entered as Reported by: GIANNA HINDS on 11/23/211131 Last Action: Reviewed Thiamine HCl (Vitamin B-1) 50 Mg Tablet, 50 MG PO DAILY, (Reported) Entered as Reported by: GIANNA HINDS on 11/23/211131 Last Action: Reviewed Discontinued Medications Cephalexin (Cephalexin) 500 Mg Tablet, 500 MG PO QID Discontinued Reason: No Longer Taking Prescribed by: TRAE MAJANO on 01/01/21 0225 Last Action: Discontinued Clopidogrel Bisulfate (Clopidogrel) 75 Mg Tablet, 75 MG PO DAILY Discontinued Reason: No Longer Taking Prescribed by: MAEVE HYLTON on 01/04/20 1000 Last Action: Discontinued Docusate Sodium (Colace) 100 Mg Capsule, 100 MG PO BID Discontinued Reason: No Longer Taking Prescribed by: ROSANNE KUO on 12/10/20 1048 Last Action: Discontinued Evolocumab (Repatha Sureclick) 140 Mg/1 Ml Pen.injctr, 140 MG SQ DAILY, (Reported) Discontinued Reason: No Longer Taking Entered as Reported by: GHAZALA BONILLA on 12/07/20 1306 Last Action: Discontinued Fenofibrate,Micronized (Fenofibrate) 134 Mg Capsule, 134 MG PO HS Discontinued Reason: No Longer Taking Prescribed by: MAEVE HYLTNO on 01/04/20 1000 Last Action: Discontinued Fish Oil/Dha/Epa (Fish Oil 1,200 mg Fish Oil) 1 Each Capsule, 1 EACH PO BID, (Reported) Discontinued Reason: No Longer Taking Entered as Reported by: YONNY CHARLES on 10/27/20 1055 Last Action: Discontinued Hydrocodone/Acetaminophen (Hydrocodone-Acetamin 5-325 mg) 1 Each Tablet, 1 EACH PO Q4H PRN for PAIN-MODERATE (5-7) Discontinued Reason: No Longer Taking Prescribed by: ROSANNE KUO on 12/10/20 1049 Last Action: Discontinued Krill Oil (Krill Oil) 500 Mg Capsule, 500 MG PO DAILY, (Reported) Discontinued Reason: No Longer Taking Entered as Reported by: YONNY CHARLES on 10/27/20 1055 Last Action: Discontinued Metoprolol Tartrate (Metoprolol Tartrate) 50 Mg Tablet, 50 MG PO DAILY, (Reported) Discontinued Reason: No Longer Taking Entered as Reported by: GIANNA HINDS on 02/13/19748 Last Action: Discontinued Nitroglycerin (Nitroglycerin) 0.4 Mg Tab.subl, 0.4 MG SL UD PRN for CHEST PAIN, (Reported) Discontinued Reason: No Longer Taking Entered as Reported by: GIANNA HINDS on 02/13/19748 Last Action: Discontinued Tramadol HCl (Tramadol HCl) 50 Mg Tablet, 50 MG PO Q4H PRN for PAIN-MILD (1-4) Discontinued Reason: No Longer Taking Prescribed by: FABIÁN WILLIAMSON on 07/27/21 1510 Last Action: Discontinued Physical Exam-Cardiology Physical Exam Vital Signs/I&O 11/23/21 11/23/21 11/23/21 11/23/21 03:58 04:00 04:00 05:00 Temp 36.1 Pulse 58 61 Resp 12 B/P (MAP) 112/77 121/81 Pulse Ox 97 96 95 O2 Delivery Room Air Room Air Room Air 11/23/21 11/23/21 11/23/21 11/23/21 06:00 06:29 07:00 08:00 Temp 36.2 Pulse 61 59 66 Resp 14 9 B/P (MAP) 133/91 113/85 Pulse Ox 95 95 O2 Delivery Room Air Room Air 11/23/21 11/23/21 11/23/21 11/23/21 08:00 08:33 09:00 10:00 Pulse 62 61 58 Resp 12 14 14 B/P (MAP) 125/84 130/108 118/76 Pulse Ox 94 97 94 94 O2 Delivery Room Air Room Air Room Air Room Air 11/23/21 11/23/21 11/23/21 11/23/21 11:00 12:00 12:00 12:16 Temp 36.5 Pulse 57 58 Resp 9 8 B/P (MAP) 127/93 100/71 Pulse Ox 91 94 97 O2 Delivery Room Air Room Air Room Air 11/23/21 11/23/21 11/23/21 11/23/21 12:28 13:00 14:00 15:31 Pulse 61 54 60 Resp 11 10 B/P (MAP) 97/63 113/75 Pulse Ox 93 95 97 O2 Delivery Room Air Room Air Room Air 11/23/21 00:00 Intake Total 0 ml Output Total 0 ml Balance 0 ml Capillary Refill : Less Than 3 Seconds Constitutional: AAO x 3, well-developed, well-nourished HEENT: PERRL, hearing is well preserved, oral hygience is good Neck: No carotid bruit; carotid pulses are 2 + bilaterally Respiratory: No accessory muscle use, No respiratory distress; chest expansion is symmetric, chest is bilaterally symmetric, lungs clear to auscultation Cardiovascular: regular rate-rhythm; No JVD; S1 and S2 Gastrointestinal: No tender; soft, round, audible bowel sounds Extremities: no lower extremity edema bilateral Neurologic/Psychiatric: grossly intact (moves all extremities) Skin: No rash on exposed areas, No ulcerations on exposed areas Data Review Labs Laboratory Tests 11/22/21 18:10: White Blood Count 9.4, Red Blood Count 5.15, Hemoglobin 16.3, Hematocrit 47, Mean Corpuscular Volume 91, Mean Corpuscular Hemoglobin 32, Mean Corpuscular Hemoglobin Concent 35, Red Cell Distribution Width 12.3, Platelet Count 194, Mean Platelet Volume 11.4, Immature Granulocyte % (Auto) 0, Neutrophils (%) (Auto) 48, Lymphocytes (%) (Auto) 40, Monocytes (%) (Auto) 7, Eosinophils (%) (Auto) 4, Basophils (%) (Auto) 1, Neutrophils # (Auto) 4.5, Lymphocytes # (Auto) 3.8, Monocytes # (Auto) 0.7, Eosinophils # (Auto) 0.4H, Basophils # (Auto) 0.1, Immature Granulocyte # (Auto) 0.0, Prothrombin Time 12.8, INR Comment 0.9, Activated Partial Thromboplast Time 30, Sodium Level 137, Potassium Level 3.8, Chloride Level 105, Carbon Dioxide Level 20L, Anion Gap 12, Blood Urea Nitrogen 14, Creatinine 1.15, Estimat Glomerular Filtration Rate 74, BUN/Creatinine Ratio 12, Glucose Level 291H, Calcium Level 9.3, Corrected Calcium 9.5, Magnesium Level 1.6, Total Bilirubin 0.2, Aspartate Amino Transf (AST/SGOT) 18, Alanine Aminotransferase (ALT/SGPT) 20, Alkaline Phosphatase 57, Troponin I < 0.028, B- Type Natriuretic Peptide 28.6, Total Protein 7.0, Albumin 3.8, Lipase 67 11/22/21 22:54: Troponin I < 0.028 11/23/21 04:56: White Blood Count 8.2, Red Blood Count 5.07, Hemoglobin 15.8, Hematocrit 47, Mean Corpuscular Volume 93, Mean Corpuscular Hemoglobin 31, Mean Corpuscular Hemoglobin Concent 34, Red Cell Distribution Width 12.5, Platelet Count 175, Mean Platelet Volume 11.2, Immature Granulocyte % (Auto) 0, Neutrophils (%) (Auto) 37L, Lymphocytes (%) (Auto) 49H, Monocytes (%) (Auto) 8, Eosinophils (%) (Auto) 5, Basophils (%) (Auto) 1, Neutrophils # (Auto) 3.0, Lymphocytes # (Auto) 4.0, Monocytes # (Auto) 0.7, Eosinophils # (Auto) 0.4H, Basophils # (Auto) 0.1, Immature Granulocyte # (Auto) 0.0, Sodium Level 137, Potassium Level 4.2, Chloride Level 106, Carbon Dioxide Level 22, Anion Gap 9, Blood Urea Nitrogen 1 3, Creatinine 1.03, Estimat Glomerular Filtration Rate 85, BUN/Creatinine Ratio 13, Glucose Level 163H, Calcium Level 9.0, Corrected Calcium 9.2, Magnesium Level 1.8, Total Bilirubin 0.3, Aspartate Amino Transf (AST/SGOT) 16, Alanine A minotransferase (ALT/SGPT) 18, Alkaline Phosphatase 47, Troponin I < 0.028, Total Protein 6.5, Albumin 3.7, Triglycerides Level 646H, Cholesterol Level 203H , LDL Cholesterol Direct 101, VLDL Cholesterol , HDL Cholesterol 31L A/P-Cardiology Assessment/Admission Diagnosis Chest pain - symptoms suggestive of angina Coronary artery disease - History of myocardial infarction in 2010, had 3 stents placed in the right coronary artery using Promus element 3.512 mm followed by 3.028 followed by 2.512 mm in the right coronary artery - Had another 2 cardiac catheterization reported that the stent was open. - Cardiac catheterization was done on February 13, [address] Huddleston showing severe mid LAD stenosis with successful primary stenting using Dori 2.512 mm expanded to 2.7 mm with excellent results, patent stent in the proximal and midright coronary artery with a step down beyond the stent, mild to moderate disease nonobstructive disease, normal left ventricular size and function. - Last Cardiac catheterization done December [address] Huddleston with balloon angioplasty to the RCA. - Lexiscan stress test was done on August 04, [address] Huddleston showing no ischemia no infarction, stress score 0, EF 59% - Echo done August 04, [address] Huddleston showing normal LV size, EF 50 to 55%, grade 1 diastolic dysfunction, PA pressure 30 to 35 mmHg. Mild peripheral arterial disease - angiogram done in February 2019 showing normal bilateral lower extremity runoff down to the trifurcation, the vessels below the trifurcation were not well visualized Hypertension Hyperlipidemia - unable to tolerate statins secondary to myalgias, was unable to afford Rapatha. Maintained on Zetia Holter monitor done in June 2019 showing sinus rhythm, transient second- degree AV block, Mobitz 1, multiple short runs of paroxysmal atrial tachycardia and occasional atrial premature contractions History of multiple TIA - ASA and Plavix Mild bilateral carotid stenosis - last ultrasound was done in May 2021 History of diverticulitis with colon resection History of gastroesophageal reflux disease - had Cesia fundoplication in the past Discussion and Recomendations Chest pain which by description is suggestive of angina. Based on his symptoms, h/o, risk factors we advise cardiac cath. We have discussed the procedure, risks, benefits and potential complications of cardiac cath with poss ad hoc coronary intervention to which he provides informed consent. Continue current medication regimen including ASA, Plavix and Lovenox Continue BB Monitor lab Further recs will be based on his hospital course We would like to thank Medical services for this consult Clinical Quality Measures AMI/AHF: ASA po Prior to arrival: SRINIVAS Esquivel MD FACP [facility] CCDS Nov 23, 2021 15:36
[2021-11-23] MEDS ORDERED: HEParin 1000 UNIT/ML (10ML VIAL) FOR BOLUS ONE (15:53)
[2021-11-23] MEDS ORDERED: EPTIFIBATIDE BOLUS 20 ML IV ONE (16:01)
[2021-11-23] MEDS ORDERED: EPTIFIBATIDE DRIP 100 ML IV ONE (16:01)
[2021-11-23] MEDS ORDERED: CLOPIDOGREL 300 MG (PLAVIX) TABLET PO ONE (16:39)
[2021-11-23] MEDS ORDERED: ASPIRIN 81 MG CHEW (CHILDREN'S ASA) ONE (16:39)
[2021-11-23] MEDS ORDERED: PATIENT MAY USE OWN MEDS, ALL PO SCH (16:45)
--- NOTE | 2021-11-23 17:03 | Cardiac Procedure Note-CS/ASA ---
Pre-Procedure Note Pre-Op Procedure Note H&P Reviewed The H&P was reviewed, patient examined and no changes noted. Date H&P Reviewed: Nov 23, 2021 Time H&P Reviewed: 16:00 Conscious Sedation Pre-Proced Time 16:00 ASA Score 3 For ASA 3 and 4: Consider anesthesia and medical clearance. Also, for patients with a history of failed moderate sedation consider anesthesia. Airway Lungs Heart ASA score ASA 1: a normal healthy patient ASA 2: a patient with a mild systemic disease (mid diabetes, controlled hypertension, obesity ASA 3: a patient with a severe systemic disease that limits activity (angina, COPD, prior Myocardial infarction) ASA 4: a patient with an incapacitating disease that is a constant threat to life (CHF, renal failure) ASA 5: a moribund patient not expected to survive 24 hrs. (ruptured aneurysm) ASA 6: a declared brain- patient whose organs are being harvested. For emergent operations, add the letter E after the classification Mallampati Classification Grade 2 Sedation Plan Analgesia, Amnesia, Plan communicated to team members, Discussed options with patient/fam, Discussed risks with patient/fam The patient is an appropriate candidate to undergo the planned procedure, sedation, and anesthesia. The patient immediately re-assessed prior to indication. SRINIVAS CREWS MD FACP FAC CCDS Nov 23, 2021 17:03
--- NOTE | 2021-11-23 23:34 | CARDIAC CATHETERIZATION ---
DATE OF SERVICE: 11/23/2021 CARDIAC CATHETERIZATION AND CORONARY INTERVENTION REPORT The patient is a 56-year-old gentleman who is known to have coronary artery disease and who has been hospitalized with unstable angina. Symptoms have continued. Cardiac catheterization was recommended. Informed consent was obtained for cardiac catheterization and possible ad hoc coronary intervention. DESCRIPTION OF PROCEDURE: He was brought to the cardiac catheterization laboratory in a fasting state. Right groin was prepared and draped in the usual sterile fashion. Lidocaine 1% was used for local anesthesia. Modified Seldinger technique was used to advance a 5-Bhutanese sheath in the right femoral artery, 5-Bhutanese JL4 catheter for left coronary angiography, 5-Bhutanese JR4 catheter for right coronary angiography, 5-Bhutanese pigtail catheter was used for left heart catheterization and left ventricular angiography. Subsequently, percutaneous intervention to this was carried out to the left anterior descending and it is described below. Percutaneous intervention to the left anterior descending: The left anterior descending was exhibiting 99% stenosis in its mid portion just proximal to the edge of the previously placed stent. It was also exhibiting 80% stenosis just distal to the edge of the previously placed stent. We exchanged the sheath over a wire for a 6-Bhutanese sheath. We gave 6000 units of intravenous heparin. We gave a double bolus of Integrilin and Integrilin infusion was continued throughout the procedure and stopped at the end of the procedure. We used a 6-Bhutanese EBU 4 guide catheter to engage the left coronary artery. We then advanced a ChoICE extra support wire across the lesions in the mid left anterior descending and the tip was placed in the distal vessel. We carried out balloon angioplasty with a 2.5 x 30 mm balloon. We then stented the distal lesion just distal to the previously placed stent with Skypoint 2.5 x 23 mm stent. This was deployed at 9 atmospheres. The stent balloon was then collapsed and pulled back to cover the area of the overlap of the stent with the previous stent and the stent balloon was inflated to 16 atmospheres. This balloon was then removed. We then stented the proximal lesion that is just proximal to the proximal edge of the old stent. This was stented with Skypoint 2.75 x 23 mm stent and that was deployed at 18 atmospheres achieving a final stent lumen size of 2.97. Subsequent angiography revealed 0% residual stenosis. Flow throughout the vessel is normal. He tolerated the procedure well. Angioplasty equipment was removed. Angiography of the right femoral artery had been carried out through the sheath at the beginning of the procedure. At the end of the procedure, Mynx was used to achieve hemostasis. He tolerated the procedure well. HEMODYNAMICS: Left ventricular end-diastolic pressure following coronary angiography was 16 mmHg. There was no significant pressure gradient on pullback across the aortic valve. Ascending aortic pressure was 123/85 with a mean of 101 mmHg. CORONARY ANGIOGRAPHY: Left main coronary artery does not exhibit significant disease. Left anterior descending artery had 95% stenosis just proximal to the proximal edge of a mid vessel stent that is known to be Dori 2.5 x 12 mm that was placed in 2019. Just distal to the stent, the left anterior descending was exhibiting approximately 80% stenosis. Successful balloon angioplasty was carried out through these lesions and this was followed by stenting. The distal stent is 5.25 x 23 mm and it slightly overlaps the old stent. The proximal stent is Dori 2.75 x 23 mm stent and it slightly overlaps the old stent. The left circumflex artery has mild to moderate diffuse disease. The right coronary artery has diffuse moderate disease. There are patent stents in the proximal and mid right coronary, which are known to be from proximal to distal thrombus element 3.5 x 12, 3.0 x 28, and 2.5 x 12. LEFT VENTRICULAR ANGIOGRAPHY: Left ventricular angiography was carried out in the right anterior oblique projection. Global left ventricular systolic function is well preserved. Left ventricular ejection fraction is 50 to 55%. CONCLUSIONS: 1. Coronary artery disease primarily consisting of severe mid vessel disease of the left anterior descending, including 95% stenosis just proximal to the proximal edge of an old stent and 80% stenosis just distal to the distal end of the old stent. The distal lesion was stented with Skypoint 2.5 x 23 mm stent. The proximal lesion was stented with Skypoint 2.75 x 23 mm stent. Good results were obtained. The rest of the coronary arteries have diffuse moderate disease. The right coronary artery has a patent stent in its proximal and mid portions. 2. Left ventricular end-diastolic pressure is 16 mmHg. 3. Well preserved global left ventricular systolic function with ejection fraction of 50 to 55%. DISCUSSION AND RECOMMENDATIONS: Dual antiplatelet therapy is being continued. Beta blockers are being continued. Statins are advised, but he says that he is intolerant to statins and does not wish to take it. Job ID: [id number] DocumentID: [id number] Dictated Date: 11/23/2021 16:57:42 Flight Engineer Instructor Date: 11/23/2021 23:32:54 Dictated By: SRINIVAS CREWS MD, MA, FACP, FACC,
[2021-11-24 05:40] LABS: BASOPHILS # (AUTO) 0.1 10^3/uL (0.0-0.1); BASOPHILS % (AUTO) 1 % (0-10); EOSINOPHILS # (AUTO) 0.4 10^3/uL (0.0-0.3); EOSINOPHILS % (AUTO) 5 % (0-10); HEMATOCRIT 46 % (40-54); LYMPHOCYTES # (AUTO) 2.5 10^3/uL (1.0-4.0); LYMPHOCYTES % (AUTO) 31 % (12-44); MEAN CORPUSCULAR HEMOGLOBIN 32 pg (25-34); MEAN CORPUSCULAR HGB CONC 35 g/dL (32-36); MEAN CORPUSCULAR VOLUME 92 fL (80-99); MEAN PLATELET VOLUME 11.3 fL (9.0-12.2); MONOCYTES # (AUTO) 0.6 10^3/uL (0.0-1.0); MONOCYTES % (AUTO) 8 % (0-12); NEUTROPHILS # (AUTO) 4.5 10^3/uL (1.8-7.8); NEUTROPHILS % (AUTO) 56 % (42-75); PLATELET COUNT 158 10^3/uL (130-400)
[2021-11-24] MEDS: NS IV 1000 ML 1,000 ML IV SCH ×3 (06:01→06:38)
[2021-11-24 06:06] LABS: ALBUMIN 3.5 GM/DL (3.2-4.5)
[2021-11-24 06:07] LABS: POTASSIUM 3.9 MMOL/L (3.6-5.0)
[2021-11-24 06:08] LABS: CALCIUM 8.8 MG/DL (8.5-10.1)
[2021-11-24 06:09] LABS: TOTAL PROTEIN 6.3 GM/DL (6.4-8.2)
[2021-11-24 06:11] LABS: BILIRUBIN,TOTAL 0.3 MG/DL (0.1-1.0)
--- NOTE | 2021-11-24 07:46 | Progress Note - Cardiology ---
Cardiology SOAP Progress Note Subjective: Sitting up in bed Denies any further c/o chest discomfort No c/o SOB or palpitations Wants to go home Objective: I&O/Vital Signs Weight (Pounds): 240 Weight (Ounces): 0.0 Weight (Calculated Kilograms): [phone] Side: right Condition: DP/PT pulses palpable, extremity w/d/p Bruising: mild bruising Constitutional: AAO x 3, well-developed, well-nourished Respiratory: No accessory muscle use, No respiratory distress; chest expansion is symmetric, chest is bilaterally symmetric, lungs clear to auscultation Cardiovascular: regular rate-rhythm; No JVD; S1 and S2 Gastrointestional: No tender; soft, round, audible bowel sounds Extremities: no lower extremity edema bilateral Neurologic/Psychiatric: grossly intact (moves all extremities) Skin: No rash on exposed areas, No ulcerations on exposed areas Results/Procedures: Labs Microbiology 11/23/21 MRSA Screen - Final, Complete MRSA not isolated A/P: Assessment: Coronary artery disease - History of myocardial infarction in 2010, had 3 stents placed in the right coronary artery using Promus element 3.512 mm followed by 3.028 followed by 2.512 mm in the right coronary artery - Had another 2 cardiac catheterization reported that the stent was open. - Cardiac catheterization was done on February 13, [address] Huddleston showing severe mid LAD stenosis with successful primary stenting using Dori 2.512 mm expanded to 2.7 mm with excellent results, patent stent in the proximal and midright coronary artery with a step down beyond the stent, mild to moderate disease nonobstructive disease, normal left ventricular size and function. - Last Cardiac catheterization done December [address] Huddleston with balloon angioplasty to the RCA. - Lexiscan stress test was done on August 04, [address] Huddleston showing no ischemia no infarction, stress score 0, EF 59% - Echo done August 04, [address] Huddleston showing normal LV size, EF 50 to 55%, grade 1 diastolic dysfunction, PA pressure 30 to 35 mmHg. - Cardiac cath of 11-23-21: Coronary artery disease primarily consisting of severe mid vessel disease of the left anterior descending, including 95% stenosis just proximal to the proximal edge of an old stent and 80% stenosis just distal to the distal end of the old stent. The distal lesion was stented w ith Skypoint 2.5 x 23 mm stent. The proximal lesion was stented with Skypoint 2.75 x 23 mm stent. Good results were obtained. The rest of the coronary arteries have diffuse moderate disease. The right coronary artery has a patent stent in its proximal and mid portions. Left ventricular end-diastolic pressure is 16 mmHg. Well preserved global left ventricular systolic function with ejection fraction of 50 to 55% Mild peripheral arterial disease - angiogram done in February 2019 showing normal bilateral lower extremity runoff down to the trifurcation, the vessels below the trifurcation were not well visualized Hypertension Hyperlipidemia - unable to tolerate statins secondary to myalgias, was unable to afford Rapatha. Maintained on Zetia Holter monitor done in June 2019 showing sinus rhythm, transient second- degree AV block, Mobitz 1, multiple short runs of paroxysmal atrial tachycardia and occasional atrial premature contractions History of multiple TIA - ASA and Plavix Mild bilateral carotid stenosis - last ultrasound was done in May 2021 History of diverticulitis with colon resection History of gastroesophageal reflux disease - had Cesia fundoplication in the past Plan: S/P cardiac cath with successful coronary intervention Ok to discharge home from cardiac stand point F/U with Dr. Huddleston in 7-10 days Continue BB, DAPT Reports intolerance to statin Clinical Quality Measures AMI/AHF: ASA po Prior to arrival: CHENG Valdez Nov 24, 2021 07:46
[2021-11-24] MEDS: SENNOSIDES 8.6 MG (SENOKOT) TAB PO SCH (08:12)
[2021-11-24] MEDS: meTOproloL SUCCINATE 50 MG (TOPROL XL) TAB PO SCH (08:12)
[2021-11-24] MEDS: DOCUSATE SODIUM 100 MG (COLACE) CAP PO SCH (08:12)
[2021-11-24] MEDS: ASPIRIN E.C. 81 MG (ECOTRIN) TAB PO SCH (08:12)
--- NOTE | 2021-11-24 08:39 | Discharge Summary ---
Discharge Summary Hospital Course Was the Problem List Reviewed?: Yes Problems/Dx: (1) Unstable angina Status: Acute Hospital Course Date of Admission: Nov 22, 2021 at 19:28 Admission Diagnosis : Family Physician/Provider: [facility] [place] Date of Discharge: 11/24/21 Discharge Diagnosis: Unstable angina, cardiac cath with 2 stents placed Hospital Course: Pt had an uneventful 2 day hospital course after he was admitted for chest pain. He did undergo cardiac catheterization with two stents placed. Dr. Sanchez felt like he was discharged in improved condition. Labs and Pending Lab Test: Laboratory Tests 11/24/21 04:44: White Blood Count 8.0, Red Blood Count 5.03, Hemoglobin 16.0, Hematocrit 46, Mean Corpuscular Volume 92, Mean Corpuscular Hemoglobin 32, Mean Corpuscular Hemoglobin Concent 35, Red Cell Distribution Width 12.4, Platelet Count 158, Mean Platelet Volume 11.3, Immature Granulocyte % (Auto) 0, Neutrophils (%) (Auto) 56, Lymphocytes (%) (Auto) 31, Monocytes (%) (Auto) 8, Eosinophils (%) (Auto) 5, Basophils (%) (Auto) 1, Neutrophils # (Auto) 4.5, Lymphocytes # (Auto) 2.5, Monocytes # (Auto) 0.6, Eosinophils # (Auto) 0.4H, Basophils # (Auto) 0.1, Immature Granulocyte # (Auto) 0.0, Sodium Level 137, Potassium Level 3.9, Chloride Level 106, Carbon Dioxide Level 20L, Anion Gap 11, Blood Urea Nitrogen 14, Creatinine 1.00, Estimat Glomerular Filtration Rate 88, BUN/Creatinine Ratio 14, Glucose Level 157H, Calcium Level 8.8, Corrected Calcium 9.2, Magnesium Level 1.8, Total Bilirubin 0.3, Aspartate Amino Transf (AST/SGOT) 25, Alanine Aminotransferase (ALT/SGPT) 27, Alkaline Phosphatase 54, Total Protein 6.3L, Albumin 3.5 Microbiology 11/23/21 MRSA Screen - Final, Complete MRSA not isolated Home Meds Active Reported Victoza 3-Lev (Liraglutide) 0.6 Mg/0.1 Ml (18 Mg/3 Ml) Pen.injctr 0.6 Mg SQ HS Invokana (Canagliflozin) 100 Mg Tablet 100 Mg PO DAILY Ezetimibe 10 Mg Tablet 10 Mg PO HS Clopidogrel (Clopidogrel Bisulfate) 75 Mg Tablet 75 Mg PO DAILY Vitamin B-1 (Thiamine HCl) 50 Mg Tablet 50 Mg PO DAILY Vitamin B-12 (Cyanocobalamin (Vitamin B-12)) 250 Mcg Tablet 250 Mcg PO DAILY Niacin Flush Free 500 mg Cap (Niacin (Inositol Niacinate)) 400 Mg Niacin (500 Mg) Capsule 400 Mg PO 1200 Aspirin EC (Aspirin) 81 Mg Tablet.dr 81 Mg PO DAILY Assessment/Pt Instructions PCP 1 week Discharge Planning: <30 minutes discharge planning Discharge Instructions Discharge Diet: No Restrictions Discharge Physical Examination Vital Signs Vital Signs Date Time Temp Pulse Resp B/P (MAP) Pulse Ox O2 Delivery O2 Flow Rate FiO2 11/24/21 08:24 Room Air 11/24/21 07:52 36.4 11/24/21 07:00 64 11/24/21 06:00 10 114/79 94 2.00 General Appearance: No Apparent Distress, WD/WN Allergies: Coded Allergies: aspartame (Verified Allergy, Unknown, 12/10/20) pioglitazone (Verified Allergy, Unknown, 12/10/20) Mgpwocf-SOR-OjB Reductase Inhibitor (Verified Adverse Reaction, Unknown, 12/10/20) Unspecified adverse reaction Discharge Summary Date of Admission Nov 22, 2021 at 19:28 Date of Discharge Discharge Date: Nov 24, 2021 Admission Diagnosis Assessment: Chest pain Unstable angina CAD HTN HLP JOSE JUAN Plan: Monitor BP Statin Lovenox Cath today Discharge Diagnosis (1) Unstable angina Status: Acute Clinical Quality Measures AMI/AHF: ASA po Prior to arrival: VENKATA Young DO Nov 24, 2021 08:39
[2021-11-24] MEDS ORDERED: CLOPIDOGREL 75 MG (PLAVIX) TABLET PO SCH (09:00)
--- NOTE | 2021-11-24 11:58 | Progress Note - Cardiology ---
Cardiology SOAP Progress Note Subjective: No cp or palp or syncope No shortness of breath No groin or leg discomfort or discoloration No difficulty in ambulation No n/v/d Objective: I&O/Vital Signs 11/24/21 11/24/21 11/24/21 11/24/21 00:00 00:13 01:00 01:00 Pulse 55 56 56 Resp 22 26 B/P (MAP) 122/90 135/90 Pulse Ox 96 96 96 O2 Delivery Nasal Cannula Nasal Cannula Nasal Cannula O2 Flow Rate 2.00 2.00 2.00 11/24/21 11/24/21 11/24/21 11/24/21 02:00 03:00 04:00 04:00 Temp 36.0 Pulse 51 46 54 Resp 13 28 29 B/P (MAP) 111/75 117/73 126/91 Pulse Ox 95 97 94 O2 Delivery Nasal Cannula Nasal Cannula Nasal Cannula O2 Flow Rate 2.00 2.00 2.00 11/24/21 11/24/21 11/24/21 11/24/21 04:02 05:00 06:00 07:00 Pulse 67 62 62 Resp 17 10 14 B/P (MAP) 116/89 114/79 116/70 Pulse Ox 98 95 94 94 O2 Delivery Nasal Cannula Nasal Cannula Nasal Cannula Nasal Cannula O2 Flow Rate 2.00 2.00 2.00 2.00 11/24/21 11/24/21 11/24/21 11/24/21 07:00 07:52 08:00 08:24 Temp 36.4 Pulse 64 71 B/P (MAP) 100/83 Pulse Ox 93 O2 Delivery Nasal Cannula Room Air O2 Flow Rate 2.00 11/24/21 11/24/21 11/24/21 08:24 09:37 10:00 Pulse 67 Resp 18 B/P (MAP) 122/75 Pulse Ox 95 O2 Delivery Room Air Room Air 11/24/21 00:00 Intake Total 250 ml Output Total 450 ml Balance -200 ml Weight (Pounds): 240 Weight (Ounces): 0.0 Weight (Calculated Kilograms): 108.435245 Side: right Condition: DP/PT pulses palpable, extremity w/d/p Bruising: mild bruising Constitutional: AAO x 3, well-developed, well-nourished Respiratory: chest expansion is symmetric, chest is bilaterally symmetric, lungs clear to auscultation Cardiovascular: regular rate-rhythm, S1 and S2 Gastrointestional: soft, round, audible bowel sounds Extremities: no lower extremity edema bilateral Neurologic/Psychiatric: grossly intact Skin: No rash on exposed areas, No ulcerations on exposed areas Results/Procedures: Labs Laboratory Tests 11/24/21 04:44: White Blood Count 8.0, Red Blood Count 5.03, Hemoglobin 16.0, Hematocrit 46, Mean Corpuscular Volume 92, Mean Corpuscular Hemoglobin 32, Mean Corpuscular Hemoglobin Concent 35, Red Cell Distribution Width 12.4, Platelet Count 158, Mean Platelet Volume 11.3, Immature Granulocyte % (Auto) 0, Neutrophils (%) (Auto) 56, Lymphocytes (%) (Auto) 31, Monocytes (%) (Auto) 8, Eosinophils (%) (Auto) 5, Basophils (%) (Auto) 1, Neutrophils # (Auto) 4.5, Lymphocytes # (Auto) 2.5, Monocytes # (Auto) 0.6, Eosinophils # (Auto) 0.4H, Basophils # (Auto) 0.1, Immature Granulocyte # (Auto) 0.0, Sodium Level 137, Potassium Level 3.9, Chloride Level 106, Carbon Dioxide Level 20L, Anion Gap 11, Blood Urea Nitrogen 14, Creatinine 1.00, Estimat Glomerular Filtration Rate 88, BUN/Creatinine Ratio 14, Glucose Level 157H, Calcium Level 8.8, Corrected Calcium 9.2, Magnesium Level 1.8, Total Bilirubin 0.3, Aspartate Amino Transf (AST/SGOT) 25, Alanine Aminotransferase (ALT/SGPT) 27, Alkaline Phosphatase 54, Total Protein 6.3L, Al bumin 3.5 Microbiology 11/23/21 MRSA Screen - Final, Complete MRSA not isolated Laboratory Tests 11/22/21 18:10 11/23/21 04:56 11/24/21 04:44 A/P: Assessment: Coronary artery disease - History of myocardial infarction in 2010, had 3 stents placed in the right coronary artery using Promus element 3.512 mm followed by 3.028 followed by 2.512 mm in the right coronary artery - Had another 2 cardiac catheterization reported that the stent was open. - Cardiac catheterization was done on February 13, [address] Huddleston showing severe mid LAD stenosis with successful primary stenting using Dori 2.512 mm expanded to 2.7 mm with excellent results, patent stent in the proximal and midright coronary artery with a step down beyond the stent, mild to moderate disease nonobstructive disease, normal left ventricular size and function. - Last Cardiac catheterization done December [address] Huddleston with balloon angioplasty to the RCA. - Lexiscan stress test was done on August 04, [address] Huddleston showing no ischemia no infarction, stress score 0, EF 59% - Echo done August 04, [address] Huddleston showing normal LV size, EF 50 to 55%, grade 1 diastolic dysfunction, PA pressure 30 to 35 mmHg. - Cardiac cath of 11-23-21: Coronary artery disease primarily consisting of severe mid vessel disease of the left anterior descending, including 95% stenosis just proximal to the proximal edge of an old stent and 80% stenosis just distal to the distal end of the old stent. The distal lesion was stented with Skypoint 2.5 x 23 mm stent. The proximal lesion was stented with Skypoint 2.75 x 23 mm stent. Good results were obtained. The rest of the coronary arteries have diffuse moderate disease. The right coronary artery has a patent stent in its proximal and mid portions. Left ventricular end-diastolic pressure is 16 mmHg. Well preserved global left ventricular systolic function with ejection fraction of 50 to 55% Mild peripheral arterial disease - angiogram done in February 2019 showing normal bilateral lower extremity runoff down to the trifurcation, the vessels below the trifurcation were not well visualized Hypertension Hyperlipidemia - unable to tolerate statins secondary to myalgias, was unable to afford Rapatha. Maintained on Zetia Holter monitor done in June 2019 showing sinus rhythm, transient second- degree AV block, Mobitz 1, multiple short runs of paroxysmal atrial tachycardia and occasional atrial premature contractions History of multiple TIA - ASA and Plavix Mild bilateral carotid stenosis - last ultrasound was done in May 2021 History of diverticulitis with colon resection History of gastroesophageal reflux disease - had Cesia fundoplication in the past Plan: I again reviewed his cath finding, interventions undertaken, and treatment plan with him. He understands Ok to discharge home from cardiac stand point F/U with Dr. Huddleston in 7-10 days Continue BB, DAPT Reports intolerance to statin Clinical Quality Measures AMI/AHF: ASA po Prior to arrival: SRINIVAS Esquivel MD FACP FAC CCDS Nov 24, 2021 11:58
== END 2021-11-24 08:37 | disposition home or self-care (01) ==
LOC: EDUNIT# 17:49 → ER 17:51 → CATH 19:27 → UNDOADMIN 19:28 → ICU 19:28 → UNDODISIN 11-24 10:00
PROVIDERS: ADMIT Internal Medicine; ATTEND Internal Medicine
PROC: 027035Z Dilation of Coronary Artery, One Artery with Two Drug-eluting Intraluminal Devices, Percutaneous Approach (ICD-10-PCS; principal; 2021-11-23)
PROC: 4A023N7 Measurement of Cardiac Sampling and Pressure, Left Heart, Percutaneous Approach (ICD-10-PCS; 2021-11-23)
PROC: B2111ZZ Fluoroscopy of Multiple Coronary Arteries using Low Osmolar Contrast (ICD-10-PCS; 2021-11-23)
PROC: B2151ZZ Fluoroscopy of Left Heart using Low Osmolar Contrast (ICD-10-PCS; 2021-11-23)
DX: I25.110 Atherosclerotic heart disease of native coronary artery with unstable angina pectoris (principal); I10 Essential (primary) hypertension; E78.5 Hyperlipidemia, unspecified; G47.33 Obstructive sleep apnea (adult) (pediatric); E78.00 Pure hypercholesterolemia, unspecified; K21.9 Gastro-esophageal reflux disease without esophagitis; K57.90 Diverticulosis of intestine, part unspecified, without perforation or abscess without bleeding; M19.90 Unspecified osteoarthritis, unspecified site; E11.9 Type 2 diabetes mellitus without complications; Z86.73 Personal history of transient ischemic attack (TIA), and cerebral infarction without residual deficits; Z87.891 Personal history of nicotine dependence; Z95.5 Presence of coronary angioplasty implant and graft; I25.2 Old myocardial infarction; Z79.82 Long term (current) use of aspirin; Z79.899 Other long term (current) drug therapy; I73.9 Peripheral vascular disease, unspecified; I65.23 Occlusion and stenosis of bilateral carotid arteries
CPT/HCPCS: 36415; 71045; 80053; 80061; 83690; 83735; 83880; 84484; 85025; 85610; 85730; 87081; 93005; 93458; G0378

== ENCOUNTER 2022-05-12 12:56 | Emergency (ER) | payer MEDICARE, OTHER ==
[~2022-05-12] VITALS: Ht 187.9 cm; Wt 108.8 kg
[~2022-05-12 12:56] MED LIST changes: +CANA100T PO; +CLOP-31 PO; -CLOP75TA69 PO; +CYAN250T3 PO; +EZET10TA49 PO; +LIRA0.6P3 SQ; +NIAC1CAP12 PO; +THIA50TA10 PO
--- NOTE | 2022-05-12 13:23 | ED Abdominal Pain ---
General Chief Complaint: Abdominal/GI Problems Stated Complaint: LOWER RT ABD PAIN Nursing Triage Note: PT AMB TO RM 2 WITH COMPLAINT OF RLQ THAT STARTED THREE DAYS AGO. STATES HE HAS HAD THIS PAIN INTERMITTENTLY FOR YEARS. COMPLAINING OF NAUSEA. Source of Information: Patient Exam Limitations: No Limitations History of Present Illness Date Seen by Provider: May 12, 2022 Time Seen by Provider: 13:10 Initial Comments Patient is a 57-year-old male who presents to the emergency department today with a chief complaint of right lower quadrant abdominal pain. He states it started 2 to 3 days ago. He could not sleep due to the discomfort last night and has been nauseous without vomiting, No diarrheal stools - normal yesterday - nonblack nonbloody. Has had prior partial colectomy due to diverticulitis by Dr. Morfin. No fever. no chills. No sick contacts at home. No urinary issues (that are new). No recent travel. Movement makes it worse as does sitting up. Laying supine improves his pain. He denies testicular pain and swelling. All other ROS reviewed and neg except as stated. Timing/Duration: 3-4 Days Severity/Quality: Moderate, Aching Location: RLQ Radiation: No Radiation Activities at Onset: None Modifying Factors: Improves With Lying down; Worsens With Movement; Improves With Other (nausea) Associated Symptoms: Nausea/Vomiting Allergies and Home Medications Allergies Coded Allergies: aspartame (Verified Allergy, Unknown, 12/10/20) pioglitazone (Verified Allergy, Unknown, 12/10/20) Fqeqenr-SPR-BmY Reductase Inhibitor (Verified Adverse Reaction, Unknown, 12/10/20) Unspecified adverse reaction Patient Home Medication List Home Medication List Reviewed: Yes Aspirin (Aspirin EC) 81 Mg Tablet., 81 MG PO DAILY, (Reported) Entered as Reported by: GIANNA HINDS on 02/13/19 0749 Canagliflozin (Invokana) 100 Mg Tablet, 100 MG PO DAILY, (Reported) Entered as Reported by: GIANNA HINDS on 11/23/21 1132 Clopidogrel Bisulfate (Clopidogrel) 75 Mg Tablet, 75 MG PO DAILY, (Reported) Entered as Reported by: GIANNA HINDS on 11/23/21 1132 Cyanocobalamin (Vitamin B-12) (Vitamin B-12) 250 Mcg Tablet, 250 MCG PO DAILY, (Reported) Entered as Reported by: GIANNA HINDS on 11/23/21 1132 Ezetimibe (Ezetimibe) 10 Mg Tablet, 10 MG PO HS, (Reported) Entered as Reported by: GIANNA HINDS on 11/23/21 113 Liraglutide (Victoza 3-Lev) 0.6 Mg/0.1 Ml (18 Mg/3 Ml) Pen.injctr, 0.6 MG SQ HS, (Reported) Entered as Reported by: GIANNA HINDS on 11/23/21 113 Niacin (Inositol Niacinate) (Niacin Flush Free 500 mg Cap) 400 Mg Niacin (500 Mg) Capsule, 400 MG PO 1200, (Reported) Entered as Reported by: GIANNA HINDS on 11/23/21 113 Thiamine HCl (Vitamin B-1) 50 Mg Tablet, 50 MG PO DAILY, (Reported) Entered as Reported by: GIANNA HINDS on 11/23/21 113 Review of Systems Review of Systems Constitutional: see HPI EENTM: No Symptoms Reported Respiratory: No Symptoms Reported Cardiovascular: No Symptoms Reported Gastrointestinal: Abdominal Pain, Nausea Genitourinary: No Symptoms Reported Musculoskeletal: no symptoms reported Skin: no symptoms reported Psychiatric/Neurological: No Symptoms Reported All Other Systems Reviewed Negative Unless Noted: Yes Past Weslsxs-Tsxusb-Vmxgqf Hx Patient Social History Tobacco Use?: No Use of E-Cig and/or Vaping dev: No Substance use?: No Alcohol Use?: No Pt feels they are or have been: No Immunizations Up To Date Tetanus Booster (TDap): Unknown PED Vaccines UTD: Yes First/Initial COVID19 Vaccinat: AUGUST 2020 Second COVID19 Vaccination Norman: SEPTEMBER 2020 Third COVID19 Vaccination Date: 2020 Seasonal Allergies Seasonal Allergies: No Past Medical History Surgery/Hospitalization HX: CARDIAC STENTS X 4, COLON RESECTION, DM2 Surgeries: Yes (surgical procedure to decrease acid reflux, hiatal hernia, CARDIAC STENTS, ) Coronary Stent, Orthopedic Respiratory: Yes Sleep Apnea Currently Using CPAP: No Currently Using BIPAP: No Cardiac: Yes (coronary stents x 4, TACHYCARIDA) Coronary Artery Disease, Heart Attack, High Cholesterol, Hypertension Neurological: Yes TIA Genitourinary: No Gastrointestinal: Yes (colon resection due to diverticulitis) Gastroesophageal Reflux, Diverticulosis, Hiatal Hernia Musculoskeletal: Yes (left shoulder and elbow surgery, bilateral carpal tunnel surgery, right elb) Arthritis Endocrine: Yes Diabetes, Non-Insulin dep HEENT: No Cancer: No Psychosocial: No Integumentary: No Blood Disorders: No Physical Exam Vital Signs Vital Signs - First Documented 05/12/22 13:10 Temp 35.7 Pulse 82 Resp 16 B/P (MAP) 125/95 (105) Pulse Ox 97 O2 Delivery Room Air Capillary Refill : Less Than 3 Seconds Height/Weight/BMI Height: 6'2.00" Weight: 240lbs. 0.0oz. [id number]; 30.00 BMI Method:Stated General Appearance: WD/WN, no apparent distress HEENT: PERRL/EOMI Neck: normal inspection Respiratory: lungs clear, normal breath sounds, no respiratory distress, no accessory muscle use Cardiovascular: regular rate, rhythm, no murmur Peripheral Pulses: 1+ Femoral (R); 2+ Radial Pulses (R), 2+ Radial Pulses (L) Gastrointestinal: normal bowel sounds, soft, tenderness (RLQ, very low towards the pelvic brim; no defect in anterior abdominal wall; minimal rebound; no distension; neg heel tap; no rovsing's) Extremities: normal range of motion, non-tender, normal inspection, no pedal edema, normal capillary refill Back: no CVA tenderness Neurologic/Psychiatric: alert, normal mood/affect, oriented x 3 Skin: normal color, warm/dry Progress/Results/Core Measures Results/Orders Lab Results Laboratory Tests Test 05/12/22 13:53 Range/Units White Blood Count 9.2 4.3-11.0 10^3/uL Red Blood Count 5.44 4.30-5.52 10^6/uL Hemoglobin 17.1 13.3-17.7 g/dL Hematocrit 50 40-54 % Mean Corpuscular Volume 92 80-99 fL Mean Corpuscular Hemoglobin 31 25-34 pg Mean Corpuscular Hemoglobin Concent 34 32-36 g/dL Red Cell Distribution Width 12.2 10.0-14.5 % Platelet Count 175 130-400 10^3/uL Mean Platelet Volume 11.0 9.0-12.2 fL Immature Granulocyte % (Auto) 0 % Neutrophils (%) (Auto) 55 42-75 % Lymphocytes (%) (Auto) 29 12-44 % Monocytes (%) (Auto) 9 0-12 % Eosinophils (%) (Auto) 6 0-10 % Basophils (%) (Auto) 1 0-10 % Neutrophils # (Auto) 5.1 1.8-7.8 10^3/uL Lymphocytes # (Auto) 2.7 1.0-4.0 10^3/uL Monocytes # (Auto) 0.8 0.0-1.0 10^3/uL Eosinophils # (Auto) 0.5 H 0.0-0.3 10^3/uL Basophils # (Auto) 0.1 0.0-0.1 10^3/uL Immature Granulocyte # (Auto) 0.0 0.0-0.1 10^3/uL Sodium Level 138 135-145 MMOL/L Potassium Level 3.9 3.6-5.0 MMOL/L Chloride Level 106 98-107 MMOL/L Carbon Dioxide Level 23 21-32 MMOL/L Anion Gap 9 5-14 MMOL/L Blood Urea Nitrogen 13 7-18 MG/DL Creatinine 0.91 0.60-1.30 MG/DL Estimat Glomerular Filtration Rate 98 BUN/Creatinine Ratio 14 Glucose Level 140 H 70-105 MG/DL Calcium Level 9.1 8.5-10.1 MG/DL My Orders Orders - KELIN CRISOSTOMO MD Ed Iv/Invasive Line Start (05/12/22 13:21) Cbc With Automated Diff (05/12/22 13:21) Basic Metabolic Panel (05/12/22 13:21) Ns Iv 1000 Ml (Sodium Chloride 0.9%) (05/12/22 13:30) Fentanyl Inj (Sublimaze Injection) (05/12/22 13:30) Ondansetron Injection (Zofran Injectio (05/12/22 13:30) Ct Abd/Pelv W (Appendicitis) (05/12/22 13:21) Iohexol Injection (Omnipaque 350 Mg/Ml 1 (05/12/22 13:30) Received Contrast (Hold Metformin- Contr (05/12/22 13:30) Ns (Ivpb) (Sodium Chloride 0.9% Ivpb Bag (05/12/22 13:30) Sodium Chloride Flush (Catheter Flush Sy (05/12/22 13:30) Medications Given in ED Vital Signs/I&O 05/12/22 05/12/22 13:10 14:49 Temp 35.7 Pulse 82 81 Resp 16 16 B/P (MAP) 125/95 (105) 135/89 Pulse Ox 97 98 O2 Delivery Room Air 05/13/22 00:00 Intake Total 1000 ml Balance 1000 ml Blood Pressure Mean: 105 Progress Progress Note : Time: 14:36 Progress Note Patient seen and evaluated, 57-year-old with right lower quadrant pain evaluation today includes physical exam, CBC, chemistry and CT scan of the a bdomen and pelvis with IV contrast. CT was read by the radiologist as negative for any acute surgical pathology. Labs are normal. His exam is actually improved. His vital signs are stable. He is not febrile. Consideration for urinalysis however patient has no dysuria, urgency frequency or hematuria that he reports. Therefore UA was not obtained. I did not do a genitourinary exam as the patient denied any swelling in the testicles, pain or penile discharge. He denies any recent heavy lifting, straining. I recommended he follow-up with his primary care doctor as well as Dr. Morfin. He states he has an appointment scheduled for mid month. Return precautions provided. He verbalized understanding. All questions are sought and answered. Patient is stable for discharge. Diagnostic Imaging Diagonstic Imaging: CT Plain Films/CT/US/NM/MRI: chest Comments [facility], [place] NAME: AUGUSTINE MONTERROSO [facility] REC#: [id number] PT STATUS: REG ER : 1965 PHYSICIAN: KELIN CRISOSTOMO MD ADMIT DATE: 05/12/22/ER Draft Date of Exam:05/12/22 CT ABD/PELV W (APPENDICITIS) PROCEDURE: CT abdomen and pelvis with contrast, rule out appendicitis. TECHNIQUE: Multiple contiguous axial images were obtained through the abdomen and pelvis after the administration of intravenous contrast. All CT scans use one or more of the following dose optimizing techniques: automated exposure control, MA and/or KvP adjustment based on patient size and exam type or iterative reconstruction. INDICATION: Right lower quadrant abdominal pain. FINDINGS: There is mild low-density throughout the liver indicating steatosis. No gallbladder, pancreatic, adrenal gland or splenic lesion is identified. Stomach is decompressed which limits evaluation. There is no biliary ductal dilatation. There is an approximately 3 cm exophytic cyst arising from the upper pole of the left kidney. Kidneys are otherwise unremarkable. There is no free fluid in the abdomen or pelvis and no pathologically enlarged adenopathy is seen. There is no evidence of appendiceal inflammation. Surgical suture is seen along the sigmoid colon. Unopacified bladder is unremarkable in appearance. IMPRESSION: No acute abnormality is detected. Dictated on workstation # [id number] Dict: 05/12/22 1423 Trans: 05/12/22 1429 [facility] [id number] Interpreted by: BALJIT DAS MD Electronically signed by: Departure Impression Primary Impression: Abdominal pain Qualified Codes: R10.31 - Right lower quadrant pain Disposition: HOME, SELF-CARE Condition: Improved Departure-Patient Inst. Decision time for Depature: 14:35 Referrals: [facility]/ZANDER BHATIA (PCP) Primary Care Physician Patient Instructions: Abdominal Pain, Adult ED Add. Discharge Instructions: Drink plenty of fluids to stay well-hydrated. You can take lrnq-oxb-snzpfxh generic ibuprofen, 3 tablets which is 600 mg every 6 hours as needed for pain. If you develop a fever, worsening pain, vomiting or bloody stools please return to the emergency room for reevaluation. You may consider follow-up with Dr. Morfin as you may be developing a hernia in this area. Also please follow-up with your primary care physician. Copy Copies To 1: MARSHALL LÓPEZ KATHRYN M MD May 12, 2022 13:23
[2022-05-12] MEDS ORDERED: NS IV 1000 ML 1,000 ML IV SCH (13:30)
[2022-05-12] MEDS ORDERED: CATHETER FLUSH 10 ML SYR IV PRN (13:30)
[2022-05-12] MEDS ORDERED: fentaNYL INJ 100 MCG/2 ML AMP IVP ONE (13:30)
[2022-05-12] MEDS ORDERED: IOHEXOL 350 MG/ML 100 ML (OMNIPAQUE 350) VIAL IV ONE (13:30)
[2022-05-12] MEDS ORDERED: ONDANSETRON 4 MG/2 ML (SDV) Z0FRAN IVP ONE (13:30)
[2022-05-12] MEDS ORDERED: NS 100 ML (IVPB) BAG IV ONE (13:30)
[2022-05-12] MEDS ORDERED: HOLD METFORMIN - RECEIVED CONTRAST 20 ML VIAL IV SCH (13:30)
[2022-05-12 13:59] LABS: BASOPHILS # (AUTO) 0.1 10^3/uL (0.0-0.1); BASOPHILS % (AUTO) 1 % (0-10); EOSINOPHILS # (AUTO) 0.5 10^3/uL (0.0-0.3); EOSINOPHILS % (AUTO) 6 % (0-10); HEMATOCRIT 50 % (40-54); HEMOGLOBIN 17.1 g/dL (13.3-17.7); LYMPHOCYTES # (AUTO) 2.7 10^3/uL (1.0-4.0); LYMPHOCYTES % (AUTO) 29 % (12-44); MEAN CORPUSCULAR HEMOGLOBIN 31 pg (25-34); MEAN CORPUSCULAR HGB CONC 34 g/dL (32-36); MEAN CORPUSCULAR VOLUME 92 fL (80-99); MONOCYTES # (AUTO) 0.8 10^3/uL (0.0-1.0); MONOCYTES % (AUTO) 9 % (0-12); NEUTROPHILS # (AUTO) 5.1 10^3/uL (1.8-7.8); NEUTROPHILS % (AUTO) 55 % (42-75); PLATELET COUNT 175 10^3/uL (130-400); WHITE BLOOD COUNT 9.2 10^3/uL (4.3-11.0)
[2022-05-12 14:12] LABS: POTASSIUM 3.9 MMOL/L (3.6-5.0)
[2022-05-12 14:14] LABS: CALCIUM 9.1 MG/DL (8.5-10.1)
[2022-05-12 14:18] LABS: CREATININE SERUM 0.91 MG/DL (0.60-1.30)
--- NOTE | 2022-05-12 14:29 | Diagnostic Imaging Report ---
PROCEDURE: CT abdomen and pelvis with contrast, rule out appendicitis. TECHNIQUE: Multiple contiguous axial images were obtained through the abdomen and pelvis after the administration of intravenous contrast. All CT scans use one or more of the following dose optimizing techniques: automated exposure control, MA and/or KvP adjustment based on patient size and exam type or iterative reconstruction. INDICATION: Right lower quadrant abdominal pain. FINDINGS: There is mild low-density throughout the liver indicating steatosis. No gallbladder, pancreatic, adrenal gland or splenic lesion is identified. Stomach is decompressed which limits evaluation. There is no biliary ductal dilatation. There is an approximately 3 cm exophytic cyst arising from the upper pole of the left kidney. Kidneys are otherwise unremarkable. There is no free fluid in the abdomen or pelvis and no pathologically enlarged adenopathy is seen. There is no evidence of appendiceal inflammation. Surgical suture is seen along the sigmoid colon. Unopacified bladder is unremarkable in appearance. IMPRESSION: No acute abnormality is detected. Dictated by: Dictated on workstation # [id number]
[2022-05-12 14:49] VITALS: BP 135/89
== END 2022-05-12 14:49 | disposition home or self-care (01) ==
LOC: EDUNIT# 12:56 → ER 12:59
DX: R10.31 Right lower quadrant pain (principal)
CPT/HCPCS: 36415; 74177; 80048; 85025

== ENCOUNTER → 2022-05-27 | Outpatient (CLI) | payer MEDICARE, OTHER ==
--- NOTE | 2022-05-27 12:03 | Diagnostic Imaging Report ---
PROCEDURE: US Gallbladder. TECHNIQUE: Multiple real-time grayscale images were obtained over the right upper quadrant in various projections. INDICATION: Right lower quadrant pain. Liver is normal in size at 17 cm. Portal vein is patent and shows normal direction of flow. No liver mass is detected. Gallbladder is without stones or sludge. There is no wall thickening or biliary ductal dilatation. Pancreas was poorly visualized. Aorta is obscured by bowel gas. IVC is patent. The right kidney is without calculi or hydronephrosis. There is no ascites. IMPRESSION: No evidence of cholelithiasis or acute cholecystitis. Dictated by: Dictated on workstation # [id number]
== END ==
LOC: RAD 09:33
PROVIDERS: ATTEND Nurse Practitioner
DX: R10.31 Right lower quadrant pain (principal)
CPT/HCPCS: 76705

== ENCOUNTER → 2022-06-02 | Outpatient (CLI) | payer MEDICARE, OTHER ==
[2022-06-02] MEDS: CATHETER FLUSH 10 ML SYR IVP PRN ×2 (10:21→10:22)
--- NOTE | 2022-06-02 13:14 | Diagnostic Imaging Report ---
EXAMINATION: Gallbladder scintigraphy HISTORY: Right upper quadrant pain COMPARISON: 05/27/2022 TECHNIQUE: Anterior scintigraphic imaging of the abdomen was performed after the intravenous administration of 5.03 mCi Tc-99m Choletec. FINDINGS: The upper abdomen was imaged for 60 minutes with the gamma camera. There is prompt homogeneous uptake of radiopharmaceutical by the liver. There is activity in the common duct and gallbladder by 15 minutes. Small bowel activity is seen by 40 minutes. At 60 minutes, the patient received Ensure. After additional 60 minutes, the gallbladder ejection fraction was calculated to be 57% (normal is >35%) IMPRESSION: 1. Patent common and cystic bile ducts. 2. No gallbladder dysfunction. Dictated by: Dictated on workstation # [id number]
== END ==
LOC: CARD 10:01
PROVIDERS: ATTEND Nurse Practitioner
DX: R10.9 Unspecified abdominal pain (principal)
CPT/HCPCS: 78227; A9537

== ENCOUNTER 2022-09-18 18:32 | Emergency (ER) | payer MEDICARE, OTHER ==
[~2022-09-18] VITALS: Ht 187 cm; Wt 108.0 kg
[2022-09-18 18:35] VITALS: BP 136/96
--- NOTE | 2022-09-18 18:49 | ED Chest Pain ---
General Chief Complaint: Chest Pain Stated Complaint: CHEST/BACK PAIN SOA Nursing Triage Note: PT AMBULATORY TO ER. PT C/O L LOWER CHEST PAIN/BACK PAIN, REPORTS PAIN WOKE HIM UP APPROX 0730 TODAY, PAIN DOES RADIATE INTO HIS UPPER CHEST PAIN. PT DOES HAVE CARDIAC HX OF STENT PLACEMENT. PT SLIGHTLY DIAPHORETIC UPON ARRIVAL TO ER. Source: patient Exam Limitations: no limitations History of Present Illness Date Seen by Provider: Sep 18, 2022 Time Seen by Provider: 18:48 Initial Comments Patient is a 57-year-old male who presents to the emergency room with a chief co mplaint of lower anterior chest pain that he woke up with this morning. He states he has had it all day. Exertion makes him feel a little bit worse as does taking a deep breath. He points just to the left of the sternum as the source of his pain. The pain does not radiate although he states he does feel it in his back. He describes the pain as wrapping around his left side. No nausea. No recent fevers or chills. No productive cough. He denies any recent exertional activity, trauma or heavy lifting. Has not taken anything for the pain. Feels a little sweaty on arrival. Does have a history of hypertension and diabetes. Has 1 cardiac stent. Last placed approximately 1 to 2 years ago. States that he is compliant with his medications. He states this feels different than pain related to his heart. No swelling in his legs or calf discomfort. No history of blood clot. No r ecent surgeries. 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: No NTG SL SALES ENGINEERING MANAGER: No Associated Symptoms: shortness of breath (Feels like he cannot take a breath due to pain) Allergies and Home Medications Allergies Coded Allergies: aspartame (Verified Allergy, Unknown, 12/10/20) pioglitazone (Verified Allergy, Unknown, 12/10/20) Mawcwkx-DKK-UdA Reductase Inhibitor (Verified Adverse Reaction, Unknown, 12/10/20) Unspecified adverse reaction Patient Home Medication List Home Medication List Reviewed: Yes Aspirin (Aspirin EC) 81 Mg Tablet.dr, 81 MG PO DAILY, (Reported) Entered as Reported by: GIANNA HINDS on 02/13/19 0749 Canagliflozin (Invokana) 100 Mg Tablet, 100 MG PO DAILY, (Reported) Entered as Reported by: GIANNA HINDS on 11/23/21 113 Clopidogrel Bisulfate (Clopidogrel) 75 Mg Tablet, 75 MG PO DAILY, (Reported) Entered as Reported by: GIANNA HINDS on 11/23/21 113 Cyanocobalamin (Vitamin B-12) (Vitamin B-12) 250 Mcg Tablet, 250 MCG PO DAILY, (Reported) Entered as Reported by: GIANNA HINDS on 11/23/21 113 Ezetimibe (Ezetimibe) 10 Mg Tablet, 10 MG PO HS, (Reported) Entered as Reported by: GIANNA HINDS on 11/23/21 113 Hydrocodone/Acetaminophen (Hydrocodone-Acetamin 5-325 mg) 5 Mg-325 Mg Tablet, 1 TAB PO Q6H PRN for PAIN-BREAKTHROUGH Prescribed by: KELIN CRISOSTOMO on 09/18/222044 Liraglutide (Victoza 3-Lev) 0.6 Mg/0.1 Ml (18 Mg/3 Ml) Pen.injctr, 0.6 MG SQ HS, (Reported) Entered as Reported by: GIANNA HINDS on 11/23/211131 Methocarbamol (Methocarbamol) 750 Mg Tablet, 1,500 MG PO Q8H Prescribed by: KELIN CRISOSTOMO on 09/18/222043 Niacin (Inositol Niacinate) (Niacin Flush Free 500 mg Cap) 400 Mg Niacin (500 Mg) Capsule, 400 MG PO 1200, (Reported) Entered as Reported by: GIANNA HINDS on 11/23/21 113 Thiamine HCl (Vitamin B-1) 50 Mg Tablet, 50 MG PO DAILY, (Reported) Entered as Reported by: GIANNA HINDS on 11/23/21 113 Review of Systems Review of Systems Constitutional: see HPI EENTM: No Symptoms Reported Respiratory: Shortness of Air, Other (Pleuritic pain) Cardiovascular: Chest Pain Gastrointestinal: No Symptoms Reported Genitourinary: No Symptoms Reported Musculoskeletal: back pain Skin: other (Sweating) Psychiatric/Neurological: No Symptoms Reported All Other Systems Reviewed Negative Unless Noted: Yes Past Hiwznds-Jjaroi-Vqdnjg Hx Patient Social History Tobacco Use?: No Use of E-Cig and/or Vaping dev: No Substance use?: No Alcohol Use?: Yes Pt feels they are or have been: No Immunizations Up To Date Tetanus Booster (TDap): Unknown PED Vaccines UTD: Yes First/Initial COVID19 Vaccinat: RECEIVED, UNK WHEN Second COVID19 Vaccination Norman: RECEIVED, UNK WHEN Third COVID19 Vaccination Date: RECEIVED, UNK WHEN 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: [employer] Seasonal Allergies Seasonal Allergies: No Past Medical History Surgery/Hospitalization HX: CARDIAC STENTS X 4, COLON RESECTION, DM2 Surgeries: Yes (surgical procedure to decrease acid reflux, hiatal hernia, CARDIAC STENTS, ) Coronary Stent, Orthopedic Respiratory: Yes Sleep Apnea Currently Using CPAP: No Currently Using BIPAP: No Cardiac: Yes (coronary stents x 4, TACHYCARIDA) Coronary Artery Disease, Heart Attack, High Cholesterol, Hypertension Neurological: Yes TIA Genitourinary: No Gastrointestinal: Yes (colon resection due to diverticulitis) Gastroesophageal Reflux, Diverticulosis, Hiatal Hernia Musculoskeletal: Yes (left shoulder and elbow surgery, bilateral carpal tunnel surgery, right elb) Arthritis Endocrine: Yes Diabetes, Non-Insulin dep HEENT: No Cancer: No Psychosocial: No Integumentary: No Blood Disorders: No Physical Exam Vital Signs Vital Signs - First Documented 09/18/22 18:35 Temp 36.8 Pulse 79 Resp 18 B/P (MAP) 136/96 (109) Pulse Ox 98 O2 Delivery Room Air Capillary Refill : Height, Weight, BMI Height: 6'2.00" Weight: 240lbs. 0.0oz. [id number]; 30.00 BMI Method:Stated General Appearance: No Apparent Distress, WD/WN HEENT: PERRL/EOMI Neck: Normal Inspection Respiratory: Lungs Clear, Normal Breath Sounds, No Accessory Muscle Use, No Respiratory Distress, Other (Very tender to palpation to the left of the sternum along the costochondral junction. 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 Norm as Tested Skin: Normal Color, Warm/Dry Progress/Results/Core Measures Results/Orders Lab Results Laboratory Tests Test 09/18/22 18:47 Range/Units White Blood Count 12.0 H 4.3-11.0 10^3/uL Red Blood Count 5.41 4.30-5.52 10^6/uL Hemoglobin 17.3 13.3-17.7 g/dL Hematocrit 50 40-54 % Mean Corpuscular Volume 93 80-99 fL Mean Corpuscular Hemoglobin 32 25-34 pg Mean Corpuscular Hemoglobin Concent 35 32-36 g/dL Red Cell Distribution Width 12.4 10.0-14.5 % Platelet Count 210 130-400 10^3/uL Mean Platelet Volume 11.5 9.0-12.2 fL Immature Granulocyte % (Auto) 0 % Neutrophils (%) (Auto) 54 42-75 % Lymphocytes (%) (Auto) 33 12-44 % Monocytes (%) (Auto) 8 0-12 % Eosinophils (%) (Auto) 4 0-10 % Basophils (%) (Auto) 1 0-10 % Neutrophils # (Auto) 6.4 1.8-7.8 10^3/uL Lymphocytes # (Auto) 4.0 1.0-4.0 10^3/uL Monocytes # (Auto) 1.0 0.0-1.0 10^3/uL Eosinophils # (Auto) 0.4 H 0.0-0.3 10^3/uL Basophils # (Auto) 0.1 0.0-0.1 10^3/uL Immature Granulocyte # (Auto) 0.0 0.0-0.1 10^3/uL Prothrombin Time 14.8 H 12.2-14.7 SEC INR Comment 1.1 0.8-1.4 Activated Partial Thromboplast Time 31 24-35 SEC Sodium Level 140 135-145 MMOL/L Potassium Level 4.2 3.6-5.0 MMOL/L Chloride Level 106 98-107 MMOL/L Carbon Dioxide Level 24 21-32 MMOL/L Anion Gap 10 5-14 MMOL/L Blood Urea Nitrogen 19 H 7-18 MG/DL Creatinine 1.30 0.60-1.30 MG/DL Estimat Glomerular Filtration Rate 64 BUN/Creatinine Ratio 15 Glucose Level 145 H 70-105 MG/DL Calcium Level 10.0 8.5-10.1 MG/DL Corrected Calcium 9.8 8.5-10.1 MG/DL Magnesium Level 2.1 1.6-2.4 MG/DL Total Bilirubin 0.3 0.1-1.0 MG/DL Aspartate Amino Transf (AST/SGOT) 21 5-34 U/L Alanine Aminotransferase (ALT/SGPT) 19 0-55 U/L Alkaline Phosphatase 55 40-136 U/L Troponin I < 0.028 <0.028 NG/ML Total Protein 7.6 6.4-8.2 GM/DL Albumin 4.3 3.2-4.5 GM/DL My Orders Orders - KELIN CRISOSTOMO MD Cbc With Automated Diff (09/18/22 18:48) Magnesium (09/18/22 18:48) Chest 1 View, Ap/Pa Only (09/18/22 18:48) Ekg Tracing (09/18/22 18:48) Comprehensive Metabolic Panel (09/18/22 18:48) Protime With Inr (09/18/22 18:48) Partial Thromboplastin Time (09/18/22 18:48) O2 (09/18/22 18:48) Monitor-Rhythm Ecg Trace Only (09/18/22 18:48) Ed Iv/Invasive Line Start (09/18/22 18:48) Troponin I [place] (09/18/22 18:48) Hydrocodone/Apap 5/325 Tablet (Lortab 5 (09/18/22 20:00) Diphenhydramine Tablet (Benadryl Tablet) (09/18/22 20:15) Orphenadrine Inj (Ed Only) (Norflex Inje (09/18/22 20:45) Rx-Hydrocodone/Apap 5-325 Mg (Rx-Vicodin (09/18/22 20:45) Medications Given in ED Vital Signs/I&O 09/18/22 09/18/22 18:35 18:49 Temp 36.8 Pulse 79 Resp 18 B/P (MAP) 136/96 (109) Pulse Ox 98 98 O2 Delivery Room Air Room Air Blood Pressure Mean: 109 Progress Progress Note : Progress Note Patient seen and examined by me, evaluation today includes physical exam and "cardiac work-up" including CBC, Chem-12, troponin, coags, EKG and single view chest x-ray. Pertinent physical exam findings include well-developed well- nourished 57-year-old male in no acute distress with stable vital signs. Significant tenderness to palpation along the costochondral junction of the left side of the sternum. Lungs are clear, heart is regular, not tachycardic. Differential diagnosis based on history and physical exam, acute coronary syndrome, dissection, pneumonia, musculoskeletal chest wall pain. Labs reviewed by me, CBC shows a white count of 12 without any other abnormalities. Chem-12 is normal except for glucose of 145. Troponin is undetectable. Coags are negative. EKG shows normal sinus rhythm without ectopy or ST segment change. Chest x-ray is without any acute pathology. Patient is treated with full-strength aspirin here in the emergency department. He is also given hydrocodone 5 mg, drill to go with this as he states opiates often make him itchy. He is also given some muscle relaxer. He is not able to take NSAIDs secondary to being on Plavix with a history of stent. In light of his pain ongoing for 6 hours, a normal EKG and normal troponin I have low clinical suspicion for acute coronary syndrome. This is likely costochondritis secondary to significant tenderness to palpation along the costochondral junction. No clinical concerns at this time for aortic dissection, pneumonia, pulmonary embolism or acute coronary syndrome return precautions advised for the patient. He is comfortable with the plan of care. 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 He verbalized understanding. All questions are sought and answered. Patient is stable for discharge. Initial ECG Impression Date: Sep 18, 2022 Initial ECG Impression Time: 18:48 Initial ECG Rate: 77 Initial ECG Rhythm: Normal Sinus Initial ECG Intervals W[place] interval 167 QRS 113 QTc 442 Initial ECG Impression: Normal Diagnostic Imaging Diagonstic Imaging: Xray Plain Films/CT/US/NM/MRI: chest Comments [facility] [place], [place] NAME: AUGUSTINE MONTERROSO [facility] REC#: [id number] PT STATUS: REG ER : 1965 PHYSICIAN: KELIN CRISOSTOMO MD ADMIT DATE: 09/18/22/ER Draft Date of Exam:09/18/22 CHEST 1 VIEW, AP/PA ONLY INDICATION: Chest pain. EXAMINATION: AP view of the chest was obtained. COMPARISON: Study of 11/22/2021. FINDINGS: There is mild cardiomegaly. Pulmonary vascularity is unremarkable. There is no pneumothorax or consolidation. No significant pleural fluid is seen. IMPRESSION: Mild cardiomegaly without other acute abnormality detected. Dictated on workstation # [id number] Dict: 09/18/221918 Trans: 09/18/221922 [facility] [phone] Interpreted by: BALJIT DAS MD Electronically signed by: Departure Impression Primary Impression: Costochondritis, acute Disposition: 01 HOME, SELF-CARE Condition: Stable Departure-Patient Inst. Decision time for Depature: 20:42 Referrals: [facility] (PCP/Family) Primary Care Physician Patient Instructions: Costochondritis (DC) Add. Discharge Instructions: Warm moist heat may help with discomfort to the chest wall. I have given you a prescription for hydrocodone. You can take 1 every 6 hours with a little food as needed for pain. Also a muscle relaxer 1 to 2 pills every 8 hours as needed. If you develop a fever, shortness of breath, rash or swelling or any other emergent, concerning symptoms please return to the emergency room for reevaluation. Please follow-up with your primary care provider as needed. Scripts Methocarbamol (Methocarbamol) 750 Mg Tablet 1500 MG PO Q8H for Back Pain, #12 TAB Prov: KELIN CRISOSTOMO MD 09/18/22 Hydrocodone/Acetaminophen (Hydrocodone-Acetamin 5-325 mg) 5 Mg-325 Mg Tablet 1 TAB PO Q6H PRN for PAIN-BREAKTHROUGH, #8 TAB Prov: KELIN CRISOSTOMO MD 09/18/22 Copy Copies To 1: MARSHALL LÓPEZ KATHRYN M MD Sep 18, 2022 18:49
[2022-09-18 18:54] LABS: BASOPHILS # (AUTO) 0.1 10^3/uL (0.0-0.1); BASOPHILS % (AUTO) 1 % (0-10); EOSINOPHILS # (AUTO) 0.4 10^3/uL (0.0-0.3); EOSINOPHILS % (AUTO) 4 % (0-10); HEMATOCRIT 50 % (40-54); HEMOGLOBIN 17.3 g/dL (13.3-17.7); LYMPHOCYTES % (AUTO) 33 % (12-44); MEAN CORPUSCULAR HEMOGLOBIN 32 pg (25-34); MEAN CORPUSCULAR HGB CONC 35 g/dL (32-36); MEAN CORPUSCULAR VOLUME 93 fL (80-99); MEAN PLATELET VOLUME 11.5 fL (9.0-12.2); MONOCYTES % (AUTO) 8 % (0-12); NEUTROPHILS # (AUTO) 6.4 10^3/uL (1.8-7.8); NEUTROPHILS % (AUTO) 54 % (42-75); PLATELET COUNT 210 10^3/uL (130-400)
[2022-09-18 19:01] LABS: ALBUMIN 4.3 GM/DL (3.2-4.5); POTASSIUM 4.2 MMOL/L (3.6-5.0)
[2022-09-18 19:04] LABS: TOTAL PROTEIN 7.6 GM/DL (6.4-8.2)
[2022-09-18 19:05] LABS: BILIRUBIN,TOTAL 0.3 MG/DL (0.1-1.0)
[2022-09-18 19:07] LABS: CREATININE SERUM 1.3 MG/DL (0.60-1.30)
[2022-09-18 19:10] LABS: MAGNESIUM 2.1 MG/DL (1.6-2.4)
[2022-09-18 19:12] LABS: INR 1.1 (0.8-1.4); PROTHROMBIN TIME PATIENT 14.8 SEC (12.2-14.7)
--- NOTE | 2022-09-18 19:23 | Diagnostic Imaging Report ---
INDICATION: Chest pain. EXAMINATION: AP view of the chest was obtained. COMPARISON: Study of 11/22/2021. FINDINGS: There is mild cardiomegaly. Pulmonary vascularity is unremarkable. There is no pneumothorax or consolidation. No significant pleural fluid is seen. IMPRESSION: Mild cardiomegaly without other acute abnormality detected. Dictated by: Dictated on workstation # [id number]
[2022-09-18] MEDS ORDERED: HYDROcodone/APAP 5 MG/325 MG (LORTAB) TAB PO ONE (20:00)
[2022-09-18] MEDS ORDERED: diphenhydrAMINE 25 MG TAB (BENADRYL) PO ONE (20:15)
[2022-09-18] MEDS ORDERED: METH-732 PO (20:44)
[2022-09-18] MEDS ORDERED: ACHD5005 PO (20:44)
[2022-09-18] MEDS ORDERED: ORPHENADRINE 60 MG/2 ML (NORFLEX) AMP (ED ONLY) IV ONE (20:45)
== END 2022-09-18 20:58 | disposition home or self-care (01) ==
LOC: EDUNIT# 18:32 → ER 18:34
DX: M94.0 Chondrocostal junction syndrome [Tietze] (principal); Z95.5 Presence of coronary angioplasty implant and graft; Z79.02 Long term (current) use of antithrombotics/antiplatelets
CPT/HCPCS: 36415; 71045; 80053; 83735; 84484; 85025; 85610; 85730; 93005; 93041

== ENCOUNTER 2022-09-21 12:57 | Emergency (ER) | payer MEDICARE, OTHER ==
[~2022-09-21] VITALS: Ht 187 cm; Wt 108.0 kg
[~2022-09-21 12:57] MED LIST changes: +METH-732 PO
[2022-09-21] MEDS ORDERED: ASPIRIN 81 MG CHEW (CHILDREN'S ASA) PO ONE (13:45)
[2022-09-21] MEDS ORDERED: KETOROLAC 15 MG/ML VIAL IVP ONE (13:45)
[2022-09-21 13:46] LABS: BASOPHILS # (AUTO) 0.1 10^3/uL (0.0-0.1); BASOPHILS % (AUTO) 1 % (0-10); EOSINOPHILS # (AUTO) 0.2 10^3/uL (0.0-0.3); EOSINOPHILS % (AUTO) 1 % (0-10); HEMATOCRIT 53 % (40-54); HEMOGLOBIN 17.7 g/dL (13.3-17.7); LYMPHOCYTES # (AUTO) 2.6 10^3/uL (1.0-4.0); LYMPHOCYTES % (AUTO) 21 % (12-44); MEAN CORPUSCULAR HEMOGLOBIN 31 pg (25-34); MEAN CORPUSCULAR HGB CONC 34 g/dL (32-36); MEAN CORPUSCULAR VOLUME 93 fL (80-99); MEAN PLATELET VOLUME 11.1 fL (9.0-12.2); MONOCYTES # (AUTO) 1.3 10^3/uL (0.0-1.0); MONOCYTES % (AUTO) 11 % (0-12); NEUTROPHILS # (AUTO) 8.4 10^3/uL (1.8-7.8); NEUTROPHILS % (AUTO) 66 % (42-75); PLATELET COUNT 229 10^3/uL (130-400); WHITE BLOOD COUNT 12.6 10^3/uL (4.3-11.0)
--- NOTE | 2022-09-21 13:53 | ED Back Pain ---
General Chief Complaint: Back Problems Stated Complaint: BACK AND CHEST PAIN. Nursing Triage Note: MID BACK PAIN THAT RADATES TO UPPER ABD STARTING MONDAY. PT STATES HE WAS SEEN HERE ON MONDAY BY DR CRISOSTOMO AND TOLD TO COME BACK IF NOT BETTER. Source of Information: Patient Exam Limitations: No Limitations History of Present Illness Date Seen by Provider: Sep 21, 2022 Time Seen by Provider: 13:19 Initial Comments 57-year-old male presents to the emergency department today for chest and back pain. He states he is in pain for about 4 to 5 days now. He was seen here yesterday with similar symptoms. Cardiac work-up which was negative. Chest x- ray at that time was negative and his vital signs were reassuring and normal. He tells me he is a sharp stabbing pain in his mid chest that is worse with deep inspiration and palpation. He denies any fevers or chills. No cough. He has no cardiac history. Tells me he had a similar pain about 3 years ago and have a full work-up on a couple occasions all of which were negative and no one ultimately found cause. He had a "2-hour gallbladder scan" about 2 months ago and was told his gallbladder was normal. All other systems reviewed and negative except documented per HPI. Voice recognition software was used to help create this chart Allergies and Home Medications Allergies Coded Allergies: aspartame (Verified Allergy, Unknown, 12/10/20) pioglitazone (Verified Allergy, Unknown, 12/10/20) Sxdvpqk-QAI-QpE Reductase Inhibitor (Verified Adverse Reaction, Unknown, 12/10/20) Unspecified adverse reaction Patient Home Medication List Home Medication List Reviewed: Yes Aspirin (Aspirin EC) 81 Mg Tablet., 81 MG PO DAILY, (Reported) Entered as Reported by: GIANNA HINDS on 02/13/19 0749 Canagliflozin (Invokana) 100 Mg Tablet, 100 MG PO DAILY, (Reported) Entered as Reported by: GIANNA HINDS on 11/23/21 1132 Clopidogrel Bisulfate (Clopidogrel) 75 Mg Tablet, 75 MG PO DAILY, (Reported) Entered as Reported by: GIANNA HINDS on 11/23/21 1132 Cyanocobalamin (Vitamin B-12) (Vitamin B-12) 250 Mcg Tablet, 250 MCG PO DAILY, (Reported) Entered as Reported by: GIANNA HINDS on 11/23/21 1132 Ezetimibe (Ezetimibe) 10 Mg Tablet, 10 MG PO HS, (Reported) Entered as Reported by: GIANNA HINDS on 11/23/21 113 Hydrocodone/Acetaminophen (Hydrocodone-Acetamin 5-325 mg) 5 Mg-325 Mg Tablet, 1 TAB PO Q6H PRN for PAIN-BREAKTHROUGH Prescribed by: KELIN CRISOSTOMO on 09/18/222044 Liraglutide (Victoza 3-Lev) 0.6 Mg/0.1 Ml (18 Mg/3 Ml) Pen.injctr, 0.6 MG SQ HS, (Reported) Entered as Reported by: GIANNA HINDS on 11/23/21 113 Methocarbamol (Methocarbamol) 750 Mg Tablet, 1,500 MG PO Q8H Prescribed by: KELIN CRISOSTOMO on 09/18/222043 Niacin (Inositol Niacinate) (Niacin Flush Free 500 mg Cap) 400 Mg Niacin (500 Mg) Capsule, 400 MG PO 1200, (Reported) Entered as Reported by: GIANNA HINDS on 11/23/21 113 Thiamine HCl (Vitamin B-1) 50 Mg Tablet, 50 MG PO DAILY, (Reported) Entered as Reported by: GIANNA HINDS on 11/23/21 113 Review of Systems Constitutional: see HPI Past Kpynzdo-Vptzjs-Oacgzs Hx Patient Social History Tobacco Use?: No Substance use?: No Alcohol Use?: No Immunizations Up To Date Tetanus Booster (TDap): Unknown PED Vaccines UTD: Yes First/Initial COVID19 Vaccinat: RECEIVED, UNK WHEN Second COVID19 Vaccination Norman: RECEIVED, UNK WHEN Third COVID19 Vaccination Date: UNKNOWN COVID19 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 Seasonal Allergies Seasonal Allergies: No Past Medical History Surgery/Hospitalization HX: CARDIAC STENTS X 4, COLON RESECTION, DM2 Surgeries: Yes (surgical procedure to decrease acid reflux, hiatal hernia, CARD IAC STENTS, ) Coronary Stent, Orthopedic Respiratory: Yes Sleep Apnea Currently Using CPAP: No Currently Using BIPAP: No Cardiac: Yes (coronary stents x 4, TACHYCARIDA) Coronary Artery Disease, Heart Attack, High Cholesterol, Hypertension Neurological: Yes TIA Genitourinary: No Gastrointestinal: Yes (colon resection due to diverticulitis) Gastroesophageal Reflux, Diverticulosis, Hiatal Hernia Musculoskeletal: Yes (left shoulder and elbow surgery, bilateral carpal tunnel surgery, right elb) Arthritis Endocrine: Yes Diabetes, Non-Insulin dep HEENT: No Cancer: No Psychosocial: No Integumentary: No Blood Disorders: No Family Medical History Reviewed Nursing Family Hx No Pertinent Family Hx Physical Exam Vital Signs Capillary Refill : Less Than 3 Seconds Height, Weight, BMI Height: 6'2.00" Weight: 240lbs. 0.0oz. 108.489502hr; 30.00 BMI Method:Stated General Appearance: WD/WN HEENT: Normal ENT Inspection, Pharynx Normal Neck: Full Range of Motion, Normal Inspection, Non Tender, Supple Cardiovascular: Regular Rate, Rhythm, No Murmur, Normal Peripheral Pulses Respiratory: Chest Non Tender, Lungs Clear, Normal Breath Sounds, No Accessory Muscle Use, No Respiratory Distress Gastrointestinal: Normal Bowel Sounds, Soft, Tenderness (Tender to palpation in the right upper abdomen, right lower chest wall. No deformity.) Extremity: Normal Capillary Refill, Normal Inspection, Normal Range of Motion, Non Tender, No Calf Tenderness Neurologic/Psychiatric: Alert, Oriented x3, Normal Mood/Affect Skin: Normal Color, Warm/Dry Progress/Results/Core Measures Results/Orders Lab Results Laboratory Tests Test 09/21/22 13:40 Range/Units White Blood Count 12.6 H 4.3-11.0 10^3/uL Red Blood Count 5.66 H 4.30-5.52 10^6/uL Hemoglobin 17.7 13.3-17.7 g/dL Hematocrit 53 40-54 % Mean Corpuscular Volume 93 80-99 fL Mean Corpuscular Hemoglobin 31 25-34 pg Mean Corpuscular Hemoglobin Concent 34 32-36 g/dL Red Cell Distribution Width 12.2 10.0-14.5 % Platelet Count 229 130-400 10^3/uL Mean Platelet Volume 11.1 9.0-12.2 fL Immature Granulocyte % (Auto) 0 % Neutrophils (%) (Auto) 66 42-75 % Lymphocytes (%) (Auto) 21 12-44 % Monocytes (%) (Auto) 11 0-12 % Eosinophils (%) (Auto) 1 0-10 % Basophils (%) (Auto) 1 0-10 % Neutrophils # (Auto) 8.4 H 1.8-7.8 10^3/uL Lymphocytes # (Auto) 2.6 1.0-4.0 10^3/uL Monocytes # (Auto) 1.3 H 0.0-1.0 10^3/uL Eosinophils # (Auto) 0.2 0.0-0.3 10^3/uL Basophils # (Auto) 0.1 0.0-0.1 10^3/uL Immature Granulocyte # (Auto) 0.0 0.0-0.1 10^3/uL Sodium Level 139 135-145 MMOL/L Potassium Level 4.1 3.6-5.0 MMOL/L Chloride Level 105 98-107 MMOL/L Carbon Dioxide Level 21 21-32 MMOL/L Anion Gap 13 5-14 MMOL/L Blood Urea Nitrogen 19 H 7-18 MG/DL Creatinine 1.22 0.60-1.30 MG/DL Estimat Glomerular Filtration Rate 69 BUN/Creatinine Ratio 16 Glucose Level 149 H 70-105 MG/DL Calcium Level 10.3 H 8.5-10.1 MG/DL Corrected Calcium 9.9 8.5-10.1 MG/DL Magnesium Level 2.2 1.6-2.4 MG/DL Total Bilirubin 0.6 0.1-1.0 MG/DL Aspartate Amino Transf (AST/SGOT) 13 5-34 U/L Alanine Aminotransferase (ALT/SGPT) 17 0-55 U/L Alkaline Phosphatase 54 40-136 U/L Myoglobin 44.9 10.0-92.0 NG/ML Troponin I < 0.028 <0.028 NG/ML Total Protein 8.2 6.4-8.2 GM/DL Albumin 4.5 3.2-4.5 GM/DL My Orders Orders - SHIRA OLIVARES DO Cbc With Automated Diff (09/21/22 13:37) Magnesium (09/21/22 13:37) Chest 1 View, Ap/Pa Only (09/21/22 13:37) Ekg Tracing (09/21/22 13:37) Comprehensive Metabolic Panel (09/21/22 13:37) Myoglobin Serum (09/21/22 13:37) Ed Iv/Invasive Line Start (09/21/22 13:37) Troponin I [place] (09/21/22 13:37) Aspirin Chewable Tablet (Baby Aspirin Ch (09/21/22 13:45) Ketorolac Injection (Toradol Injection) (09/21/22 13:45) Ct Angio Chest W (09/21/22 14:51) Iohexol Injection (Omnipaque 350 Mg/Ml 1 (09/21/22 15:00) Received Contrast (Hold Metformin- Contr (09/21/22 15:00) Ns (Ivpb) (Sodium Chloride 0.9% Ivpb Bag (09/21/22 15:00) Medications Given in ED Current Medications Medications Dose Ordered Sig/Lyndsay Route Start Time Stop Time Status Last Admin Dose Admin Aspirin 324 mg ONCE ONCE PO 09/21/22 13:45 09/21/22 13:46 DC 09/21/22 13:46 324 MG Iohexol 100 ml ONCE ONCE IV 09/21/22 15:00 09/21/22 15:01 DC 09/21/22 15:00 84 ML Ketorolac Tromethamine 15 mg ONCE ONCE IVP 09/21/22 13:45 09/21/22 13:46 DC 09/21/22 13:46 15 MG Sodium Chloride 100 ml ONCE ONCE IV 09/21/22 15:00 09/21/22 15:01 DC 09/21/22 15:00 80 ML Blood Pressure Mean: 98 Departure Communication (Admissions) Patient is hemodynamically stable. Initially mildly tachycardic at 99 or so. Blood pressure stable. Chest x-ray initially negative. CT scan shows bibasilar infiltrates, atelectasis versus pneumonia. On discussion he states it does feel kind of like when he had pneumonia before. With that we will go and treat him with doxycycline. He does have a slight leukocytosis with slight left shift. Labs are otherwise unremarkable. He be discharged with antibiotics, Toradol. He states he feels slightly better after the Toradol. Discharged in stable condition. Impression Primary Impression: Lung infiltrate on CT Disposition: HOME, SELF-CARE Condition: Stable Departure-Patient Inst. Referrals: [facility] (PCP/Family) Primary Care Physician Patient Instructions: Community-Acquired Pneumonia in Adults Add. Discharge Instructions: As discussed your CT scan shows possible pneumonia versus atelectasis. Out of caution I went ahead and treated you with antibiotics. Please take the doxycycline as prescribed until it is gone for the full 7 days. Have given you Toradol which is a medicine that you can use for pain. Do not take any other anti-inflammatory medicines while taking this as it may affect your kidneys negatively. May use Tylenol in addition to this. Increase your fluids at home and rest. Follow-up with your primary doctor in the next week. Return to the emergency department for any severe shortness of breath or symptoms change in any way concerning to you. All discharge instructions reviewed with patient and/or family. Voiced understanding. Scripts Ketorolac Tromethamine (Ketorolac Tromethamine) 10 Mg Tablet 10 MG PO TID for Pain for 3 Days, #9 TAB Prov: SHIRA OLIVARES DO 09/21/22 Doxycycline Hyclate (Doxycycline Hyclate) 100 Mg Tablet 100 MG PO BID for 7 Days, #14 TAB Prov: SHIRA OLIVARES DO 09/21/22 SHIRA OLIVARES DO Sep 21, 2022 13:53
[2022-09-21 13:56] LABS: ALBUMIN 4.5 GM/DL (3.2-4.5)
[2022-09-21 13:57] LABS: POTASSIUM 4.1 MMOL/L (3.6-5.0)
[2022-09-21 13:58] LABS: CALCIUM 10.3 MG/DL (8.5-10.1)
[2022-09-21 13:59] LABS: TOTAL PROTEIN 8.2 GM/DL (6.4-8.2)
[2022-09-21 14:01] LABS: BILIRUBIN,TOTAL 0.6 MG/DL (0.1-1.0)
[2022-09-21 14:03] LABS: CREATININE SERUM 1.22 MG/DL (0.60-1.30)
--- NOTE | 2022-09-21 14:03 | Diagnostic Imaging Report ---
INDICATION: Chest pain. COMPARISON: 09/18/2022. FINDINGS: The heart is enlarged. There is some medial right basilar infiltrate or atelectasis, pneumonia could not be excluded. There is also more mild patchy atelectasis or infiltrate in the left base. Upper lobes are clear. Heart size is stable. No effusion or pneumothorax. IMPRESSION: 1. Bibasilar opacities, greater right, and new from prior which may be partial atelectasis or developing pneumonia in the appropriate scenario. 2. No effusion or failure pattern. No pneumothorax, and no free air beneath the diaphragms. Dictated by: Dictated on workstation # [id number]
[2022-09-21 14:05] LABS: MAGNESIUM 2.2 MG/DL (1.6-2.4)
[2022-09-21] MEDS ORDERED: IOHEXOL 350 MG/ML 100 ML (OMNIPAQUE 350) VIAL IV ONE (15:00)
[2022-09-21] MEDS ORDERED: NS 100 ML (IVPB) BAG IV ONE (15:00)
[2022-09-21] MEDS ORDERED: HOLD METFORMIN - RECEIVED CONTRAST 20 ML VIAL IV SCH (15:00)
--- NOTE | 2022-09-21 15:28 | Diagnostic Imaging Report ---
PROCEDURE: CT angiography of the chest with contrast. TECHNIQUE: Multiple contiguous axial images were obtained through the chest after uneventful bolus administration of intravenous contrast. 3D reconstructed CTA MIP acquisitions were also performed. Auto Exposure Controls were utilized during the CT exam to meet ALARA standards for radiation dose reduction. INDICATION: Chest pain. Tachycardia. Shortness of breath. COMPARISON: 01/02/2020. FINDINGS: This helical CT pulmonary angiogram is diagnostic to the subsegmental level branches of the pulmonary artery and demonstrates no pulmonary emboli. The heart and great vessels are unremarkable. There is no pericardial effusion. There is no axillary, mediastinal, or hilar adenopathy. Bibasilar opacities are present. No focal mass. No suspicious pulmonary nodules. No central endobronchial obstructing lesions. No pleural effusion or pneumothorax. Osseous structures appear normal. Limited views of the upper abdomen are unremarkable. IMPRESSION: 1. No acute pulmonary embolus. 2. Bibasilar opacities, favored to represent atelectasis. Components of infection can also be present. Dictated by: Dictated on workstation # [id number]
[2022-09-21] MEDS ORDERED: DOXY100T2 PO (15:37)
[2022-09-21] MEDS ORDERED: KETO10TA PO (15:37)
[2022-09-21 15:55] VITALS: BP 122/87
== END 2022-09-21 15:55 | disposition home or self-care (01) ==
LOC: EDUNIT# 12:57 → ER 13:06
DX: R91.8 Other nonspecific abnormal finding of lung field (principal); R10.11 Right upper quadrant pain; R07.89 Other chest pain; D72.829 Elevated white blood cell count, unspecified; Z95.5 Presence of coronary angioplasty implant and graft
CPT/HCPCS: 36415; 71045; 71275; 80053; 83735; 83874; 84484; 85025; 93005

== ENCOUNTER 2023-01-15 18:44 | Inpatient (IN) | payer MEDICARE, OTHER ==
[~2023-01-15] VITALS: Ht 188 cm; Wt 105.7 kg
[~2023-01-15 18:44] MED LIST changes: +DOXY100T2 PO; +KETO10TA PO
[2023-01-15] MEDS: NITROGLYCERIN 0.4 MG SL TABS BTL 25'S SL PRN ×2 (18:59→19:08)
[2023-01-15 19:00] LABS: BASOPHILS # (AUTO) 0.1 10^3/uL (0.0-0.1); BASOPHILS % (AUTO) 1 % (0-10); EOSINOPHILS # (AUTO) 0.4 10^3/uL (0.0-0.3); EOSINOPHILS % (AUTO) 4 % (0-10); HEMATOCRIT 52 % (40-54); HEMOGLOBIN 17.9 g/dL (13.3-17.7); LYMPHOCYTES # (AUTO) 3.5 10^3/uL (1.0-4.0); LYMPHOCYTES % (AUTO) 36 % (12-44); MEAN CORPUSCULAR HEMOGLOBIN 32 pg (25-34); MEAN CORPUSCULAR HGB CONC 34 g/dL (32-36); MEAN CORPUSCULAR VOLUME 93 fL (80-99); MEAN PLATELET VOLUME 11.1 fL (9.0-12.2); MONOCYTES # (AUTO) 0.8 10^3/uL (0.0-1.0); MONOCYTES % (AUTO) 8 % (0-12); NEUTROPHILS # (AUTO) 5.1 10^3/uL (1.8-7.8); NEUTROPHILS % (AUTO) 51 % (42-75); PLATELET COUNT 225 10^3/uL (130-400); WHITE BLOOD COUNT 9.9 10^3/uL (4.3-11.0)
[2023-01-15] MEDS ORDERED: ASPIRIN 81 MG CHEWABLE TABLET PO ONE (19:00)
[2023-01-15 19:11] LABS: ALBUMIN 4.2 GM/DL (3.2-4.5); PROTHROMBIN TIME PATIENT 13.4 SEC (12.2-14.7)
--- NOTE | 2023-01-15 19:11 | Diagnostic Imaging Report ---
EXAMINATION: Chest 1 view. HISTORY: Chest pain. COMPARISON: 09/21/2022. FINDINGS: Heart size is normal with prominence of the pulmonary vasculature. Mild interstitial opacities within the mid and lower lungs. No pleural effusion or pneumothorax. The osseous structures are intact. IMPRESSION: Pulmonary vascular congestion with perihilar interstitial opacities. Findings can be seen with pulmonary edema, atelectasis or pneumonia. Dictated by: Dictated on workstation # [id number]
[2023-01-15 19:13] LABS: CALCIUM 10.1 MG/DL (8.5-10.1)
--- NOTE | 2023-01-15 19:13 | ED Chest Pain ---
General Chief Complaint: Chest Pain Stated Complaint: CHEST PAIN Nursing Triage Note: pt states he woke up with chest pain this am, it went away and then came back around 2-3 this afternoon and has been constant since then. states sharp pain in the center of his chest that goes thru to his back and left shoulder Source: patient History of Present Illness Date Seen by Provider: Jan 15, 2023 Time Seen by Provider: 18:48 Initial Comments PT ARRIVES VIA POV FROM HOME C/O CHEST PAIN IN CENTER OF CHEST SINCE 729 THIS AM PAIN WOULD COME AND GO TODAY. RETURNED AT [phone] AND HAS NOT GONE AWAY PAIN RADIATES INTO HIS UPPER/ MID BACK AND INTO LEFT SHOULDER IT DOES HURT TO TAKE A DEEP BREATH PAIN IS SHARP RATES PAIN 7/10 + SWEATS WITH PAIN NO NAUSEA/VOMITING NO SWELLING IN LEGS/FEET OR PAIN IN CALVES NO SHORTNESS OF BREATH HE HAS HAD EPISODES OF FEELING LIKE HIS HEART IS RACING AND DIZZINESS TODAY PT HAS HISTORY OF PR X 2 WITH 6 STENTS. LAST NOVEMBER 2021--[address] SANCHEZ HE HAS HAD NTG AT HOME, BUT RAN OUT A COUPLE OF MONTHS AGO--HE IS UNABLE TO STATE HOW OFTEN HE NORMALLY TAKES IT. STATES A BOTTLE WILL LAST HIM "A MONTH OR MORE" PT IS ON PLAVIX. PCP: [facility]. [employer]PER[employer]OR [employer]: DR. VEGA Allergies and Home Medications Allergies Coded Allergies: aspartame (Verified Allergy, Unknown, 12/10/20) pioglitazone (Verified Allergy, Unknown, 12/10/20) Ftoupmw-ZJZ-KmG Reductase Inhibitor (Verified Adverse Reaction, Unknown, 12/10/20) Unspecified adverse reaction Patient Home Medication List Home Medication List Reviewed: Yes Aspirin (Aspirin EC) 81 Mg Tablet., 81 MG PO HS, (Reported) Entered as Reported by: GIANNA HINDS on 02/13/19 0734 Last Action: Reviewed Canagliflozin (Invokana) 300 Mg Tablet, 150 MG PO BID, (Reported) Entered as Reported by: GIANNA HINDS on 01/17/23 1017 Last Action: Reviewed Clopidogrel Bisulfate (Clopidogrel) 75 Mg Tablet, 75 MG PO DAILY, (Reported) Entered as Reported by: GIANNA HINDS on 11/23/21 1132 Last Action: Reviewed Cyanocobalamin (Vitamin B-12) (Vitamin B-12) 2,500 Mcg Tab.subl, 2,500 MCG SL DAILY, (Reported) Entered as Reported by: GIANNA HINDS on 01/17/231119 Last Action: Reviewed Metoprolol Succinate (Metoprolol Succinate) 25 Mg Tab.er.24h, 25 MG PO DAILY Prescribed by: VENKATA PERSON on 01/17/23632 Niacin (Inositol Niacinate) (Niacin Flush Free 500 mg Cap) 400 Mg Niacin (500 Mg) Capsule, 400 MG PO DAILY, (Reported) Entered as Reported by: GIANNA HINDS on 11/23/211131 Last Action: Reviewed Pantoprazole Sodium (Pantoprazole Sodium) 40 Mg Tablet.dr, 40 MG PO DAILY Prescribed by: VENKATA PERSON on 01/17/23632 Discontinued Medications Canagliflozin (Invokana) 100 Mg Tablet, 100 MG PO DAILY, (Reported) Discontinued Reason: Prescription changed Entered as Reported by: GIANNA HINDS on 11/23/211131 Last Action: Converted Cyanocobalamin (Vitamin B-12) (Vitamin B-12) 250 Mcg Tablet, 250 MCG PO DAILY, (Reported) Discontinued Reason: Prescription changed Entered as Reported by: GIANNA HINDS on 11/23/211131 Last Action: Reviewed Doxycycline Hyclate (Doxycycline Hyclate) 100 Mg Tablet, 100 MG PO BID Prescribed by: SHIRA OLIVARES MD on 09/21/221536 Last Action: Discontinued Hydrocodone/Acetaminophen (Hydrocodone-Acetamin 5-325 mg) 5 Mg-325 Mg Tablet, 1 TAB PO Q6H PRN for PAIN-BREAKTHROUGH Discontinued Reason: No Longer Taking Prescribed by: KELIN CRISOSTOMO on 09/18/222044 Last Action: Discontinued Ketorolac Tromethamine (Ketorolac Tromethamine) 10 Mg Tablet, 10 MG PO TID Prescribed by: SHIRA OLIVARES MD on 09/21/221536 Last Action: Discontinued Review of Systems Review of Systems Constitutional: see HPI, diaphoresis, dizziness EENTM: No Symptoms Reported Respiratory: See HPI Cardiovascular: See HPI Gastrointestinal: No Symptoms Reported Genitourinary: No Symptoms Reported Musculoskeletal: see HPI Skin: no symptoms reported Psychiatric/Neurological: No Symptoms Reported Endocrine: No Symptoms Reported Hematologic/Lymphatic: No Symptoms Reported Past Fkakjlm-[id number]-Aoqpfv Hx Patient Social History Tobacco Use?: No Substance use?: No Alcohol Use?: Yes Alcohol Frequency: Once in a while Immunizations Up To Date Tetanus Booster (TDap): Unknown PED Vaccines UTD: Yes First/Initial COVID19 Vaccinat: UNKNOWN Second COVID19 Vaccination Norman: UNKNOWN Third COVID19 Vaccination Date: UNKNOWN Seasonal Allergies Seasonal Allergies: No Past Medical History Surgery/Hospitalization HX: CARDIAC STENTS X 4, COLON RESECTION, DM2 Surgeries: Yes (surgical procedure to decrease acid reflux, hiatal hernia, CARDIAC STENTS, ) Abdominal, Bowel Surgery, Cardiac, Coronary Stent, Orthopedic Respiratory: Yes Sleep Apnea Currently Using CPAP: No Currently Using BIPAP: No Cardiac: Yes (MIX 2; CARDIAC STENTS x 6, TACHYCARIDA) Coronary Artery Disease, Heart Attack, High Cholesterol, Hypertension Neurological: Yes TIA Genitourinary: No Gastrointestinal: Yes (colon resection due to diverticulitis) Gastroesophageal Reflux, Diverticulosis, Hiatal Hernia Musculoskeletal: Yes (left shoulder and elbow surgery, bilateral carpal tunnel surgery, right elb) Arthritis Endocrine: Yes Diabetes, Non-Insulin dep HEENT: No Cancer: No Psychosocial: No Integumentary: No Blood Disorders: No Family Medical History No Pertinent Family Hx SOCIAL HISTORY: -DENIES SMOKING -DENIES DRUG USE -OCCASIONAL ALCOHOL USE PAST SURGICAL HISTORY: -COLON RESECTION FOR DIVERTICULITIS -HIATAL HERNIA REPAIR -MULTIPLE ORTHOPEDIC SURGERIES: --LEFT SHOULDER --BILATERAL CUBITAL TUNNEL --BILATERAL CARPAL TUNNEL --RIGHT ANKLE -CARDIAC CATHS WITH STENTS X 6 --LAST CATH 11/2021 WITH STENTS X 2 --Coronary artery disease - History of myocardial infarction in 2010, had 3 stents placed in the right coronary artery using Promus element 3.512 mm followed by 3.028 followed by 2.512 mm in the right coronary artery, - Had another 2 cardiac catheterization reported that the stent was open. - Cardiac catheterization was done on February 13, 2019 showing severe mid LAD stenosis with successful primary stenting using Dori 2.512 mm expanded to 2.7 mm with excellent results, patent stent in the proximal and midright coronary artery with a step down beyond the stent, mild to moderate disease nonobstructive disease, normal left ventricular size and function. - Cardiac catheterization done December 2019 with balloon angioplasty to the RCA. CABG - Cardiac cath of November 23, 2021, Dr. Sanchez perform cardiac catheterization severe mid LAD stenosis proximal to the edge of an old stent, 80% distal to the edge. The distal lesion was stented with edith point 2.5 x 23 and the proximal lesion had a stent with 2.75 x 23 with good results. The rest of the coronary artery has diffuse moderate disease, right coronary artery has patent stent in the proximal and midportion. Ejection fraction 50-55 Lexiscan stress test was done on August 04, 2021 showing no ischemia no infarction, stress score 0, EF 59% Physical Exam Vital Signs Vital Signs - First Documented 01/15/23 18:50 Temp 36.0 Pulse 82 Resp 18 B/P (MAP) 141/87 (105) Pulse Ox 98 Capillary Refill : Less Than 3 Seconds Height, Weight, BMI Height: 6'2.00" Weight: 240lbs. 0.0oz. 108.449588tr; 30.00 BMI Method:Stated General Appearance: No Apparent Distress, WD/WN, Other (LAUGHING, JOKING) Neck: Full Range of Motion, Normal Inspection, Non Tender, Supple; No Carotid Bruit, No JVD Respiratory: Chest Non Tender, Normal Breath Sounds, No Accessory Muscle Use, No Respiratory Distress Cardiovascular: Regular Rate, Rhythm, No Edema, No JVD, No Murmur, Normal Peripheral Pulses Gastrointestinal: Non Tender, Soft Extremity: Normal Capillary Refill, Normal Inspection, Normal Range of Motion, Non Tender, No Calf Tenderness, No Pedal Edema Neurologic/Psychiatric: Alert, Oriented x3, No Motor/Sensory Deficits, Normal Mood/Affect, facing machine operator II-XII Norm as Tested Skin: Normal Color, Warm/Dry Progress/Results/Core Measures Results/Orders Lab Results Laboratory Tests Test 01/15/23 18:54 Range/Units White Blood Count 9.9 4.3-11.0 10^3/uL Red Blood Count 5.58 H 4.30-5.52 10^6/uL Hemoglobin 17.9 H 13.3-17.7 g/dL Hematocrit 52 40-54 % Mean Corpuscular Volume 93 80-99 fL Mean Corpuscular Hemoglobin 32 25-34 pg Mean Corpuscular Hemoglobin Concent 34 32-36 g/dL Red Cell Distribution Width 12.8 10.0-14.5 % Platelet Count 225 130-400 10^3/uL Mean Platelet Volume 11.1 9.0-12.2 fL Immature Granulocyte % (Auto) 0 % Neutrophils (%) (Auto) 51 42-75 % Lymphocytes (%) (Auto) 36 12-44 % Monocytes (%) (Auto) 8 0-12 % Eosinophils (%) (Auto) 4 0-10 % Basophils (%) (Auto) 1 0-10 % Neutrophils # (Auto) 5.1 1.8-7.8 10^3/uL Lymphocytes # (Auto) 3.5 1.0-4.0 10^3/uL Monocytes # (Auto) 0.8 0.0-1.0 10^3/uL Eosinophils # (Auto) 0.4 H 0.0-0.3 10^3/uL Basophils # (Auto) 0.1 0.0-0.1 10^3/uL Immature Granulocyte # (Auto) 0.0 0.0-0.1 10^3/uL Prothrombin Time 13.4 12.2-14.7 SEC INR Comment 1.0 0.8-1.4 Activated Partial Thromboplast Time 30 24-35 SEC D-Dimer 0.27 0.00-0.49 UG/ML Sodium Level 141 135-145 MMOL/L Potassium Level 4.0 3.6-5.0 MMOL/L Chloride Level 107 98-107 MMOL/L Carbon Dioxide Level 21 21-32 MMOL/L Anion Gap 13 5-14 MMOL/L Blood Urea Nitrogen 21 H 7-18 MG/DL Creatinine 1.36 H 0.60-1.30 MG/DL Estimat Glomerular Filtration Rate 60 BUN/Creatinine Ratio 15 Glucose Level 202 H 70-105 MG/DL Calcium Level 10.1 8.5-10.1 MG/DL Corrected Calcium 9.9 8.5-10.1 MG/DL Magnesium Level 2.1 1.6-2.4 MG/DL Total Bilirubin 0.2 0.1-1.0 MG/DL Aspartate Amino Transf (AST/SGOT) 16 5-34 U/L Alanine Aminotransferase (ALT/SGPT) 14 0-55 U/L Alkaline Phosphatase 57 40-136 U/L Total Creatine Kinase 70 30-200 U/L Creatine Kinase MB 2.0 <6.6 NG/ML Myoglobin 36.8 10.0-92.0 NG/ML Troponin I 0.030 H <0.028 NG/ML B-Type Natriuretic Peptide 38.8 <100.0 PG/ML Total Protein 7.8 6.4-8.2 GM/DL Albumin 4.2 3.2-4.5 GM/DL Amylase Level 63 25-125 U/L Lipase 54 8-78 U/L My Orders Orders - SAE COLLINS DO Ekg Tracing (01/15/23 18:48) Cbc With Automated Diff (01/15/23 18:48) Magnesium (01/15/23 18:48) Chest 1 View, Ap/Pa Only (01/15/23 18:48) Comprehensive Metabolic Panel (01/15/23 18:48) Myoglobin Serum (01/15/23 18:48) Protime With Inr (01/15/23 18:48) Partial Thromboplastin Time (01/15/23 18:48) O2 (01/15/23 18:48) Monitor-Rhythm Ecg Trace Only (01/15/23 18:48) Ed Iv/Invasive Line Start (01/15/23 18:48) Creatine Kinase (01/15/23 18:48) Creatine Kinase Mb (01/15/23 18:48) Lipase (01/15/23 18:48) Amylase (01/15/23 18:48) Bnp Isela (01/15/23 18:48) Fibrin Degradation Products (01/15/23 18:48) Troponin I Isela (01/15/23 18:48) Nitroglycerin 0.4 Mg Btl 25's (Nitrostat (01/15/23 19:00) Aspirin Chewable Tablet (Aspirin Chewabl (01/15/23 19:00) Morphine Injection (Morphine Injection (01/15/23 19:45) Enoxaparin Injection (Enoxaparin Injecti (01/15/23 20:00) Clopidogrel Tablet (Clopidogrel Tablet) (01/15/23 20:00) Metoprolol Succinate (Xl) Tab (Toprol Xl (01/15/23 20:00) Ed Admission (Communication) (01/15/23 19:54) Ed Iv/Invasive Line Start (01/15/23 19:58) Ns Iv 1000 Ml (Sodium Chloride 0.9%) (01/15/23 20:00) Morphine Injection (Morphine Injection (01/15/23 20:30) Medications Given in ED Vital Signs/I&O 01/15/23 18:50 Temp 36.0 Pulse 82 Resp 18 B/P (MAP) 141/87 (105) Pulse Ox 98 Blood Pressure Mean: 105 Progress Progress Note : Progress Note VITALS ON ADMIT: BP 141/87, HR 76, RR 15, O2 SAT 96% NO DETERIORATION IN PT'S CONDITION DURING ER STAY GIVEN: -ASPIRIN -NTG X 2--PAIN DOWN TO 4/10. BP IN 110'S SYSTOLIC. -MORPHINE--PAIN ALMOST GONE -LOVENOX -PLAVIX -TOPROL XL LABS: -CBC UNREMARKABLE -CMP UNREMARKABLE EXCEPT FOR BUN 21, CR 1.36, GLU 202 -AMYLASE/LIPASE NEGATIVE. -TROPONIN 0.03 -BNP NEGATIVE -COAGULATION STUDIES NORMAL. D-DIMER NEGATIVE. EKG UNREMARKABLE CXR UNREMARKABLE NO DETERIORATION IN PT'S CONDITION DURING ER STAY DISCUSSED TEST RESULTS AND NEED FOR ADMIT AND PT IS AGREEABLE TO PLAN REVIEWED PRIOR RECORDS INCLUDING ER VISITS, ADMITS/H&P'S/CONSULTS/DISCHARGE SUMMARIES, TESTS/PROCEDURES Initial ECG Impression Date: Jan 15, 2023 Initial ECG Impression Time: 18:55 Initial ECG Rate: 78 Initial ECG Rhythm: Normal Sinus Initial ECG Intervals: Normal Initial ECG Impression: Normal Initial ECG Comparisson: Unchanged Comment INTERPRETED BY ME Diagnostic Imaging Comments CXR--PER RADIOLOGIST REPORT AT 1912 COMPARISON: 09/21/2022. FINDINGS: Heart size is normal with prominence of the pulmonary vasculature. Mild interstitial opacities within the mid and lower lungs. No pleural effusion or pneumothorax. The osseous structures are intact. IMPRESSION: Pulmonary vascular congestion with perihilar interstitial opacities. Findings can be seen with pulmonary edema, atelectasis or pneumonia. Departure Communication (Admissions) 1947--SPOKE WITH DR. SANCHEZ, LEAD [employer], WILL SEE PT IN CONSULTS. ORDERS NOT ED. 1951--[facility] [place] RESIDENT HERE TO SEE PT . SHE WILL DO ADMIT ORDERS. Impression Primary Impression: Chest pain Additional Impressions: NSTEMI (non-ST elevated myocardial infarction) NIDDM CAD WITH MULTIPLE STENTS Disposition: ADMITTED INPATIENT Condition: Improved Admissions Decision to Admit Reason: Admit from ER (General) Decision to Admit/Date: Jan 15, 2023 Time/Decision to Admit Time: 19:50 Departure-Patient Inst. Referrals: [facility] (PCP/Family) Primary Care Physician Scripts Pantoprazole Sodium (Pantoprazole Sodium) 40 Mg Tablet.dr 40 MG PO DAILY, #30 TAB Prov: VENKATA PERSON DO 01/17/23 Metoprolol Succinate (Metoprolol Succinate) 25 Mg Tab.er.24h 25 MG PO DAILY, #30 TAB Prov: VENKATA PERSON DO 01/17/23 SAE COLLINS DO Jan 15, 2023 19:13
[2023-01-15 19:14] LABS: FIBRIN DEGRADATION PRODUCTS 0.27 UG/ML (0.00-0.49); TOTAL PROTEIN 7.8 GM/DL (6.4-8.2)
[2023-01-15 19:15] LABS: BILIRUBIN,TOTAL 0.2 MG/DL (0.1-1.0)
[2023-01-15 19:17] LABS: CREATININE SERUM 1.36 MG/DL (0.60-1.30)
[2023-01-15 19:20] LABS: MAGNESIUM 2.1 MG/DL (1.6-2.4)
[2023-01-15] MEDS ORDERED: morphine INJ 4 MG/ML 1 ML (VIAL/SYRINGE) IVP ONE ×2 (19:45→20:30)
[2023-01-15] MEDS ORDERED: ENOXAPARIN 100 MG/1 ML SYRINGE SC ONE (20:00)
[2023-01-15] MEDS ORDERED: meTOproloL SUCCINATE 50 MG (TOPROL XL) TAB PO SCH (20:00)
[2023-01-15] MEDS ORDERED: CLOPIDOGREL 75 MG TABLET PO ONE (20:00)
[2023-01-15] MEDS ORDERED: NS IV 1000 ML 1,000 ML IV SCH (20:00)
[2023-01-15] MEDS ORDERED: diphenhydrAMINE INJ 50 MG/ML VIAL ONE (20:38)
[2023-01-15] MEDS ORDERED: diphenhydrAMINE INJ 50 MG/ML VIAL IVP ONE (20:45)
--- NOTE | 2023-01-15 20:47 | History & Physical-Hospitalist ---
NIGEL BURNS MD 01/15/232046: History of Present Illness HPI/Chief Complaint CC: Chest pain Patient presents today with persistent chest pain. He states that he woke up with midsternal chest pain more prevalent on his right side. He then noted that this went away but came back in the afternoon and became worse. He states it was left-sided persistent, double chest pain. He also noticed that he was having some shortness of breath, nausea, headache and some blurry vision while this was occurring. He does have a history of multiple stent placements in his heart and notes that this episode feels similar to those previous times. He has been compliant with his medications otherwise. Source: patient Exam Limitations: no limitations Date Seen 01/15/23 Time Seen by a Provider: 08:00 Attending Physician [place] PCP Admitting Physician: Marivel Ascencio DO Attending Physician: Marivel Ascencio DO Referring Physician Date of Admission Jan 15, 2023 at 20:34 Home Medications & Allergies Home Medications Reviewed patient Home Medication Reconciliation performed by pharmacy medication reconciliations laboratory mechanical technician and/or nursing. Patients Allergies have been reviewed. Allergies Allergies Coded Allergies aspartame (Verified Allergy, Unknown, 12/10/20) pioglitazone (Verified Allergy, Unknown, 12/10/20) Faavcdq-STK-WmX Reductase Inhibitor (Verified Adverse Reaction, Unknown, 12/10/20) Unspecified adverse reaction Past Lkvyqui-Vsvkoi-Vkxqgn Hx Patient Social History Tobacco Use?: No Substance use?: No Alcohol Use?: No Immunizations Up To Date Date of Influenza Vaccine: Mar 12, 2008 First/Initial COVID19 Vaccinat: UNKNOWN Second COVID19 Vaccination Norman: UNKNOWN Tetanus Booster (TDap): Unknown PED Vaccines UTD: Yes Date of Pneumonia Vaccine: Feb 20, 2008 Seasonal Allergies Seasonal Allergies: No Current Status Advance Directives: No Primary Language: Norwegian Preferred Spoken Language: Norwegian Past Medical History Surgeries: Coronary Stent, Orthopedic Sleep Apnea Currently Using CPAP: No Currently Using BIPAP: No Coronary Artery Disease, Heart Attack, High Cholesterol, Hypertension TIA Gastroesophageal Reflux, Diverticulosis, Hiatal Hernia Arthritis Diabetes, Non-Insulin dep Blood Disorders: No PMHx CAD HTN SurgHx: Cardiac stenting Colon resection for diverticulitis Family Medical History No Pertinent Family Hx Review of Systems Constitutional: No chills, No dizziness, No fever EENTM: blurred vision; No nose congestion Respiratory: No cough, No dyspnea on exertion; short of breath; No wheezing Cardiovascular: chest pain; No edema, No palpitations Gastrointestinal: No abdominal pain, No constipation, No diarrhea, No nausea, No vomiting Genitourinary: No dysuria Musculoskeletal: No joint swelling Skin: No rash Psychiatric/Neurological: Headache; Denies Numbness Physical Exam Physical Exam Vital Signs Vital Signs - First Documented 01/15/23 18:50 Temp 36.0 Pulse 82 Resp 18 B/P (MAP) 141/87 (105) Pulse Ox 98 Capillary Refill : Less Than 3 Seconds Height, Weight, BMI Height: 6'2.00" Weight: 240lbs. 0.0oz. 108.400622si; 30.00 BMI Method:Stated General Appearance: No Apparent Distress HEENT: PERRL/EOMI, Pharynx Normal, Moist Mucous Membranes Neck: Full Range of Motion Respiratory: Chest Non Tender, Lungs Clear, Normal Breath Sounds, No Accessory Muscle Use, No Respiratory Distress Cardiovascular: Regular Rate, Rhythm, No Edema, No Murmur Gastrointestinal: Normal Bowel Sounds, Non Tender, Soft Back: Normal Inspection Extremity: No Pedal Edema Neurologic/Psychiatric: Alert, Oriented x3 Skin: Warm/Dry Results Results/Procedures Labs Laboratory Tests 01/15/23 18:54 Patient resulted labs reviewed. Imaging: Reviewed Imaging Films, Reviewed Imaging Report Imaging Chest x-ray: IMPRESSION: Pulmonary vascular congestion with perihilar interstitial opacities. Findings can be seen with pulmonary edema, atelectasis or pneumonia. Assessment/Plan Admission Diagnosis NSTEMI Admission Status: Inpatient Order (span 2 midnights) Reason for Inpatient Admission: NSTEMI requiring monitoring on telemetry, plan for cardiac cath tomorrow Assessment and Plan 57-year-old male presenting with chest pain, no ST elevations noted on EKG but did have a mild troponin elevation consistent with NSTEMI Diagnosis/Problems Diagnosis/Problems (1) NSTEMI (non-ST elevated myocardial infarction) Status: Acute Assessment & Plan: EKG on admission negative for any ST elevations, normal sinus Mild troponin bump Given patient's extensive cardiac history with many stent placements, cardiology was consulted in the ED Plan for cardiac cath in the morning Patient to receive 100 mg Lovenox, aspirin, metoprolol XL 50 mg tonight We will trend troponins (2) Chest pain Status: Acute Assessment & Plan: Per above We will have pain medications on board as well as aspirin Continue home medications (3) Diabetes Status: Acute Assessment & Plan: Continue home medications Will have sliding scale insulin on board Qualifiers: Diabetes mellitus type: type 2 Diabetes mellitus terminal operator insulin use: without snf use Diabetes mellitus complication status: without complication Qualified Codes: E11.9 - Type 2 diabetes mellitus without co mplications MARIVEL ASCENCIO DO 01/16/234: Assessment/Plan Admission Diagnosis I performed history and physical and conferred with resident and agree with medical management plan Admission Status: Inpatient Order (span 2 midnights) Reason for Inpatient Admission: Unstable angina NIGEL BURNS MD Jan 15, 2023 20:47 MARIVEL ASCENCIO DO Jan 16, 2023 21:34
[2023-01-15] MEDS ORDERED: NON-FORMULARY MEDICATION 1 EA EA (Liraglutide (Victoza 3-Pak) 0.6 MG) SQ SCH (21:00)
[2023-01-15] MEDS ORDERED: NALOXONE 0.4 MG/ML 1 ML (NARCAN) VIAL IV PRN (22:15)
[2023-01-15] MEDS ORDERED: morphine INJ 4 MG/ML 1 ML (VIAL/SYRINGE) IV PRN (22:15)
[2023-01-15] MEDS ORDERED: CALCIUM CARBONATE 500 MG CHEW TABLET PO PRN (22:15)
[2023-01-15] MEDS ORDERED: oxyCODONE IMMEDIATE RELEASE 5 MG TABLET PO PRN (22:15)
[2023-01-15] MEDS ORDERED: ANTACID SUSP 30 ML UDC (MYLANTA) PO PRN (22:15)
[2023-01-15] MEDS ORDERED: NS IV 500 ML 500 ML IV PRN (22:15)
[2023-01-15] MEDS ORDERED: ONDANSETRON 4 MG/2 ML (SDV) Z0FRAN IV PRN (22:15)
[2023-01-15] MEDS ORDERED: polyethylene glycoL POWDER 17 GM (MIRALAX) PACK PO PRN (22:15)
[2023-01-15] MEDS ORDERED: BISACODYL 10 MG SUPPOSITORY PR PRN (22:15)
[2023-01-15] MEDS ORDERED: MELATONIN 3 MG TABLET PO PRN (22:15)
[2023-01-15] MEDS ORDERED: ONDANSETRON 4 MG (ZOFRAN) ORAL DISSOLVE TAB PO PRN (22:15)
[2023-01-15] MEDS ORDERED: ACETAMINOPHEN 325 MG TABLET PO PRN (22:15)
[2023-01-15] MEDS: ACETAMINOPHEN 500 MG TABLET PO SCH (22:50)
[2023-01-15] MEDS: METHOCARBAMOL 750 MG (ROBAXIN) TAB PO SCH (22:51)
[2023-01-16] VITALS (15 sets, daily range): BP systolic 107–130; BP diastolic 74–96
[2023-01-16] MEDS: METHOCARBAMOL 750 MG (ROBAXIN) TAB PO SCH ×3 (04:47→21:18)
[2023-01-16 05:04] LABS: HEMATOCRIT 50 % (40-54); HEMOGLOBIN 16.8 g/dL (13.3-17.7); MEAN CORPUSCULAR HEMOGLOBIN 31 pg (25-34); MEAN CORPUSCULAR HGB CONC 34 g/dL (32-36); MEAN CORPUSCULAR VOLUME 93 fL (80-99); MEAN PLATELET VOLUME 11.2 fL (9.0-12.2); PLATELET COUNT 212 10^3/uL (130-400); WHITE BLOOD COUNT 8.4 10^3/uL (4.3-11.0)
[2023-01-16 05:26] LABS: ALBUMIN 3.8 GM/DL (3.2-4.5); BILIRUBIN,TOTAL 0.3 MG/DL (0.1-1.0); CALCIUM 9.3 MG/DL (8.5-10.1); CREATININE SERUM 1.19 MG/DL (0.60-1.30); MAGNESIUM 1.9 MG/DL (1.6-2.4); PHOSPHORUS 4.5 MG/DL (2.3-4.7); POTASSIUM 4.2 MMOL/L (3.6-5.0); TOTAL PROTEIN 6.7 GM/DL (6.4-8.2)
[2023-01-16] MEDS: inSUlin ASPART 1 UNIT/0.01 ML (PER UNIT) SC SCH ×4 (05:38→21:18)
[2023-01-16] MEDS: ACETAMINOPHEN 500 MG TABLET PO SCH ×3 (05:40→18:30)
[2023-01-16] MEDS: POTASSIUM CL 10MEQ/50ML IVPB 50 ML IV SCH (05:41)
[2023-01-16] MEDS ORDERED: ONDANSETRON 4 MG/2 ML (SDV) Z0FRAN IVP PRN (05:45)
[2023-01-16] MEDS ORDERED: MELATONIN 3 MG TABLET PO PRN (05:45)
[2023-01-16] MEDS ORDERED: ONDANSETRON 4 MG (ZOFRAN) ORAL DISSOLVE TAB PO PRN (05:45)
[2023-01-16] MEDS ORDERED: ALPRAZolam 0.25 MG TABLET PO PRN (05:45)
[2023-01-16] MEDS: POTASSIUM CHLORIDE 20 MEQ TABLET PO SCH (05:52)
[2023-01-16] MEDS: MAGNESIUM 1 GM/100 ML IVPB 100 ML IV SCH ×3 (05:53→06:54)
[2023-01-16 05:58] LABS: TRIGLYCERIDES 319 MG/DL (<150); VLDL CHOLESTEROL 64 MG/DL (5-40)
[2023-01-16 06:03] LABS: CHOLESTEROL 209 MG/DL (< 200)
[2023-01-16 06:04] LABS: HDL CHOLESTEROL 33 MG/DL (40-60)
[2023-01-16] MEDS: THIAMINE 100 MG (VITAMIN B-1) TAB PO SCH (06:55)
[2023-01-16] MEDS: CYANOCOBALAMIN 1,000 MCG TABLET PO SCH (06:55)
--- NOTE | 2023-01-16 08:11 | Consultation-Cardiology ---
HPI-Cardiology Cardiology Consultation: Date of Consultation 01/16/23 Time Seen by a Provider: 08:15 Date of Admission 01-15-23 Attending Physician [place] Admitting Physician Admitting Physician: Marivel Person DO Attending Physician: Marivel Person DO Consulting Physician Luigi Sanchez MD Primary Element Burner: Dr. Huddleston HPI: Chief Complaint: Chest pain Mr. Márquez is a 57 yr old male who has been admitted to [facility] from the ED with c /o CP. His mother is at the bedside. He reports he has been having left sided chest pain with exertion, relieved with rest for the last several weeks. He reports yesterday the chest pain was more intense when he would exert himself; radiating across the chest and into his back. He reports he has SOB, nausea and diaphoresis with the episodes of chest pain. The episodes would last a few minutes after he would rest. He states he feels the discomfort is exactly like the discomfort he has had in the past with his [place]'s. He is currently reporting mild LACW discomfort which has been constant. He denies any LE swelling. He is currently requesting pain medication and Benadryl. Review of Systems-Cardiology Review of Systems Constitutional: No chills, No fever, No malaise Eyes: No vision change Ears/Nose/Throat: No epistaxis, No recent hearing loss Respiratory: As described under HPI Cardiovascular: As described under HPI Gastrointestinal: As described under HPI Genitourinary: No dysuria, No hematuria Musculoskeletal: no symptoms reported Skin: No rash on exposed areas, No ulcerations on exposed areas Psychiatric/Neurological: No anxiety, No depression, No seizure, No focal weakness, No syncope Hematologic: No bleeding abnormalities IWM-Xdkeiq-Tgqbnr Hx Patient Social History Smoking Status: Never a Smoker 2nd Hand Smoke Exposure: Yes Alcohol Use?: Yes Pt feels they are or have been: No Immunizations Up To Date Tetanus Booster (TDap): Unknown Date of Pneumonia Vaccine: Feb 20, 2008 Date of Influenza Vaccine: Mar 12, 2008 Past Medical History PMH As described under Assessment. Family Medical History Family Medical History: Does not report fam h/o early CAD Allergies and Home Medications Allergies Coded Allergies: aspartame (Verified Allergy, Unknown, 12/10/20) pioglitazone (Verified Allergy, Unknown, 12/10/20) Ujquxai-TZF-QiR Reductase Inhibitor (Verified Adverse Reaction, Unknown, 12/10/20) Unspecified adverse reaction Patient Home Medication List Aspirin (Aspirin EC) 81 Mg Tablet.dr, 81 MG PO DAILY, (Reported) Entered as Reported by: GIANNA HINDS on 02/13/19 0749 Last Action: Continued Canagliflozin (Invokana) 100 Mg Tablet, 100 MG PO DAILY, (Reported) Entered as Reported by: GIANNA HINDS on 11/23/211131 Last Action: Converted Clopidogrel Bisulfate (Clopidogrel) 75 Mg Tablet, 75 MG PO DAILY, (Reported) Entered as Reported by: GIANNA HINDS on 11/23/211131 Last Action: Continued Cyanocobalamin (Vitamin B-12) (Vitamin B-12) 250 Mcg Tablet, 250 MCG PO DAILY, (Reported) Entered as Reported by: GIANNA HINDS on 11/23/211131 Last Action: Converted Ezetimibe (Ezetimibe) 10 Mg Tablet, 10 MG PO HS, (Reported) Entered as Reported by: GIANNA HINDS on 11/23/211131 Last Action: Continued Hydrocodone/Acetaminophen (Hydrocodone-Acetamin 5-325 mg) 5 Mg-325 Mg Tablet, 1 TAB PO Q6H PRN for PAIN-BREAKTHROUGH Prescribed by: KELIN CRISOSTOMO on 09/18/222044 Last Action: Held Liraglutide (Victoza 3-Lev) 0.6 Mg/0.1 Ml (18 Mg/3 Ml) Pen.injctr, 0.6 MG SQ HS, (Reported) Entered as Reported by: GIANNA HINDS on 11/23/211131 Last Action: Converted Methocarbamol (Methocarbamol) 750 Mg Tablet, 1,500 MG PO Q8H Prescribed by: KELIN CRISOSTOMO on 09/18/222043 Last Action: Continued Metoprolol Succinate (Metoprolol Succinate) 25 Mg Tab.er.24h, 25 MG PO DAILY Prescribed by: MARIVEL PERSON on 01/17/23 0633 Niacin (Inositol Niacinate) (Niacin Flush Free 500 mg Cap) 400 Mg Niacin (500 Mg) Capsule, 400 MG PO 1200, (Reported) Entered as Reported by: GIANNA HINDS on 11/23/211131 Last Action: Held Pantoprazole Sodium (Pantoprazole Sodium) 40 Mg Tablet.dr, 40 MG PO DAILY Prescribed by: MARIVEL PERSON on 01/17/23 0633 Thiamine HCl (Vitamin B-1) 50 Mg Tablet, 50 MG PO DAILY, (Reported) Entered as Reported by: GIANNA HINDS on 11/23/21 1132 Last Action: Converted Discontinued Medications Doxycycline Hyclate (Doxycycline Hyclate) 100 Mg Tablet, 100 MG PO BID Prescribed by: SHIRA OLIVARES MD on 09/21/221536 Last Action: Discontinued Ketorolac Tromethamine (Ketorolac Tromethamine) 10 Mg Tablet, 10 MG PO TID Prescribed by: SHIRA OLIVARES MD on 09/21/221536 Last Action: Discontinued Physical Exam-Cardiology Physical Exam Vital Signs/I&O 01/16/23 01/16/23 01/16/23 01/17/23 21:00 22:00 23:00 00:00 Pulse 61 65 60 60 Resp 14 24 16 32 B/P (MAP) 126/96 (110) 126/89 (105) 119/78 (92) 131/89 (103) Pulse Ox 95 96 94 96 O2 Delivery Room Air Room Air Room Air Room Air 01/17/23 01/17/23 01/17/23 01:00 04:00 07:51 Temp 35.9 Pulse 63 56 69 Resp 17 B/P (MAP) 126/86 (99) 112/90 (97) Pulse Ox 95 94 O2 Delivery Room Air Room Air 01/17/23 00:00 Intake Total 750 ml Balance 750 ml Capillary Refill : Less Than 3 Seconds Constitutional: AAO x 3, well-developed, well-nourished HEENT: PERRL, hearing is well preserved, oral hygience is good Neck: No carotid bruit; carotid pulses are 2 + bilaterally Respiratory: No accessory muscle use, No respiratory distress; chest expansion is symmetric, chest is bilaterally symmetric, lungs clear to auscultation Cardiovascular: regular rate-rhythm; No JVD; S1 and S2 Gastrointestinal: No tender; soft, round, audible bowel sounds Extremities: no lower extremity edema bilateral Neurologic/Psychiatric: other (moves all extremities) Skin: No rash on exposed areas, No ulcerations on exposed areas Data Review Labs Laboratory Tests 01/16/23 16:04: Glucometer 158H 01/16/23 20:36: Glucometer 202H 01/17/23 04:45: White Blood Count 7.9, Red Blood Count 5.20, Hemoglobin 16.3, Hematocrit 48, M gladys Corpuscular Volume 93, Mean Corpuscular Hemoglobin 31, Mean Corpuscular Hemoglobin Concent 34, Red Cell Distribution Width 12.5, Platelet Count 195, Mean Platelet Volume 11.0, Immature Granulocyte % (Auto) 0, Neutrophils (%) (Auto) 47, Lymphocytes (%) (Auto) 37, Monocytes (%) (Auto) 9, Eosinophils (%) (Auto) 6, Basophils (%) (Auto) 1, Neutrophils # (Auto) 3.7, Lymphocytes # (Auto) 2.9, Monocytes # (Auto) 0.7, Eosinophils # (Auto) 0.5H, Basophils # (Auto) 0.1, Immature Granulocyte # (Auto) 0.0, Sodium Level 139, Potassium Level 3.8, Chloride Level 110H, Carbon Dioxide Level 21, Anion Gap 8, Blood Urea Nitrogen 15, Creatinine 1.00, Estimat Glomerular Filtration Rate 87, BUN/Creatinine Ratio 15, Glucose Level 119H, Calcium Level 8.9, Corrected Calcium 9.1, Phosphorus Level 4.2, Magnesium Level 2.0, Total Bilirubin 0.2, Aspartate Amino Transf (AST/SGOT) 15, Alanine Aminotransferase (ALT/SGPT) 12, Alkaline Phosphatase 44, Total Protein 6.4, Albumin 3.7 Microbiology 01/16/23 MRSA Screen - Final, Complete MRSA not isolated Radiology NAME: AUGUSTINE MÁRQUEZ [facility] REC#: [id number] PT STATUS: REG ER : 1965 PHYSICIAN: SAE COLLINS DO ADMIT DATE: 01/15/23/ER Signed Date of Exam:01/15/23 CHEST 1 VIEW, AP/PA ONLY EXAMINATION: Chest 1 view. HISTORY: Chest pain. COMPARISON: 09/21/2022. FINDINGS: Heart size is normal with prominence of the pulmonary vasculature. Mild interstitial opacities within the mid and lower lungs. No pleural effusion or pneumothorax. The osseous structures are intact. IMPRESSION: Pulmonary vascular congestion with perihilar interstitial opacities. Findings can be seen with pulmonary edema, atelectasis or pneumonia. Dictated by: Dictated on workstation # [id number] Dict: 01/15/231903 Trans: 01/15/231912 [facility] [id number] Interpreted by: MOUNIKA GARY DO Electronically signed by: MOUNIKA GARY DO 01/15/231912 ECG Impression ECG Initial ECG Rhythm: Normal Sinus A/P-Cardiology Assessment/Admission Diagnosis Chest pain - minimal flat troponin elevation Coronary artery disease - History of myocardial infarction in 2010, had 3 stents placed in the right coronary artery using Promus element 3.512 mm followed by 3.028 followed by 2.512 mm in the right coronary artery, - Had another 2 cardiac catheterization reported that the stent was open. - Cardiac catheterization was done on February 13, 2019 showing severe mid LAD stenosis with successful primary stenting using Dori 2.512 mm expanded to 2.7 mm with excellent results, patent stent in the proximal and midright coronary artery with a step down beyond the stent, mild to moderate disease nonobstructive disease, normal left ventricular size and function. - Cardiac catheterization done December 2019 with balloon angioplasty to the RCA. CABG - Cardiac cath of November 23, 2021, Dr. Sanchez perform cardiac catheterization severe mid LAD stenosis proximal to the edge of an old stent, 80% distal to the edge. The distal lesion was stented with edith point 2.5 x 23 and the proximal lesion had a stent with 2.75 x 23 with good results. The rest of the coronary artery has diffuse moderate disease, right coronary artery has patent stent in the proximal and midportion. Ejection fraction 50-55 Lexiscan stress test was done on August 04, 2021 showing no ischemia no infarction, stress score 0, EF 59% - Echo done August 04, 2021 showing normal LV size, EF 50 to 55%, grade 1 diastolic dysfunction, PA pressure 30 to 35 mmHg. Mild peripheral arterial disease, peripheral angiogram done in February 2019 showing normal bilateral lower extremity runoff down to the trifurcation, the vessels below the trifurcation were not well visualized. Continue to monitor Hypertension Hyperlipidemia - unable to tolerate statins secondary to myalgias, was unable to afford Rapatha. Diabetes mellitus - managed by primary care physician Holter monitor done in June 2019 showing sinus rhythm, transient second- degree AV block, Mobitz 1, multiple short runs of paroxysmal atrial tachycardia and occasional atrial premature contractions History of multiple TIA, full recovery. Maintained on aspirin and Plavix Mild bilateral carotid stenosis, last ultrasound was done in May [address] Huddleston History of diverticulitis with colon resection History of gastroesophageal reflux disease, had Cesia fundoplication in the past Discussion and Recomendations Chest pain of undetermined etiology with minimal troponin elevation - he is reporting chest discomfort similar to chest pain he has had in the past requiring coronary intervention - he himself is concerned he has a coronary artery blockage Continue ASA, Plavix and BB Monitor lab closely Management of DM is per medical services Unable to tolerate statins as documented above Further recs will be based on his hospitalization We would like to thank medical services for this consult CHENG THORNE Jan 16, 2023 08:11
[2023-01-16] MEDS ORDERED: CLOPIDOGREL 75 MG TABLET PO SCH ×2 (09:00→20:00)
[2023-01-16] MEDS ORDERED: ASPIRIN enteric coated 81MG TABLET PO SCH ×2 (09:00→20:00)
[2023-01-16] MEDS ORDERED: NON-FORMULARY MEDICATION 1 EA EA (Canagliflozin (Invokana) 100 MG) PO SCH (09:00)
[2023-01-16] MEDS ORDERED: PANTOPRAZOLE 40 MG (PROTONIX) TAB PO ONE (09:00)
[2023-01-16] MEDS: polyethylene glycoL POWDER 17 GM (MIRALAX) PACK PO SCH ×2 (09:00→21:36)
[2023-01-16] MEDS: NS IV 1000 ML 1,000 ML IV SCH ×2 (10:04→14:05)
[2023-01-16] MEDS ORDERED: HEParin (CATH LAB) 2,000 ML IV ONE (11:24)
[2023-01-16] MEDS ORDERED: LIDOCAINE 1% INJ 20 ML VIAL ONE (11:24)
[2023-01-16] MEDS ORDERED: MIDAZOLAM 5 MG/5 ML (VERSED) VIAL ONE (11:27)
[2023-01-16] MEDS ORDERED: fentaNYL INJECTION 100 MCG/2 ML VIAL ONE (11:27)
[2023-01-16] MEDS ORDERED: VERAPAMIL 5 MG/2 ML (CALAN) VIAL IV ONE (11:28)
[2023-01-16] MEDS ORDERED: NITRO DRIP 25000 MCG/D5W 250 ML IV ONE (11:28)
[2023-01-16] MEDS ORDERED: HEParin 1000 UNIT/ML (10ML VIAL) FOR BOLUS ONE (11:28)
[2023-01-16] MEDS ORDERED: EPTIFIBATIDE DRIP 100 ML IV ONE (12:50)
[2023-01-16] MEDS ORDERED: EPTIFIBATIDE BOLUS 20 ML IV ONE (12:50)
[2023-01-16] MEDS ORDERED: ASPIRIN 81 MG CHEWABLE TABLET ONE (13:26)
[2023-01-16] MEDS ORDERED: CLOPIDOGREL 75 MG TABLET ONE (13:26)
--- NOTE | 2023-01-16 13:41 | Cardiac Cath Report ---
CARDIAC CATHETERIZATION DATE OF PROCEDURE: 01-16-23 INDICATION: Acute coronary syndrome HISTORY: The patient is a 57 year old male with acute coronary syndrome, previous h/o multiple cor stents PROCEDURES PERFORMED: 1. Coronary angiography 2. LHC 3. PCI to distal RCA PROCEDURE DESCRIPTION: After informed consent and in the fasting state, left heart catheterization was performed through the R artery utilizing a 6 [place] sheath by percutaneous approach. 6F TIG for L cors. 5F JR4 for R cor. 6F JR4 for LHC. 6F ART4 guide for cor intervention HEMODYNAMICS: LVEDP 8 mmHg, no significant pressure gradient on pullback across the aortic valve CORONARY ANGIOGRAPHY: Left main coronary artery: Ok Left anterior descending coronary artery: moderate diffuse disease, long and patent stented segment in the mid LAD Left circumflex coronary artery: 90-95% stenosis in the terminal portion where the vessel is of a very small caliber and not amenable to PCI Right coronary artery: Dominant, patent mid-vessel stent with approx 40% instent restenosis, patent distal RCA stenosis with 80% stenosis just proximal to this distal stent (stented successfully with Xience Dori 2.5 x 8 mm stent) PERCUTANEOUS CORONARY INTERVENTION: Guide: 6F ART4 Wire: BMW Stent: Xience Dori 2.5 x 8 mm Pre-PCI: 80% with ANKUSH 3 Post- PCI: 0% with ANKUSH 3 Dominance: Right coronary artery IMPRESSION: 1. Left main coronary artery: Ok; Left anterior descending coronary artery: moderate diffuse disease, long and patent stented segment in the mid LAD; Left circumflex coronary artery: 90-95% stenosis in the terminal portion where the vessel is of a very small caliber and not amenable to PCI; Right coronary artery: Dominant, patent mid-vessel stent with approx 40% instent restenosis, patent distal RCA stenosis with 80% stenosis just proximal to this distal stent (stented successfully with Xience Dori 2.5 x 8 mm stent) 2. LVEDP 8 mmHg SRINIVAS CREWS MD [facility] Jan 16, 2023 13:41
[2023-01-16] MEDS ORDERED: PATIENT MAY USE OWN MEDS, ALL PO SCH (13:45)
--- NOTE | 2023-01-16 13:45 | Consultation-Cardiology ---
HPI-Cardiology Cardiology Consultation: Date of Consultation 01/16/23 Time Seen by a Provider: 09:15 Date of Admission Attending Physician [place]/[facility] Admitting Physician Admitting Physician: Marivel Ascencio DO Attending Physician: Marivel Ascencio DO Consulting Physician SRINIVAS CREWS MD, MA, FACP, FACC, [facility], CCDS Physician requesting consult: Dr Ascencio HPI: Chief Complaint: Acute coronary syndrome Mr. Márquez is a 57 yr old male who has been admitted to [facility] from the ED with c/o CP. His mother is at the bedside. He reports he has been having left sided chest pain with exertion, relieved with rest for the last several weeks. He reports yesterday the chest pain was more intense when he would exert himself; radiating across the chest and into his back. He reports he has SOB, nausea and diaphoresis with the episodes of chest pain. The episodes would last a few minutes after he would rest. He states he feels the discomfort is exactly like the discomfort he has had in the past with his [place]'s. He is currently reporting mild LACW discomfort which has been constant. He denies any LE swelling. He is currently requesting pain medication and Benadryl. Review of Systems-Cardiology Review of Systems Constitutional: No chills, No fever, No malaise Eyes: No vision change Ears/Nose/Throat: No epistaxis, No recent hearing loss Respiratory: As described under HPI Cardiovascular: As described under HPI Gastrointestinal: As described under HPI Genitourinary: No dysuria, No hematuria Musculoskeletal: no symptoms reported Skin: No rash on exposed areas, No ulcerations on exposed areas Psychiatric/Neurological: No anxiety, No depression, No seizure, No focal weakness, No syncope Hematologic: No bleeding abnormalities GLF-Fsoimt-Jqmsoq Hx Patient Social History Smoking Status: Never a Smoker 2nd Hand Smoke Exposure: Yes Alcohol Use?: Yes Pt feels they are or have been: No Immunizations Up To Date Tetanus Booster (TDap): Unknown Date of Pneumonia Vaccine: Feb 20, 2008 Date of Influenza Vaccine: Mar 12, 2008 Past Medical History PMH As described under Assessment. Family Medical History Family Medical History: Does not report fam h/o early CAD Allergies and Home Medications Allergies Coded Allergies: aspartame (Verified Allergy, Unknown, 12/10/20) pioglitazone (Verified Allergy, Unknown, 12/10/20) Tkhvhxk-KJV-RrM Reductase Inhibitor (Verified Adverse Reaction, Unknown, 12/10/20) Unspecified adverse reaction Patient Home Medication List Home Medication List Reviewed: Yes Aspirin (Aspirin EC) 81 Mg Tablet.dr, 81 MG PO DAILY, (Reported) Entered as Reported by: GIANNA HINDS on 02/13/19 0749 Last Action: Continued Canagliflozin (Invokana) 100 Mg Tablet, 100 MG PO DAILY, (Reported) Entered as Reported by: GIANNA HINDS on 11/23/211131 Last Action: Converted Clopidogrel Bisulfate (Clopidogrel) 75 Mg Tablet, 75 MG PO DAILY, (Reported) Entered as Reported by: GIANNA HINDS on 11/23/211131 Last Action: Continued Cyanocobalamin (Vitamin B-12) (Vitamin B-12) 250 Mcg Tablet, 250 MCG PO DAILY, (Reported) Entered as Reported by: GIANNA HINDS on 11/23/211131 Last Action: Converted Doxycycline Hyclate (Doxycycline Hyclate) 100 Mg Tablet, 100 MG PO BID Prescribed by: SHIRA OLIVARES MD on 09/21/221536 Last Action: Held Ezetimibe (Ezetimibe) 10 Mg Tablet, 10 MG PO HS, (Reported) Entered as Reported by: GIANNA HINDS on 11/23/211131 Last Action: Continued Hydrocodone/Acetaminophen (Hydrocodone-Acetamin 5-325 mg) 5 Mg-325 Mg Tablet, 1 TAB PO Q6H PRN for PAIN-BREAKTHROUGH Prescribed by: KELIN CRISOSTOMO on 09/18/222044 Last Action: Held Ketorolac Tromethamine (Ketorolac Tromethamine) 10 Mg Tablet, 10 MG PO TID Prescribed by: SHIRA OLIVARES MD on 09/21/221536 Last Action: Held Liraglutide (Victoza 3-Lev) 0.6 Mg/0.1 Ml (18 Mg/3 Ml) Pen.injctr, 0.6 MG SQ HS, (Reported) Entered as Reported by: GIANNA HINDS on 11/23/211131 Last Action: Converted Methocarbamol (Methocarbamol) 750 Mg Tablet, 1,500 MG PO Q8H Prescribed by: KELIN CRISOSTOMO on 4/9/23 2044 Last Action: Continued Niacin (Inositol Niacinate) (Niacin Flush Free 500 mg Cap) 400 Mg Niacin (500 Mg) Capsule, 400 MG PO 1200, (Reported) Entered as Reported by: GIANNA HINDS on 11/23/211131 Last Action: Held Thiamine HCl (Vitamin B-1) 50 Mg Tablet, 50 MG PO DAILY, (Reported) Entered as Reported by: GIANNA HINDS on 11/23/211131 Last Action: Converted Physical Exam-Cardiology Physical Exam Vital Signs/I&O 01/16/23 01/16/23 01/16/23 01/16/23 04:00 07:00 07:49 08:00 Temp 36.7 36.1 Pulse 70 66 58 Resp 18 14 B/P (MAP) 122/78 (93) 110/77 (88) Pulse Ox 92 93 O2 Delivery Room Air Room Air Room Air 01/16/23 11:58 Temp 36.0 Pulse 67 Resp 12 B/P (MAP) 117/91 (100) Pulse Ox 95 O2 Delivery Room Air 01/16/23 00:00 Intake Total 660 ml Balance 660 ml Capillary Refill : Less Than 3 Seconds Constitutional: AAO x 3, well-developed, well-nourished HEENT: PERRL, hearing is well preserved, oral hygience is good Neck: No carotid bruit; carotid pulses are 2 + bilaterally Respiratory: No accessory muscle use, No respiratory distress; chest expansion is symmetric, chest is bilaterally symmetric, lungs clear to auscultation Cardiovascular: regular rate-rhythm; No JVD; S1 and S2 Gastrointestinal: No tender; soft, round, audible bowel sounds Extremities: no lower extremity edema bilateral Neurologic/Psychiatric: other (moves all extremities) Skin: No rash on exposed areas, No ulcerations on exposed areas Data Review Labs Laboratory Tests 01/15/23 18:54: White Blood Count 9.9, Red Blood Count 5.58H, Hemoglobin 17.9H, Hematocrit 52, Mean Corpuscular Volume 93, Mean Corpuscular Hemoglobin 32, Mean Corpuscular Hemoglobin Concent 34, Red Cell Distribution Width 12.8, Platelet Count 225, Mean Platelet Volume 11.1, Immature Granulocyte % (Auto) 0, Neutrophils (%) (Auto) 51, Lymphocytes (%) (Auto) 36, Monocytes (%) (Auto) 8, Eosinophils (%) (Auto) 4, Basophils (%) (Auto) 1, Neutrophils # (Auto) 5.1, Lymphocytes # (Auto) 3.5, Monocytes # (Auto) 0.8, Eosinophils # (Auto) 0.4H, Basophils # (Auto) 0.1, Immature Granulocyte # (Auto) 0.0, Prothrombin Time 13.4, INR Comment 1.0, Activated Partial Thromboplast Time 30, D-Dimer 0.27, Sodium Level 141, Potassium Level 4.0, Chloride Level 107, Carbon Dioxide Level 21, Anion Gap 13, Blood Urea Nitrogen 21H, Creatinine 1.36H, Estimat Glomerular Filtration Rate 60, BUN/Creatinine Ratio 15, Glucose Level 202H, Calcium Level 10.1, Corrected Calcium 9.9, Magnesium Level 2.1, Total Bilirubin 0.2, Aspartate Amino Transf (AST/SGOT) 16, Alanine Aminotransferase (ALT/SGPT) 14, Alkaline Phosphatase 57, Total Creatine Kinase 70, Creatine Kinase MB 2.0, Myoglobin 36.8, Troponin I 0.030H, B-Type Natriuretic Peptide 38.8, Total Protein 7.8, Albumin 4.2, Amylase Level 63, Lipase 54 01/15/23 22:25: Troponin I 0.030H 01/16/23 04:36: White Blood Count 8.4, Red Blood Count 5.39, Hemoglobin 16.8, Hematocrit 50, Mean Corpuscular Volume 93, Mean Corpuscular Hemoglobin 31, Mean Corpuscular Hemoglobin Concent 34, Red Cell Distribution Width 12.9, Platelet Count 212, Mean Platelet Volume 11.2, Sodium Level 140, Potassium Level 4.2, Chloride Level 111H, Carbon Dioxide Level 19L, Anion Gap 10, Blood Urea Nitrogen 19H, Creatinine 1.19, Estimat Glomerular Filtration Rate 71, BUN/Creatinine Ratio 16, Glucose Level 136H, Calcium Level 9.3, Corrected Calcium 9.5, Magnesium Level 1.9, Total Bilirubin 0.3, Aspartate Amino Transf (AST/SGOT) 16, Alanine Aminotransferase (ALT/SGPT) 13, Alkaline Phosphatase 48, Total Protein 6.7, Albumin 3.8, Phosphorus Level 4.5, Triglycerides Level 319H, Cholesterol Level 209H, LDL Cholesterol Direct 156H, VLDL Cholesterol 64H, HDL Cholesterol 33L 01/16/23 05:37: Glucometer 140H A/P-Cardiology Assessment/Admission Diagnosis Acute coronary syndrome - mild troponin elevation Coronary artery disease - History of myocardial infarction in 2010, had 3 stents placed in the right coronary artery using Promus element 3.512 mm followed by 3.028 followed by 2.512 mm in the right coronary artery, - Had another 2 cardiac catheterization reported that the stent was open. - Cardiac catheterization was done on February 13, 2019 showing severe mid LAD stenosis with successful primary stenting using Dori 2.512 mm expanded to 2.7 mm with excellent results, patent stent in the proximal and midright coronary artery with a step down beyond the stent, mild to moderate disease nonobstructive disease, normal left ventricular size and function. - Cardiac catheterization done December 2019 with balloon angioplasty to the RCA. CABG - Cardiac cath of November 23, 2021, Dr. Crews perform cardiac catheterization severe mid LAD stenosis proximal to the edge of an old stent, 80% distal to the edge. The distal lesion was stented with edith point 2.5 x 23 and the proximal lesion had a stent with 2.75 x 23 with good results. The rest of the coronary artery has diffuse moderate disease, right coronary artery has patent stent in the proximal and midportion. Ejection fraction 50-55 Lexiscan stress test was done on August 04, 2021 showing no ischemia no infarction, stress score 0, EF 59% - Echo done August 04, 2021 showing normal LV size, EF 50 to 55%, grade 1 diastolic dysfunction, PA pressure 30 to 35 mmHg. Mild peripheral arterial disease, peripheral angiogram done in February 2019 showing normal bilateral lower extremity runoff down to the trifurcation, the vessels below the trifurcation were not well visualized. Continue to monitor Hypertension Hyperlipidemia - unable to tolerate statins secondary to myalgias, was unable to afford Rapatha. Diabetes mellitus - managed by primary care physician Holter monitor done in June 2019 showing sinus rhythm, transient second- degree AV block, Mobitz 1, multiple short runs of paroxysmal atrial tachycardia and occasional atrial premature contractions History of multiple TIA, full recovery. Maintained on aspirin and Plavix Mild bilateral carotid stenosis, last ultrasound was done in May [address] Huddleston History of diverticulitis with colon resection History of gastroesophageal reflux disease, had Cesia fundoplication in the past Discussion and Recomendations Given known CAD, multiple interventions, and presentation consistent with acute coronary syndrome, we will proceed with urgent cath/PCI. Discussed in detail with patient. He provides informed consent Continue ASA, Plavix and BB Monitor lab closely Management of DM is per medical services Unable to tolerate statins as documented above Further recs will be based on his hospitalization We would like to thank Medical services for this consult SRINIVAS CREWS MD FACP [facility] CCDS Jan 16, 2023 13:45
[2023-01-16] MEDS ORDERED: ENOXAPARIN 40 MG/0.4 ML SYRINGE SC SCH (21:00)
[2023-01-17] VITALS: BP 131/89
[2023-01-17] MEDS: ACETAMINOPHEN 500 MG TABLET PO SCH ×3 (00:01→12:30)
[2023-01-17] MEDS: NS IV 1000 ML 1,000 ML IV SCH ×2 (00:01→10:21)
[2023-01-17 04:00] VITALS: BP 126/86
[2023-01-17] MEDS: METHOCARBAMOL 750 MG (ROBAXIN) TAB PO SCH ×2 (04:45→12:30)
[2023-01-17 05:03] LABS: BASOPHILS # (AUTO) 0.1 10^3/uL (0.0-0.1); BASOPHILS % (AUTO) 1 % (0-10); EOSINOPHILS # (AUTO) 0.5 10^3/uL (0.0-0.3); EOSINOPHILS % (AUTO) 6 % (0-10); HEMATOCRIT 48 % (40-54); HEMOGLOBIN 16.3 g/dL (13.3-17.7); LYMPHOCYTES # (AUTO) 2.9 10^3/uL (1.0-4.0); LYMPHOCYTES % (AUTO) 37 % (12-44); MEAN CORPUSCULAR HEMOGLOBIN 31 pg (25-34); MEAN CORPUSCULAR HGB CONC 34 g/dL (32-36); MEAN CORPUSCULAR VOLUME 93 fL (80-99); MONOCYTES # (AUTO) 0.7 10^3/uL (0.0-1.0); MONOCYTES % (AUTO) 9 % (0-12); NEUTROPHILS # (AUTO) 3.7 10^3/uL (1.8-7.8); NEUTROPHILS % (AUTO) 47 % (42-75); PLATELET COUNT 195 10^3/uL (130-400); WHITE BLOOD COUNT 7.9 10^3/uL (4.3-11.0)
[2023-01-17 05:29] LABS: ALBUMIN 3.7 GM/DL (3.2-4.5); BILIRUBIN,TOTAL 0.2 MG/DL (0.1-1.0); CALCIUM 8.9 MG/DL (8.5-10.1); PHOSPHORUS 4.2 MG/DL (2.3-4.7); POTASSIUM 3.8 MMOL/L (3.6-5.0); TOTAL PROTEIN 6.4 GM/DL (6.4-8.2)
[2023-01-17] MEDS: MAGNESIUM 1 GM/100 ML IVPB 100 ML IV SCH (05:35)
[2023-01-17] MEDS: POTASSIUM CHLORIDE 20 MEQ TABLET PO SCH (05:35)
[2023-01-17] MEDS: POTASSIUM CL 10MEQ/50ML IVPB 50 ML IV SCH (05:35)
[2023-01-17] MEDS: inSUlin ASPART 1 UNIT/0.01 ML (PER UNIT) SC SCH ×2 (05:36→11:19)
[2023-01-17] MEDS ORDERED: PANT40TA52 PO (06:33)
[2023-01-17] MEDS ORDERED: MTP25TSR PO (06:33)
--- NOTE | 2023-01-17 06:33 | Discharge Summary ---
Discharge Summary Hospital Course Was the Problem List Reviewed?: Yes Problems/Dx: (1) NSTEMI (non-ST elevated myocardial infarction) Status: Acute (2) Chest pain Status: Acute (3) Diabetes Status: Acute Qualifiers: Qualified Codes: E11.9 - Type 2 diabetes mellitus without complications Hospital Course Date of Admission: Jan 15, 2023 at 20:34 Admission Diagnosis : Family Physician/Provider: [place]/[facility] Date of Discharge: 01/17/23 Discharge Diagnosis: [ ] Hospital Course: Uneventful hospital course after he was admitted for chest pain underwent cardiac catheterization with intervention with resolution of chest pain and he was deemed stable for discharge. Labs and Pending Lab Test: Laboratory Tests 01/16/23 16:04: Glucometer 158H 01/16/23 20:36: Glucometer 202H 01/17/23 04:45: White Blood Count 7.9, Red Blood Count 5.20, Hemoglobin 16.3, Hematocrit 48, Mean Corpuscular Volume 93, Mean Corpuscular Hemoglobin 31, Mean Corpuscular Hemoglobin Concent 34, Red Cell Distribution Width 12.5, Platelet Count 195, Mean Platelet Volume 11.0, Immature Granulocyte % (Auto) 0, Neutrophils (%) (Auto) 47, Lymphocytes (%) (Auto) 37, Monocytes (%) (Auto) 9, Eosinophils (%) (Auto) 6, Basophils (%) (Auto) 1, Neutrophils # (Auto) 3.7, Lymphocytes # (Auto) 2.9, Monocytes # (Auto) 0.7, Eosinophils # (Auto) 0.5H, Basophils # (Auto) 0.1, Immature Granulocyte # (Auto) 0.0, Sodium Level 139, Potassium Level 3.8, Chloride Level 110H, Carbon Dioxide Level 21, Anion Gap 8, Blood Urea Nitrogen 15, Creatinine 1.00, Estimat Glomerular Filtration Rate 87, BUN/Creatinine Ratio 15, Glucose Level 119H, Calcium Level 8.9, Corrected Calcium 9.1, Phosphorus Level 4.2, Magnesium Level 2.0, Total Bilirubin 0.2, Aspartate Amino Transf (AST/SGOT) 15, Alanine Aminotransferase (ALT/SGPT) 12, Alkaline Phosphatase 44, Total Protein 6.4, Albumin 3.7 Home Meds Active Pantoprazole Sodium 40 Mg Tablet.dr 40 Mg PO DAILY Metoprolol Succinate 25 Mg Tab.er.24h 25 Mg PO DAILY Methocarbamol 750 Mg Tablet 1,500 Mg PO Q8H Hydrocodone-Acetamin 5-325 mg (Hydrocodone/Acetaminophen) 5 Mg-325 Mg Tablet 1 Tab PO Q6H PRN Reported Victoza 3-Lev (Liraglutide) 0.6 Mg/0.1 Ml (18 Mg/3 Ml) Pen.injctr 0.6 Mg SQ HS Invokana (Canagliflozin) 100 Mg Tablet 100 Mg PO DAILY Ezetimibe 10 Mg Tablet 10 Mg PO HS Clopidogrel (Clopidogrel Bisulfate) 75 Mg Tablet 75 Mg PO DAILY Vitamin B-1 (Thiamine HCl) 50 Mg Tablet 50 Mg PO DAILY Vitamin B-12 (Cyanocobalamin (Vitamin B-12)) 250 Mcg Tablet 250 Mcg PO DAILY Niacin Flush Free 500 mg Cap (Niacin (Inositol Niacinate)) 400 Mg Niacin (500 Mg) Capsule 400 Mg PO 1200 Aspirin EC (Aspirin) 81 Mg Tablet.dr 81 Mg PO DAILY Assessment/Pt Instructions PCP in 1 week Discharge Planning: <30 minutes discharge planning Discharge Instructions Discharge Diet: No Restrictions Activity as Tolerated: Yes Discharge Physical Examination Vital Signs Vital Signs Date Time Temp Pulse Resp B/P (MAP) Pulse Ox O2 Delivery O2 Flow Rate FiO2 01/17/23 04:00 56 126/86 (99) 95 Room Air 01/17/23 00:00 32 01/16/23 19:53 35.9 General Appearance: No Apparent Distress, WD/WN, Chronically ill Allergies: Coded Allergies: aspartame (Verified Allergy, Unknown, 12/10/20) pioglitazone (Verified Allergy, Unknown, 12/10/20) [id number] Reductase Inhibitor (Verified Adverse Reaction, Unknown, 12/10/20) Unspecified adverse reaction Discharge Summary Date of Admission Jan 15, 2023 at 20:34 Date of Discharge Discharge Date: Jan 17, 2023 Admission Diagnosis I performed history and physical and conferred with resident and agree with medical management plan Discharge Diagnosis (1) NSTEMI (non-ST elevated myocardial infarction) Status: Acute Assessment & Plan: EKG on admission negative for any ST elevations, normal sinus Mild troponin bump Given patient's extensive cardiac history with many stent placements, cardiology was consulted in the ED Plan for cardiac cath in the morning Patient to receive 100 mg Lovenox, aspirin, metoprolol XL 50 mg tonight We will trend troponins (2) Chest pain Status: Acute Assessment & Plan: Per above We will have pain medications on board as well as aspirin Continue home medications (3) Diabetes Status: Acute Assessment & Plan: Continue home medications Will have sliding scale insulin on board Qualifiers: Qualified Codes: E11.9 - Type 2 diabetes mellitus without complications VENKATA PERSON DO Jan 17, 2023 06:33
[2023-01-17] MEDS: CYANOCOBALAMIN 1,000 MCG TABLET PO SCH (06:41)
[2023-01-17] MEDS: THIAMINE 100 MG (VITAMIN B-1) TAB PO SCH (06:42)
[2023-01-17 07:51] VITALS: BP 112/90
--- NOTE | 2023-01-17 08:26 | Progress Note - Cardiology ---
Cardiology SOAP Progress Note Subjective: Getting echo this morning No c/o CP, SOB, indigestion or palpitations Objective: I&O/Vital Signs 01/16/23 01/16/23 01/16/23 01/17/23 21:00 22:00 23:00 00:00 Pulse 61 65 60 60 Resp 14 24 16 32 B/P (MAP) 126/96 (110) 126/89 (105) 119/78 (92) 131/89 (103) Pulse Ox 95 96 94 96 O2 Delivery Room Air Room Air Room Air Room Air 01/17/23 01/17/23 01/17/23 01:00 04:00 07:51 Temp 35.9 Pulse 63 56 69 Resp 17 B/P (MAP) 126/86 (99) 112/90 (97) Pulse Ox 95 94 O2 Delivery Room Air Room Air 01/17/23 00:00 Intake Total 750 ml Balance 750 ml Weight (Pounds): 240 Weight (Ounces): 0.0 Weight (Calculated Kilograms): 108.840621 Side: right Bruising: mild bruising (right radial site) Constitutional: AAO x 3, well-developed, well-nourished Respiratory: No accessory muscle use, No respiratory distress; chest expansion is symmetric, chest is bilaterally symmetric, lungs clear to auscultation Cardiovascular: regular rate-rhythm; No JVD; S1 and S2 Gastrointestional: No tender; soft, round, audible bowel sounds Extremities: no lower extremity edema bilateral Neurologic/Psychiatric: other (moves all extremities) Skin: No rash on exposed areas, No ulcerations on exposed areas Results/Procedures: Labs Laboratory Tests 01/16/23 16:04: Glucometer 158H 01/16/23 20:36: Glucometer 202H 01/17/23 04:45: White Blood Count 7.9, Red Blood Count 5.20, Hemoglobin 16.3, Hematocrit 48, Mean Corpuscular Volume 93, Mean Corpuscular Hemoglobin 31, Mean Corpuscular Hemoglobin Concent 34, Red Cell Distribution Width 12.5, Platelet Count 195, Mean Platelet Volume 11.0, Immature Granulocyte % (Auto) 0, Neutrophils (%) (Auto) 47, Lymphocytes (%) (Auto) 37, Monocytes (%) (Auto) 9, Eosinophils (%) (Auto) 6, Basophils (%) (Auto) 1, Neutrophils # (Auto) 3.7, Lymphocytes # (Auto) 2.9, Monocytes # (Auto) 0.7, Eosinophils # (Auto) 0.5H, Basophils # (Auto) 0.1, Immature Granulocyte # (Auto) 0.0, Sodium Level 139, Potassium Level 3.8, Chloride Level 110H, Carbon Dioxide Level 21, Anion Gap 8, Blood Urea Nitrogen 15, Creatinine 1.00, Estimat Glomerular Filtration Rate 87, BUN/Creatinine Ratio 15, Glucose Level 119H, Calcium Level 8.9, Corrected Calcium 9.1, Phosphorus Level 4.2, Magnesium Level 2.0, Total Bilirubin 0.2, Aspartate Amino Transf (AST/SGOT) 15, Alanine Aminotransferase (ALT/SGPT) 12, Alkaline Phosphatase 44, Total Protein 6.4, Albumin 3.7 Microbiology 01/16/23 MRSA Screen - Final, Complete MRSA not isolated Laboratory Tests 01/15/23 18:54 01/16/23 04:36 01/17/23 04:45 A/P: Assessment: Acute coronary syndrome - mild troponin elevation Coronary artery disease - History of myocardial infarction in 2010, had 3 stents placed in the right coronary artery using Promus element 3.512 mm followed by 3.028 followed by 2.512 mm in the right coronary artery, - Had another 2 cardiac catheterization reported that the stent was open. - Cardiac catheterization was done on February 13, 2019 showing severe mid LAD stenosis with successful primary stenting using Dori 2.512 mm expanded to 2.7 mm with excellent results, patent stent in the proximal and midright coronary artery with a step down beyond the stent, mild to moderate disease nonobstructive disease, normal left ventricular size and function. - Cardiac catheterization done December 2019 with balloon angioplasty to the RCA. CABG - Cardiac cath of November 23, 2021, Dr. Sanchez perform cardiac catheterization severe mid LAD stenosis proximal to the edge of an old stent, 80% distal to the edge. The distal lesion was stented with edith point 2.5 x 23 and the proximal lesion had a stent with 2.75 x 23 with good results. The rest of the coronary artery has diffuse moderate disease, right coronary artery has patent stent in the proximal and midportion. Ejection fraction 50-55 - Cardiac cath of 01-16-23: Left main coronary artery: Ok; Left anterior descending coronary artery: moderate diffuse disease, long and patent stented segment in the mid LAD; Left circumflex coronary artery: 90-95% stenosis in the terminal portion where the vessel is of a very small caliber and not amenable to PCI; Right coronary artery: Dominant, patent mid-vessel stent with approx 40% instent restenosis, patent distal RCA stenosis with 80% stenosis just proximal to this distal stent (stented successfully with Xience Dori 2.5 x 8 mm stent) 2. LVEDP 8 mmHg Lexiscan stress test was done on August 04, 2021 showing no ischemia no infarction, stress score 0, EF 59% - Echo done August 04, 2021 showing normal LV size, EF 50 to 55%, grade 1 diastolic dysfunction, PA pressure 30 to 35 mmHg. Mild peripheral arterial disease, peripheral angiogram done in February 2019 showing normal bilateral lower extremity runoff down to the trifurcation, the vessels below the trifurcation were not well visualized. Continue to monitor Hypertension Hyperlipidemia - unable to tolerate statins secondary to myalgias, was unable to afford Rapatha. Diabetes mellitus - managed by primary care physician Holter monitor done in June 2019 showing sinus rhythm, transient second- degree AV block, Mobitz 1, multiple short runs of paroxysmal atrial tachycardia and occasional atrial premature contractions History of multiple TIA, full recovery. Maintained on aspirin and Plavix Mild bilateral carotid stenosis, last ultrasound was done in May [address] Essie Huddleston History of diverticulitis with colon resection History of gastroesophageal reflux disease, had Cesia fundoplication in the past Plan: S/P cardiac cath with successful coronary intervention Continue ASA, Plavix and BB Monitor lab closely Management of DM is per medical services Unable to tolerate statins as documented above Echo being done this morning Likely home today with out pt f/u with CHENG Smallwood Jan 17, 2023 08:26
[2023-01-17] MEDS ORDERED: PANTOPRAZOLE 40 MG (PROTONIX) TAB PO SCH (09:00)
[2023-01-17] MEDS ORDERED: ASPIRIN 81 MG CHEWABLE TABLET PO SCH (09:00)
[2023-01-17] MEDS: polyethylene glycoL POWDER 17 GM (MIRALAX) PACK PO SCH (09:40)
[2023-01-17] MEDS ORDERED: CANA300T PO (10:17)
[2023-01-17] MEDS ORDERED: EMPAGLIFLOZIN 10 MG TABLET PO SCH (11:00)
[2023-01-17] MEDS ORDERED: CYAN25003 SL (11:20)
[2023-01-17 11:28] VITALS: BP 133/93
[2023-01-17 15:50] VITALS: BP 133/93
--- NOTE | 2023-01-17 17:24 | Progress Note - Cardiology ---
Cardiology SOAP Progress Note Subjective: No cp or palp or syncope No wrist or arm discomfort No shortness of breath No n/v/d Feels well and wishes to go home Objective: I&O/Vital Signs 01/17/23 01/17/23 01/17/23 01/17/23 07:00 07:51 08:00 11:28 Temp 35.9 36.3 Pulse 58 69 66 Resp 17 18 B/P (MAP) 112/90 (97) 133/93 (106) Pulse Ox 94 98 O2 Delivery Room Air Room Air Room Air 01/17/23 15:50 Temp 36.3 Pulse 66 Resp 18 B/P (MAP) 133/93 Pulse Ox 98 O2 Delivery Room Air 01/17/23 00:00 Intake Total 750 ml Balance 750 ml Weight (Pounds): 240 Weight (Ounces): 0.0 Weight (Calculated Kilograms): 108.240752 Side: right Bruising: mild bruising (right radial site) Constitutional: AAO x 3, well-developed, well-nourished Respiratory: No accessory muscle use, No respiratory distress; chest expansion is symmetric, chest is bilaterally symmetric, lungs clear to auscultation Cardiovascular: regular rate-rhythm; No JVD; S1 and S2 Gastrointestional: No tender; soft, round, audible bowel sounds Extremities: no lower extremity edema bilateral Neurologic/Psychiatric: other (moves all extremities) Skin: No rash on exposed areas, No ulcerations on exposed areas Results/Procedures: Labs Laboratory Tests 01/16/23 20:36: Glucometer 202H 01/17/23 04:45: White Blood Count 7.9, Red Blood Count 5.20, Hemoglobin 16.3, Hematocrit 48, Mean Corpuscular Volume 93, Mean Corpuscular Hemoglobin 31, Mean Corpuscular Hemoglobin Concent 34, Red Cell Distribution Width 12.5, Platelet Count 195, Mean Platelet Volume 11.0, Immature Granulocyte % (Auto) 0, Neutrophils (%) (Auto) 47, Lymphocytes (%) (Auto) 37, Monocytes (%) (Auto) 9, Eosinophils (%) (Auto) 6, Basophils (%) (Auto) 1, Neutrophils # (Auto) 3.7, Lymphocytes # (Auto) 2.9, Monocytes # (Auto) 0.7, Eosinophils # (Auto) 0.5H, Basophils # (Auto) 0.1, Immature Granulocyte # (Auto) 0.0, Sodium Level 139, Potassium Level 3.8, Chloride Level 110H, Carbon Dioxide Level 21, Anion Gap 8, Blood Urea Nitrogen 15, Creatinine 1.00, Estimat Glomerular Filtration Rate 87, BUN/Creatinine Ratio 15, Glucose Level 119H, Calcium Level 8.9, Corrected Calcium 9.1, Phosphorus L evel 4.2, Magnesium Level 2.0, Total Bilirubin 0.2, Aspartate Amino Transf (AST/SGOT) 15, Alanine Aminotransferase (ALT/SGPT) 12, Alkaline Phosphatase 44, Total Protein 6.4, Albumin 3.7 01/17/23 10:41: Glucometer 139H Microbiology 01/16/23 MRSA Screen - Final, Complete MRSA not isolated Laboratory Tests 01/15/23 18:54 01/16/23 04:36 01/17/23 04:45 A/P: Assessment: Acute coronary syndrome - mild troponin elevation Coronary artery disease - History of myocardial infarction in 2010, had 3 stents placed in the right coronary artery using Promus element 3.512 mm followed by 3.028 followed by 2.512 mm in the right coronary artery, - Had another 2 cardiac catheterization reported that the stent was open. - Cardiac catheterization was done on February 13, 2019 showing severe mid LAD stenosis with successful primary stenting using Dori 2.512 mm expanded to 2.7 mm with excellent results, patent stent in the proximal and midright coronary artery with a step down beyond the stent, mild to moderate disease nonobstructive disease, normal left ventricular size and function. - Cardiac catheterization done December 2019 with balloon angioplasty to the RCA. CABG - Cardiac cath of November 23, 2021, Dr. Sanchez perform cardiac catheterization severe mid LAD stenosis proximal to the edge of an old stent, 80% distal to the edge. The distal lesion was stented with edith point 2.5 x 23 and the proximal lesion had a stent with 2.75 x 23 with good results. The rest of the coronary artery has diffuse moderate disease, right coronary artery has patent stent in the proximal and midportion. Ejection fraction 50-55 - Cardiac cath of 01-16-23: Left main coronary artery: Ok; Left anterior descending coronary artery: moderate diffuse disease, long and patent stented segment in the mid LAD; Left circumflex coronary artery: 90-95% stenosis in the terminal portion where the vessel is of a very small caliber and not amenable to PCI; Right coronary artery: Dominant, patent mid-vessel stent with approx 40% instent restenosis, patent distal RCA stenosis with 80% stenosis just proximal to this distal stent (stented successfully with Xience Dori 2.5 x 8 mm stent) 2. LVEDP 8 mmHg Lexiscan stress test was done on August 04, 2021 showing no ischemia no infarction, stress score 0, EF 59% - Echo done August 04, 2021 showing normal LV size, EF 50 to 55%, grade 1 diastolic dysfunction, PA pressure 30 to 35 mmHg. Mild peripheral arterial disease, peripheral angiogram done in February 2019 showing normal bilateral lower extremity runoff down to the trifurcation, the vessels below the trifurcation were not well visualized. Continue to monitor Hypertension Hyperlipidemia - unable to tolerate statins secondary to myalgias, was unable to afford Rapatha. Diabetes mellitus - managed by primary care physician Holter monitor done in June 2019 showing sinus rhythm, transient second- degree AV block, Mobitz 1, multiple short runs of paroxysmal atrial tachycardia and occasional atrial premature contractions History of multiple TIA, full recovery. Maintained on aspirin and Plavix Mild bilateral carotid stenosis, last ultrasound was done in May 2021 by Yuly Huddleston History of diverticulitis with colon resection History of gastroesophageal reflux disease, had Cesia fundoplication in the past Plan: S/P cardiac cath with successful coronary intervention Continue ASA, Plavix and BB We recommended statin. He refuses. States will discuss with Dr Huddleston Monitor lab closely Management of DM is per Medical services Unable to tolerate statins as documented above Echo being done this morning Ok to d/c today with outpt f/u with SRINIVAS Johnson MD FACP [facility] Jan 17, 2023 17:24
== END 2023-01-17 15:15 | disposition home or self-care (01) | DRG 247 ==
LOC: EDUNIT# 18:44 → ER 18:46 → CSD 20:34
PROVIDERS: ADMIT Internal Medicine; ATTEND Internal Medicine
PROC: 027034Z Dilation of Coronary Artery, One Artery with Drug-eluting Intraluminal Device, Percutaneous Approach (ICD-10-PCS; principal; 2023-01-16)
PROC: 4A023N7 Measurement of Cardiac Sampling and Pressure, Left Heart, Percutaneous Approach (ICD-10-PCS; 2023-01-16)
PROC: B2111ZZ Fluoroscopy of Multiple Coronary Arteries using Low Osmolar Contrast (ICD-10-PCS; 2023-01-16)
DX: I21.4 Non-ST elevation (NSTEMI) myocardial infarction (principal); T82.855A Stenosis of coronary artery stent, initial encounter; I25.110 Atherosclerotic heart disease of native coronary artery with unstable angina pectoris; E11.51 Type 2 diabetes mellitus with diabetic peripheral angiopathy without gangrene; I65.23 Occlusion and stenosis of bilateral carotid arteries; I10 Essential (primary) hypertension; E78.00 Pure hypercholesterolemia, unspecified; G47.30 Sleep apnea, unspecified; K21.9 Gastro-esophageal reflux disease without esophagitis; M19.90 Unspecified osteoarthritis, unspecified site; Z95.5 Presence of coronary angioplasty implant and graft; Z95.1 Presence of aortocoronary bypass graft; I25.2 Old myocardial infarction; Z86.73 Personal history of transient ischemic attack (TIA), and cerebral infarction without residual deficits; Z79.02 Long term (current) use of antithrombotics/antiplatelets; Z79.82 Long term (current) use of aspirin; Z79.84 Long term (current) use of oral hypoglycemic drugs; Z79.899 Other long term (current) drug therapy; Z88.8 Allergy status to other drugs, medicaments and biological substances
CPT/HCPCS: 36415; 71045; 80053; 80061; 82150; 82550; 82553; 82947; 83690; 83735; 83874; 83880; 84100; 84484; 85025; 85027; 85379; 85610; 85730; 87081; 93005; 93041; 93306; 93458